=== PATIENT | female | born 1960 | race Caucasian/White ===

== ENCOUNTER 2020-05-15 16:20 | Outpatient (REF) | payer BC, SELFPAY ==
--- NOTE | 2020-05-15 16:25 | XR_ITS ---
EXAMINATION: XR CHEST CLINICAL INFORMATION: R06.2 - Wheezing COMPARISON: Chest radiographs 12/13/2019, 02/19/2019, CT abdomen 08/13/2018 TECHNIQUE: 2 views of the chest were obtained. FINDINGS: There is questionable opacity left base lateral to left cardiac border. There may be contribution from nipple shadow in this area. The lungs otherwise clear. The vascularity is normal. The costophrenic sulci are well-defined. The heart is normal in size. The hilar and mediastinal contours are normal. Bony structures show pectus excavatum and vertebral augmentation lower thoracic spine. There is levocurvature lumbar spine. XR/XR chest 2V IMPRESSION: 1. Questionable opacity left base possibly with contribution from nipple shadow. Suggest follow-up chest in 4 weeks to include nipple markers to confirm clearing. 2. Otherwise, no hyperinflation, lobar or segmental airspace consolidation, or effusion.
== END 2020-05-15 16:21 | disposition home or self-care (01) ==
LOC: HO.HMGCX 16:20
PROVIDERS: PCP Family Medicine; Visit Provider Nurse Practitioner Family
DX: R06.2 Wheezing (principal); Z20.828 Contact with and (suspected) exposure to other viral communicable diseases
CPT/HCPCS: 71046; U0003

== ENCOUNTER 2020-05-31 | Outpatient (REF) | payer BC, SELFPAY | END 2020-05-31 00:01 | disposition home or self-care (01) | LOC: HO.LNP | PROVIDERS: Visit Provider Family Medicine | DX: Z20.822 Contact with and (suspected) exposure to COVID-19 (principal) | CPT/HCPCS: 36415; U0003 ==

== ENCOUNTER 2020-06-08 12:09 | Outpatient (REF) | payer BC, SELFPAY ==
--- NOTE | 2020-06-08 12:44 | XR_ITS ---
EXAMINATION: XR CHEST CLINICAL INFORMATION: Questionable opacity left base, possibly nipple shadow. Follow-up. COMPARISON: Chest radiographs 05/15/2020, 12/13/2019 TECHNIQUE: PA and lateral views of the chest are obtained. Nipple markers are positioned on each side. FINDINGS: The lungs are clear. Opacity left base is no longer demonstrated. The vascularity is normal. The costophrenic sulci are well-defined. The heart is normal in size. The hilar and mediastinal contours and visualized bony structures are stable. XR/XR chest 2V IMPRESSION: Lungs clear. No persistent opacity left base.
== END 2020-06-08 12:10 | disposition home or self-care (01) ==
LOC: HO.HMGCX 12:09
PROVIDERS: PCP Family Medicine; Visit Provider Family Medicine
DX: R93.89 Abnormal findings on diagnostic imaging of other specified body structures (principal)
CPT/HCPCS: 71046

== ENCOUNTER 2020-08-30 14:08 | Outpatient (REF) | payer BC, SELFPAY ==
--- NOTE | ~2020-08-30 | XR_ITS ---
EXAMINATION: XR CHEST CLINICAL INFORMATION: Bronchitis COMPARISON: Chest radiographs 06/08/2020, 05/15/2020 TECHNIQUE: 2 views of the chest were obtained. FINDINGS: Lungs are clear. There is no airspace consolidation, groundglass opacity, or effusion. The heart is normal in size. The hilar and mediastinal contours are normal. The bony structures are stable. Again, there is prior vertebral augmentation lower thoracic spine and mild stable loss of height midthoracic vertebral body. XR/XR chest 2V IMPRESSION: Lungs clear. No acute intrathoracic disease.
== END 2020-08-30 14:09 | disposition home or self-care (01) ==
LOC: HO.HMGCX 14:08
PROVIDERS: Visit Provider Hospitalist
DX: J40 Bronchitis, not specified as acute or chronic (principal)
CPT/HCPCS: 71046

== ENCOUNTER 2020-10-10 13:14 | Outpatient (REF) | payer BC, SELFPAY ==
--- NOTE | ~2020-10-10 | CT_ITS ---
EXAMINATION: CT HEAD WITHOUT CONTRAST CLINICAL INFORMATION: Headache. COMPARISON: CT brain 08/13/2018. TECHNIQUE: Contiguous axial imaging was performed from the skull base to vertex without intravenous administration of contrast. This CT examination was performed using dose optimization techniques as appropriate, variously including the following: *Automated exposure control *Adjustment of mA and/or kV according to patient size (this includes techniques or standardized protocols for targeted exams where dose is matched to indication/reason for exam; i.e. extremities or head) *Use of iterative reconstruction technique DLP: 826 mGy-cm FINDINGS: There is no acute intra-axial, extra-axial bleed, masses or midline shift. There is right frontoparietal temporal lobe encephalomalacia with ex-vacuo dilatation of right lateral ventricle. No recurrent acute infarction is visualized. The right lateral ventricle is enlarged. The left ventricle size is normal. There is no edema. The posterior fossa appears unremarkable. There is no abnormal attenuation within the brain parenchyma. The osseous structures and soft tissues are normal. The mastoid air cells and visualized portions of the paranasal sinuses are well aerated. CT/CT head/brain wo con IMPRESSION: No acute intracranial process seen. Right frontoparietal temporal lobe encephalomalacia with ex-vacuo dilatation of right lateral ventricle. 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
== END 2020-10-10 13:15 | disposition home or self-care (01) ==
LOC: HO.CT 13:14
PROVIDERS: PCP Family Medicine; Visit Provider Family Medicine
DX: S09.90XA Unspecified injury of head, initial encounter (principal); R51.9 Headache, unspecified; R41.82 Altered mental status, unspecified
CPT/HCPCS: 70450

== ENCOUNTER 2020-11-01 18:21 | Emergency (ER) | payer BC, SELFPAY ==
--- NOTE | ~2020-11-01 | XR_ITS ---
EXAMINATION: XR FACIAL BONES CLINICAL INFORMATION: Fall. Left orbital laceration. COMPARISON: Facial bones 06/28/2016 TECHNIQUE: 4 views of the facial bones were obtained. FINDINGS: No acute abnormality. No fracture of the facial bones. Visualized orbits are intact. Normal aeration of paranasal sinuses. Nasal bones and maxillary spines and zygomatic arches are normal. XR/XR facial bones min 3V IMPRESSION: No acute abnormality of the facial bones.
[2020-11-01 18:27] VITALS: BP 152/91; PULSE 73; RESP 18; TEMP 36.6; O2SAT 97; BMI 20.3
--- NOTE | 2020-11-01 20:04 | PC.NURSE ---
pt taken to rad, steri strips 3 steri strips intact, no bleed noted. pt aox3 no distress,
--- NOTE | 2020-11-01 20:34 | ED.WOUNDLAC ---
HPI - Wound/Laceration General Chief Complaint: Wound/Laceration Stated Complaint: LAC (FALL) Source: patient Mode of arrival: wheelchair Limitations: no limitations History of Present Illness HPI narrative: 60-year-old female presents with an accidental injury to the left lateral orbital after slipping out of a chair and hitting her face. She does have a small laceration to the left side of her face, and a black eye. She states that she falls quite a bit, primarily uses a wheelchair for mobility. She does not report any prodromal symptoms, denies chest pain pressure, palpitations, shortness of breath, shortness breath on exertion, abdominal pain, abdominal distention, dysuria, hematuria, fevers, chills, diarrhea, or any other concerning symptoms. Onset (ago): hour(s) (Within the hour of arrival) Location: face Place: home Patient tetanus UTD: Yes Context: accidental Associated symptoms: pain Related Data Home Medications Medication Instructions Recorded Confirmed amlodipine 5 mg tablet 5 mg PO DAILY 05/01/20 08/30/20 atorvastatin 40 mg tablet mg PO 05/01/20 08/30/20 carbamazepine 400 mg 400 mg PO BID 05/01/20 08/30/20 tablet,extended release,12 hr lisinopril 20 mg tablet 20 mg PO DAILY 05/01/20 08/30/20 terazosin 2 mg capsule 2 mg PO BEDTIME 05/01/20 08/30/20 Previous Rx's Medication Instructions Recorded paroxetine HCl 10 mg tablet 10 mg PO DAILY 90 Days #90 tab 04/27/20 albuterol sulfate 90 mcg/actuation 1 inh INHALATION Q6H PRN #1 ea 05/15/20 breath activated powder inhaler,sensor azithromycin 500 mg tablet 500 mg PO DAILY 3 Days #3 tab 05/15/20 azithromycin 250 mg tablet See Rx Instructions PO .COMPLEX #6 05/16/20 tab azithromycin 250 mg tablet See Rx Instructions PO .COMPLEX #6 08/30/20 tab prednisone 20 mg tablet 20 mg PO .COMPLEX #18 tab 08/30/20 ropinirole 2 mg tablet 2 mg PO BEDTIME 90 Days #90 tab 09/07/20 hydromorphone 4 mg tablet 4 mg PO TID PRN 30 Days #90 tab 10/04/20 lorazepam 2 mg tablet 2 mg PO DAILY PRN #30 tab 10/04/20 pregabalin 100 mg capsule 200 mg PO Q12H 30 Days #120 cap 10/04/20 pregabalin 200 mg capsule 100 mg PO Q8H 30 Days #45 cap 10/04/20 fluoxetine 40 mg capsule 40 mg PO QAM #90 cap 10/26/20 Allergies Allergy/AdvReac Type Severity Reaction Status Date / Time clonidine Allergy Unknown Rash Verified 11/01/20 18:32 fentanyl [FENTANYL] Allergy Unknown UNKNOWN Verified 11/01/20 18:32 meperidine [Demerol] Allergy Unknown rash Verified 11/01/20 18:32 morphine [MORPHINE] Allergy Unknown UNKNOWN, Verified 11/01/20 18:32 chest pressure phenytoin [Dilantin] Allergy Unknown rash Verified 11/01/20 18:32 remifentanil Allergy Unknown RAsh Verified 11/01/20 18:32 sevoflurane Allergy Unknown RAsh Verified 11/01/20 18:32 Sulfa (Sulfonamide Allergy Unknown UNKNOWN, Verified 11/01/20 18:32 Antibiotics) rash [SULFA(SULFONAMIDE ANTIBIOTICS)] From DEMEROL Allergy Unknown UNKNOWN Uncoded 08/30/20 14:12 From DILANTIN Allergy Unknown UNKNOWN Uncoded 08/30/20 14:12 Lactated Ringers AdvReac Unknown contraindicated Uncoded 08/30/20 14: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 Review of Systems Review of Systems: Constitutional: No Fever, No Chills ENT/Mouth: No Ear Pain, No Hoarseness, No sore throat Eyes: Left Eye Pain ecchymosis and swelling, No Redness, No Foreign Body Cardiovascular: No Chest Pain, No SOB Respiratory: No Cough, No Dyspnea Gastrointestinal: No Nausea, No Vomiting, No Diarrhea, No abdominal Pain Genitourinary: No Dysuria, No Hematuria Musculoskeletal: positive joint pain, No Myalgias, No Joint Swelling Skin: Positive laceration to left lateral orbital, No rash Neuro: No Weakness, No Numbness, No Paresthesias, No Loss of Consciousness, No Dizziness, No Headache Psych: No Anxiety/Panic, No Depression Heme/Lymph: no easy bruising, no Lymphadenopathy Endocrine: No Polyuria, No Polydipsia Yes all other systems are reviewed and are negative PMFSH Past Medical History Attestation statement: The following information was validated with the patient. Source: old records reviewed Surgical History History of arterial bypass of lower extremity History of brain surgery History of foot surgery Social History Social History Alcohol intake: current Alcohol intake frequency: other Alcohol type: wine Advance Directives: No Advance Directives Information Provided: Yes Physical Exam Vital Signs: Vital Signs: Last Vital Signs Temp 97.8 F 11/01/20 18:27 Pulse 73 11/01/20 18:27 Resp 18 11/01/20 18:27 BP 152/91 H 11/01/20 18:27 Pulse Ox 97 11/01/20 18:27 Body Mass Index 20.3 Appearance: Alert. Oriented X3. No acute distress. Head: Normal external exam. Normocephalic. Atraumatic. No Rudolph signs noted. No raccoon eyes noted Eyes: PERRLA. EOMI. Conjunctiva and sclera normal. Left upper and lower eyelid have ecchymosis with laceration to the lateral aspect of the orbital. ENT: TM's Normal. Pharynx normal. Uvula midline. Moist mucous membranes. No trismus noted. No drooling noted. No muffled voice noted. Neck: Normal inspection. Neck supple. No adenopathy. Thyroid Normal. No meningeal signs. No neck mass noted. CVS: Normal heart rate and rhythm. Heart sound normal. No murmurs noted. Pulses equal to all extremities. Respiratory: No respiratory distress. Painless inspiration. Breath sounds normal. No wheezes/rales/rhonchi noted. Chest nontender. No accessory muscle usage noted or decreased air movement noted. Abdomen: Soft and nontender. Bowel sounds normal in all 4 quadrants. No distention noted. No organomegaly noted. No visible injury noted. Back: No CVA tenderness. Full range of motion noted. Skin: Skin warm and dry. Normal skin color. Normal skin turgor. No rashes/lesions/lacerations noted. Extremities: No lower extremity edema. Extremities exhibit normal range of motion. Extremities nontender. Neuro: cranial nerves 2-12 intact, no focal neural deficits, strength 5/5 to all extremities, No motor deficit. No sensory deficit. Course Course Course Narrative: 6-year-old female with past medical history of CVA, craniotomy, bi femoral bypass, hypertension, hyperlipidemia, mitochondrial disease, primarily mobile with wheelchair presents with fall and left orbital laceration. Patient states that she bumped her head while slipping out of her chair. She has had multiple falls, does not report any prodromal symptoms. Will order facial bones x-ray and Steri-Strips laceration. Tdap was updated last month, patient states that she did fall last month. Do not suspect any foul play or abuse, patient does have a significant history of brain injury, CVA, and craniotomy with mitochondrial disease. Facial bones x-rays negative for acute findings. Wound cleaned and irrigated with copious amounts of saline under sterile procedure. Three Steri-Strips applied with benzoin ointment. Patient does understand discharge instructions, and agrees to plan of care to discharge home. MDM - Wound/Laceration Differential Diagnosis Differential diagnosis: Likely laceration Medical Records Attestation: I reviewed the patient's medical records. Imaging Data Facial bones x-ray: Attestation: I personally reviewed and interpreted this imaging study as follows: Radiologist's impression: EXAMINATION: XR FACIAL BONES CLINICAL INFORMATION: Fall. Left orbital laceration. COMPARISON: Facial bones 06/28/2016 TECHNIQUE: 4 views of the facial bones were obtained. FINDINGS: No acute abnormality. No fracture of the facial bones. Visualized orbits are intact. Normal aeration of paranasal sinuses. Nasal bones and maxillary spines and zygomatic arches are normal. XR/XR facial bones min 3V IMPRESSION: No acute abnormality of the facial bones. Discharge Plan Discharge Clinical Impression: Laceration, Skin wound closed with sterile strip Fall Qualifiers: Encounter type: initial encounter Qualified Code(s): W19.XXXA - Unspecified fall, initial encounter Patient Disposition: Home, Self-Care Instructions: Skin Adhesive Care (ED), Fall Prevention (ED), Facial Laceration (ED) Additional Instructions: You were evaluated for injuries sustained from a fall. We placed 3 Steri-Strips to the laceration above her left eyebrow. Please keep the Steri-Strips in place until they fall off on their own. Your facial bones x-ray is negative for fracture or acute findings. Please follow-up with primary care physician this week. Use Tylenol or Motrin as needed for pain management. Thank you for choosing this emergency department for evaluation. Please follow-up with primary care physician as needed. Return to the emergency department for any new, concerning, or worsening symptoms. Prescriptions: No Action paroxetine HCl [Paxil] 10 mg tablet 10 mg PO DAILY 90 Days Qty: 90 RF: 4 azithromycin 250 mg tablet See Rx Instructions PO .COMPLEX Qty: 6 RF: 0 ropinirole 2 mg tablet 2 mg PO BEDTIME 90 Days Qty: 90 RF: 2 hydromorphone [Dilaudid] 4 mg tablet 4 mg PO TID PRN (Reason: pain) 30 Days Qty: 90 RF: 0 lorazepam 2 mg tablet 2 mg PO DAILY PRN (Reason: anxiety) Qty: 30 RF: 0 pregabalin [Lyrica] 100 mg capsule 200 mg PO Q12H 30 Days Qty: 120 RF: 0 pregabalin [Lyrica] 200 mg capsule 100 mg PO Q8H 30 Days Qty: 45 RF: 1 fluoxetine 40 mg capsule 40 mg PO QAM Qty: 90 RF: 2 lisinopril 20 mg tablet 20 mg PO DAILY RF: 0 atorvastatin 40 mg tablet PO RF: 0 carbamazepine 400 mg tablet extended release 12 hr 400 mg PO BID RF: 0 amlodipine 5 mg tablet 5 mg PO DAILY RF: 0 terazosin 2 mg capsule 2 mg PO BEDTIME RF: 0 azithromycin 500 mg tablet 500 mg PO DAILY 3 Days Qty: 3 RF: 0 Proair Digihaler 90 mcg/actuation aero powdr breath act w/sensor 1 inh inhalation Q6H PRN (Reason: shortness of breath or wheezing) Qty: 1 RF: 0 prednisone 20 mg tablet 20 mg PO .COMPLEX Qty: 18 RF: 0 azithromycin 250 mg tablet See Rx Instructions PO .COMPLEX Qty: 6 RF: 0 Prevnar 13 (PF) 0.5 mL syringe 0.5 ml IM ONCE Qty: 0.5 RF: 0 Interventions: ED Discharge Assessment Last Done: 11/01/20 21:12 Discharge Date/Time: 11/01/20 20:45
== END 2020-11-01 20:45 | disposition home or self-care (01) ==
PROVIDERS: Emergency Provider Emergency Medicine Emergency Medical Services; PCP Family Medicine
DX: S01.112A Laceration without foreign body of left eyelid and periocular area, initial encounter (principal); I10 Essential (primary) hypertension; W05.0XXA Fall from non-moving wheelchair, initial encounter; Y93.9 Activity, unspecified; Y92.9 Unspecified place or not applicable; Y99.9 Unspecified external cause status; Z86.73 Personal history of transient ischemic attack (TIA), and cerebral infarction without residual deficits; Z99.3 Dependence on wheelchair; Z79.899 Other long term (current) drug therapy
CPT/HCPCS: 70150; 99283

== ENCOUNTER 2020-11-19 17:31 | Inpatient (IN) | payer MEDICARE, BC, SELFPAY ==
--- NOTE | ~2020-11-19 | MR_ITS ---
EXAMINATION: MR BRAIN WITHOUT CONTRAST CLINICAL INFORMATION: TIA. COMPARISON: Brain MRI dated 05/01/2016. TECHNIQUE: Multiplanar, multisequence imaging of the brain was performed without contrast. FINDINGS: No diffusion abnormalities are identified to suggest an acute infarct. No hydrocephalus. No mass effect or midline shift is seen. Extensive encephalomalacia in the right cerebral hemisphere again evident with ex vacuo dilatation of the right lateral ventricle. Surrounding gliosis noted. Right-sided craniotomy changes present. No extra-axial fluid collections are seen. Wallerian degeneration affects the right aspect of the brainstem with small vessel ischemic changes in the kylie. The cerebellum is normal. Chronic volume loss in the body of the corpus callosum. Focal encephalomalacia in the right occipital lobe. Chronic hemosiderin staining present in the right basal ganglia and right cerebral hemisphere at sites of encephalomalacia. The craniovertebral junction, marrow signal, and remaining midline structures are normal. The major intracranial flow voids at the level of the [place] are preserved. The dural venous sinus flow voids are maintained. The mastoid air cells and paranasal sinuses are well aerated. MR/MR head/brain wo con IMPRESSION: Extensive chronic encephalomalacia and gliosis in the right cerebral hemisphere with ex vacuo dilatation of the right lateral ventricle and associated hemosiderin staining. No acute intracranial process.
--- NOTE | ~2020-11-19 | CT_ITS ---
EXAMINATION: CT HEAD WITHOUT CONTRAST (STROKE PROTOCOL) CLINICAL INFORMATION: Stroke protocol. COMPARISON: None TECHNIQUE: Contiguous axial imaging was performed from the skull base to vertex without intravenous administration of contrast. This CT examination was performed using dose optimization techniques as appropriate, variously including the following: *Automated exposure control *Adjustment of mA and/or kV according to patient size (this includes techniques or standardized protocols for targeted exams where dose is matched to indication/reason for exam; i.e. extremities or head) *Use of iterative reconstruction technique DLP: 756 mGy-cm FINDINGS: There is prominent right frontoparietal and temporal lobe encephalomalacia with ex vacuo dilatation of the right lateral ventricle, appearing similar to previous. No acute infarction is evident by CT. No hemorrhagic conversion is seen. No acute intracranial hemorrhage is identified. No extra-axial fluid collections are seen. No abnormal mass effect or midline shift is seen. No evidence of acute edematous territorial infarction. No acute calvarial fracture. Mild microangiopathic changes in the deep white matter. The mastoid air cells and visualized portions of the paranasal sinuses are well aerated. CT/CT head for stroke IMPRESSION: No evidence of acute territorial infarction or intracranial hemorrhage. Right frontoparietal and temporal lobe encephalomalacia from old infarction, with ex vacuo dilatation of the right lateral ventricle, similar to previous. This critical result was discussed with BAYRON Lloyd at 6:20 PM on 11/19/2020. It was ascertained that the content and urgency of the report was understood at the time of direct communication.
--- NOTE | ~2020-11-19 | XR_ITS ---
EXAMINATION: XR CHEST CLINICAL INFORMATION: Slurred speech. Left leg weakness. COMPARISON: X-ray 08/30/2020 TECHNIQUE: Frontal view of the chest was obtained. FINDINGS: The cardiomediastinal silhouette is within normal limits. The lungs are well expanded. There is no focal consolidation, edema, or effusion. No pneumothorax. No acute osseous abnormality. XR/XR chest 1V IMPRESSION: No evidence of acute process.
--- NOTE | ~2020-11-19 | CT_ITS ---
EXAMINATION: CTA OF THE HEAD AND NECK CLINICAL INFORMATION: Slurred speech and left leg weakness. COMPARISON: Head CT from 10/10/2020. TECHNIQUE: Test bolus sequences followed by intravenous administration 70 mL of Omnipaque 350. Helical imaging was performed in the axial plane from the mediastinum to the skull vertex. Delayed postcontrast imaging of the head was also performed. The data was processed at the ultrasound technologist sonographer's workstation for generation of MIP sequences. Three-dimensional volume rendered reformatted images were also generated at an offline 3-D workstation. Stenoses are assessed in accordance with NASCET criteria unless otherwise indicated. This CT examination was performed using dose optimization techniques as appropriate, variously including the following: *Automated exposure control *Adjustment of mA and/or kV according to patient size (this includes techniques or standardized protocols for targeted exams where dose is matched to indication/reason for exam; i.e. extremities or head) *Use of iterative reconstruction technique DLP: 756 mGy-cm. FINDINGS: CTA neck: The imaged aortic arch and origins of the great vessels are normal. The common carotid arteries are widely patent. The carotid bifurcations are patent. The cervical internal carotid arteries are normal. The vertebral arteries opacify normally and are of normal caliber. The soft tissues of the neck are unremarkable. Moderate lower cervical spondylosis and reversal of the normal cervical lordosis. Patchy subsegmental atelectatic changes in the lungs with mosaic attenuation. CTA head: The intradural vertebral arteries and basilar artery are normal. The posterior cerebral arteries are widely patent. The internal carotid arteries are of normal caliber. The [place]ST[place] and MCA vascular complexes bilaterally are normal. The venous sinuses opacify normally. CT/CT angio head neck stroke IMPRESSION: No vessel occlusion or significant stenosis in the cervical or intracranial vasculature. Imaging findings reported to BAYRON George at 6:55 PM on 11/19/2020.
[2020-11-19 17:45] VITALS: BP 179/108; BP 183/92; PULSE 66; PULSE 68; RESP 16; TEMP 36.7; O2SAT 96; O2SAT 98; BMI 21.7
--- NOTE | 2020-11-19 17:47 | ECG_ITS ---
Test Reason : WEAKNESS Blood Pressure : / mmHG Vent. Rate : 062 BPM Atrial Rate : 062 BPM P-R Int : 150 ms QRS Dur : 078 ms QT Int : 400 ms P-R-T Axes : 063 019 054 degrees QTc Int : 406 ms Normal sinus rhythm Voltage criteria for left ventricular hypertrophy Junctional ST depression, probably normal Abnormal ECG When compared with ECG of 13-AUG-2018 06:01, No significant change was found Referred By: Jasmyne George Electronically Signed By:BARRIE GRECO MD
[2020-11-19 18:03] LABS: Glucose, Whole Blood 80 mg/dL (60-115)
[2020-11-19 18:05] LABS: Prothrombin Time Whole Bld POC 13.7 sec (11.1-13.5); ~PT, ~INR - Anti Coag Clinic 1.1 (0.9-1.1)
[2020-11-19 18:12] LABS: MANUAL DIFF FLAG NO
[2020-11-19 18:14] LABS: Basophils Percent Auto 0.5 % (0-2); Eosinophils Percent Auto 0.7 % (0-4); Hemoglobin 12.4 g/dl (12.0-16.0); Lymphocytes Absolute Auto 2.5 X10*3/uL (1.2-4.9); Lymphocytes Percent Auto 58.5 % (20-40); Mean Corpuscular HGB Conc 34.4 g/dl (31.0-35.0); Mean Corpuscular Hemoglobin 32.7 pg (27.0-33.0); Mean Platelet Volume 9.6 fL (9.4-12.3); Monocytes Absolute Auto 0.4 X10*3/uL (0.1-1.2); Neutrophils Absolute Auto 1.3 X10*3/uL (2.0-8.3); Neutrophils Percent Auto 30.3 % (45-73); Platelet Count 249 X10*3/uL (160-400); Red Blood Count 3.79 X10*6/uL (4.20-5.50); Red Cell Distribution Width 11.8 % (11.0-16.0); White Blood Count 4.3 X10*3/uL (4.8-10.8)
--- NOTE | 2020-11-19 18:14 | ED_ITS ---
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 Her friend is the one who noticed. Her friend also reports that she sent her a text message which did not make any sense therefore her friend called her and told him that she could be bleeding in her brain and had him call EMS to bring her to the emergency department for further evaluation treatment. Patient reports her symptoms resolved prior to arrival. Onset (ago): hour(s) ( 3 hours prior to arrival) Last Observed Normal: 15:00 Timing confirmed by: spouse and other (friend over the phone ) Location: speech and left leg (worsening weakness) History of same: Yes Severity: mild Quality: other ( improved prior to arrival) Relieving factors: none Exacerbating factors: none Context: sudden onset On Anticoagulants: No Associated symptoms: denies other symptoms Treatments Prior to Arrival: none Related Data Home Medications Medication Instructions Recorded Confirmed lisinopril 20 mg tablet 20 mg PO DAILY 05/01/20 11/19/20 terazosin 2 mg capsule 2 mg PO BEDTIME 05/01/20 11/19/20 amlodipine 1 tab PO DAILY 11/19/20 11/19/20 ammonium lactate 1 appl TOPICAL BID 11/19/20 11/19/20 estradiol [Estring] 1 ea VAGINAL [id number] 11/19/20 11/19/20 Previous Rx's Medication Instructions Recorded paroxetine HCl 10 mg tablet 10 mg PO DAILY 90 Days #90 tab 04/27/20 albuterol sulfate 90 mcg/actuation 1 inh INHALATION Q6H PRN #1 ea 05/15/20 breath activated powder inhaler,sensor ropinirole 2 mg tablet 2 mg PO BEDTIME 90 Days #90 tab 09/07/20 lorazepam 2 mg tablet 2 mg PO DAILY PRN #30 tab 10/04/20 fluoxetine 40 mg capsule 40 mg PO QAM #90 cap 10/26/20 esomeprazole magnesium 40 mg 40 mg PO DAILY 90 Days #90 cap 11/06/20 capsule,delayed release hydromorphone 4 mg tablet 4 mg PO TID PRN 30 Days #90 tab 11/07/20 pregabalin 100 mg capsule 200 mg PO Q12H 30 Days #120 cap 11/07/20 pregabalin 200 mg capsule 100 mg PO Q8H 30 Days #45 cap 11/07/20 atorvastatin 40 mg tablet 40 mg PO DAILY #90 tab 11/16/20 carbamazepine 400 mg 400 mg PO BID 90 Days #180 tab 11/16/20 tablet,extended release,12 hr Allergies Allergy/AdvReac Type Severity Reaction Status Date / Time clonidine Allergy Unknown Rash Verified 11/19/20 17:45 fentanyl [FENTANYL] Allergy Unknown UNKNOWN Verified 11/19/20 17:45 meperidine [Demerol] Allergy Unknown rash Verified 11/19/20 17:45 morphine [MORPHINE] Allergy Unknown UNKNOWN, Verified 11/19/20 17:45 chest pressure phenytoin [Dilantin] Allergy Unknown rash Verified 11/19/20 17:45 remifentanil Allergy Unknown RAsh Verified 11/19/20 17:45 sevoflurane Allergy Unknown RAsh Verified 11/19/20 17:45 Sulfa (Sulfonamide Allergy Unknown UNKNOWN, Verified 11/19/20 17:45 Antibiotics) rash [SULFA(SULFONAMIDE ANTIBIOTICS)] From DEMEROL Allergy Unknown UNKNOWN Uncoded 08/30/20 14:12 From DILANTIN Allergy Unknown UNKNOWN Uncoded 08/30/20 14:12 Lactated Ringers AdvReac Unknown contraindicated Uncoded 08/30/20 14: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 Review of Systems Review of Systems: Constitutional : No Fever, No Chills, No Night Sweats, No Fatigue, No Malaise ENT/Mouth : No Ear Pain, No Nasal Congestion, No Sinus Pain, No sore throat, No Rhinorrhea Eyes: No Eye Pain, No Swelling, No Redness, No Foreign Body, No Discharge, No Vision Changes Cardiovascular : No Chest Pain, No SOB, No Dyspnea on Exertion, No Orthopnea, No Palpitations Respiratory : No Cough, No Sputum, No Wheezing, No Dyspnea Gastrointestinal : No Nausea, No Vomiting, No Diarrhea, No Constipation, No abdominal Pain, No Hematochezia, No Melena Genitourinary : No Dysuria, No Urinary Frequency, No Urinary Incontinence, No Ur gency, No Flank Pain Musculoskeletal : No joint pain, No Myalgias Skin : No lacerations Neuro : Positive resolved slurred speech and left leg weakness, No Numbness, No Paresthesias, No Loss of Consciousness, No Dizziness, No Headache Yes all other systems are reviewed and are negative [facility] Past Medical History Attestation statement: The following information was validated with the patient. Medical History AVM (arteriovenous malformation) brain HTN (hypertension) Mitochondrial complex 1 deficiency Seizures Surgical History History of arterial bypass of lower extremity History of brain surgery History of foot surgery Social History Social History Alcohol intake: never Patient Tobacco Use Status: Never used Tobacco Use of substances other than those prescribed or required for medical reasons: No Advance Directives: No Advance Directives Information Provided: Yes Patient : No Physical Exam Vital Signs: Vital Signs: Last Vital Signs Temp 98.1 F 11/19/20 20:58 Pulse 57 11/19/20 20:58 Resp 18 11/19/20 20:58 BP 159/88 H 11/19/20 20:58 Pulse Ox 96 11/19/20 20:58 Body Mass Index 21.7 Vital signs have been reviewed as normal and appeared to be correct. Blood pressure Hypertensive 183/92. Heart rate normal. Respiration rate normal. Temperature normal. Oxygen saturation normal. Appearance: Alert. Oriented X3. No acute distress. Head: Normal external exam. Normocephalic. Atraumatic. Able to rotate head bilaterally. Eyes: PERRLA. EOMI. No nystagmus noted. Conjunctiva and sclera normal. Eyelids normal. Corneal reflex normal. ENT: EAC normal. TM's Normal. Hearing normal. Pharynx normal. Uvula midline. tongue midline. Moist mucous membranes. No trismus noted. No drooling noted. No muffled voice noted. No nystagmus noted. Neck: Normal inspection. Neck supple. FROM. No adenopathy. Trachea midline. Thyroid Normal. No meningeal signs. No neck mass noted. CVS: Normal heart rate and rhythm. Heart sound normal. No murmurs noted. Pulses normal throughout. Respiratory: No respiratory distress. Painless inspiration. Breath sounds normal. No wheezes/rales/rhonchi noted. Chest nontender. No accessory muscle usage noted or decreased air movement noted. Abdomen: Soft and nontender. Bowel sounds normal in all 4 quadrants. No distention noted. No organomegaly noted. No visible injury noted. Back: Full range of motion noted. Skin: Skin warm and dry. Normal skin color. Normal skin turgor. No rashes/lesions/lacerations noted. Extremities: No lower extremity edema. no calf tenderness noted. Extremities exhibit normal range of motion. Extremities nontender. Able to shrug shoulders bilaterally and keep up against resistance. Neuro: Oriented X 3. Contracted left upper extremity weakness and residual left leg weakness /sensory defect. No motor or sensory weakness on the right side. Reflexes to right side within normal limits. Cranial nerves II-XI intact bilaterally. Facial strength normal. Normal cognition. Speech normal. Strength 5/5 to right upper and lower extremity. No tremor noted. No fasciculations noted. No rigidity noted. Muscle tone normal To right side. No asterixis noted. [id number] test normal. Hand drop from overhead Misses face. NIHSS score 0. 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 Her friend is the one who noticed. Her friend also reports that she sent her a text message which did not make any sense therefore her friend called her and told him that she could be bleeding in her brain and had him call EMS to bring her to the emergency department for further evaluation treatment. Patient reports her symptoms resolved prior to arrival. On exam patient is alert and oriented x3. Not in any acute distress. Normal speech. Normal cognition. Baseline left-sided hemiparesis with sensory defect which patient reports is baseline. 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 Lungs CTA. CVRRR. Plan: stroke protocol Labs, CT scan of brain without contrast, CT angio of head and neck, EKG then re-evaluate. Reevaluation(s) Reevaluation #1: - Labs obtained patient without white blood cell count 4000. Mild anemia. AST 33. Alkaline phosphate 137. Otherwise all other labs within normal limits. UA with +1 blood no evidence of UTI. - CT scan of brain revealed chronic changes no acute processes noted at this time such as infarcts or hemorrhages. - Head and neck CTA negative for any vessel occlusion or significant stenosis in the cervical or intracranial vasculature. - Therefore will admit at this time to for observation possibly MRI tomorrow morning. Patient and at bedside understand agree with this plan. Time: 19:39 [facility] - Neuro Symptoms/Deficit Medical Records Attestation: I reviewed the patient's medical records. Lab Data Attestation: I reviewed the patient's lab results. Result diagrams: 11/19/20 18:05 11/19/20 18:05 Labs: Lab Results 11/19/20 11/19/20 11/19/20 Range/Units 17:58 17:58 18:05 WBC (4.8-10.8) X10*3/uL RBC (4.20-5.50) X10*6/uL Hgb (12.0-16.0) g/dl Hct (37-47) % MCV (80-98) fL MCH (27.0-33.0) pg MCHC (31.0-35.0) g/dl RDW (11.0-16.0) % Plt Count (160-400) X10*3/uL MPV (9.4-12.3) fL Immature Gran % (Auto) (0.0-0.4) % Neut % (Auto) (45-73) % Lymph % (Auto) (20-40) % Garrett % (Auto) (2-11) % Eos % (Auto) (0-4) % Baso % (Auto) (0-2) % Lymph # (Auto) (1.2-4.9) X10*3/uL Garrett # (Auto) (0.1-1.2) X10*3/uL Eos # (Auto) (0.0-0.4) X10*3/uL Baso # (Auto) (0.0-0.2) X10*3/uL Abs Immat Gran (auto) (0.00-0.03) X10*3/uL Absolute Neuts (auto) (2.0-8.3) X10*3/uL Absolute Nucleated RBC (0.0-0.012) X10*3/uL Nucleated RBC % (auto) (0.0-0.2) /100WBC PT (9.9-13.0) SEC Whole Blood PT 13.7 H (11.1-13.5) sec INR (0.9-1.1) Whole Blood INR 1.1 (0.9-1.1) APTT (24.1-38.0) SEC Sodium (135-145) mmol/L Potassium (3.3-5.1) mmol/L Chloride (96-108) mmol/L Carbon Dioxide (22-29) mmol/L Anion Gap (12-20) BUN (9-16) mg/dL Creatinine (0.5-1.4) mg/dL Estim Creat Clear Calc Estimated GFR POC Glucose 80 (60-115) mg/dL Random Glucose (60-115) mg/dL Calcium (8.4-10.2) mg/dL Magnesium 2.0 (1.6-2.6) mg/dL Total Bilirubin (0.0-1.0) mg/dL AST (5-31) U/L ALT (0-31) U/L Alkaline Phosphatase (39-117) U/L Troponin I High Sens (<3.5-17.0) ng/L Total Protein (6.5-8.0) g/dL Albumin (3.5-5.0) g/dL Urine Color Urine Appearance Urine pH (5.0-8.0) Ur Specific [place] (1.005-1.025) Urine Protein (NEG-TRACE) MG/DL Urine Glucose (UA) (NEG) MG/DL Urine Ketones (NEG) MG/DL Urine Blood (NEG) Urine Nitrite (NEG) Ur Leukocyte Esterase (NEG) Urine RBC (0) /HPF Urine WBC (0-4) /HPF Ur Squamous Epith Cells /LPF Urine Bacteria /LPF 11/19/20 11/19/20 11/19/20 Range/Units 18:05 18:05 18:05 WBC 4.3 L (4.8-10.8) X10*3/uL RBC 3.79 L (4.20-5.50) X10*6/uL Hgb 12.4 (12.0-16.0) g/dl Hct 36.0 L (37-47) % MCV 95.0 (80-98) fL MCH 32.7 (27.0-33.0) pg MCHC 34.4 (31.0-35.0) g/dl RDW 11.8 (11.0-16.0) % Plt Count 249 (160-400) X10*3/uL MPV 9.6 (9.4-12.3) fL Immature Gran % (Auto) 0.0 (0.0-0.4) % Neut % (Auto) 30.3 L (45-73) % Lymph % (Auto) 58.5 H (20-40) % Garrett % (Auto) 10.0 (2-11) % Eos % (Auto) 0.7 (0-4) % Baso % (Auto) 0.5 (0-2) % Lymph # (Auto) 2.5 (1.2-4.9) X10*3/uL Garrett # (Auto) 0.4 (0.1-1.2) X10*3/uL Eos # (Auto) 0.0 (0.0-0.4) X10*3/uL Baso # (Auto) 0.0 (0.0-0.2) X10*3/uL Abs Immat Gran (auto) 0.00 (0.00-0.03) X10*3/uL Absolute Neuts (auto) 1.3 L (2.0-8.3) X10*3/uL Absolute Nucleated RBC 0.000 (0.0-0.012) X10*3/uL Nucleated RBC % (auto) 0.0 (0.0-0.2) /100WBC PT 11.9 (9.9-13.0) SEC Whole Blood PT (11.1-13.5) sec INR 1.0 (0.9-1.1) Whole Blood INR (0.9-1.1) APTT 29.5 (24.1-38.0) SEC Sodium 138 (135-145) mmol/L Potassium 4.0 (3.3-5.1) mmol/L Chloride 102 (96-108) mmol/L Carbon Dioxide 25 (22-29) mmol/L Anion Gap 15 (12-20) BUN 13 (9-16) mg/dL Creatinine 0.68 (0.5-1.4) mg/dL Estim Creat Clear Calc 85.5 Estimated GFR > 60 POC Glucose (60-115) mg/dL Random Glucose 85 (60-115) mg/dL Calcium 8.9 (8.4-10.2) mg/dL Magnesium (1.6-2.6) mg/dL Total Bilirubin 0.4 (0.0-1.0) mg/dL AST 33 H (5-31) U/L ALT 29 (0-31) U/L Alkaline Phosphatase 137 H (39-117) U/L Troponin I High Sens (<3.5-17.0) ng/L Total Protein 7.3 (6.5-8.0) g/dL Albumin 4.0 (3.5-5.0) g/dL Urine Color Urine Appearance Urine pH (5.0-8.0) Ur Specific [place] (1.005-1.025) Urine Protein (NEG-TRACE) MG/DL Urine Glucose (UA) (NEG) MG/DL Urine Ketones (NEG) MG/DL Urine Blood (NEG) Urine Nitrite (NEG) Ur Leukocyte Esterase (NEG) Urine RBC (0) /HPF Urine WBC (0-4) /HPF Ur Squamous Epith Cells /LPF Urine Bacteria /LPF 11/19/20 11/19/20 Range/Units 18:05 18:50 WBC (4.8-10.8) X10*3/uL RBC (4.20-5.50) X10*6/uL Hgb (12.0-16.0) g/dl Hct (37-47) % MCV (80-98) fL MCH (27.0-33.0) pg MCHC (31.0-35.0) g/dl RDW (11.0-16.0) % Plt Count (160-400) X10*3/uL MPV (9.4-12.3) fL Immature Gran % (Auto) (0.0-0.4) % Neut % (Auto) (45-73) % Lymph % (Auto) (20-40) % Garrett % (Auto) (2-11) % Eos % (Auto) (0-4) % Baso % (Auto) (0-2) % Lymph # (Auto) (1.2-4.9) X10*3/uL Garrett # (Auto) (0.1-1.2) X10*3/uL Eos # (Auto) (0.0-0.4) X10*3/uL Baso # (Auto) (0.0-0.2) X10*3/uL Abs Immat Gran (auto) (0.00-0.03) X10*3/uL Absolute Neuts (auto) (2.0-8.3) X10*3/uL Absolute Nucleated RBC (0.0-0.012) X10*3/uL Nucleated RBC % (auto) (0.0-0.2) /100WBC PT (9.9-13.0) SEC Whole Blood PT (11.1-13.5) sec INR (0.9-1.1) Whole Blood INR (0.9-1.1) APTT (24.1-38.0) SEC Sodium (135-145) mmol/L Potassium (3.3-5.1) mmol/L Chloride (96-108) mmol/L Carbon Dioxide (22-29) mmol/L Anion Gap (12-20) BUN (9-16) mg/dL Creatinine (0.5-1.4) mg/dL Estim Creat Clear Calc Estimated GFR POC Glucose (60-115) mg/dL Random Glucose (60-115) mg/dL Calcium (8.4-10.2) mg/dL Magnesium (1.6-2.6) mg/dL Total Bilirubin (0.0-1.0) mg/dL AST (5-31) U/L ALT (0-31) U/L Alkaline Phosphatase (39-117) U/L Troponin I High Sens < 3.5 (<3.5-17.0) ng/L Total Protein (6.5-8.0) g/dL Albumin (3.5-5.0) g/dL Urine Color YELLOW Urine Appearance CLEAR Urine pH 6.5 (5.0-8.0) Ur Specific [place] <= 1.005 (1.005-1.025) Urine Protein NEG (NEG-TRACE) MG/DL Urine Glucose (UA) NEG (NEG) MG/DL Urine Ketones NEG (NEG) MG/DL Urine Blood 1+ H (NEG) Urine Nitrite NEG (NEG) Ur Leukocyte Esterase NEG (NEG) Urine RBC 1-4 (0) /HPF Urine WBC 0-2 (0-4) /HPF Ur Squamous Epith Cells 2+ /LPF Urine Bacteria NONE /LPF Imaging Data CT scan - head: Attestation: I personally reviewed and interpreted this imaging study as follows: Radiologist's impression: FINDINGS: There is prominent right frontoparietal and temporal lobe encephalomalacia with ex vacuo dilatation of the right lateral ventricle, appearing similar to previous. No acute infarction is evident by CT. No hemorrhagic conversion is seen. No acute intracranial hemorrhage is identified. No extra-axial fluid collections are seen. No abnormal mass effect or midline shift is seen. No evidence of acute edematous territorial infarction. No acute calvarial fracture. Mild microangiopathic changes in the deep white matter. The mastoid air cells and visualized portions of the paranasal sinuses are well aerated. CT/CT head for stroke IMPRESSION: No evidence of acute territorial infarction or intracranial hemorrhage. Right frontoparietal and temporal lobe encephalomalacia from old infarction, with ex vacuo dilatation of the right lateral ventricle, similar to previous. This critical result was discussed with BAYRON Lloyd at 6:20 PM on 11/19/2020. It was ascertained that the content and urgency of the report was understood at the time of direct communication. CTA of head and neck: Attestation: I personally reviewed and interpreted this imaging study as follows: Radiologist's impression: FINDINGS: CTA neck: The imaged aortic arch and origins of the great vessels are normal. The common carotid arteries are widely patent. The carotid bifurcations are patent. The cervical internal carotid arteries are normal. The vertebral arteries opacify normally and are of normal caliber. The soft tissues of the neck are unremarkable. Moderate lower cervical spondylosis and reversal of the normal cervical lordosis. Patchy subsegmental atelectatic changes in the lungs with mosaic attenuation. CTA head: The intradural vertebral arteries and basilar artery are normal. The posterior cerebral arteries are widely patent. The internal carotid arteries are of normal caliber. The CHRISTIANA and MCA vascular complexes bilaterally are normal. The venous sinuses opacify normally. CT/CT angio head neck stroke IMPRESSION: No vessel occlusion or significant stenosis in the cervical or intracranial vasculature. Imaging findings reported to BAYRON George at 6:55 PM on 11/19/2020. ECG Data Attestation: I personally reviewed and interpreted this ECG as follows: ECG interpretation date: 11/19/20 ECG interpretation time: 17:51 Interpretation: normal sinus rhythm with a ventricular rate of 62 with a normal MD interval nonspecific ST depressions no acute ischemic changes noted today. No prior EKGs in our system to compare to error 130 when I check old system. Critical Care Time Critical Care Time Critical Care Time: Yes Total Critical Care Time: 60 Attestation: I personally attest to this time spent taking care of the patient Discharge Plan Discharge Clinical Impression: Brain TIA Prescriptions: No Action paroxetine HCl [Paxil] 10 mg tablet 10 mg PO DAILY 90 Days Qty: 90 RF: 4 ropinirole 2 mg tablet 2 mg PO BEDTIME 90 Days Qty: 90 RF: 2 lorazepam 2 mg tablet 2 mg PO DAILY PRN (Reason: anxiety) Qty: 30 RF: 0 fluoxetine 40 mg capsule 40 mg PO QAM Qty: 90 RF: 2 esomeprazole magnesium [Nexium] 40 mg capsule,delayed release(DR/EC) 40 mg PO DAILY 90 Days Qty: 90 RF: 1 hydromorphone [Dilaudid] 4 mg tablet 4 mg PO TID PRN (Reason: pain) 30 Days Qty: 90 RF: 0 pregabalin [Lyrica] 100 mg capsule 200 mg PO Q12H 30 Days Qty: 120 RF: 0 pregabalin [Lyrica] 200 mg capsule 100 mg PO Q8H 30 Days Qty: 45 RF: 1 atorvastatin 40 mg tablet 40 mg PO DAILY Qty: 90 RF: 3 carbamazepine 400 mg tablet extended release 12 hr 400 mg PO BID 90 Days Qty: 180 RF: 1 amlodipine 10 mg tablet 1 tab PO DAILY RF: 0 ammonium lactate 12 % cream 1 appl topical BID RF: 0 Estring 2 mg (7.5 mcg /24 hour) ring 1 ea vaginal [id number] RF: 0 lisinopril 20 mg tablet 20 mg PO DAILY RF: 0 terazosin 2 mg capsule 2 mg PO BEDTIME RF: 0 Proair Digihaler 90 mcg/actuation aero powdr breath act w/sensor 1 inh inhalation Q6H PRN (Reason: shortness of breath or wheezing) Qty: 1 RF: 0 Prevnar 13 (PF) 0.5 mL syringe 0.5 ml IM ONCE Qty: 0.5 RF: 0
[2020-11-19 18:19] LABS: Prothrombin Time 11.9 SEC (9.9-13.0)
[2020-11-19] MEDS: iohexoL 350 MG/ML 100 ML INFUS..BTL IV (18:19)
[2020-11-19 18:22] LABS: Partial Thromboplastin Time 29.5 SEC (24.1-38.0)
[2020-11-19 18:40] LABS: Troponin-I High Sensitivity < 3.5 ng/L (<3.5-17.0)
[2020-11-19 18:46] LABS: Alanine Aminotransferase 29 U/L (0-31); Alkaline Phosphatase 137 U/L (39-117); Anion Gap 15 (12-20); Aspartate Amino Transferase 33 U/L (5-31); Bilirubin Total 0.4 mg/dL (0.0-1.0); Blood Urea Nitrogen 13 mg/dL (9-16); Calcium 8.9 mg/dL (8.4-10.2); Carbon Dioxide 25 mmol/L (22-29); Chloride 102 mmol/L (96-108); Creatinine Clr Calc Pharmacy 85.5; Estimated Glomerular Filt Rate > 60; Glucose Random 85 mg/dL (60-115); Sodium 138 mmol/L (135-145); Total Protein 7.3 g/dL (6.5-8.0)
[2020-11-19] MEDS: 0.9 % Sodium Chloride 1,000 ML 999 ML IVCONT (18:49)
[2020-11-19 18:56] LABS: Glucose Urine UA NEG (NEG); Leukocyte Esterase Urine NEG (NEG); Nitrite Urine NEG (NEG); PH 6.5 (5.0-8.0); Specific Gravity - Urine <= 1.005 (1.005-1.025); Urine Blood 1+ (NEG); Urine Ketones NEG (NEG); Urine Protein NEG (NEG-TRACE)
[2020-11-19 18:58] LABS: Appearance Urine CLEAR; Color Urine YELLOW
[2020-11-19 19:05] LABS: Squamous Epithelial Cell Urine 2+ /LPF; WBC Urine 0-2 /HPF (0-4)
[2020-11-19 19:50] VITALS: BP 151/82; PULSE 55; RESP 12; O2SAT 97
[2020-11-19 19:51] LABS: Stroke Lab Use COMPLETE
[2020-11-19 20:58] VITALS: BP 159/88; PULSE 57; RESP 18; TEMP 36.7; O2SAT 96
[2020-11-19 21:04] LABS: MANUAL DIFF FLAG NO
[2020-11-19 21:08] LABS: Basophils Percent Auto 0.4 % (0-2); Eosinophils Percent Auto 0.6 % (0-4); Hematocrit 36.3 % (37-47); Hemoglobin 12.3 g/dl (12.0-16.0); Imm Gran Abs Auto 0.01 X10*3/uL (0.00-0.03); Imm Gran Pct Auto 0.2 % (0.0-0.4); Lymphocytes Absolute Auto 2.7 X10*3/uL (1.2-4.9); Lymphocytes Percent Auto 53.6 % (20-40); Mean Corpuscular HGB Conc 33.9 g/dl (31.0-35.0); Mean Corpuscular Hemoglobin 32.5 pg (27.0-33.0); Mean Corpuscular Volume 95.8 fL (80-98); Mean Platelet Volume 9.4 fL (9.4-12.3); Monocytes Absolute Auto 0.5 X10*3/uL (0.1-1.2); Monocytes Percent Auto 9.6 % (2-11); Neutrophils Absolute Auto 1.8 X10*3/uL (2.0-8.3); Neutrophils Percent Auto 35.6 % (45-73); Platelet Count 242 X10*3/uL (160-400); Red Blood Count 3.79 X10*6/uL (4.20-5.50); Red Cell Distribution Width 11.9 % (11.0-16.0)
[2020-11-19 22:11] VITALS: BP 159/88; PULSE 57; RESP 18; TEMP 36.7; O2SAT 96
[2020-11-19 22:25] LABS: COVID-19 Test Negative (Negative); IDNOW Serial# 9DD0AD1C
[2020-11-19] MEDS: Enoxaparin Sodium 40 MG/0.4 ML SYRINGE SUBCUT (23:12)
[2020-11-19 23:53] VITALS: BMI 20.7
[2020-11-19 23:57] VITALS: BP 126/67; PULSE 54; RESP 18; TEMP 36.3; O2SAT 92
[2020-11-19] MEDS: Acetaminophen 325 MG TABLET 650 MG PO (23:57)
[2020-11-20] VITALS (10 sets, daily range): BP systolic 120–152; BP diastolic 66–87; PULSE 55–70; RESP 18–20; TEMP 36.3–36.9; O2SAT 94–98
[2020-11-20] MEDS: Omeprazole 20 MG CAPSULE.DR PO (05:29)
[2020-11-20 06:33] LABS: MANUAL DIFF FLAG NO
[2020-11-20 06:44] LABS: Basophils Percent Auto 0.5 % (0-2); Eosinophils Percent Auto 0.7 % (0-4); Hematocrit 35.3 % (37-47); Hemoglobin 11.9 g/dl (12.0-16.0); Imm Gran Abs Auto 0.01 X10*3/uL (0.00-0.03); Imm Gran Pct Auto 0.2 % (0.0-0.4); Lymphocytes Absolute Auto 2.4 X10*3/uL (1.2-4.9); Lymphocytes Percent Auto 42.7 % (20-40); Mean Corpuscular HGB Conc 33.7 g/dl (31.0-35.0); Mean Corpuscular Hemoglobin 32.3 pg (27.0-33.0); Mean Corpuscular Volume 95.9 fL (80-98); Mean Platelet Volume 10.2 fL (9.4-12.3); Monocytes Absolute Auto 0.6 X10*3/uL (0.1-1.2); Monocytes Percent Auto 10.3 % (2-11); Neutrophils Absolute Auto 2.5 X10*3/uL (2.0-8.3); Neutrophils Percent Auto 45.6 % (45-73); Platelet Count 232 X10*3/uL (160-400); Red Blood Count 3.68 X10*6/uL (4.20-5.50); Red Cell Distribution Width 11.9 % (11.0-16.0); White Blood Count 5.6 X10*3/uL (4.8-10.8)
--- NOTE | 2020-11-20 06:48 | PM.IMHP ---
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 Patient reports that in the past 3 months he has had multiple episodes similar to this today was worse, she has been having her multiple falls constantly, reports that today she suddenly had difficulty speaking, she could not see, felt weaker on her left lower extremity. And had a fall with no loss of consciousness. Her significant other was present during these episodes and witnessed the slurred speech, lasted about 45 minutes. She also texted her friend during this episode and her friend called her significant other stating that the text message made no sense and if the patient was okay. Patient reports that her symptoms resolved after 45 minutes, at this time denies any palpitations no chest pain, no shortness of breath abdominal pain nausea or vomiting, no diarrhea constipation, no urinary symptoms and no lower extremity edema. Patient reports hemiplegia of her left upper extremity, she also has loss of sensation from knee below on her left lower extremity, she reports that due to her strokes in the past she has issues with her foot that it turns suddenly and today she felt that she had to drag her feet. At baseline she is able to walk. On arrival to the ED hemodynamically stable with no significant abnormal vitals except for blood pressure 183/92. Labs are significant for WBC of 4.3 which is chronically low, labs otherwise unremarkable. CT angiogram of the head and neck showed no vessel occlusion or significant stenosis in the cervical or intracranial vasculature, head CT shows no evidence of acute intracranial hemorrhage or territorial infarct. Right frontal parietal and temporal lobe encephalomalacia from old infarction, no acute changes. Review of Systems Review of Systems: Yes all other systems are reviewed and are negative [facility] Medical History AVM (arteriovenous malformation) brain HTN (hypertension) Mitochondrial complex 1 deficiency Seizures Surgical History History of arterial bypass of lower extremity History of brain surgery History of foot surgery Social History Household Members: Spouse Housing: Condominium Do you presently have visiting nurse or other home services: No Alcohol intake: never Patient Tobacco Use Status: Never used Tobacco Use of substances other than those prescribed or required for medical reasons: No Have you been hit, kicked, punched, or otherwise hurt by someone within the past year? If so, by whom?: No Do you feel safe in your current relationship?: Yes Is there a partner from a previous relationship who is making you feel unsafe now?: No Are you made to feel afraid or neglected: No Advance Directives: No Advance Directives Information Provided: Yes Do you have thoughts of harming others: None Do you have a plan to hurt others: No Plan Recently lost weight without trying: No Nutrition Risks: No Nutritional Risk Patient : No Meds Allergies Allergy/AdvReac Type Severity Reaction Status Date / Time clonidine Allergy Unknown Rash Verified 11/19/20 17:45 fentanyl [FENTANYL] Allergy Unknown UNKNOWN Verified 11/19/20 17:45 meperidine [Demerol] Allergy Unknown rash Verified 11/19/20 17:45 morphine [MORPHINE] Allergy Unknown UNKNOWN, Verified 11/19/20 17:45 chest pressure phenytoin [Dilantin] Allergy Unknown rash Verified 11/19/20 17:45 remifentanil Allergy Unknown RAsh Verified 11/19/20 17:45 sevoflurane Allergy Unknown RAsh Verified 11/19/20 17:45 Sulfa (Sulfonamide Allergy Unknown UNKNOWN, Verified 11/19/20 17:45 Antibiotics) rash [SULFA(SULFONAMIDE ANTIBIOTICS)] From DEMEROL Allergy Unknown Rash Uncoded 11/20/20 00:28 From DILANTIN Allergy Unknown Rash Uncoded 11/20/20 00:27 Lactated Ringers AdvReac Unknown contraindicated Uncoded 08/30/20 14: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 Active Medications: Current Medications Generic Name Dose Route Start Last Admin Trade Name Freq PRN Reason Stop Dose Admin Acetaminophen 650 mg 11/19/20 22:11 11/19/20 23:57 Acetaminophen 325 Mg Tablet PO 650 mg Q6H PRN Administration Pain, Mild (Pain Scale 1-3) Albuterol Sulfate 1 puff 11/19/20 22:11 Albuterol Sulfate 90 Mcg 8 Gm Inhaler INHALE Q6H PRN shortness of breath or wheezing Amlodipine Besylate 10 mg 11/20/20 09:00 Amlodipine Besylate 10 Mg Tablet PO DAILY [facility] Protocol Atorvastatin Calcium 40 mg 11/20/20 09:00 Atorvastatin Calcium 40 Mg Tablet PO DAILY [facility] Carbamazepine 400 mg 11/20/20 09:00 Carbamazepine Er 200 Mg Tab.Er.12h PO BID [facility] Docusate Sodium 100 mg 11/19/20 22:11 Docusate Sodium 100 Mg Capsule PO DAILY PRN Constipation Doxazosin Mesylate 2 mg 11/20/20 21:00 Doxazosin Mesylate 2 Mg Tablet PO BEDTIME [facility] Enoxaparin Sodium 40 mg 11/19/20 23:00 11/19/20 23:12 Enoxaparin Sodium 40 Mg/0.4 Ml Syringe SUBCUT 40 mg Q24H [facility] Administration Fluoxetine HCl 40 mg 11/19/20 22:11 11/19/20 23:12 Fluoxetine Hcl 20 Mg Capsule PO Not Given DAILY [facility] Fluoxetine HCl 10 mg 11/19/20 23:15 11/19/20 23:16 Fluoxetine Hcl 10 Mg Capsule PO Not Given DAILY [facility] Hydromorphone HCl 4 mg 11/19/20 22:11 Hydromorphone Hcl 4 Mg Tablet PO TID PRN Pain, Severe (Pain Scale 7-10) Lactic Acid 1 appl 11/19/20 22:11 11/19/20 23:10 Ammonium Lactate 12 % Cream 140 Gm Tube TOPICAL Not Given BID [facility] Protocol Lisinopril 20 mg 11/20/20 09:00 Lisinopril 20 Mg Tablet PO DAILY [facility] Protocol Lorazepam 2 mg 11/19/20 22:11 Lorazepam 1 Mg Tablet PO DAILY PRN anxiety Omeprazole 20 mg 11/20/20 06:30 11/20/20 05:29 Omeprazole 20 Mg Capsule.Dr PO 20 mg DAILY@0630 [facility] Administration Ondansetron HCl 4 mg 11/19/20 22:11 Ondansetron Hcl 4 Mg/2 Ml Vial IVPUSH Q8H PRN Nausea and Vomiting Pneumococcal 13-Valent Conj Vacc 0.5 ml 11/19/20 22:11 Pneumoc 13-Raven Conj-Dip Crm/Pf 0.5 Ml Syringe IM ONCE [facility] Pregabalin 200 mg 11/19/20 23:00 11/19/20 23:13 Pregabalin 100 Mg Capsule PO Not Given Q12H [facility] Ropinirole HCl 2 mg 11/19/20 22:11 07/04/21 23:12 Ropinirole Hcl 2 Mg Tablet PO Not Given BEDTIME [facility] Home Medications Medication Instructions Recorded Confirmed Last Taken Type lisinopril 20 mg tablet 20 mg PO DAILY 05/01/20 11/19/20 Unknown History terazosin 2 mg capsule 2 mg PO BEDTIME 05/01/20 11/19/20 Unknown History amlodipine 1 tab PO DAILY 11/19/20 11/19/20 Unknown History ammonium lactate 1 appl TOPICAL BID 11/19/20 11/19/20 Unknown History estradiol [Estring] 1 ea VAGINAL [id number] 11/19/20 11/19/20 Unknown History Physical Exam Vital Signs and Narrative: Vital Signs: Last Vital Signs Temp 98.0 F 11/20/20 03:22 Pulse 55 11/20/20 03:22 Resp 18 11/20/20 03:22 BP 120/66 11/20/20 03:22 Pulse Ox 98 11/20/20 03:22 Body Mass Index 20.7 Const: General: cooperative and no acute distress Orientation/consciousness: patient oriented x3 Eyes: General: appearance normal, both eyes and all related structures Pupils: Equal, round and reactive pupils present Resp: Effort & Inspection: normal respiratory effort, able to speak in complete sentences and abnormal respiratory pattern Auscultation: clear to auscultation bilaterally Cardio: Rate: regular rate Rhythm: regular rhythm GI: Palpation (GI): Soft to palpation Auscultation: normal bowel sounds Skin: General skin exam: no rashes or lesions noted Neuro: Other: has slight drooping of left mouth although patient reports that that is chronic, speech is clear and discernible, has strength 5/5 on the right upper and lower extremity, left upper extremity hemiplegic with contractures, left lower extremity strength 4/5 General: patient oriented x3 Cranial nerves: Yes Equal, round and reactive pupils present Cognition (Neuro): normal cognition Extrem: Other: Hemiplegia of left upper extremity General: Yes no pedal edema Results Labs CBC and Chem 7: 11/19/20 20:57 11/19/20 18:05 Labs: Laboratory Results - last 24 hr 11/19/20 11/19/20 11/19/20 17:58 17:58 18:05 MCV MCH MCHC RDW Plt Count MPV Immature Gran % (Auto) Neut % (Auto) Lymph % (Auto) [place] % (Auto) Eos % (Auto) Baso % (Auto) Lymph # (Auto) [place] # (Auto) Eos # (Auto) Baso # (Auto) Abs Immat Gran (auto) Absolute Neuts (auto) Absolute Nucleated RBC Nucleated RBC % (auto) PT Whole Blood PT 13.7 H INR Whole Blood INR 1.1 APTT Anion Gap Estim Creat Clear Calc Estimated GFR POC Glucose 80 Random Glucose Calcium Magnesium 2.0 Total Bilirubin AST ALT Alkaline Phosphatase Troponin I High Sens Total Protein Albumin Urine Color Urine Appearance Urine pH Ur Specific [place] Urine Protein Urine Glucose (UA) Urine Ketones Urine Blood Urine Nitrite Ur Leukocyte Esterase Urine RBC Urine WBC Ur Squamous Epith Cells Urine Bacteria COVID-19 ([facility]) COVID-19 [facility] 11/19/20 11/19/20 11/19/20 18:05 18:05 18:05 MCV 95.0 MCH 32.7 MCHC 34.4 RDW 11.8 Plt Count 249 MPV 9.6 Immature Gran % (Auto) 0.0 Neut % (Auto) 30.3 L Lymph % (Auto) 58.5 H [place] % (Auto) 10.0 Eos % (Auto) 0.7 Baso % (Auto) 0.5 Lymph # (Auto) 2.5 [place] # (Auto) 0.4 Eos # (Auto) 0.0 Baso # (Auto) 0.0 Abs Immat Gran (auto) 0.00 Absolute Neuts (auto) 1.3 L Absolute Nucleated RBC 0.000 Nucleated RBC % (auto) 0.0 PT 11.9 Whole Blood PT INR 1.0 Whole Blood INR APTT 29.5 Anion Gap 15 Estim Creat Clear Calc 85.5 Estimated GFR > 60 POC Glucose Random Glucose 85 Calcium 8.9 Magnesium Total Bilirubin 0.4 AST 33 H ALT 29 Alkaline Phosphatase 137 H Troponin I High Sens Total Protein 7.3 Albumin 4.0 Urine Color Urine Appearance Urine pH Ur Specific [place] Urine Protein Urine Glucose (UA) Urine Ketones Urine Blood Urine Nitrite Ur Leukocyte Esterase Urine RBC Urine WBC Ur Squamous Epith Cells Urine Bacteria COVID-19 ([facility]) COVID-19 [facility] 11/19/20 11/19/20 11/19/20 18:05 18:50 20:57 MCV 95.8 MCH 32.5 MCHC 33.9 RDW 11.9 Plt Count 242 MPV 9.4 Immature Gran % (Auto) 0.2 Neut % (Auto) 35.6 L Lymph % (Auto) 53.6 H [place] % (Auto) 9.6 Eos % (Auto) 0.6 Baso % (Auto) 0.4 Lymph # (Auto) 2.7 [place] # (Auto) 0.5 Eos # (Auto) 0.0 Baso # (Auto) 0.0 Abs Immat Gran (auto) 0.01 Absolute Neuts (auto) 1.8 L Absolute Nucleated RBC 0.000 Nucleated RBC % (auto) 0.0 PT Whole Blood PT INR Whole Blood INR APTT Anion Gap Estim Creat Clear Calc Estimated GFR POC Glucose Random Glucose Calcium Magnesium Total Bilirubin AST ALT Alkaline Phosphatase Troponin I High Sens < 3.5 Total Protein Albumin Urine Color YELLOW Urine Appearance CLEAR Urine pH 6.5 Ur Specific [place] <= 1.005 Urine Protein NEG Urine Glucose (UA) NEG Urine Ketones NEG Urine Blood 1+ H Urine Nitrite NEG Ur Leukocyte Esterase NEG Urine RBC 1-4 Urine WBC 0-2 Ur Squamous Epith Cells 2+ Urine Bacteria NONE COVID-19 ([facility]) COVID-19 Clin Com 11/19/20 20:57 MCV MCH MCHC RDW Plt Count MPV Immature Gran % (Auto) Neut % (Auto) Lymph % (Auto) [place] % (Auto) Eos % (Auto) Baso % (Auto) Lymph # (Auto) [place] # (Auto) Eos # (Auto) Baso # (Auto) Abs Immat Gran (auto) Absolute Neuts (auto) Absolute Nucleated RBC Nucleated RBC % (auto) PT Whole Blood PT INR Whole Blood INR APTT Anion Gap Estim Creat Clear Calc Estimated GFR POC Glucose Random Glucose Calcium Magnesium Total Bilirubin AST ALT Alkaline Phosphatase Troponin I High Sens Total Protein Albumin Urine Color Urine Appearance Urine pH Ur Specific [place] Urine Protein Urine Glucose (UA) Urine Ketones Urine Blood Urine Nitrite Ur Leukocyte Esterase Urine RBC Urine WBC Ur Squamous Epith Cells Urine Bacteria COVID-19 ([facility]) Negative COVID-19 Clin Com See Note Imaging Radiologist's Impressions: Impressions Head/Neck CTA 11/19/20 17:47 IMPRESSION: No vessel occlusion or significant stenosis in the cervical or intracranial vasculature. Imaging findings reported to BAYRON George at 6:55 PM on 11/19/2020. Chest X-Ray 11/19/20 17:48 IMPRESSION: No evidence of acute process. Head CT 11/19/20 17:52 IMPRESSION: No evidence of acute territorial infarction or intracranial hemorrhage. Right frontoparietal and temporal lobe encephalomalacia from old infarction, with ex vacuo dilatation of the right lateral ventricle, similar to previous. This critical result was discussed with BAYRON Lloyd at 6:20 PM on 11/19/2020. It was ascertained that the content and urgency of the report was understood at the time of direct communication. Assessment and Plan (1) Brain TIA: Status: Acute (2) Seizures: Status: Acute (3) Mitochondrial complex 1 deficiency: Status: Acute (4) HTN (hypertension): Status: Acute (5) AVM (arteriovenous malformation) brain: Status: Acute 60-year-old female with history of CVA secondary to AVMs presents to the hospital with complaints of slurred speech, and increased weakness # possible TIA - CT angiogram negative, CT head shows no acute changes - will obtain MRI - consult neurology - continue atorvastatin # history of seizures - continue carbamazepine # hypertension - continue amlodipine and lisinopril tomorrow # mood disorder - continue SSRI, lorazepam, DVT prophylaxis: Lovenox Quality Stroke Does the patient have a stroke diagnosis?: No VTE Prior VTE?: No VTE Risk Level:: Medical - moderate - high VTE Device Contraindication: Treatment Not Indicated VTE Drug Contraindication: N/A - Med Ordered
[2020-11-20 07:10] LABS: Anion Gap 13 (12-20); Blood Urea Nitrogen 11 mg/dL (9-16); Calcium 8.8 mg/dL (8.4-10.2); Carbon Dioxide 28 mmol/L (22-29); Chloride 103 mmol/L (96-108); Creatinine Clr Calc Pharmacy 84.8; Estimated Glomerular Filt Rate > 60; Glucose Random 98 mg/dL (60-115); Potassium 3.8 mmol/L (3.3-5.1); Sodium 140 mmol/L (135-145)
[2020-11-20] MEDS: Atorvastatin Calcium 40 MG TABLET PO (09:08)
[2020-11-20] MEDS: carBAMazepine ER 200 MG TAB.ER.12H 400 MG PO ×2 (09:09→20:08)
[2020-11-20] MEDS: amLODIPine Besylate 10 MG TABLET PO (09:09)
[2020-11-20] MEDS: Ammonium Lactate 12 % Cream 140 GM TUBE 1 APPL TOPICAL ×2 (09:10→20:11)
[2020-11-20] MEDS: FLUoxetine HCl 20 MG CAPSULE 40 MG PO (09:10)
[2020-11-20] MEDS: lisinopriL 20 MG TABLET PO (09:10)
--- NOTE | 2020-11-20 12:05 | PM.IMPN ---
Subjective Subjective Date of Service: 11/20/20 Interval History: Follow up slurred speech and weakness Speech better ambulating with crutch Physical Exam Vital Signs: Vital Signs: Last Vital Signs Temp 97.8 F 11/20/20 11:01 Pulse 59 11/20/20 11:01 Resp 19 11/20/20 11:01 BP 146/82 H 11/20/20 11:01 Pulse Ox 97 11/20/20 11:01 Body Mass Index 20.7 Appearing in no acute distress lung sounds are clear to auscultation heart regular rate rhythm, clear S1, S2 positive bowel sounds, abdomen is soft, nontender neuro patient is alert x3. left arm hemiplegia Objective Data Current Medications Generic Name Dose Route Start Last Admin Trade Name Freq PRN Reason Stop Dose Admin Acetaminophen 650 mg 11/19/20 22:11 11/19/20 23:57 Acetaminophen 325 Mg Tablet PO 650 mg Q6H PRN Administration Pain, Mild (Pain Scale 1-3) Albuterol Sulfate 1 puff 11/19/20 22:11 Albuterol Sulfate 90 Mcg 8 Gm Inhaler INHALE Q6H PRN shortness of breath or wheezing Amlodipine Besylate 10 mg 11/20/20 09:00 11/20/20 09:09 Amlodipine Besylate 10 Mg Tablet PO 10 mg DAILY [facility] Administration Protocol Atorvastatin Calcium 40 mg 11/20/20 09:00 11/20/20 09:08 Atorvastatin Calcium 40 Mg Tablet PO 40 mg DAILY [facility] Administration Carbamazepine 400 mg 11/20/20 09:00 11/20/20 09:09 Carbamazepine Er 200 Mg Tab.Er.12h PO 400 mg BID [facility] Administration Docusate Sodium 100 mg 11/19/20 22:11 Docusate Sodium 100 Mg Capsule PO DAILY PRN Constipation Doxazosin Mesylate 2 mg 11/20/20 21:00 Doxazosin Mesylate 2 Mg Tablet PO BEDTIME [facility] Enoxaparin Sodium 40 mg 11/19/20 23:00 11/19/20 23:12 Enoxaparin Sodium 40 Mg/0.4 Ml Syringe SUBCUT 40 mg Q24H [facility] Administration Fluoxetine HCl 40 mg 11/19/20 22:11 11/20/20 09:10 Fluoxetine Hcl 20 Mg Capsule PO 40 mg DAILY [facility] Administration Hydromorphone HCl 4 mg 11/19/20 22:11 Hydromorphone Hcl 4 Mg Tablet PO TID PRN Pain, Severe (Pain Scale 7-10) Lactic Acid 1 appl 11/19/20 22:11 11/20/20 09:10 Ammonium Lactate 12 % Cream 140 Gm Tube TOPICAL 1 appl BID [facility] Administration Protocol Lisinopril 20 mg 11/20/20 09:00 11/20/20 09:10 Lisinopril 20 Mg Tablet PO 20 mg DAILY [facility] Administration Protocol Lorazepam 2 mg 11/19/20 22:11 Lorazepam 1 Mg Tablet PO DAILY PRN anxiety Omeprazole 20 mg 11/20/20 06:30 11/20/20 05:29 Omeprazole 20 Mg Capsule. PO 20 mg DAILY@0630 [facility] Administration Ondansetron HCl 4 mg 11/19/20 22:11 Ondansetron Hcl 4 Mg/2 Ml Vial IVPUSH Q8H PRN Nausea and Vomiting Pneumococcal 13-Valent Conj Vacc 0.5 ml 11/19/20 22:11 Pneumoc 13-Raven Conj-Dip Crm/Pf 0.5 Ml Syringe IM ONCE [facility] Pregabalin 200 mg 11/19/20 23:00 11/19/20 23:13 Pregabalin 100 Mg Capsule PO Not Given Q12H [facility] Ropinirole HCl 2 mg 11/19/20 22:11 11/19/20 23:12 Ropinirole Hcl 2 Mg Tablet PO Not Given BEDTIME [facility] Labs CBC & Chem 7: 11/20/20 05:25 11/20/20 05:25 Labs: Laboratory Results - last 24 hr 11/19/20 11/19/20 11/19/20 17:58 17:58 18:05 MCV MCH MCHC RDW Plt Count MPV Immature Gran % (Auto) Neut % (Auto) Lymph % (Auto) [place] % (Auto) Eos % (Auto) Baso % (Auto) Lymph # (Auto) [place] # (Auto) Eos # (Auto) Baso # (Auto) Abs Immat Gran (auto) Absolute Neuts (auto) Absolute Nucleated RBC Nucleated RBC % (auto) PT Whole Blood PT 13.7 H INR Whole Blood INR 1.1 APTT Anion Gap Estim Creat Clear Calc Estimated GFR POC Glucose 80 Random Glucose Calcium Magnesium 2.0 Total Bilirubin AST ALT Alkaline Phosphatase Troponin I High Sens Total Protein Albumin Urine Color Urine Appearance Urine pH Ur Specific [place] Urine Protein Urine Glucose (UA) Urine Ketones Urine Blood Urine Nitrite Ur Leukocyte Esterase Urine RBC Urine WBC Ur Squamous Epith Cells Urine Bacteria COVID-19 ([facility]) COVID-19 Clin Com 11/19/20 11/19/20 11/19/20 18:05 18:05 18:05 MCV 95.0 MCH 32.7 MCHC 34.4 RDW 11.8 Plt Count 249 MPV 9.6 Immature Gran % (Auto) 0.0 Neut % (Auto) 30.3 L Lymph % (Auto) 58.5 H [place] % (Auto) 10.0 Eos % (Auto) 0.7 Baso % (Auto) 0.5 Lymph # (Auto) 2.5 [place] # (Auto) 0.4 Eos # (Auto) 0.0 Baso # (Auto) 0.0 Abs Immat Gran (auto) 0.00 Absolute Neuts (auto) 1.3 L Absolute Nucleated RBC 0.000 Nucleated RBC % (auto) 0.0 PT 11.9 Whole Blood PT INR 1.0 Whole Blood INR APTT 29.5 Anion Gap 15 Estim Creat Clear Calc 85.5 Estimated GFR > 60 POC Glucose Random Glucose 85 Calcium 8.9 Magnesium Total Bilirubin 0.4 AST 33 H ALT 29 Alkaline Phosphatase 137 H Troponin I High Sens Total Protein 7.3 Albumin 4.0 Urine Color Urine Appearance Urine pH Ur Specific [place] Urine Protein Urine Glucose (UA) Urine Ketones Urine Blood Urine Nitrite Ur Leukocyte Esterase Urine RBC Urine WBC Ur Squamous Epith Cells Urine Bacteria COVID-19 ([facility]) COVID-19 Clin Com 11/19/20 11/19/20 11/19/20 18:05 18:50 20:57 MCV 95.8 MCH 32.5 MCHC 33.9 RDW 11.9 Plt Count 242 MPV 9.4 Immature Gran % (Auto) 0.2 Neut % (Auto) 35.6 L Lymph % (Auto) 53.6 H [place] % (Auto) 9.6 Eos % (Auto) 0.6 Baso % (Auto) 0.4 Lymph # (Auto) 2.7 [place] # (Auto) 0.5 Eos # (Auto) 0.0 Baso # (Auto) 0.0 Abs Immat Gran (auto) 0.01 Absolute Neuts (auto) 1.8 L Absolute Nucleated RBC 0.000 Nucleated RBC % (auto) 0.0 PT Whole Blood PT INR Whole Blood INR APTT Anion Gap Estim Creat Clear Calc Estimated GFR POC Glucose Random Glucose Calcium Magnesium Total Bilirubin AST ALT Alkaline Phosphatase Troponin I High Sens < 3.5 Total Protein Albumin Urine Color YELLOW Urine Appearance CLEAR Urine pH 6.5 Ur Specific [place] <= 1.005 Urine Protein NEG Urine Glucose (UA) NEG Urine Ketones NEG Urine Blood 1+ H Urine Nitrite NEG Ur Leukocyte Esterase NEG Urine RBC 1-4 Urine WBC 0-2 Ur Squamous Epith Cells 2+ Urine Bacteria NONE COVID-19 ([facility]) COVID-19 Clin Com 11/19/20 11/20/20 11/20/20 20:57 05:25 05:25 MCV 95.9 MCH 32.3 MCHC 33.7 RDW 11.9 Plt Count 232 MPV 10.2 Immature Gran % (Auto) 0.2 Neut % (Auto) 45.6 Lymph % (Auto) 42.7 H [place] % (Auto) 10.3 Eos % (Auto) 0.7 Baso % (Auto) 0.5 Lymph # (Auto) 2.4 [place] # (Auto) 0.6 Eos # (Auto) 0.0 Baso # (Auto) 0.0 Abs Immat Gran (auto) 0.01 Absolute Neuts (auto) 2.5 Absolute Nucleated RBC 0.000 Nucleated RBC % (auto) 0.0 PT Whole Blood PT INR Whole Blood INR APTT Anion Gap 13 Estim Creat Clear Calc 84.8 Estimated GFR > 60 POC Glucose Random Glucose 98 Calcium 8.8 Magnesium Total Bilirubin AST ALT Alkaline Phosphatase Troponin I High Sens Total Protein Albumin Urine Color Urine Appearance Urine pH Ur Specific [place] Urine Protein Urine Glucose (UA) Urine Ketones Urine Blood Urine Nitrite Ur Leukocyte Esterase Urine RBC Urine WBC Ur Squamous Epith Cells Urine Bacteria COVID-19 ([facility]) Negative COVID-19 Clin Com See Note Progress Note: A&P (1) Brain TIA: Status: Acute Assessment and Plan: 60-year-old female with 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 CT showed no acute infarction MRI showed Extensive chronic encephalomalacia and gliosis in the right cerebral hemisphere with ex vacuo dilatation of the right lateral ventricle and associated hemosiderin staining neurology consult pending continue atorvastatin History of seizures continue carbamazepine seizure precautions Hypertension continue amlodipine and lisinopril tomorrow Mood disorder continue SSRI, lorazepam, DVT prophylaxis: Lovenox Attending Dr. Cadena Full code Quality Stroke Does the patient have a stroke diagnosis?: No VTE Prior VTE?: No VTE Risk Level:: Medical - moderate - high VTE Device Contraindication: Treatment Not Indicated VTE Drug Contraindication: N/A - Med Ordered
--- NOTE | 2020-11-20 12:32 | MHC.CM.PN ---
CM MET WITH PT AND HER S/O, CYNTHIA, WHO WAS AT BEDSIDE. PT REPORTS SHE LIVES WITH HER S/O WHO ASSISTS HER WITH CARE PRN. PT REPORTS SHE CAN USUALLY COMPLETE HER ADLS HOWEVER SHE HAS MITOCHONDRIAL DISEASE SO SOMETIMES REQUIRES ASSISTANCE. PT DID NOT HAVE SERVICES APPLICATION DBA. SHE HAS CRUTCHES, A WALKER, A WHEEL CHAIR, AND A SCOOTER AND USES EACH OF THEM DEPENDING ON WHERE SHE IS GOING AND HOW FAR SHE WOULD HAVE TO WALK. PT REPORTS HER PCP IS BROOKE AMARAL. PT REPORTS SHE WAS SEEN BY PT THIS MORNING AND INFORMED THERE IS A CLINIC WITH A [facility] PROGRAM SHE IS HOPEFUL THAT HER PCP WILL ASSIST HER IN CONNECTING WITH THIS SERVICE. PT AND S/O REPORT THEY ARE HOPEFUL THE MRI WILL PROVIDE DIAGNOSTIC INFORMATION THEY FEEL SOMETHING NEW IS HAPPENING. THEY ALSO REPORT A PLAN TO SEE THE TOWEL INSPECTOR AND A NEUROLOGIST PRIOR TO DC. CURRENT DC PLAN IS HOME WITH POSSIBLE OP PT S/O TO TRANSPORT
[2020-11-20] MEDS: Pregabalin 100 MG CAPSULE 200 MG PO ×2 (12:45→22:02)
--- NOTE | 2020-11-20 15:03 | P.CNNE_ITS ---
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 She has had 3 such episodes in the last couple of months and did not see a doctor for it. She is now back to her baseline. She had an MRI of the brain that did not show any acute findings and showed extensive encephalomalacia of the right hemisphere with hemosiderin deposit and previous craniotomy. CTA of the head and neck did not show any visible occlusive disease. Review of Systems Eyes: Eyes: Reports no additional eye complaints ENT: Reports system reviewed and no additional complaints, except as documented and Reports Normal hearing present Cardiovascular: Cardiovascular: Reports no additional cardiovascular complaints Respiratory: Respiratory: Reports no additional respiratory complaints Gastrointestinal: Gastrointestinal: Reports no additional gastrointestinal complaints Musculoskeletal: Musculoskeletal: Reports no additional musculoskeletal complaints Integumentary/Breasts: Skin/Breast: Reports system reviewed and no additional complaints, except as docu Neurologic: Reports as per HPI and Reports Normal hearing present Psychiatric: Psychiatric: Reports as per HPI Endocrine: Endocrine: Reports no additional endocrine complaints Hematologic/Lymphatic: Hematologic/Lymphatic: Reports no additional he matologic/lymphatic complaints Allergic/Immunologic: Allergic/Immunologic: Reports no additional allergic/immunologic complaints [facility] Past Medical History Medical History AVM (arteriovenous malformation) brain HTN (hypertension) Mitochondrial complex 1 deficiency Seizures Surgical History Surgical History History of arterial bypass of lower extremity History of brain surgery History of foot surgery Social History Social History Household Members: Spouse Housing: Condominium Do you presently have visiting nurse or other home services: No Alcohol intake: never Patient Tobacco Use Status: Never used Tobacco Use of substances other than those prescribed or required for medical reasons: No Have you been hit, kicked, punched, or otherwise hurt by someone within the past year? If so, by whom?: No Do you feel safe in your current relationship?: Yes Is there a partner from a previous relationship who is making you feel unsafe now?: No Are you made to feel afraid or neglected: No Advance Directives: No Advance Directives Information Provided: Yes Do you have thoughts of harming others: None Do you have a plan to hurt others: No Plan Recently lost weight without trying: No Nutrition Risks: No Nutritional Risk Patient : No service: No Current occupational status: disabled Meds Allergies Allergy/AdvReac Type Severity Reaction Status Date / Time clonidine Allergy Unknown Rash Verified 11/19/20 17:45 fentanyl [FENTANYL] Allergy Unknown UNKNOWN Verified 11/19/20 17:45 meperidine [Demerol] Allergy Unknown rash Verified 11/19/20 17:45 morphine [MORPHINE] Allergy Unknown UNKNOWN, Verified 11/19/20 17:45 chest pressure phenytoin [Dilantin] Allergy Unknown rash Verified 11/19/20 17:45 remifentanil Allergy Unknown RAsh Verified 11/19/20 17:45 sevoflurane Allergy Unknown RAsh Verified 11/19/20 17:45 Sulfa (Sulfonamide Allergy Unknown UNKNOWN, Verified 11/19/20 17:45 Antibiotics) rash [SULFA(SULFONAMIDE ANTIBIOTICS)] From DEMEROL Allergy Unknown Rash Uncoded 11/20/20 00:28 From DILANTIN Allergy Unknown Rash Uncoded 11/20/20 00:27 Lactated Ringers AdvReac Unknown contraindicated Uncoded 08/30/20 14: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 Active Medications: Current Medications Generic Name Dose Route Start Last Admin Trade Name Freq PRN Reason Stop Dose Admin Acetaminophen 650 mg 11/19/20 22:11 11/19/20 23:57 Acetaminophen 325 Mg Tablet PO 650 mg Q6H PRN Administration Pain, Mild (Pain Scale 1-3) Albuterol Sulfate 1 puff 11/19/20 22:11 Albuterol Sulfate 90 Mcg 8 Gm Inhaler INHALE Q6H PRN shortness of breath or wheezing Amlodipine Besylate 10 mg 11/20/20 09:00 11/20/20 09:09 Amlodipine Besylate 10 Mg Tablet PO 10 mg DAILY AUBREE Administration Protocol Atorvastatin Calcium 40 mg 11/20/20 09:00 07/05/21 09:08 Atorvastatin Calcium 40 Mg Tablet PO 40 mg DAILY AUBREE Administration Carbamazepine 400 mg 11/20/20 09:00 11/20/20 09:09 Carbamazepine Er 200 Mg Tab.Er.12h PO 400 mg BID [facility] Administration Docusate Sodium 100 mg 11/19/20 22:11 Docusate Sodium 100 Mg Capsule PO DAILY PRN Constipation Doxazosin Mesylate 2 mg 11/20/20 21:00 Doxazosin Mesylate 2 Mg Tablet PO BEDTIME AUBREE Enoxaparin Sodium 40 mg 11/19/20 23:00 11/19/20 23:12 Enoxaparin Sodium 40 Mg/0.4 Ml Syringe SUBCUT 40 mg Q24H AUBREE Administration Fluoxetine HCl 40 mg 11/19/20 22:11 11/20/20 09:10 Fluoxetine Hcl 20 Mg Capsule PO 40 mg DAILY [facility] Administration Hydromorphone HCl 4 mg 11/19/20 22:11 Hydromorphone Hcl 4 Mg Tablet PO TID PRN Pain, Severe (Pain Scale 7-10) Lactic Acid 1 appl 11/19/20 22:11 11/20/20 09:10 Ammonium Lactate 12 % Cream 140 Gm Tube TOPICAL 1 appl BID AUBREE Administration Protocol Lisinopril 20 mg 11/20/20 09:00 11/20/20 09:10 Lisinopril 20 Mg Tablet PO 20 mg DAILY [facility] Administration Protocol Lorazepam 2 mg 11/19/20 22:11 Lorazepam 1 Mg Tablet PO DAILY PRN anxiety Omeprazole 20 mg 11/20/20 06:30 11/20/20 05:29 Omeprazole 20 Mg Capsule.Dr PO 20 mg DAILY@0630 [facility] Administration Ondansetron HCl 4 mg 11/19/20 22:11 Ondansetron Hcl 4 Mg/2 Ml Vial IVPUSH Q8H PRN Nausea and Vomiting Pneumococcal 13-Valent Conj Vacc 0.5 ml 11/19/20 22:11 Pneumoc 13-Raven Conj-Dip Crm/Pf 0.5 Ml Syringe IM ONCE AUBREE Pregabalin 200 mg 11/19/20 23:00 11/20/20 12:45 Pregabalin 100 Mg Capsule PO 200 mg Q12H AUBREE Administration Ropinirole HCl 2 mg 11/19/20 22:11 11/19/20 23:12 Ropinirole Hcl 2 Mg Tablet PO Not Given BEDTIME [facility] Home Medications Medication Instructions Recorded Confirmed Last Taken Type lisinopril 20 mg tablet 20 mg PO DAILY 05/01/20 11/19/20 Unknown History terazosin 2 mg capsule 2 mg PO BEDTIME 05/01/20 11/19/20 Unknown History amlodipine 1 tab PO DAILY 11/19/20 11/19/20 Unknown History ammonium lactate 1 appl TOPICAL BID 11/19/20 11/19/20 Unknown History estradiol [Estring] 1 ea VAGINAL [id number] 11/19/20 11/19/20 Unknown History Physical Exam Vital Signs: Vital Signs: Last Vital Signs Temp 97.8 F 11/20/20 11:01 Pulse 59 11/20/20 11:01 Resp 19 11/20/20 11:01 BP 146/82 H 11/20/20 11:01 Pulse Ox 97 11/20/20 11:01 Body Mass Index 20.7 Const: General: cooperative, comfortable, no acute distress, well developed, alert and awake Nutritional Appearance: well nourished Orientation/consciousness: oriented to person, oriented to place and oriented to time Limitations: no limitations HENMT: Head: Yes normal to inspection, Yes normocephalic and Yes atraumatic Ears: hearing grossly normal bilaterally General nose exam: Normal external nose present Face and sinus: Yes normal facial exam Mouth: Normal oral and palatal mucosa present Eyes: General: appearance normal, both eyes and all related structures Visual Cowart: normal visual cowart by confrontation Alignment and Position: alignment normal Periorbital: periorbital findings normal Eyelids: Yes eyelids normal Conjunctivae: conjunctivae normal Sclerae: sclerae normal Corneas: corneas normal Pupils: Equal, round and reactive pupils present and Pupil accommodation reflex normal EOM: EOMs intact bilaterally Direct Ophthalmoscopy: normal light reflex Neck: Neck: Yes normal visual inspection, Yes full ROM and Yes no meningeal signs Thyroid: Thyroid normal Carotids: normal carotid upstroke and bounding pulses Chest: Chest palpation & inspection: normal inspection of the chest Resp: Effort & Inspection: normal respiratory effort Auscultation: clear to auscultation bilaterally Cardio: Rate: regular rate Rhythm: regular rhythm Heart sounds: S1 normal heart sound present and S2 normal heart sound present Peripheral pulses: Peripheral pulses 2+ throughout GI: Inspection: Yes normal to inspection Percussion: Yes normal to percussion Auscultation: normal bowel sounds Rectal Exam - Female: def erred Back/Spine/Pelvis: Cervical Spine: normal cervical lordosis and cervical ROM normal Thoracic/Lumbar Spine: thoracic and lumbar spine normal to inspection Skin: General skin exam: no rashes or lesions noted Neuro: Other: Spastic left hemiplegia with abraham atrophy. Surgical fusion partial of the left ankle. Partial left visual field defect General: oriented to person, oriented to place, oriented to time, gait normal, tone normal, moves all extremities, Normal light touch and pain sensation, no meningeal signs, no focal motor deficits, CN's II-XI intact bilaterally, normal sensation to monofilament and deep tendon reflexes 2+ bilaterally Cranial nerves: Yes CN's II-XII intact bilaterally ( partial left field cut), Yes Equal, round and reactive pupils present, Yes Bilaterally intact EOM present, Yes Nystagmus not present, Yes Normal facial strength present, Yes Midline tongue present, Yes Normal gag reflex present, Yes Symmetric palate elevation present, Yes Normal hearing present and Yes Ability to bilaterally rotate head present Cognition (Neuro): normal cognition Speech: Other speech findings present (Neuro) Motor exam (neuro): no tremor noted, no asterixis, Motor fasciculations not pres ent, Normal motor muscle tone present throughout ( normal on the right and spastic on the left) and Motor abnormalities not present Sensory Exam: Bilaterally intact graphesthesia Deep tendon reflexes (DTR's): Right triceps reflex intensity grade: 1+, Left triceps reflex intensity grade: 2+, Rt Biceps (C5, C6): 1+, Left biceps reflex intensity grade: 2+, Right brachioradialis reflex intensity grade: 1+, Left brachioradialis reflex intensity grade: 2+, Right patellar reflex intensity grade: 1+, Left patellar reflex intensity grade: 3+ and Right ankle reflex intensity grade: 1+ Plantar Reflex Responses: downgoing: right and upgoing (positive Babinski): left Coordination: [id number] test normal and [id number] test normal Pupils: Normal pupillary reactivity/response: bilateral Extrem: General: Yes normal to inspection, Yes normal exam except as noted and Yes no pedal edema Psych: Appearance: grossly normal Mental Status: mental status grossly normal Speech and movement: Normal speech and movement present and Clear speech present Affect: normal affect Attitude: cooperative Thought process: Normal thought process present Results Labs CBC & Chem 7: 11/20/20 05:25 11/20/20 05:25 Labs: Short CBC 11/19/20 11/19/20 11/20/20 Range/Units 18:05 20:57 05:25 WBC 4.3 L 5.0 5.6 (4.8-10.8) X10*3/uL Hgb 12.4 12.3 11.9 L (12.0-16.0) g/dl Hct 36.0 L 36.3 L 35.3 L (37-47) % Plt Count 249 242 232 (160-400) X10*3/uL BMP 11/19/20 11/20/20 18:05 05:25 Sodium 138 140 Potassium 4.0 3.8 Chloride 102 103 Carbon Dioxide 25 28 BUN 13 11 Creatinine 0.68 0.67 Calcium 8.9 8.8 Liver Function 11/19/20 Range/Units 18:05 Total Bilirubin 0.4 (0.0-1.0) mg/dL AST 33 H (5-31) U/L ALT 29 (0-31) U/L Alkaline Phosphatase 137 H (39-117) U/L Albumin 4.0 (3.5-5.0) g/dL Urine 11/19/20 Range/Units 18:50 Urine Color YELLOW Urine Appearance CLEAR Urine pH 6.5 (5.0-8.0) Ur Specific [place] <= 1.005 (1.005-1.025) Urine Protein NEG (NEG-TRACE) MG/DL Urine Glucose (UA) NEG (NEG) MG/DL Assessment and Plan (1) Brain TIA: Status: Acute possible TIA versus partial seizure. No evidence of acute stroke on MRI and no evidence of vascular disease on CT a (2) Seizures: Status: Acute EEG to see if she is having seizures from the right hemisphere. Continue current dose of carbamazepine (3) Mitochondrial complex 1 deficiency: Status: Acute (4) HTN (hypertension): Status: Acute (5) AVM (arteriovenous malformation) brain: Status: Acute status post resection with residual left hemiplegia Procedures Date of Service Date of Service: 11/20/20
[2020-11-20] MEDS: Doxazosin Mesylate 2 MG TABLET PO (20:09)
[2020-11-20] MEDS: LORazepam 1 MG TABLET 2 MG PO (20:09)
[2020-11-20] MEDS: rOPINIRole HCL 2 MG TABLET PO (20:09)
[2020-11-20] MEDS: Enoxaparin Sodium 40 MG/0.4 ML SYRINGE SUBCUT (22:02)
[2020-11-21] VITALS (10 sets, daily range): BP systolic 120–158; BP diastolic 69–82; PULSE 50–64; RESP 15–18; TEMP 36.1–36.8; O2SAT 96–98
--- NOTE | 2020-11-21 | EEG_ITS ---
The waking background activity consists of a diffuse 6 to 7 hertz moderate voltage theta, intermixed with right mid temporal slowing and sharp transients throughout the record. Photic stimulation is without activation. Hyperventilation was omitted. Continuous runs of moderate to high voltage theta are seen over both temporal regions, particularly in the right temporal region with sharp configuration waves in the right mid temporal region. IMPRESSION: This is an abnormal EEG due to a right temporal seizure focus and bilateral temporal slowing, right greater than left. Clinical correlation is suggested. MD HUA Nunez/JACQUELYN / [id number]
[2020-11-21] MEDS: Omeprazole 20 MG CAPSULE.DR PO (06:10)
[2020-11-21] MEDS: Pregabalin 100 MG CAPSULE 200 MG PO ×2 (10:09→22:31)
[2020-11-21] MEDS: carBAMazepine ER 200 MG TAB.ER.12H 400 MG PO ×2 (10:09→20:32)
[2020-11-21] MEDS: Atorvastatin Calcium 40 MG TABLET PO (10:09)
[2020-11-21] MEDS: amLODIPine Besylate 10 MG TABLET PO (10:10)
[2020-11-21] MEDS: FLUoxetine HCl 20 MG CAPSULE 40 MG PO (10:10)
[2020-11-21] MEDS: lisinopriL 20 MG TABLET PO (10:12)
[2020-11-21] MEDS: Ammonium Lactate 12 % Cream 140 GM TUBE 1 APPL TOPICAL ×2 (10:14→20:39)
--- NOTE | 2020-11-21 10:17 | MHC.STROKE ---
I MET THE THE PATIENT AND HER , WE REVIEWED HER MEDICAL/SURGICAL HISTORY. SHE HAS HAD A FEW FALLS RECENTLY STARTING IN SEPTEMBER, ? SEIZURES BUT SHE SAID SHE HAS NEVER HAD A SEIZURE IN THE PAST, EEG ORDERED. STROKE EDUCATION PROVIDED, SHE CANNOT TAKE ASPIRIN DUE TO PMH (CONTRAINDICATED), SHE ALSO IS REFUSING A STATIN, SHE TOOK IT IN THE PAST BUT STOP TAKING IT, LIPID PANEL RECOMMENDED, NOTIFIED MUKUND RHODES MECHANIST. SHE WANTS TO FOLLOW UP WITH DR MACK AN OUTPATIENT. I WILL CONTINUE TO FOLLOW.
--- NOTE | 2020-11-21 11:31 | MHC.CM.PN ---
IMM 11/19/20 FEMALE 60 IS DISCHARGED TODAY TO HOME. SHE WILL FOLLOW UP WITH HER DOCTOR @ DISCHARGE FOR A SCRIPT TO OUT PATIENT REHAB. FAMILY PROVIDING TRANSPORTATION.
--- NOTE | 2020-11-21 14:36 | P.DS_ITS ---
DS: Providers Provider Date of Service: 11/22/20 Date of admission: 11/19/20 21:04 Date of discharge: 11/22/20 Primary care physician: Unknown Physician Admitting clinician: Aspen Humphreys Attending physician on admission: Aspen Humphreys Consults: 11/19/20 22:11 Consult to Neurology Routine Consulting Provider: [facility] Reason for consultation: TIA Has provider been notified: No Attending physician on discharge: Gus Wilkinson Discharging clinician: Tiff Ac DS: Diagnosis Discharge Diagnosis (1) Brain TIA: Status: Acute (2) Seizures: Status: Acute (3) Mitochondrial complex 1 deficiency: Status: Acute (4) HTN (hypertension): Status: Acute (5) AVM (arteriovenous malformation) brain: Status: Acute DS: Medications Discharge Medications Home Medications: Home Medications Medication Instructions Recorded Confirmed lisinopril 20 mg tablet 20 mg PO DAILY 05/01/20 11/19/20 terazosin 2 mg capsule 2 mg PO BEDTIME 05/01/20 11/19/20 amlodipine 1 tab PO DAILY 11/19/20 11/19/20 ammonium lactate 1 appl TOPICAL BID 11/19/20 11/19/20 estradiol [Estring] 1 ea VAGINAL [id number] 11/19/20 11/19/20 Previous Rx's Medication Instructions Recorded albuterol sulfate 90 mcg/actuation 1 inh INHALATION Q6H PRN #1 ea 05/15/20 breath activated powder inhaler,sensor ropinirole 2 mg tablet 2 mg PO BEDTIME 90 Days #90 tab 09/07/20 lorazepam 2 mg tablet 2 mg PO DAILY PRN #30 tab 10/04/20 fluoxetine 40 mg capsule 40 mg PO QAM #90 cap 10/26/20 esomeprazole magnesium 40 mg 40 mg PO DAILY 90 Days #90 cap 11/06/20 capsule,delayed release hydromorphone 4 mg tablet 4 mg PO TID PRN 30 Days #90 tab 11/07/20 pregabalin 100 mg capsule 200 mg PO Q12H 30 Days #120 cap 11/07/20 atorvastatin 40 mg tablet 40 mg PO DAILY #90 tab 11/16/20 carbamazepine 400 mg 400 mg PO BID 90 Days #180 tab 11/16/20 tablet,extended release,12 hr DS: Summary Hospital Course Hospital Course: HP as per admitting provider 60-year-old female with history of AVM HTN, mitochondrial complex 1 deficiency, seizures, 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 Patient reports that in the past 3 months he has had multiple episodes similar to this today was worse, she has been having her multiple falls constantly, reports that today she suddenly had difficulty speaking, she could not see, felt weaker on her left lower extremity. And had a fall with no loss of consciousness. Her significant other was present during these episodes and witnessed the slurred speech, lasted about 45 minutes. She also texted her friend during this episode and her friend called her significant other stating that the text message made no sense and if the patient was okay. Patient reports that her symptoms resolved after 45 minutes, at this time denies any palpitations no chest pain, no shortness of breath abdominal pain nausea or vomiting, no diarrhea constipation, no urinary symptoms and no lower extremity edema. Patient reports hemiplegia of her left upper extremity, she also has loss of sensation from knee below on her left lower extremity, she reports that due to her strokes in the past she has issues with her foot that it turns suddenly and today she felt that she had to drag her feet. At baseline she is able to walk. On arrival to the ED hemodynamically stable with no significant abnormal vitals except for blood pressure 183/92. Labs are significant for WBC of 4.3 which is chronically low, labs otherwise unremarkable. CT angiogram of the head and neck showed no vessel occlusion or significant stenosis in the cervical or intracranial vasculature, head CT shows no evidence of acute intracranial hemorrhage or territorial infarct. Right frontal parietal and temporal lobe encephalomalacia from old infarction, no acute changes . 60-year-old female with history of CVA secondary to AVMs presents to the hospital with complaints of slurred speech, and increased weakness. Possible TIA vs seizure . CT showed no acute infarction. MRI showed Extensive chronic encephalomalacia with no acute infarction. Seen and evaluated by Neurology. Follow-up with neurology regarding starting on aspirin in light of history of hemorrhagic strokes. Also follow-up regarding EEG results. Continue statin. No further symptoms noted. Patient is out of bed ambulating. Safe to discharge home. Time Spent with Patient Time attestation: Total time spent providing and/or coordinating discharge services: Discharge coordination time: Greater than 30 minutes Quality: Stroke Does the patient have a stroke diagnosis?: No Physical Exam Vital Signs: Vital Signs: Last Vital Signs Temp 97.3 F 11/21/20 12:00 Pulse 62 11/21/20 12:00 Resp 17 11/21/20 12:00 BP 132/75 11/21/20 12:00 Pulse Ox 97 11/21/20 12:00 Body Mass Index 20.7 Appearing in no acute distress head is normocephalic atraumatic eyes pupils are PERRLA sclera is anicteric mouth throat mucous membranes are intact and moist neck is supple no lymphadenopathy, no JVD noted lung sounds are clear to auscultation heart regular rate rhythm, clear S1, S2 positive bowel sounds, abdomen is soft, nontender neuro patient is alert, left sided hemiparesis Discharge Plan Discharge Anticipated Discharge Date/Time: 11/22/20 09:27 Patient Disposition: Home, Self-Care Discharge Diagnosis: Tia vs seizure Referrals: Physician,Unknown [Primary Care Provider] - 1 Week Discharge Medications: Continued ropinirole 2 mg tablet 2 mg PO BEDTIME 90 Days Qty: 90 RF: 2 lorazepam 2 mg tablet 2 mg PO DAILY PRN (Reason: anxiety) Qty: 30 RF: 0 fluoxetine 40 mg capsule 40 mg PO QAM Qty: 90 RF: 2 esomeprazole magnesium [Nexium] 40 mg capsule,delayed release(DR/EC) 40 mg PO DAILY 90 Days Qty: 90 RF: 1 hydromorphone [Dilaudid] 4 mg tablet 4 mg PO TID PRN (Reason: pain) 30 Days Qty: 90 RF: 0 pregabalin [Lyrica] 100 mg capsule 200 mg PO Q12H 30 Days Qty: 120 RF: 0 atorvastatin 40 mg tablet 40 mg PO DAILY Qty: 90 RF: 3 carbamazepine 400 mg tablet extended release 12 hr 400 mg PO BID 90 Days Qty: 180 RF: 1 amlodipine 10 mg tablet 1 tab PO DAILY RF: 0 ammonium lactate 12 % cream 1 appl topical BID RF: 0 Estring 2 mg (7.5 mcg /24 hour) ring 1 ea vaginal [id number] RF: 0 lisinopril 20 mg tablet 20 mg PO DAILY RF: 0 terazosin 2 mg capsule 2 mg PO BEDTIME RF: 0 Proair Digihaler 90 mcg/actuation aero powdr breath act w/sensor 1 inh inhalation Q6H PRN (Reason: shortness of breath or wheezing) Qty: 1 RF: 0 Prevnar 13 (PF) 0.5 mL syringe 0.5 ml IM ONCE Qty: 0.5 RF: 0 Discharge Orders: Discharge Order (Routine); Ordered 11/22/20 Ordered By: Tiff Ac Diet: advance to usual diet Activity on Discharge: As tolerated Stand Alone Forms: Patient Portal Discharge page Care Plan Goals: Return to the emergency department for returning symptoms Health Concerns: TIA vs Seizure Plan of Treatment: Follow up with your neurologist to discuss results of EEG. Follow up with your primary care provider as needed Assessment: See discharge summary
--- NOTE | 2020-11-21 16:59 | PM.IMPN ---
Subjective Subjective Date of Service: 11/21/20 Interval History: Follow-up slurred speech better today ambulating in room Physical Exam Vital Signs: Vital Signs: Last Vital Signs Temp 97.5 F 11/21/20 15:16 Pulse 61 11/21/20 15:16 Resp 18 11/21/20 15:16 BP 158/76 H 11/21/20 15:16 Pulse Ox 96 11/21/20 15:16 Body Mass Index 20.7 Appearing in no acute distress lung sounds are clear to auscultation heart regular rate rhythm, clear S1, S2 positive bowel sounds, abdomen is soft, nontender neuro patient is alert x3, left-sided hemiparesis Objective Data Current Medications Generic Name Dose Route Start Last Admin Trade Name Freq PRN Reason Stop Dose Admin Acetaminophen 650 mg 11/19/20 22:11 11/19/20 23:57 Acetaminophen 325 Mg Tablet PO 650 mg Q6H PRN Administration Pain, Mild (Pain Scale 1-3) Albuterol Sulfate 1 puff 11/19/20 22:11 Albuterol Sulfate 90 Mcg 8 Gm Inhaler INHALE Q6H PRN shortness of breath or wheezing Amlodipine Besylate 10 mg 11/20/20 09:00 11/21/20 10:10 Amlodipine Besylate 10 Mg Tablet PO 10 mg DAILY AUBREE Administration Protocol Atorvastatin Calcium 40 mg 11/20/20 09:00 11/21/20 10:09 Atorvastatin Calcium 40 Mg Tablet PO 40 mg DAILY AUBREE Administration Carbamazepine 400 mg 11/20/20 09:00 11/21/20 10:09 Carbamazepine Er 200 Mg Tab.Er.12h PO 400 mg BID AUBREE Administration Docusate Sodium 100 mg 11/19/20 22:11 Docusate Sodium 100 Mg Capsule PO DAILY PRN Constipation Doxazosin Mesylate 2 mg 11/20/20 21:00 11/20/20 20:09 Doxazosin Mesylate 2 Mg Tablet PO 2 mg BEDTIME AUBREE Administration Enoxaparin Sodium 40 mg 11/19/20 23:00 11/20/20 22:02 Enoxaparin Sodium 40 Mg/0.4 Ml Syringe SUBCUT 40 mg Q24H AUBREE Administration Fluoxetine HCl 40 mg 11/19/20 22:11 11/21/20 10:10 Fluoxetine Hcl 20 Mg Capsule PO 40 mg DAILY AUBREE Administration Hydromorphone HCl 4 mg 11/19/20 22:11 11/20/20 20:09 Hydromorphone Hcl 4 Mg Tablet PO 4 mg TID PRN Administration Pain, Severe (Pain Scale 7-10) Lactic Acid 1 appl 11/19/20 22:11 11/21/20 10:14 Ammonium Lactate 12 % Cream 140 Gm Tube TOPICAL 1 appl BID AUBREE Administration Protocol Lisinopril 20 mg 11/20/20 09:00 11/21/20 10:12 Lisinopril 20 Mg Tablet PO 20 mg DAILY AUBREE Administration Protocol Lorazepam 2 mg 11/19/20 22:11 11/20/20 20:09 Lorazepam 1 Mg Tablet PO 2 mg DAILY PRN Administration anxiety Omeprazole 20 mg 11/20/20 06:30 11/21/20 06:10 Omeprazole 20 Mg Capsule. PO 20 mg DAILY@0630 AUBREE Administration Ondansetron HCl 4 mg 11/19/20 22:11 Ondansetron Hcl 4 Mg/2 Ml Vial IVPUSH Q8H PRN Nausea and Vomiting Pneumococcal 13-Valent Conj Vacc 0.5 ml 11/19/20 22:11 Pneumoc 13-Raven Conj-Dip Crm/Pf 0.5 Ml Syringe IM ONCE AUBREE Pregabalin 200 mg 11/19/20 23:00 11/21/20 10:09 Pregabalin 100 Mg Capsule PO 200 mg Q12H AUBREE Administration Ropinirole HCl 2 mg 11/19/20 22:11 11/20/20 20:09 Ropinirole Hcl 2 Mg Tablet PO 2 mg BEDTIME AUBREE Administration Labs CBC & Chem 7: 11/20/20 05:25 11/20/20 05:25 Progress Note: A&P (1) Brain TIA: Status: Acute Assessment and Plan: 60-year-old female with 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 CT showed no acute infarction MRI showed Extensive chronic encephalomalacia with no acute infarction neurology consult with rec for EEG continue atorvastatin check lipids asa contraindicated d/t hx of hemorrhagic stroke History of seizures continue carbamazepine seizure precautions EEG pending Hypertension continue amlodipine and lisinopril Mood disorder continue SSRI, lorazepam, DISPO likely home tomorrow after eeg results DVT prophylaxis: [place] Attending Dr. Wilkinson Full code Quality Stroke Does the patient have a stroke diagnosis?: No VTE Prior VTE?: No VTE Risk Level:: Medical - moderate - high VTE Device Contraindication: Treatment Not Indicated VTE Drug Contraindication: N/A - Med Ordered
[2020-11-21] MEDS: LORazepam 1 MG TABLET 2 MG PO (20:31)
[2020-11-21] MEDS: rOPINIRole HCL 2 MG TABLET PO (20:31)
[2020-11-21] MEDS: Doxazosin Mesylate 2 MG TABLET PO (20:32)
[2020-11-21] MEDS: Docusate Sodium 100 MG CAPSULE PO (20:32)
[2020-11-21] MEDS: Enoxaparin Sodium 40 MG/0.4 ML SYRINGE SUBCUT (22:30)
[2020-11-22 03:54] VITALS: BP 113/60; PULSE 51; RESP 18; TEMP 36.3; O2SAT 96
[2020-11-22] MEDS: Omeprazole 20 MG CAPSULE.DR PO (05:32)
[2020-11-22 06:56] VITALS: BP 111/57; PULSE 54; RESP 18; TEMP 36.1; O2SAT 97
[2020-11-22] MEDS: Atorvastatin Calcium 40 MG TABLET PO (08:49)
[2020-11-22] MEDS: carBAMazepine ER 200 MG TAB.ER.12H 400 MG PO (08:49)
[2020-11-22] MEDS: lisinopriL 20 MG TABLET PO (08:49)
[2020-11-22] MEDS: amLODIPine Besylate 10 MG TABLET PO (08:49)
[2020-11-22] MEDS: FLUoxetine HCl 20 MG CAPSULE 40 MG PO (08:49)
[2020-11-22] MEDS: Ammonium Lactate 12 % Cream 140 GM TUBE 1 APPL TOPICAL (08:50)
== END 2020-11-22 10:45 | disposition home or self-care (01) | DRG 101 ==
LOC: HO.ED 18:22 → HO.EDOVER 22:56 → HO.IMC 23:16
PROVIDERS: Physician Assistant Medical; Admitting Provider Internal Medicine; Emergency Provider Internal Medicine; PCP Family Medicine; Visit Provider Family Medicine
DX: R56.9 Unspecified convulsions (principal); G45.9 Transient cerebral ischemic attack, unspecified; E88.40 Mitochondrial metabolism disorder, unspecified; I10 Essential (primary) hypertension; F39 Unspecified mood [affective] disorder; G93.89 Other specified disorders of brain; Z87.74 Personal history of (corrected) congenital malformations of heart and circulatory system; Z20.822 Contact with and (suspected) exposure to COVID-19; Z86.73 Personal history of transient ischemic attack (TIA), and cerebral infarction without residual deficits; Z88.2 Allergy status to sulfonamides; Z88.5 Allergy status to narcotic agent; Z79.899 Other long term (current) drug therapy
CPT/HCPCS: 36415; 70450; 70496; 70498; 70551; 71045; 80048; 80053; 81001; 82947; 83735; 84484; 85025; 85610; 85730; 87635; 93005; 95816; 97110; 97116; 97162; 99285; J1650; Q9967

== ENCOUNTER 2021-01-01 13:13 | Outpatient (REF) | payer BC, SELFPAY ==
--- NOTE | ~2021-01-01 | XR_ITS ---
EXAMINATION: XR CHEST CLINICAL INFORMATION: Cough. COMPARISON: Most recent chest radiographs dated 11/19/2020 TECHNIQUE: 2 views of the chest were obtained. FINDINGS: No focal airspace consolidation. No pleural effusion or pneumothorax. Stable cardiomediastinal silhouette. No acute osseous abnormality. Redemonstration of a lower thoracic spine vertebroplasty. XR/XR chest 2V IMPRESSION: No acute cardiopulmonary findings.
== END 2021-01-01 13:14 | disposition home or self-care (01) ==
LOC: HO.HMGCLDS 13:13
PROVIDERS: PCP Family Medicine; Visit Provider Family Medicine
DX: R05 Cough (principal)
CPT/HCPCS: 71046

== ENCOUNTER 2021-01-03 12:25 | Outpatient (REF) | payer BC, SELFPAY ==
[2021-01-03 13:54] LABS: MANUAL DIFF FLAG NO
[2021-01-03 14:01] LABS: Basophils Percent Auto 0.4 % (0-2); Eosinophils Percent Auto 0.8 % (0-4); Hematocrit 37.4 % (37-47); Hemoglobin 12.8 g/dl (12.0-16.0); Imm Gran Abs Auto 0.01 X10*3/uL (0.00-0.03); Imm Gran Pct Auto 0.4 % (0.0-0.4); Lymphocytes Absolute Auto 1.2 X10*3/uL (1.2-4.9); Lymphocytes Percent Auto 47.7 % (20-40); Mean Corpuscular HGB Conc 34.2 g/dl (31.0-35.0); Mean Corpuscular Hemoglobin 32.2 pg (27.0-33.0); Mean Corpuscular Volume 94.2 fL (80-98); Monocytes Absolute Auto 0.3 X10*3/uL (0.1-1.2); Monocytes Percent Auto 10.8 % (2-11); Neutrophils Percent Auto 39.9 % (45-73); Platelet Count 239 X10*3/uL (160-400); Red Blood Count 3.97 X10*6/uL (4.20-5.50); Red Cell Distribution Width 11.8 % (11.0-16.0); White Blood Count 2.6 X10*3/uL (4.8-10.8)
[2021-01-03 14:42] LABS: Alanine Aminotransferase 23 U/L (0-31); Albumin Level 4.1 g/dL (3.5-5.0); Alkaline Phosphatase 112 U/L (39-117); Anion Gap 15 (12-20); Aspartate Amino Transferase 22 U/L (5-31); Bilirubin Total 0.4 mg/dL (0.0-1.0); Blood Urea Nitrogen 10 mg/dL (9-16); Calcium 9.3 mg/dL (8.4-10.2); Carbon Dioxide 27 mmol/L (22-29); Chloride 97 mmol/L (96-108); Cholesterol 216 mg/dL; Estimated Glomerular Filt Rate > 60; Glucose Fasting 91 mg/dL (60-99); HDL Cholesterol 58 mg/dL; LDL Cholesterol Calculated 126 mg/dl; Potassium 4.8 mmol/L (3.3-5.1); Sodium 134 mmol/L (135-145); Total Protein 7.2 g/dL (6.5-8.0); Triglycerides 162 mg/dL
[2021-01-03 15:03] LABS: Vitamin D 25-OH Total 29.7 ng/mL (>30)
[2021-01-03 15:17] LABS: Folate 12.3 ng/mL (> or = 4.0); Vitamin B12 506 pg/mL (200-900)
== END 2021-01-03 12:26 | disposition home or self-care (01) ==
LOC: HO.HMGCLDS 12:25
PROVIDERS: PCP Family Medicine; Visit Provider Family Medicine
DX: Z00.00 Encounter for general adult medical examination without abnormal findings (principal); E53.8 Deficiency of other specified B group vitamins; E55.9 Vitamin D deficiency, unspecified
CPT/HCPCS: 36415; 80053; 80061; 82306; 82607; 82746; 85025

== ENCOUNTER → 2021-01-17 10:23 | Outpatient (BNVA) | payer BC, SELFPAY | PROVIDERS: PCP Family Medicine; Referring Provider Family Medicine; Visit Provider Physician Assistant ==

== ENCOUNTER 2021-01-19 10:24 | Outpatient (REF) | payer BC, SELFPAY ==
--- NOTE | ~2021-01-19 | US_ITS ---
EXAMINATION: US ABDOMEN COMPLETE CLINICAL INFORMATION: Abdominal pain. COMPARISON: Renal ultrasound November [address] of the abdomen and pelvis July 2018 TECHNIQUE: Real-time imaging of the abdominal viscera. FINDINGS: PANCREAS: Normal. ABDOMINAL AORTA: The proximal, mid, and distal segments are normal in caliber. INFERIOR VENA CAVA: Visualized portions are normal. LIVER: Normal. The liver is normal in size. The liver contour is normal. Parenchymal echogenicity is normal. No focal hepatic lesion. There is no intrahepatic biliary duct dilatation seen. GALLBLADDER: The gallbladder is normal in size. There is a 1.3 x 1.1 x 1.4 cm gallstone. The gallbladder wall is normal. COMMON BILE DUCT: Normal in caliber measuring 0.6 cm in diameter. RIGHT KIDNEY: Normal. No hydronephrosis. No renal calculi or focal parenchymal lesions. The kidney measures 11 cm in maximum dimension. LEFT KIDNEY: Normal. No hydronephrosis. No renal calculi or focal parenchymal lesions. The kidney measures 11.7 cm in maximum dimension. SPLEEN: Normal. The spleen measures 9 cm in maximum dimension. FREE FLUID: None. US/US abdomen complete IMPRESSION: Gallstone. Otherwise unremarkable exam.
== END 2021-01-19 10:25 | disposition home or self-care (01) ==
LOC: HO.HMGCX 10:24
PROVIDERS: PCP Family Medicine; Visit Provider Family Medicine
DX: R10.9 Unspecified abdominal pain (principal)
CPT/HCPCS: 76700

== ENCOUNTER 2021-01-29 14:07 | Outpatient (REF) | payer BC, SELFPAY ==
--- NOTE | ~2021-01-29 | XR_ITS ---
EXAMINATION: XR WRIST, LEFT CLINICAL INFORMATION: Pain left wrist. COMPARISON: None TECHNIQUE: PA, lateral, and oblique views of the left wrist. FINDINGS: There is a nondisplaced fracture distal radius with buckled cortex along the radial aspect of the radius. There is diffuse osteopenia. No additional fracture seen. The carpal bones are intact. The soft tissues are prominent. XR/XR wrist LT min 3V IMPRESSION: Distal radial nondisplaced fracture. Diffuse osteopenia.
== END 2021-01-29 14:08 | disposition home or self-care (01) ==
LOC: HO.HMGCX 14:07
PROVIDERS: PCP Family Medicine; Visit Provider Hospitalist
DX: Z13.89 Encounter for screening for other disorder (principal)
CPT/HCPCS: 73110

== ENCOUNTER 2021-02-01 14:02 | Outpatient (REF) | payer BC, SELFPAY | END 2021-02-01 14:03 | disposition home or self-care (01) | LOC: HO.LNP 14:02 | PROVIDERS: Visit Provider Family Medicine | DX: Z20.822 Contact with and (suspected) exposure to COVID-19 (principal) | CPT/HCPCS: U0003; U0005 ==

== ENCOUNTER 2021-02-06 09:39 | Outpatient (REF) | payer BC, SELFPAY ==
--- NOTE | ~2021-02-06 | XR_ITS ---
EXAMINATION: XR CHEST CLINICAL INFORMATION: Pleurodynia COMPARISON: Previous chest x-ray December 2020 TECHNIQUE: 2 views of the chest were obtained. FINDINGS: The cardiac and mediastinal contours are stable. The lungs are well inflated. The lungs are clear. There is no pleural effusion or pneumothorax. There is an old lower thoracic vertebral body compression fracture and vertebroplasty change, probably the T11 vertebral body. There is new or increasing loss of height of the inferior endplate of the T9 vertebral body and increased sclerosis suggestive of acute compression fracture. XR/XR chest 2V IMPRESSION: Well-inflated lungs. New T9 vertebral body compression fracture.
== END 2021-02-06 09:40 | disposition home or self-care (01) ==
LOC: HO.HMGCX 09:39
PROVIDERS: PCP Family Medicine; Visit Provider Family Medicine
DX: Z13.89 Encounter for screening for other disorder (principal)
CPT/HCPCS: 71046

== ENCOUNTER 2021-02-19 13:50 | Outpatient (REF) | payer BC, SELFPAY ==
--- NOTE | ~2021-02-19 | MM_ITS ---
EXAMINATION: MM SCREENING DIGITAL BREAST TOMOSYNTHESIS, BILATERAL CLINICAL INFORMATION: Screening. Asymptomatic. The lifetime risk of breast cancer based on the Tyrer-Cuzick Model is 9%. COMPARISON: Mammography: 11/23/2018, 10/08/2017, 09/10/2016 TECHNIQUE: Digital breast tomosynthesis is performed in both the craniocaudal and mediolateral oblique views along with computer-aided detection (CAD). Synthesized 2D images are generated from the tomosynthesis. Additional left MLO view is provided. FINDINGS: The breasts are heterogeneously dense, which may obscure small masses (ACR BI-RADS breast composition Category c). There are no significant masses, abnormal calcifications, or other abnormalities. Parenchymal pattern is similar to prior exams. No developing density or architectural changes. There are scattered benign round and rim and vascular calcifications. No significant changes. MM/MM tomosynthesis screening BI IMPRESSION: No mammographic evidence of malignancy. ASSESSMENT: BI-RADS 1: Negative RECOMMENDATION: Routine annual mammography screening. This patient's information was entered into a reminder system with a target due date for their next mammogram.
== END 2021-02-19 13:51 | disposition home or self-care (01) ==
LOC: HO.MAMMO 13:50
PROVIDERS: Absent Provider Obstetrics & Gynecology; PCP Family Medicine; Visit Provider Family Medicine
DX: Z12.31 Encounter for screening mammogram for malignant neoplasm of breast (principal)
CPT/HCPCS: 77063; 77067

== ENCOUNTER → 2021-02-27 13:28 | Outpatient (BNVA) | payer BC, SELFPAY | PROVIDERS: PCP Family Medicine; Referring Provider Family Medicine; Visit Provider Physician Assistant ==

== ENCOUNTER 2021-04-03 13:25 | Outpatient (REF) | payer BC, SELFPAY ==
--- NOTE | ~2021-04-03 | XR_ITS ---
EXAMINATION: XR HIP, RIGHT CLINICAL INFORMATION: Right hip pain COMPARISON: None TECHNIQUE: Two views of the right hip and one view of the pelvis. FINDINGS: Bone alignment is normal. No fracture or dislocation is seen. There is mild right hip arthritis with joint space narrowing and osteophyte formation. There is soft tissue arterial calcification. There is arthritis at the left hip joint. There are degenerative changes of the lower lumbar spine. XR/XR hip RT w PEL1V IMPRESSION: No fracture or dislocation. Mild right hip arthritis.
== END 2021-04-03 13:26 | disposition home or self-care (01) ==
LOC: HO.HMGCX 13:25
PROVIDERS: PCP Family Medicine; Visit Provider Physician Assistant Medical
DX: M25.551 Pain in right hip (principal)
CPT/HCPCS: 73502

== ENCOUNTER 2021-06-06 18:17 | Outpatient (REF) | payer BC, SELFPAY ==
[2021-06-06 19:06] LABS: Influenza A PCR NEGATIVE (Negative); Influenza B PCR NEGATIVE (Negative); Resp Syncy Virus RNA Qual PCR NEGATIVE (Negative); SARS COV2 PCR INHOUSE NEGATIVE (Negative)
== END 2021-06-06 18:18 | disposition home or self-care (01) ==
LOC: HO.LNP 18:17
PROVIDERS: Visit Provider Family Medicine
DX: Z20.822 Contact with and (suspected) exposure to COVID-19 (principal); B34.9 Viral infection, unspecified
CPT/HCPCS: 0241U

== ENCOUNTER 2021-07-17 12:06 | Outpatient (REF) | payer BC, SELFPAY ==
--- NOTE | ~2021-07-17 | XR_ITS ---
EXAMINATION: XR CHEST CLINICAL INFORMATION: Chest pain COMPARISON: Chest x-ray 02/06/2021 TECHNIQUE: 2 views of the chest were obtained. FINDINGS: The lungs are well-expanded and clear of acute pneumonic process. The heart size and pulmonary vascularity is normal. There is mild dextroscoliosis of dorsal lumbar spine. There is evidence of previous T11 kyphoplasty. No lytic process. XR/XR chest 2V IMPRESSION: Unremarkable chest exam. No change from 02/06/2021.
== END 2021-07-17 12:07 | disposition home or self-care (01) ==
LOC: HO.HMGCX 12:06
PROVIDERS: Visit Provider Family Medicine
DX: R09.89 Other specified symptoms and signs involving the circulatory and respiratory systems (principal)
CPT/HCPCS: 71046

== ENCOUNTER 2021-07-18 11:11 | Outpatient (REF) | payer BC, SELFPAY ==
[2021-07-18 11:32] LABS: MANUAL DIFF FLAG NO
[2021-07-18 12:08] LABS: Basophils Percent Auto 0.3 % (0-2); Eosinophils Percent Auto 1.1 % (0-4); Hemoglobin 11.7 g/dl (12.0-16.0); Imm Gran Abs Auto 0.01 X10*3/uL (0.00-0.03); Imm Gran Pct Auto 0.3 % (0.0-0.4); Lymphocytes Absolute Auto 1.6 X10*3/uL (1.2-4.9); Lymphocytes Percent Auto 44.3 % (20-40); Mean Corpuscular HGB Conc 33.4 g/dl (31.0-35.0); Mean Corpuscular Hemoglobin 32.4 pg (27.0-33.0); Mean Platelet Volume 9.3 fL (9.4-12.3); Monocytes Absolute Auto 0.4 X10*3/uL (0.1-1.2); Monocytes Percent Auto 9.9 % (2-11); Neutrophils Absolute Auto 1.6 x10*3/uL (2.0-8.3); Neutrophils Percent Auto 44.1 % (45-73); Platelet Count 214 X10*3/uL (160-400); Red Blood Count 3.61 X10*6/uL (4.20-5.50); Red Cell Distribution Width 12.1 % (11.0-16.0); White Blood Count 3.5 X10*3/uL (4.8-10.8)
[2021-07-18 12:36] LABS: Alanine Aminotransferase 23 U/L (0-31); Albumin Level 3.9 g/dL (3.5-5.0); Alkaline Phosphatase 87 U/L (39-117); Anion Gap 12 (12-20); Aspartate Amino Transferase 28 U/L (5-31); Bilirubin Total 0.4 mg/dL (0.0-1.0); Blood Urea Nitrogen 8 mg/dL (9-16); Calcium 9.1 mg/dL (8.4-10.2); Carbon Dioxide 29 mmol/L (22-29); Chloride 98 mmol/L (96-108); Cholesterol 205 mg/dL; Estimated Glomerular Filt Rate > 60; Glucose Random 86 mg/dL (60-115); HDL Cholesterol 66 mg/dL; LDL Cholesterol Calculated 120 mg/dl; Potassium 4.7 mmol/L (3.3-5.1); Sodium 134 mmol/L (135-145); Total Protein 6.9 g/dL (6.5-8.0); Triglycerides 95 mg/dL
[2021-07-18 12:56] LABS: Erythrocyte Sedimentation Rate 18 MM/HR (0-20)
== END 2021-07-18 11:12 | disposition home or self-care (01) ==
LOC: HO.LAB 11:11
PROVIDERS: PCP Family Medicine; Visit Provider Family Medicine
DX: Z00.00 Encounter for general adult medical examination without abnormal findings (principal); R51.9 Headache, unspecified; E88.49 Other mitochondrial metabolism disorders; R06.02 Shortness of breath
CPT/HCPCS: 36415; 80053; 80061; 83605; 85025; 85652

== ENCOUNTER 2021-07-19 14:19 | Outpatient (REF) | payer BC, SELFPAY ==
[2021-07-19 14:31] LABS: Appearance Urine CLEAR; Color Urine STRAW; Glucose Urine UA NEG (NEG); Leukocyte Esterase Urine NEG (NEG); Nitrite Urine NEG (NEG); Specific Gravity - Urine <= 1.005 (1.005-1.025); Urine Blood NEG (NEG); Urine Ketones NEG (NEG); Urine Protein NEG (NEG-TRACE)
== END 2021-07-19 14:20 | disposition home or self-care (01) ==
LOC: HO.LNP 14:19
PROVIDERS: Visit Provider Family Medicine
DX: Z00.00 Encounter for general adult medical examination without abnormal findings (principal)
CPT/HCPCS: 81003

== ENCOUNTER 2021-07-24 19:05 | Outpatient (REF) | payer BC, SELFPAY ==
--- NOTE | ~2021-07-24 | MR_ITS ---
EXAMINATION: MR BRAIN WITHOUT CONTRAST CLINICAL INFORMATION: Altered mental status. COMPARISON: Brain MRI dated 11/20/2020. TECHNIQUE: Multiplanar, multisequence imaging of the brain was performed without contrast. FINDINGS: Right-sided postcraniotomy changes again noted with cystic encephalomalacia and gliosis in the right cerebral hemisphere. There is stable ex vacuo dilatation of the right lateral ventricle as on prior imaging. Right-sided Wallerian degeneration again evident in the brainstem. Mild chronic white matter microangiopathy again noted. No diffusion abnormalities are identified to suggest an acute or subacute infarct. No evidence of hydrocephalus. No mass effect or midline shift is seen. Significant volume loss evident in the body of the corpus callosum. No brain parenchymal signal abnormality is noted. No extra-axial fluid collections are seen. Mild small vessel ischemic changes in the brainstem are stable. The cerebellum is normal. Chronic hemosiderin staining again visible in the right cerebral hemisphere along the pacheco of the operative bed and in the adjacent surrounding brain parenchyma. The craniovertebral junction, marrow signal, and midline structures are normal. The major intracranial flow voids at the level of the torres [place] of [place] are preserved. The dural venous sinus flow voids are maintained. The mastoid air cells and paranasal sinuses are well aerated. MR/MR head/brain wo con IMPRESSION: Stable examination with chronic encephalomalacia and gliosis underlying a right-sided craniotomy flap. Secondary ex vacuo dilatation of the right lateral ventricle due to volume loss. Right-sided Wallerian degeneration in the brainstem.
== END 2021-07-24 19:06 | disposition home or self-care (01) ==
LOC: HO.MRI 19:05
PROVIDERS: Visit Provider Family Medicine
DX: R41.82 Altered mental status, unspecified (principal)
CPT/HCPCS: 70551

== ENCOUNTER 2021-08-15 14:00 | Outpatient (REF) | payer BC, SELFPAY ==
--- NOTE | ~2021-08-15 | XR_ITS ---
EXAMINATION: CR X-RAY CLAVICLE AND SHOULDER LEFT CLINICAL INFORMATION: Left shoulder pain status post injury. COMPARISON: Chest radiographs dated 07/17/2021. TECHNIQUE: 4 views of the left shoulder and 2 views of the left clavicle were obtained. FINDINGS: There is generalized osteopenia. Deformity seen in the distal one third of the left clavicle, proximal to the left acromioclavicular joint. There is mild malalignment of the left acromioclavicular joint without significant widening. The left glenohumeral joint is intact. The visualized left ribs appear intact. XR/XR clavicle LT IMPRESSION: Acute, mildly displaced comminuted fracture of the distal left clavicle. Mild malalignment of the left acromioclavicular joint without significant widening could be projectional. Injury to the joint cannot be excluded.
--- NOTE | ~2021-08-15 | XR_ITS ---
EXAMINATION: CR X-RAY CLAVICLE AND SHOULDER LEFT CLINICAL INFORMATION: Left shoulder pain status post injury. COMPARISON: Chest radiographs dated 07/17/2021. TECHNIQUE: 4 views of the left shoulder and 2 views of the left clavicle were obtained. FINDINGS: There is generalized osteopenia. Deformity seen in the distal one third of the left clavicle, proximal to the left acromioclavicular joint. There is mild malalignment of the left acromioclavicular joint without significant widening. The left glenohumeral joint is intact. The visualized left ribs appear intact. XR/XR shoulder LT min 2V IMPRESSION: Acute, mildly displaced comminuted fracture of the distal left clavicle. Mild malalignment of the left acromioclavicular joint without significant widening could be projectional. Injury to the joint cannot be excluded.
== END 2021-08-15 14:01 | disposition home or self-care (01) ==
LOC: HO.HMGCX 14:00
PROVIDERS: Visit Provider Physician Assistant
DX: S49.92XA Unspecified injury of left shoulder and upper arm, initial encounter (principal)
CPT/HCPCS: 73000; 73030

== ENCOUNTER 2021-09-24 14:15 | Outpatient (REF) | payer BC, SELFPAY ==
--- NOTE | ~2021-09-24 | US_ITS ---
EXAMINATION: US EXTRACRANIAL CAROTID DUPLEX, BILATERAL CLINICAL INFORMATION: Dizziness. COMPARISON: None TECHNIQUE: Real-time ultrasound and Doppler techniques (integrating B-mode 2-D vascular images, Doppler spectral analysis and color-flow Doppler imaging) were utilized to interrogate the extracranial carotid arteries, the vertebral arteries and proximal subclavian arteries bilaterally. The degree of stenosis is determined by criteria similar to NASCET. FINDINGS: Right Side: 1. There is minimal atherosclerotic plaque seen in the bifurcation/proximal ICA region. 2. The common carotid artery PSV proximally is 100 cm/s and distally 90 cm/s. 3. The proximal internal carotid artery velocities are 105 cm/s systolic and 17 cm/s diastolic. 4. The proximal external carotid artery PSV is 117 cm/s. 5. The vertebral artery shows antegrade flow. 6. The subclavian artery waveforms are normal. Left Side: 1. There is minimal atherosclerotic plaque seen in the bifurcation/proximal ICA region. 2. The common carotid artery PSV proximally is 105 cm/s and distally 100 cm/s. 3. The proximal internal carotid artery velocities are 89 cm/s systolic and 20 cm/s diastolic. 4. The proximal external carotid artery PSV is 130 cm/s. 5. The vertebral artery shows antegrade flow. 6. The subclavian artery waveforms are normal. US/US carotid duplex BI IMPRESSION: 1. RIGHT: Minimal, non-hemodynamically significant stenosis of the proximal right internal carotid artery corresponding to a 0-49% stenosis by velocity criteria. 2. LEFT: Minimal, non-hemodynamically significant stenosis of the proximal left internal carotid artery corresponding to a 0-49% stenosis by velocity criteria.
== END 2021-09-24 14:16 | disposition home or self-care (01) ==
LOC: HO.HMGCX 14:15
PROVIDERS: Visit Provider Family Medicine
DX: R41.82 Altered mental status, unspecified (principal); R42 Dizziness and giddiness
CPT/HCPCS: 93880

== ENCOUNTER 2021-12-13 09:35 | Outpatient (REF) | payer BC, SELFPAY ==
[2021-12-13 11:04] LABS: MANUAL DIFF FLAG NO
[2021-12-13 11:12] LABS: Basophils Percent Auto 0.8 % (0-2); Eosinophils Absolute Auto 0.1 X10*3/uL (0.0-0.4); Eosinophils Percent Auto 1.4 % (0-4); Hematocrit 35.6 % (37.0-47.0); Hemoglobin 12.1 g/dl (12.0-16.0); Imm Gran Abs Auto 0.01 X10*3/uL (0.00-0.03); Imm Gran Pct Auto 0.3 % (0.0-0.4); Lymphocytes Absolute Auto 2.2 X10*3/uL (1.2-4.9); Lymphocytes Percent Auto 59.3 % (20-40); Mean Corpuscular Hemoglobin 31.9 pg (27.0-33.0); Mean Corpuscular Volume 93.9 fL (80.0-98.0); Mean Platelet Volume 9.5 fL (9.4-12.3); Monocytes Absolute Auto 0.4 X10*3/uL (0.1-1.2); Monocytes Percent Auto 9.8 % (2-11); Neutrophils Absolute Auto 1.1 x10*3/uL (2.0-8.3); Neutrophils Percent Auto 28.4 % (45-73); Platelet Count 237 X10*3/uL (160-400); Red Blood Count 3.79 X10*6/uL (4.20-5.50); Red Cell Distribution Width 12.4 % (11.0-16.0); White Blood Count 3.7 X10*3/uL (4.8-10.8)
[2021-12-13 14:33] LABS: Appearance Urine CLEAR; Color Urine YELLOW; Glucose Urine UA NEG (NEG); Leukocyte Esterase Urine NEG (NEG); Nitrite Urine NEG (NEG); PH 7.5 (5.0-8.0); Specific Gravity - Urine 1.015 (1.005-1.025); Urine Blood NEG (NEG); Urine Ketones NEG (NEG); Urine Protein NEG (NEG-TRACE)
== END 2021-12-13 09:36 | disposition home or self-care (01) ==
LOC: HO.HMGCLDS 09:35
PROVIDERS: PCP Family Medicine; Visit Provider Family Medicine
DX: Z00.00 Encounter for general adult medical examination without abnormal findings (principal); D64.9 Anemia, unspecified; E88.49 Other mitochondrial metabolism disorders
CPT/HCPCS: 36415; 81003; 82550; 85025

== ENCOUNTER 2022-03-26 12:21 | Outpatient (REF) | payer BC, SELFPAY ==
--- NOTE | ~2022-03-26 | XR_ITS ---
EXAMINATION: XR CHEST CLINICAL INFORMATION: Pleurodynia COMPARISON: 07/17/2021 TECHNIQUE: 2 views of the chest were obtained. FINDINGS: Lungs are well expanded and clear. A left nipple shadow is duct on the frontal view. No pulmonary consolidation, pneumothorax or pleural effusion. Cardiac silhouette is normal in size. The hilar contours are normal. Pulmonary vascular pattern is normal. Prior cement augmentation of the compressed T11 vertebral body. Old mild compression fractures of T8 and T9 vertebral bodies. No acute skeletal abnormality. XR/XR chest 2V IMPRESSION: No acute pulmonary disease compared to 07/17/2021.
[2022-03-26 14:28] LABS: MANUAL DIFF FLAG NO
[2022-03-26 14:39] LABS: Basophils Percent Auto 0.7 % (0-2); Eosinophils Percent Auto 0.5 % (0-4); Hematocrit 37.6 % (37.0-47.0); Hemoglobin 12.7 g/dl (12.0-16.0); Imm Gran Abs Auto 0.01 X10*3/uL (0.00-0.03); Imm Gran Pct Auto 0.2 % (0.0-0.4); Lymphocytes Absolute Auto 1.8 X10*3/uL (1.2-4.9); Lymphocytes Percent Auto 41.7 % (20-40); Mean Corpuscular HGB Conc 33.8 g/dl (31.0-35.0); Mean Corpuscular Hemoglobin 32.2 pg (27.0-33.0); Mean Corpuscular Volume 95.2 fL (80.0-98.0); Mean Platelet Volume 9.7 fL (9.4-12.3); Monocytes Absolute Auto 0.5 X10*3/uL (0.1-1.2); Monocytes Percent Auto 11.1 % (2-11); Neutrophils Absolute Auto 1.9 x10*3/uL (2.0-8.3); Neutrophils Percent Auto 45.8 % (45-73); Platelet Count 301 X10*3/uL (160-400); Red Blood Count 3.95 X10*6/uL (4.20-5.50); Red Cell Distribution Width 12.2 % (11.0-16.0); White Blood Count 4.2 X10*3/uL (4.8-10.8)
== END 2022-03-26 12:22 | disposition home or self-care (01) ==
LOC: HO.HMGCX 12:21
PROVIDERS: PCP Family Medicine; Visit Provider Nurse Practitioner Family
DX: Z00.00 Encounter for general adult medical examination without abnormal findings (principal); D64.9 Anemia, unspecified; R07.81 Pleurodynia
CPT/HCPCS: 36415; 71046; 85025

== ENCOUNTER 2022-04-08 12:11 | Outpatient (REF) | payer BC, SELFPAY ==
--- NOTE | ~2022-04-08 | US_ITS ---
EXAMINATION: US RETROPERITONEAL LIMITED (AORTA) CLINICAL INFORMATION: Abdominal aortic aneurysm evaluation. COMPARISON: None TECHNIQUE: Lucas-scale, color Doppler and spectral Doppler evaluation of the abdominal aorta. FINDINGS: There is atherosclerotic disease. The measurements of the aorta in maximum AP and transverse dimensions respectively are as follows: Proximal: 2.1 cm. Mid: 1.7 cm. Distal: 1.6 cm. PSV: 112 cm/s. The measurements of the common iliac arteries in maximum AP and TRV dimensions are as follows: Right Common Iliac Artery: 1.0 cm. Left Common Iliac Artery: 1.1 cm. Extremely limited evaluation of the right external iliac artery stent and a femoral-femoral graft. US/US abdominal aortic aneurysm IMPRESSION: No abdominal aortic or iliac artery aneurysm. Extremely limited evaluation of the right external iliac artery stent and a femoral-femoral graft.
--- NOTE | ~2022-04-08 | US_ITS ---
EXAMINATION: NONINVASIVE ASSESSMENT OF THE ARTERIES OF BOTH LOWER EXTREMITIES WITH PVR EXAM AND BILATERAL LOWER EXTREMITY DUPLEX Rina Clemente MD CLINICAL INFORMATION: Bilateral carotid artery disease, history of stent TECHNIQUE: Ankle pulse volume recordings, ankle pressure measurements and ankle brachial indices were obtained of the lower extremity arterial system bilaterally in addition to duplex Doppler techniques with wave form analysis and measurement of velocities in the common femoral, profunda femoral, superficial femoral, popliteal and tibial arteries. The study was performed only at rest. COMPARISON: None FINDINGS: a) AT REST: RIGHT LE. The right ankle-brachial index is: 0.85 * >0.97-1.25 = normal - no significant arterial disease * 0.75-0.96 = mild peripheral arterial disease * 0.5-0.74 = moderate peripheral arterial disease * <0.50 = severe peripheral arterial disease 2. Right ankle pressure: normal. 3. Right ankle PVR waveform: Abnormal 4. Right direct duplex Doppler findings: Common femoral artery: 251 cm/s, Multiphasic Profunda femoris artery: 39 cm/s, monophasic Superficial femoral artery (proximal): 87 cm/s, Multiphasic Superficial femoral artery (mid): 114 cm/s, Multiphasic Superficial femoral artery (distal): 84 cm/s, Multiphasic Proximal Popliteal artery: 39 cm/s, Multiphasic Mid posterior tibial artery: 50 cm/s, Multiphasic LEFT LE. The left ankle-brachial index is: 1.05 * >0.97-1.25 = normal - no significant arterial disease * 0.75-0.96 = mild peripheral arterial disease * 0.5-0.74 = moderate peripheral arterial disease * <0.50 = severe peripheral arterial disease 2. Left ankle pressure: normal. 3. Left ankle PVR waveform: Abnormal 4. Left direct duplex Doppler findings: Common femoral artery: 234 cm/s, Multiphasic Profunda femoris artery: 133 cm/s, Multiphasic Superficial femoral artery (proximal): 144 cm/s, Multiphasic Superficial femoral artery (mid): 156 cm/s, Multiphasic Superficial femoral artery (distal): 81 cm/s, Multiphasic Proximal Popliteal artery: 65 cm/s, Multiphasic Mid posterior tibial artery: 68 cm/s, Multiphasic US/US LEONEL complete IMPRESSION: RIGHT LEG: Mild peripheral arterial disease by LEONEL and PVR. LEFT LEG: No evidence of hemodynamically significant lower extremity arterial disease. Abnormal ankle PVR. Consider CTA runoff for further evaluation.
--- NOTE | ~2022-04-08 | US_ITS ---
EXAMINATION: NONINVASIVE ASSESSMENT OF THE ARTERIES OF BOTH LOWER EXTREMITIES WITH PVR EXAM AND BILATERAL LOWER EXTREMITY DUPLEX Rina Clemente MD CLINICAL INFORMATION: Bilateral carotid artery disease, history of stent TECHNIQUE: Ankle pulse volume recordings, ankle pressure measurements and ankle brachial indices were obtained of the lower extremity arterial system bilaterally in addition to duplex Doppler techniques with wave form analysis and measurement of velocities in the common femoral, profunda femoral, superficial femoral, popliteal and tibial arteries. The study was performed only at rest. COMPARISON: None FINDINGS: a) AT REST: RIGHT LE. The right ankle-brachial index is: 0.85 * >0.97-1.25 = normal - no significant arterial disease * 0.75-0.96 = mild peripheral arterial disease * 0.5-0.74 = moderate peripheral arterial disease * <0.50 = severe peripheral arterial disease 2. Right ankle pressure: normal. 3. Right ankle PVR waveform: Abnormal 4. Right direct duplex Doppler findings: Common femoral artery: 251 cm/s, Multiphasic Profunda femoris artery: 39 cm/s, monophasic Superficial femoral artery (proximal): 87 cm/s, Multiphasic Superficial femoral artery (mid): 114 cm/s, Multiphasic Superficial femoral artery (distal): 84 cm/s, Multiphasic Proximal Popliteal artery: 39 cm/s, Multiphasic Mid posterior tibial artery: 50 cm/s, Multiphasic LEFT LE. The left ankle-brachial index is: 1.05 * >0.97-1.25 = normal - no significant arterial disease * 0.75-0.96 = mild peripheral arterial disease * 0.5-0.74 = moderate peripheral arterial disease * <0.50 = severe peripheral arterial disease 2. Left ankle pressure: normal. 3. Left ankle PVR waveform: Abnormal 4. Left direct duplex Doppler findings: Common femoral artery: 234 cm/s, Multiphasic Profunda femoris artery: 133 cm/s, Multiphasic Superficial femoral artery (proximal): 144 cm/s, Multiphasic Superficial femoral artery (mid): 156 cm/s, Multiphasic Superficial femoral artery (distal): 81 cm/s, Multiphasic Proximal Popliteal artery: 65 cm/s, Multiphasic Mid posterior tibial artery: 68 cm/s, Multiphasic US/US arterial duplex LE BI IMPRESSION: RIGHT LEG: Mild peripheral arterial disease by LEONEL and PVR. LEFT LEG: No evidence of hemodynamically significant lower extremity arterial disease. Abnormal ankle PVR. Consider CTA runoff for further evaluation.
== END 2022-04-08 12:12 | disposition home or self-care (01) ==
LOC: HO.US 12:11
PROVIDERS: Visit Provider Surgery Vascular Surgery
DX: I71.40 Abdominal aortic aneurysm, without rupture, unspecified (principal); I73.9 Peripheral vascular disease, unspecified
CPT/HCPCS: 76706; 93923; 93925

== ENCOUNTER → 2022-06-13 14:10 | Outpatient (BNVA) | payer BC, SELFPAY | PROVIDERS: PCP Family Medicine; Visit Provider Surgery Vascular Surgery | DX: Z13.89 Encounter for screening for other disorder (principal) ==

== ENCOUNTER 2022-07-05 12:49 | Outpatient (REF) | payer BC, SELFPAY ==
[2022-07-05 13:42] LABS: MANUAL DIFF FLAG NO
[2022-07-05 13:54] LABS: Basophils Percent Auto 0.3 % (0-2); Eosinophils Percent Auto 0.5 % (0-4); Hematocrit 36.9 % (37.0-47.0); Hemoglobin 12.7 g/dl (12.0-16.0); Imm Gran Abs Auto 0.02 X10*3/uL (0.00-0.03); Imm Gran Pct Auto 0.5 % (0.0-0.4); Lymphocytes Absolute Auto 1.5 X10*3/uL (1.2-4.9); Lymphocytes Percent Auto 39.7 % (20-40); Mean Corpuscular HGB Conc 34.4 g/dl (31.0-35.0); Mean Corpuscular Hemoglobin 32.4 pg (27.0-33.0); Mean Corpuscular Volume 94.1 fL (80.0-98.0); Mean Platelet Volume 9.4 fL (9.4-12.3); Monocytes Absolute Auto 0.5 X10*3/uL (0.1-1.2); Neutrophils Absolute Auto 1.6 x10*3/uL (2.0-8.3); Platelet Count 256 X10*3/uL (160-400); Red Blood Count 3.92 X10*6/uL (4.20-5.50); White Blood Count 3.7 X10*3/uL (4.8-10.8)
[2022-07-05 14:24] LABS: Troponin-I High Sensitivity < 3.5 ng/L (<3.5-17.0)
[2022-07-05 14:25] LABS: Alanine Aminotransferase 25 U/L (0-31); Albumin Level 4.1 g/dL (3.5-5.0); Alkaline Phosphatase 106 U/L (39-117); Anion Gap 11 (12-20); Aspartate Amino Transferase 27 U/L (5-31); Bilirubin Total 0.5 mg/dL (0.0-1.0); Blood Urea Nitrogen 7 mg/dL (9-16); Calcium 9.2 mg/dL (8.4-10.2); Carbon Dioxide 28 mmol/L (22-29); Chloride 100 mmol/L (96-108); Estimated Glomerular Filt Rate > 60; Glucose Random 86 mg/dL (60-115); Potassium 4.4 mmol/L (3.3-5.1); Sodium 135 mmol/L (135-145)
[2022-07-05 18:23] LABS: Influenza A PCR NEGATIVE (Negative); Influenza B PCR NEGATIVE (Negative); Resp Syncy Virus RNA Qual PCR NEGATIVE (Negative); SARS COV2 PCR INHOUSE NEGATIVE (Negative)
== END 2022-07-05 12:50 | disposition home or self-care (01) ==
LOC: HO.WFDLDS 12:49
PROVIDERS: Visit Provider Family Medicine
DX: Z00.00 Encounter for general adult medical examination without abnormal findings (principal); R06.02 Shortness of breath
CPT/HCPCS: 0241U; 36415; 80053; 84484; 85025

== ENCOUNTER 2022-07-05 16:33 | Outpatient (REF) | payer BC, SELFPAY | END 2022-07-05 16:34 | disposition home or self-care (01) | LOC: HO.LAB 16:33 | PROVIDERS: Visit Provider Family Medicine | DX: Z13.89 Encounter for screening for other disorder (principal) ==

== ENCOUNTER 2022-08-05 12:32 | Outpatient (REF) | payer BC, MEDICAID, SELFPAY ==
--- NOTE | ~2022-08-05 | XR_ITS ---
EXAMINATION: XR CHEST CLINICAL INFORMATION: Shortness of breath. COMPARISON: 03/26/2022 chest radiographs. TECHNIQUE: 2 views of the chest were obtained. FINDINGS: No significant abnormality is noted involving the heart, lungs, mediastinum, bony thorax or soft tissues. Status post vertebroplasty at T12 without abnormality. XR/XR chest 2V IMPRESSION: No acute cardiopulmonary process.
== END 2022-08-05 12:33 | disposition home or self-care (01) ==
LOC: HO.HMGCX 12:32
PROVIDERS: PCP Family Medicine; Visit Provider Family Medicine
DX: R06.02 Shortness of breath (principal)
CPT/HCPCS: 71046

== ENCOUNTER → 2022-09-03 13:58 | Outpatient (BNVA) | payer BC, MEDICAID, SELFPAY | PROVIDERS: PCP Family Medicine; Referring Provider Family Medicine; Visit Provider Internal Medicine Cardiovascular Disease | DX: Z13.89 Encounter for screening for other disorder (principal) ==

== ENCOUNTER → 2022-09-19 12:46 | Outpatient (REF) | payer BC, MEDICAID, SELFPAY ==
--- NOTE | 2022-09-19 12:49 | CA_ITS ---
Transthoracic Echocardiogram Patient (Last, First, Middle): Aleida Lopez A Gender: Female Date of : 1960 Age: 61 Procedure Date: 09/19/2022 Procedure Type: Transthoracic Echocardiogram Location: OP Height: 170.18 cm Weight: 63.05 kg BSA: 1.73 m2 Heart Rate: bpm BP: 130 / 60 mmHg Cable Layer: TO Referring MD: Oh Carson MD Winery Worker: Oh Carson MD Symptoms: R06.02 - Shortness of breath Study Quality: Fair ECG Rhythm: Sinus Conclusions: - 1. Normal LV systolic function with LVEF of 60 65% with normal filling pattern 2. Mild mitral regurgitation 3. Mildly dilated left atrium 4. Normal RV systolic pressure 5. No pericardial effusion Findings Left Ventricle Normal left ventricular size, thickness, and systolic function. The visually estimated ejection fraction is between 60-65%. Spectral Doppler is indicative of a normal filling pattern. Peak GLS is -24.3%, within normal limits. Atria The left atrium is mildly dilated. There is no evidence of interatrial shunt. The right atrium is normal in size. Aortic Valve Normal aortic valve structure and function. There is no aortic valve stenosis. There is no aortic valve regurgitation. Mitral Valve Normal mitral valve structure and function. There is mild mitral valve regurgitation. There is no mitral valve stenosis. Pulmonic Valve The pulmonic valve is likely normal. Tricuspid Valve Normal tricuspid valve structure. There is mild tricuspid valve regurgitation. The right ventricular systolic pressure is normal. The right ventricular systolic pressure is 28 mmHg. Normal right atrial pressure. There is no evidence of pulmonary hypertension. Great Vessels All visible segments of the aorta are normal in size. The pulmonary artery was not well visualized. Venous The inferior vena cava is normal in size and collapses greater than 50% with inspiration. Pericardium/Pleural There is no evidence of pericardial effusion. Measurements 2D Linear Measurements IVSd: 0.98 0.6-0.9/0.6-1.0 cm LVIDd: 4.15 3.9-5.3/4.2-5.9 cm LVIDd Index: 2.40 2.4-3.2/2.2-3.1 cm/m2 LVIDs: 3.03 2.0-3.6 cm LVPWd: 0.86 0.7-1.1 cm LA Diam: 3.20 2.7-3.8/3.0-4.0 cm LAIDs Index: 1.85 1.5-2.3 cm/m2 LV Mass: 148.52 67-162/88-224 g LV Mass Index: 85.85 43-95/49-115 g/m2 LVOT Diam: 2.10 3.0+(-)1.3 cm 2D Systolic Function EF 4C: 64.20 >55% EF 2C: 61.50 >55% EF BiP: 62.70 >55% Mitral Valve MV Pk E: 0.84 MV PK A: 0.66 MV Decel Time: 218.00 E/A: 1.30 E'Lateral: 8.49 E'Medial: 8.27 E/E' Med: 10.20 E/E' Lat: 9.90 PHT: 64.00 MVA PHT: 3.44 Decel [place]: 3.87 Aortic Valve AoV Pk Dejuan: 1.42 AoV Mn Dejuan: 0.90 AoV VTI: 0.34 AoV Pk Grad: 8.00 Aov Mn Grad: 4.00 MARLENE Cont.VTI: 2.39 LVOT LVOT Pk Dejuan: 1.10 LVOT Mn Dejuan: 0.64 LVOT VTI: 0.24 LVOT Pk Grad: 5.00 LVOT Mn Grad: 2.00 LVOT Diam: 2.10 LVOT Area: 3.46 Diastolic Function MV Pk E: 0.84 MV Pk A: 0.66 E/A: 1.30 E'Medial: 8.27 E/E' Med: 10.20 E' Laterial: 8.49 E/E' Lat: 9.90 Right Ventricle TAPSE (mm): 27.60 TVS' Dejuan: 11.10 Tricuspid Valve TR Pk Dejuan: 2.52 TR Pk Grad: 25.00 RA Press: 3.00 RVSP: 28.00 Great Vessels Aorta Sinus of Valsalva: 2.97 2.0-3.[address] [place]: 2.32 1.7-3.4 cm Ao Asc: 2.60 2.1-3.4 cm Updated in Other Vendor System with Status of Final Oh Carson MD electronically signed on 09/20/2022 3:02:54 PM with status of Final
== END ==
LOC: HO.CARD 12:46
PROVIDERS: PCP Family Medicine; Visit Provider Internal Medicine Cardiovascular Disease
DX: R06.02 Shortness of breath (principal)
CPT/HCPCS: 93306; 93356

== ENCOUNTER → 2022-09-24 09:42 | Outpatient (REF) | payer BC, MEDICAID, SELFPAY ==
--- NOTE | ~2022-09-24 | NM_ITS ---
Myocardial perfusion study Indication: Shortness of breath evaluate for myocardial ischemia Technique: The patient was brought in for a Lexiscan perfusion study on 09/24/2022. Patient performed low-level exercise and was injected 0.4 mg of Lexiscan intravenously. Within a minute of injection, 25 mCi of sestamibi was given intravenously. Images were obtained using the SPECT gamma camera interlaced with the gating device. Images were obtained in supine position. Resting perfusion study was performed on 09/25/2022. Patient was administered 25 mCi of sestamibi intravenously at rest. Images were then obtained in supine position. Images obtained with and without CT attenuation. Total DLP 79 mGy-cm. Images were processed with the software and compared side to side in short axis, horizontal long axis and vertical long axis views. Findings: The stress perfusion study showed non attenuated images show normal uptake of radiotracer in all segments of LV myocardium. Attenuation corrected images show mildly reduced uptake in the distal septum and apex of the myocardium.. The gated study shows normal LV systolic function with calculated LVEF of 74%. LV cavity is normal in size. The gated study shows normal systolic wall thickening and contraction of segments. Resting study shows no change in perfusion pattern compared to stress perfusion study. Gating at rest reveals normal systolic wall motion with ejection fraction at 71%. The findings are consistent with normal myocardial perfusion. NM/NM erni perf SPECT rest & str Impression: 1. Myocardial perfusion imaging study shows normal myocardial perfusion 2. Gated LVEF is 74% 3. Transient ischemic dilatation not present EKG is nondiagnostic for ischemia
--- NOTE | 2022-09-24 09:45 | CA_ITS ---
Acquisition Time: 2022-09-24 09:52:43 Total Exercise Time: 00:02:00 Test Indications: SOB Medications: SEE H Protocol: LEXISCAN Max HR: 086 BPM 54% of Pred: 159 BPM Max BP: 124/066 mmHG Max Work Load: 1.0 METS Pharmacological stress test with Lexiscan injection while sitting and kicking her leg. without anginal symptoms, without arrhythmias, with normotensive response to injection, without EKG changes. Aminophylline 75mg IVP given to reverse :Lexiscan injection. Nuclear images pending. Tesy reviewed with Dr. Shen. Referred By: Oh Carson Overread By: TONO HAYNES
== END ==
LOC: HO.CARD 09:42
PROVIDERS: PCP Family Medicine; Visit Provider Internal Medicine Cardiovascular Disease
DX: R06.02 Shortness of breath (principal)
CPT/HCPCS: 78452; 93017; A9500; J0280; J2785

== ENCOUNTER 2022-10-01 12:28 | Outpatient (REF) | payer BC, MEDICAID, SELFPAY ==
[2022-10-01 14:11] LABS: MANUAL DIFF FLAG NO
[2022-10-01 14:23] LABS: Appearance Urine Clear; Color Urine Yellow; Glucose Urine UA Negative (Negative); Leukocyte Esterase Urine Negative (Negative); Nitrite Urine Negative (Negative); PH 7.5 (5.0-9.0); Specific Gravity - Urine <= 1.005 (1.005-1.025); UMIC TRIGGER UA YES; Urine Blood Trace (Negative); Urine Ketones Negative (Negative); Urine Protein Negative (Neg-Trace)
[2022-10-01 14:26] LABS: Bacteria Urine None Seen (None Seen); Hyaline Casts Urine 0-2 /LPF (0-2); RBC Urine 0-2 /HPF (0-2); Squamous Epithelial Cell Urine 0-2 /HPF (0-2); WBC Urine 0-5 /HPF (0-5)
[2022-10-01 14:27] LABS: Basophils Percent Auto 0.5 % (0-2); Eosinophils Percent Auto 0.9 % (0-4); Hematocrit 37.3 % (37.0-47.0); Hemoglobin 12.9 g/dl (12.0-16.0); Imm Gran Abs Auto 0.01 X10*3/uL (0.00-0.03); Imm Gran Pct Auto 0.2 % (0.0-0.4); Lymphocytes Absolute Auto 1.4 X10*3/uL (1.2-4.9); Lymphocytes Percent Auto 31.1 % (20-40); Mean Corpuscular HGB Conc 34.6 g/dl (31.0-35.0); Mean Corpuscular Hemoglobin 32.3 pg (27.0-33.0); Mean Corpuscular Volume 93.5 fL (80.0-98.0); Mean Platelet Volume 9.4 fL (9.4-12.3); Monocytes Absolute Auto 0.5 X10*3/uL (0.1-1.2); Monocytes Percent Auto 10.4 % (2-11); Neutrophils Absolute Auto 2.5 x10*3/uL (2.0-8.3); Neutrophils Percent Auto 56.9 % (45-73); Platelet Count 268 X10*3/uL (160-400); Red Blood Count 3.99 X10*6/uL (4.20-5.50); White Blood Count 4.4 X10*3/uL (4.8-10.8)
[2022-10-01 17:19] LABS: Creatinine Urine 18.07 mg/dL; Microalbumin Urine < 5.0 mg/L
== END 2022-10-01 12:29 | disposition home or self-care (01) ==
LOC: HO.HMGCLDS 12:28
PROVIDERS: PCP Family Medicine; Visit Provider Family Medicine
DX: Z00.00 Encounter for general adult medical examination without abnormal findings (principal); I10 Essential (primary) hypertension
CPT/HCPCS: 36415; 81001; 82043; 84443; 85025

== ENCOUNTER 2022-10-17 09:17 | Outpatient (REF) | payer BC, MEDICAID, SELFPAY ==
[2022-10-17 11:00] LABS: MANUAL DIFF FLAG NO
[2022-10-17 11:30] LABS: Basophils Percent Auto 0.5 % (0-2); Eosinophils Percent Auto 0.5 % (0-4); Hematocrit 37.4 % (37.0-47.0); Hemoglobin 12.5 g/dl (12.0-16.0); Imm Gran Abs Auto 0.01 X10*3/uL (0.00-0.03); Imm Gran Pct Auto 0.2 % (0.0-0.4); Lymphocytes Percent Auto 45.9 % (20-40); Mean Corpuscular HGB Conc 33.4 g/dl (31.0-35.0); Mean Corpuscular Hemoglobin 32.2 pg (27.0-33.0); Mean Corpuscular Volume 96.4 fL (80.0-98.0); Mean Platelet Volume 9.5 fL (9.4-12.3); Monocytes Absolute Auto 0.4 X10*3/uL (0.1-1.2); Monocytes Percent Auto 8.5 % (2-11); Neutrophils Absolute Auto 1.9 x10*3/uL (2.0-8.3); Neutrophils Percent Auto 44.4 % (45-73); Platelet Count 297 X10*3/uL (160-400); Red Blood Count 3.88 X10*6/uL (4.20-5.50); Red Cell Distribution Width 12.2 % (11.0-16.0); White Blood Count 4.3 X10*3/uL (4.8-10.8)
[2022-10-17 11:35] LABS: Alanine Aminotransferase 17 U/L (0-31); Alkaline Phosphatase 102 U/L (39-117); Anion Gap 14 (12-20); Aspartate Amino Transferase 20 U/L (5-31); Bilirubin Total 0.5 mg/dL (0.0-1.0); Blood Urea Nitrogen 6 mg/dL (9-16); Calcium 9.4 mg/dL (8.4-10.2); Carbon Dioxide 26 mmol/L (22-29); Chloride 100 mmol/L (96-108); Cholesterol 243 mg/dL; Estimated Glomerular Filt Rate > 60; Glucose Fasting 80 mg/dL (60-99); HDL Cholesterol 62 mg/dL; LDL Cholesterol Calculated 151 mg/dl; Sodium 136 mmol/L (135-145); Triglycerides 153 mg/dL
[2022-10-17 11:57] LABS: TSH reflex Free T4 0.89 uIU/mL (0.32-4.0)
== END 2022-10-17 09:18 | disposition home or self-care (01) ==
LOC: HO.HMGCLDS 09:17
PROVIDERS: PCP Family Medicine; Visit Provider Family Medicine
DX: Z00.00 Encounter for general adult medical examination without abnormal findings (principal)
CPT/HCPCS: 36415; 80053; 80061; 84443; 85025

== ENCOUNTER 2022-11-04 14:02 | Outpatient (REF) | payer BC, MEDICAID, SELFPAY ==
--- NOTE | ~2022-11-04 | MM_ITS ---
EXAMINATION: MM SCREENING DIGITAL BREAST TOMOSYNTHESIS, BILATERAL CLINICAL INFORMATION: Screening. Asymptomatic. The lifetime risk of breast cancer based on the Tyrer-Cuzick Model is 7%. COMPARISON: Mammography: 02/19/2021, 11/23/2018, 10/08/2017 TECHNIQUE: Digital breast tomosynthesis is performed in both the craniocaudal and mediolateral oblique views along with computer-aided detection (CAD). Synthesized 2D images are generated from the tomosynthesis. FINDINGS: The breasts are heterogeneously dense, which may obscure small masses (ACR BI-RADS breast composition Category c). Presentation composition borders on average fibroglandular. No developing density or architectural abnormality. There are no significant masses, abnormal calcifications, or other abnormalities. The axilla and skin contours are unremarkable. MM/MM tomosynthesis screening BI IMPRESSION: No mammographic evidence of malignancy. ASSESSMENT: BI-RADS 1: Negative RECOMMENDATION: Routine annual mammography screening. This patient's information was entered into a reminder system with a target due date for their next mammogram.
== END 2022-11-04 14:03 | disposition home or self-care (01) ==
LOC: HO.MAMMO 14:02
PROVIDERS: PCP Family Medicine; Visit Provider Family Medicine
DX: Z12.31 Encounter for screening mammogram for malignant neoplasm of breast (principal)
CPT/HCPCS: 77063; 77067

== ENCOUNTER 2022-11-20 13:19 | Outpatient (REF) | payer BC, MEDICAID, SELFPAY | END 2022-11-20 13:20 | disposition home or self-care (01) | LOC: HO.HMGCX 13:19 | PROVIDERS: PCP Family Medicine; Visit Provider Nurse Practitioner Family | DX: M54.50 Low back pain, unspecified (principal); Z91.81 History of falling | CPT/HCPCS: 72100 ==

== ENCOUNTER 2022-11-26 14:48 | Outpatient (AMB) | payer BC, MEDICAID, SELFPAY ==
[2022-11-26 14:52] VITALS: BP 108/68; PULSE 61; O2SAT 98
--- NOTE | 2022-11-26 14:52 | MHC.PC.OV ---
Vital Signs 11/26/22 14:52 Height 5 ft 7 in BP 108/68 Blood Pressure Location Lt brachial Position Sitting Pulse 61 Pulse Source Pulse Oximeter Pulse Oximetry (%) 98 Oxygen Delivery Method Room Air Intake Visit Reasons: 6 week f/u Intake Note: Patient is here for 6 week follow up on her health conditions. Allergies fentanyl [FENTANYL] Allergy (Unknown, Verified 11/26/22 15:03) Unknown meperidine [Demerol] Allergy (Unknown, Verified 11/26/22 15:03) rash morphine [MORPHINE] Allergy (Unknown, Verified 11/26/22 15:03) chest pressure phenytoin [Dilantin] Allergy (Unknown, Verified 11/26/22 15:03) rash remifentanil Allergy (Unknown, Verified 11/26/22 15:03) Rash sevoflurane Allergy (Unknown, Verified 11/26/22 15:03) Rash Sulfa (Sulfonamide Antibiotics) [SULFA(SULFONAMIDE ANTIBIOTICS)] Allergy (Unknown, Verified 11/26/22 15:03) Rash Ringer's solution,lactated Adverse Reaction (Verified 11/26/22 15:03) contraindicated d/t mitochondrial dz Tobacco use date assessed: 11/26/22 Dental Screening Dental Screen Date: 11/26/22 Did you have a dental visit in the last 12 months?: Yes Did you have a dental problem in the last 6 months where you did not have access to dental care?: No Was dental information given to patient?: No HPI 6 week f/u HPI Details 62 y/o female presents to f/u CPE labs and PFTs. Labs were drawn 10/17/22. Reviewed labs with pt. Ongoing anemia. Triglycerides 153. TC 243. LDL 151. HDL 62. Pt states she would rather hold off on her PFTs for her shortness of breath. Pt reports acute on chronic back pain. HPI Comments History of Present Illness Details Documentation assistance for Leonidas Calero MD, was provided by William Gutierrez,? Technology Auditor on 11/26/2022 3:38 PM EST. I, Dr. Calero, have read, observed, and verified documentation.? [facility] Medical History AVM (arteriovenous malformation) brain Back pain HTN (hypertension) Mitochondrial complex 1 deficiency Seizures Surgical History History of arterial bypass of lower extremity History of brain surgery History of esophagogastroduodenoscopy (EGD) History of foot surgery Hx of colonoscopy Family History Mother No problems noted. Father No problems noted. Social History [facility]hold Members: [facility] Do you presently have visiting nurse or other home services: No Alcohol intake: never Patient Tobacco Use Status: Never used Tobacco e-Cigarette/Vaping Use: Never Used Second Hand Smoke Exposure: No service: No Current occupational status: disabled Current occupational exposures/hazards: No Cognitive needs: Yes (wheelchair/cane) Hearing needs: No Vision needs: Yes (glasses) Questionnaire Thrive Questionnaire Date Thrive assessed: 04/26/22 SANTY-7 AMB Questionnaire SANTY-7 Date SANTY - 7 assessed: 12/29/20 Source: Developed by Drs. Saeid Reynaga, Ava Sorenson, Abraham Foster and colleagues, with an educational christina from [employer]. Physical exam (Primary Care) Vital Signs: Last Vital Signs Pulse 61 11/26/22 14:52 BP 108/68 11/26/22 14:52 Pulse Ox 98 11/26/22 14:52 Oxygen Delivery Method Room Air 11/26/22 14:52 Tobacco/Smoking Status: Tobacco use Status Tobacco use date assessed 11/26/22 11/26/22 15:12 Patient Tobacco Use Status Never used Tobacco 11/26/22 14:58 e-Cigarette/Vaping Use Never Used 11/26/22 14:58 Thrive Assessment: Date of Thrive Assessment Date Thrive assessed 04/26/22 11/26/22 14:58 Assessment and Plan Assessment & Plan (1) Back pain: Code(s): M54.9 - Dorsalgia, unspecified Plan: Acute on chronic back pain as patient has scoliosis and history T12 vertebroplasty. Now with recent fall and apparent new small compression fracture. Referred her to Ortho Continue hydromorphone for chronic pain and she can use some naproxen for additional pain control. (2) Borderline anemia: Code(s): D64.9 - Anemia, unspecified Plan: Will follow (3) Hypercholesterolemia: Code(s): E78.00 - Pure hypercholesterolemia, unspecified Plan: LDL cholesterol has increased. She has had a history of femoral bypass and LDL goal is less than 100. Switching her from atorvastatin to Zetia has caused her LDL to increased from 120-151 but she no longer has any muscle pain in her thighs that she attributed to atorvastatin. She will continue Zetia. Will try a lower dose of atorvastatin Follow-up in a month to see how she is tolerating this. (4) Shortness of breath: Code(s): R06.02 - Shortness of breath Plan: Likely restrictive and secondary to scoliosis and vertebral compression fractures She notes that it has not been so bad and she would like to hold off on pulmonary function testing. She can let me know if worsens Medications: New atorvastatin 20 mg PO BEDTIME 90 days 90 tabs 2RF Refilled hydromorphone (Dilaudid) MassPat verified. Partial refill upon request. 4 mg PO TID 30 days PRN 90 tabs 0RF pain Coding Level of Care Code Est Pt Level 4 (29696) Diagnoses Back pain M54.9 Borderline anemia D64.9 Hypercholesterolemia E78.00 Shortness of breath R06.02
== END 2022-11-26 15:55 | disposition home or self-care (01) ==
PROVIDERS: Visit Provider Family Medicine
DX: M54.9 Dorsalgia, unspecified (principal); D64.9 Anemia, unspecified; E78.00 Pure hypercholesterolemia, unspecified; R06.02 Shortness of breath
CPT/HCPCS: 99214

== ENCOUNTER 2022-12-27 14:29 | Outpatient (AMB) | payer BC, MEDICAID, SELFPAY ==
[2022-12-27 14:32] VITALS: BP 112/68; PULSE 65; O2SAT 98; BMI 21.8
--- NOTE | 2022-12-27 14:32 | A.OFFPC_ITS ---
Vital Signs 12/27/22 14:32 Height 5 ft 7 in Weight 139 lb BMI 21.8 BP 112/68 Blood Pressure Location Lt brachial Position Sitting Pulse 65 Pulse Source Pulse Oximeter Pulse Oximetry (%) 98 Oxygen Delivery Method Room Air Intake Visit Reasons: f/u hypercholesterolemia Intake Note: Patient is here to follow up on her cholesterol. Allergies fentanyl [FENTANYL] Allergy (Unknown, Verified 12/27/22 14:37) Unknown meperidine [Demerol] Allergy (Unknown, Verified 12/27/22 14:37) rash morphine [MORPHINE] Allergy (Unknown, Verified 12/27/22 14:37) chest pressure phenytoin [Dilantin] Allergy (Unknown, Verified 12/27/22 14:37) rash remifentanil Allergy (Unknown, Verified 12/27/22 14:37) Rash sevoflurane Allergy (Unknown, Verified 12/27/22 14:37) Rash Sulfa (Sulfonamide Antibiotics) [SULFA(SULFONAMIDE ANTIBIOTICS)] Allergy (Unknown, Verified 12/27/22 14:37) Rash Ringer's solution,lactated Adverse Reaction (Verified 12/27/22 14:37) contraindicated d/t mitochondrial dz Tobacco use date assessed: 11/26/22 Dental Screening Dental Screen Date: 12/27/22 Did you have a dental visit in the last 12 months?: Yes Did you have a dental problem in the last 6 months where you did not have access to dental care?: No Was dental information given to patient?: No HPI f/u hypercholesterolemia HPI Details 62 y/o female presents to f/u hyperlipidemia and acute on chronic back pain. Had a recent fall with apparent new compression fracture at T12. Had referred her to ortho. Had added back a lower dose of artovastatin to her Zetia as her LDL increased. She reports she is doing okay on her artovastatin. No recent lipid panel to review. She had seen [facility] 12/06/22. They had recommended an MRI for planning of kyphoplasty. HPI Comments History of Present Illness Details Documentation assistance for Leonidas Calero MD, was provided by William Gutierrez, Supervisor [employer] on 12/27/2022 3:13 PM EST. I, Dr. Calero, have read, observed, and verified documentation. [facility] Medical History AVM (arteriovenous malformation) brain Back pain HTN (hypertension) Mitochondrial complex 1 deficiency Seizures Surgical History History of arterial bypass of lower extremity History of brain surgery History of esophagogastroduodenoscopy (EGD) History of foot surgery Hx of colonoscopy Family History Mother No problems noted. Father No problems noted. Social History [facility]hold Members: [facility] Do you presently have visiting nurse or other home services: No Alcohol intake: never Patient Tobacco Use Status: Never used Tobacco e-Cigarette/Vaping Use: Never Used Second Hand Smoke Exposure: No service: No Current occupational status: disabled Current occupational exposures/hazards: No Cognitive needs: Yes (wheelchair/cane) Hearing needs: No Vision needs: Yes (glasses) Questionnaire Thrive Questionnaire Date Thrive assessed: 04/26/22 SANTY-7 AMB Questionnaire SANTY-7 Date SANTY - 7 assessed: 12/29/20 Source: Developed by Drs. Saeid Reynaga, Ava Sorenson, Abraham Foster and colleagues, with an educational christina from [employer]. Physical exam (Primary Care) Vital Signs: Last Vital Signs Pulse 65 12/27/22 14:32 BP 112/68 12/27/22 14:32 Pulse Ox 98 12/27/22 14:32 Oxygen Delivery Method Room Air 12/27/22 14:32 BMI result Body Mass Index 21.8 Tobacco/Smoking Status: Tobacco use Status Tobacco use date assessed 11/26/22 12/27/22 14:44 Patient Tobacco Use Status Never used Tobacco 12/27/22 14:44 e-Cigarette/Vaping Use Never Used 12/27/22 14:44 Thrive Assessment: Date of Thrive Assessment Date Thrive assessed 04/26/22 12/27/22 14:44 Assessment and Plan Assessment & Plan (1) Hypercholesterolemia: Code(s): E78.00 - Pure hypercholesterolemia, unspecified Plan: Patient has a history of femoral bypass graft and elevated cholesterol levels. Was tolerating Zetia but added atorvastatin for better control. She has a history of chronic pain so using atorvastatin conservatively. She is tolerating 20 mg daily She will get her labs drawn this week coming week and we can follow-up in a few weeks (2) Back pain: Code(s): M54.9 - Dorsalgia, unspecified Plan: History of fall and compression fracture lumbar spine MRI shows compound fracture and new [facility] recommended kyphoplasty. Patient requests Dr. Glover for surgery. Referred (3) Compression fracture of lumbar vertebra: Code(s): S32.000A - Wedge compression fracture of unspecified lumbar vertebra, initial e ncounter for closed fracture Plan: As above Orders: Orders Comprehensive [place]. Panel Fast Today E78.00 - Pure hypercholesterolemia, unspecified, Z00.00 - Encounter for general adult medical examination without abnormal findings Lipid Panel Today E78.00 - Pure hypercholesterolemia, unspecified, Z00.00 - Encounter for general adult medical examination without abnormal findings Referrals Orthopedics Referral S32.000A - Wedge compression fracture of unspecified lumbar vertebra, initial encounter for closed fracture Neurosurgery Referral M54.9 - Dorsalgia, unspecified Medications: Refilled hydromorphone (Dilaudid) MassPat verified. Partial refill upon request. 4 mg PO TID PRN 90 tabs 0RF pain 30 days lorazepam MassPat verified. Partial refill upon request. 2 mg PO DAILY PRN 31 tabs 0RF anxiety Coding Level of Care Code Est Pt Level 3 (82238) Diagnoses Hypercholesterolemia E78.00 Back pain M54.9 Compression fracture of lumbar vertebra S32.000A
== END 2022-12-27 16:21 | disposition home or self-care (01) ==
PROVIDERS: PCP Family Medicine; Visit Provider Family Medicine
DX: E78.00 Pure hypercholesterolemia, unspecified (principal); M54.9 Dorsalgia, unspecified; S32.000A Wedge compression fracture of unspecified lumbar vertebra, initial encounter for closed fracture
CPT/HCPCS: 99213

== ENCOUNTER 2022-12-31 11:20 | Outpatient (REF) | payer BC, MEDICAID, SELFPAY ==
[2022-12-31 14:11] LABS: Alanine Aminotransferase 20 U/L (0-31); Alkaline Phosphatase 108 U/L (39-117); Anion Gap 12 (12-20); Aspartate Amino Transferase 24 U/L (5-31); Bilirubin Total 0.4 mg/dL (0.0-1.0); Blood Urea Nitrogen 8 mg/dL (9-16); Calcium 9.3 mg/dL (8.4-10.2); Carbon Dioxide 27 mmol/L (22-29); Chloride 101 mmol/L (96-108); Cholesterol 198 mg/dL; Estimated Glomerular Filt Rate > 60; Glucose Fasting 87 mg/dL (60-99); HDL Cholesterol 63 mg/dL; LDL Cholesterol Calculated 115 mg/dl; Potassium 4.1 mmol/L (3.3-5.1); Sodium 136 mmol/L (135-145); Total Protein 7.4 g/dL (6.5-8.0); Triglycerides 102 mg/dL
== END 2022-12-31 11:21 | disposition home or self-care (01) ==
LOC: HO.HMGCLDS 11:20
PROVIDERS: PCP Family Medicine; Visit Provider Family Medicine
DX: Z00.00 Encounter for general adult medical examination without abnormal findings (principal); E78.00 Pure hypercholesterolemia, unspecified
CPT/HCPCS: 36415; 80053; 80061

== ENCOUNTER 2023-01-16 10:53 | Outpatient (AMB) | payer BC, MEDICAID, SELFPAY ==
--- NOTE | 2023-01-16 11:12 | HO.SPINEOV ---
Intake Intake Visit Reasons: fracture T12 Intake Note: Ms. Mas is here today c/o mid-back pain. MRI done @ [facility]/brought disc. 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 Refiner Operator Required: No Allergies fentanyl [FENTANYL] Allergy (Unknown, Verified 12/27/22 14:37) Unknown meperidine [Demerol] Allergy (Unknown, Verified 12/27/22 14:37) rash morphine [MORPHINE] Allergy (Unknown, Verified 12/27/22 14:37) chest pressure phenytoin [Dilantin] Allergy (Unknown, Verified 12/27/22 14:37) rash remifentanil Allergy (Unknown, Verified 12/27/22 14:37) Rash sevoflurane Allergy (Unknown, Verified 12/27/22 14:37) Rash Sulfa (Sulfonamide Antibiotics) [SULFA(SULFONAMIDE ANTIBIOTICS)] Allergy (Unknown, Verified 12/27/22 14:37) Rash Ringer's solution,lactated Adverse Reaction (Verified 12/27/22 14:37) contraindicated d/t mitochondrial dz Assessment & Plan Assessment & Plan (1) Back pain: Code(s): M54.9 - Dorsalgia, unspecified Plan Dear colleague, Thank you for referring Aleida to our office today. She is a pleasant 62-year-old female who comes in with a chief complaint of mid & low back pain that has been persistent since around October of this year. She reports that she fell in her home and landed on her buttocks, causing a vertebral fracture at the level of T12 which was confirmed by x-ray imaging. She also endorses some radiation of pain down her right leg through her thigh to her tibialis. She is unable to pinpoint laterality of her pain radiation, as the symptoms are not persistent and wax / wane. She has tried several czen-nny-cfusoum remedies to alleviate her pain, has tried ice/heat, ljfj-pua-hkkasko pain patches, and is currently on both Dilaudid and Lyrica. She reports that both laying down and walking for extended periods of time make her midback pain worse, and that sitting/resting tends to alleviate her pain. Of note she also does have a history of a T11 compression fracture that needed to be repaired with kyphoplasty. PMH: AVM (arteriovenous malformation) brain, Back pain, HTN (hypertension), Mitochondrial complex 1 deficiency, unspecified seizures, History of arterial bypass of lower extremity, History of brain surgery, History of esophagogastroduodenoscopy (EGD), History of foot surgery, Hx of colonoscopy. Social hx: The patient does not smoke, reports no substance use. Medications: Carbamazepine, fluoxetine, amlodipine, lisinopril, Lyrica, ropinirole, terazosin, hydromorpone, lorazepam, Zetia, atorvastatin. Allergies: Fentanyl, Demerol, morphine, if any tone, remifentanyl, sevoflurane, sulfa, lactated ringers. Physical exam: Sensation: Patient has little to no sensation on her left upper and lower extremities due to previous stroke and spastic hemiparesis on the left side. Sensation on the right remains intact. CN: II-XII grossly intact, with some left-sided facial movements restricted. Strength Testing Upper Extremities: - Deltoid 5/5 right 0/5 left - Biceps 5/5 right 0/5 left - Triceps 5/5 right 0/5 left - Wrist Ext 5/5 right 0/5 left - Wrist Flex 5/5 right 0/5 left - Hand package dyeing machine operator 5/5 right 0/5 left - Interossei 5/5 right 0/5 left Strength Testing Lower Extremities: - Hip flexion 5/5 right 1/5 left - Knee extension 5/5 right 1/5 left - Dorsiflexion 5/5 right 0/5 left - Plantar flex 5/5 right 0/5 left - EHL 5/5 right 0/5 left Strength limited due to L sided parasis. Reflexes: - Biceps Right - 2+ Left - 0+ - Triceps Right - 2+ Left - 0+ - Patellar Right - 2+ Left - 0+ - Achilles Right - 2+ Left - 0+ - Plantar Right - 2+ Left - 0+ (-) Sharp?s sign (-) Clonus (-) Straight leg raise Imaging review: MRI of lumbar spine from 11/20/2022 shows inflamed T12 on stir segment, some posterior disc protrusion at L4-5, with [id number] left-sided L4 nerve root compression. There is also noted facet arthropathy at this level on the left side. Impression: The patient is a 62-year-old female who comes in with a chief complaint of mid to low back pain with some radiation of symptoms down her right side in a nonspecific manner. The patient states that her primary concern at this time is her mid to low back pain. She has had compression fracture in the past, and states that this pain is very similar. Her imaging does show some posterior disc protrusion at L4-5 which could be indicative of radicular symptoms, but we are unable to locate any impingement that could be causing right-sided symptoms. Because her concerns are predominantly in the mid to low back it is recommended that she have a kyphoplasty completed at the level of T12. We discussed her options for having that done, and stated that she does not feel comfortable having it done at [facility] again. She reports that she had her previous surgery done there and referred to have it completed at [facility] if possible. We informed her that we do not do kyphoplasties in this office, but are willing to refer upstairs to our pain management center and have Dr. Diaz complete her kyphoplasty. Lastly we also ordered flexion-extension x-rays of her lumbar spine, and ordered thoracic spine x-rays to better look at the fracture at T12. Thank you for allowing us to care for your patient. The total time spent with this visit with this patient was 60 minutes reviewing history, physical exam, MRI imaging review, and implementation of treatment plan or further diagnostic testing Dave Glover MD,PhD [facility] Orders: Orders XR lumbar spine 4V min Today M54.9 - Dorsalgia, unspecified XR thoracic spine 2V Today S22.080A - Wedge compression fracture of T11-T12 vertebra, initial encounter for closed fracture Coding Level of Care Code New Pt Level 5 (76082) Diagnoses Back pain M54.9
== END 2023-01-16 14:26 | disposition home or self-care (01) ==
PROVIDERS: PCP Family Medicine; Referring Provider Family Medicine; Visit Provider Physician Assistant
DX: M54.9 Dorsalgia, unspecified (principal)
CPT/HCPCS: 99205

== ENCOUNTER 2023-01-16 10:53 | Outpatient (REF) | payer BC, MEDICAID, SELFPAY ==
--- NOTE | ~2023-01-16 | XR_ITS ---
EXAMINATION: XR THORACOLUMBAR SPINE CLINICAL INFORMATION: Dorsalgia, wedge compression fracture T11-T12 vertebra COMPARISON: Lateral view from chest x-ray July 2022. Lateral view from lumbar spine series 11/20/2022. TECHNIQUE: 2 views of thoracic spine performed. FINDINGS: Post vertebroplasty change at T11. Wedge compression deformity at T12 observed via combined AP and lateral views does not appear to be significantly changed. No paravertebral abnormality. There is bony demineralization. Mild to moderate compression deformity at T9 observed, not appearing significantly changed since previous evaluation. There is a slight inferior endplate wedge deformity at T6, not significantly changed. XR/XR thoracic spine 2V IMPRESSION: 1. Mild to moderate compression deformity at T9, not appearing significantly changed. Slight compression at T6, appearing stable. 2. Post vertebroplasty change at T11. T12 wedge compression deformity not appreciably changed.
--- NOTE | ~2023-01-16 | XR_ITS ---
EXAMINATION: XR LUMBOSACRAL SPINE WITH OBLIQUES CLINICAL INFORMATION: Dorsalgia, unspecified COMPARISON: November 2022. TECHNIQUE: AP, both oblique, and lateral views of the lumbar spine. Lateral view of the lumbosacral junction. FINDINGS: Thoracolumbar levoscoliosis again noted. Post vertebroplasty ages at T11. Mild wedge compression deformity at T12 is not significantly changed. No acute lumbar compression fractures seen. Slight anterolisthesis L4-L5. Spondylitic change at multiple levels. There is posterior facet arthrosis. Degenerative disc space narrowing is seen eccentrically at L5-S1. Limited flexion and extension views performed. There is no appreciable abnormal mobility identified. Incidental note of mild to moderate compression deformity at T9. XR/XR lumbar spine 4V min IMPRESSION: No acute lumbar compression fractures. Slight anterolisthesis L4-L5. Multilevel degenerative changes. Limited flexion and extension views demonstrate no appreciable abnormal mobility. Other incidental findings as noted above.
== END 2023-01-16 10:54 | disposition home or self-care (01) ==
LOC: HO.HOSX 10:53
PROVIDERS: PCP Family Medicine; Visit Provider Physician Assistant
DX: S22.080A Wedge compression fracture of T11-T12 vertebra, initial encounter for closed fracture (principal); M54.9 Dorsalgia, unspecified
CPT/HCPCS: 72070; 72110

== ENCOUNTER 2023-01-17 13:46 | Outpatient (AMB) | payer BC, MEDICAID, SELFPAY ==
--- NOTE | 2023-01-17 13:37 | MHC.PC.OV ---
Intake Visit Reasons: f/u hyperlipidemia Intake Note: Patient is following up on cholesterol today. Allergies fentanyl [FENTANYL] Allergy (Unknown, Verified 01/17/23 13:39) Unknown meperidine [Demerol] Allergy (Unknown, Verified 01/17/23 13:39) rash morphine [MORPHINE] Allergy (Unknown, Verified 01/17/23 13:39) chest pressure phenytoin [Dilantin] Allergy (Unknown, Verified 01/17/23 13:39) rash remifentanil Allergy (Unknown, Verified 01/17/23 13:39) Rash sevoflurane Allergy (Unknown, Verified 01/17/23 13:39) Rash Sulfa (Sulfonamide Antibiotics) [SULFA(SULFONAMIDE ANTIBIOTICS)] Allergy (Unknown, Verified 01/17/23 13:39) Rash Ringer's solution,lactated Adverse Reaction (Verified 01/17/23 13:39) contraindicated d/t mitochondrial dz Tobacco use date assessed: 01/17/23 HPI f/u hyperlipidemia HPI Details 62 y/o female presents to f/u HLD via telemedicine. Labs were drawn 12/31/22. Reviewed labs with pt. Triglycerides 102. TC improved to 198. LDL improved from 151 to 115. HDL 63. Pt is trialing artovastatin - she reports she had been feeling achy but she is unsure if this is from the medications or from her chronic conditions. 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 Father No problems noted. Social History Household Members: Spouse Housing: Condominium Do you presently have visiting nurse or other home services: No Alcohol intake: never Patient Tobacco Use Status: Never used Tobacco e-Cigarette/Vaping Use: Never Used Second Hand Smoke Exposure: No service: No Current occupational status: disabled Current occupational exposures/hazards: No Cognitive needs: Yes (wheelchair/cane) Hearing needs: No Vision needs: Yes (glasses) Questionnaire Thrive Questionnaire Date Thrive assessed: 04/26/22 SANTY-7 AMB Questionnaire SANTY-7 Date SANTY - 7 assessed: 12/29/20 Source: Developed by Drs. Saeid Reynaga, Ava Sorenson, Abraham Foster and colleagues, with an educational christina from [employer]. Review of Systems Const Denies chills, Denies fatigue, Denies fever(s), Denies headache(s) and Denies weakness ENT Denies dizziness and Denies headache(s) Card Denies dyspnea Resp Denies cough, Denies dyspnea, Denies wheezing and Denies other (shortness of breath) Musc Denies numbness and Denies tingling Neuro Denies dizziness, Denies headache(s), Denies numbness, Denies tingling and Denies weakness Psych Denies anxiety and Denies depression Endo Denies fatigue Aller/Immun Denies wheezing Physical exam (Primary Care) Tobacco/Smoking Status: Tobacco use Status Tobacco use date assessed 01/17/23 01/17/23 13:40 Patient Tobacco Use Status Never used Tobacco 01/17/23 13:40 e-Cigarette/Vaping Use Never Used 01/17/23 13:40 Thrive Assessment: Date of Thrive Assessment Date Thrive assessed 04/26/22 01/17/23 13:40 Telehealth Telehealth Location of provider rendering services: practice address Location of patient: address on file Patient Identification confirmed using: Name, : Yes Telehealth method: voice only Patient verbally consented to treatment: Yes Patient verbally consented to billing insurance company: Yes Patient informed of any privacy concerns related to visit: Yes Minutes spent on Phone/Video with Pt.: 7 Assessment and Plan Assessment & Plan (1) Hypercholesterolemia: Code(s): E78.00 - Pure hypercholesterolemia, unspecified Plan: Lipids much improved on Zetia and addition of atorvastatin 20 mg daily. LDL still well above goal for patient with a history of CVA and femoral bypass graft She does note some achiness so we will continue medications as prescribed for now and recheck in a few months. Orders: Orders Lipid Panel Today Z00.00 - Encounter for general adult medical examination without abnormal findings, Z86.73 - Personal history of transient ischemic attack (TIA), and cerebral infarction without residual deficits Comprehensive Stone. Panel Fast Today Z00.00 - Encounter for general adult medical examination without abnormal findings, Z86.73 - Personal history of transient ischemic attack (TIA), and cerebral infarction without residual deficits Coding Level of Care Code Tele Est Pt Level 2 (91014) Diagnoses Hypercholesterolemia E78.00
== END 2023-01-17 14:00 ==
LOC: HO.HMGFM 13:46
PROVIDERS: PCP Family Medicine; Visit Provider Family Medicine
DX: E78.00 Pure hypercholesterolemia, unspecified (principal)
CPT/HCPCS: 99441

== ENCOUNTER 2023-01-19 20:54 | Emergency (ER) | payer BC, MEDICAID, SELFPAY ==
--- NOTE | ~2023-01-19 | CT_ITS ---
EXAMINATION: CT HEAD WITHOUT CONTRAST CLINICAL INFORMATION: Pain. Fall. Head injury. COMPARISON: CT head October 10, 2020 TECHNIQUE: Contiguous axial imaging was performed from the skull base to vertex without intravenous administration of contrast. Coronal and sagittal reformatted images are performed at the CT scanner. [This CT examination was performed using dose optimization techniques as appropriate, variously including the following: *Automated exposure control *Adjustment of mA and/or kV according to patient size (this includes techniques or standardized protocols for targeted exams where dose is matched to indication/reason for exam; i.e. extremities or head) *Use of iterative reconstruction technique] DLP: 997 mGy-cm. FINDINGS: Status post right sided craniotomy. Stable encephalomalacia in the right frontal parietal and temporal lobes with ex vacuo dilatation of the right lateral ventricle unchanged since prior CAT scan. No acute intracranial abnormality. No hemorrhage. No mass effect. No extra-axial fluid collections are identified. There is no osseous abnormality. The mastoid air cells and visualized portions of the paranasal sinuses are well-aerated. CT/CT head/brain wo IV con IMPRESSION: No acute intracranial pathology.
--- NOTE | ~2023-01-19 | CT_ITS ---
EXAMINATION: CT HEAD WITHOUT CONTRAST CLINICAL INFORMATION: Pain. Fall. Head injury. COMPARISON: CT head October 10, 2020 TECHNIQUE: Contiguous axial imaging was performed from the skull base to vertex without intravenous administration of contrast. Coronal and sagittal reformatted images are performed at the CT scanner. [This CT examination was performed using dose optimization techniques as appropriate, variously including the following: *Automated exposure control *Adjustment of mA and/or kV according to patient size (this includes techniques or standardized protocols for targeted exams where dose is matched to indication/reason for exam; i.e. extremities or head) *Use of iterative reconstruction technique] DLP: 997 mGy-cm. FINDINGS: Status post right sided craniotomy. Stable encephalomalacia in the right frontal parietal and temporal lobes with ex vacuo dilatation of the right lateral ventricle unchanged since prior CAT scan. No acute intracranial abnormality. No hemorrhage. No mass effect. No extra-axial fluid collections are identified. There is no osseous abnormality. The mastoid air cells and visualized portions of the paranasal sinuses are well-aerated. CT/CT cervical spine wo IV con IMPRESSION: No acute intracranial pathology.
[2023-01-19 21:02] VITALS: BP 154/85; PULSE 61; RESP 16; TEMP 36.7; O2SAT 98; BMI 21.8
[2023-01-19 22:04] LABS: MANUAL DIFF FLAG NO
[2023-01-19 22:06] LABS: Appearance Urine Clear; Basophils Percent Auto 0.6 % (0-2); Color Urine Yellow; Eosinophils Percent Auto 0.8 % (0-4); Glucose Urine UA Negative (Negative); Hematocrit 35.6 % (37.0-47.0); Hemoglobin 12.3 g/dl (12.0-16.0); Imm Gran Abs Auto 0.01 X10*3/uL (0.00-0.03); Imm Gran Pct Auto 0.2 % (0.0-0.4); Leukocyte Esterase Urine Negative (Negative); Lymphocytes Absolute Auto 2.3 X10*3/uL (1.2-4.9); Lymphocytes Percent Auto 44.5 % (20-40); Mean Corpuscular HGB Conc 34.6 g/dl (31.0-35.0); Mean Corpuscular Hemoglobin 32.4 pg (27.0-33.0); Mean Corpuscular Volume 93.7 fL (80.0-98.0); Mean Platelet Volume 9.3 fL (9.4-12.3); Monocytes Absolute Auto 0.7 X10*3/uL (0.1-1.2); Monocytes Percent Auto 12.9 % (2-11); Neutrophils Absolute Auto 2.1 x10*3/uL (2.0-8.3); Nitrite Urine Negative (Negative); PH 6.5 (5.0-9.0); Platelet Count 253 X10*3/uL (160-400); Red Cell Distribution Width 12.1 % (11.0-16.0); UMIC TRIGGER UACC YES; Urine Blood Moderate (2+) (Negative); Urine Ketones Negative (Negative); Urine Protein Negative (Neg-Trace); White Blood Count 5.2 X10*3/uL (4.8-10.8)
--- NOTE | 2023-01-19 22:08 | ECG_ITS ---
Test Reason : htn Blood Pressure : / mmHG Vent. Rate : 054 BPM Atrial Rate : 054 BPM P-R Int : 172 ms QRS Dur : 080 ms QT Int : 428 ms P-R-T Axes : 071 015 040 degrees QTc Int : 405 ms Sinus bradycardia Otherwise normal ECG When compared with ECG of 19-NOV-2020 17:51, No significant change was found Referred By: Gertrude Aviles Electronically Signed By:SONIA MORENO
[2023-01-19 22:19] LABS: Alanine Aminotransferase 24 U/L (0-31); Albumin Level 4.1 g/dL (3.5-5.0); Alkaline Phosphatase 110 U/L (39-117); Anion Gap 12 (12-20); Aspartate Amino Transferase 28 U/L (5-31); Bilirubin Total 0.2 mg/dL (0.0-1.0); Blood Urea Nitrogen 9 mg/dL (9-16); Calcium 9.2 mg/dL (8.4-10.2); Carbon Dioxide 27 mmol/L (22-29); Chloride 99 mmol/L (96-108); Creatinine Clr Calc Pharmacy 83.4; Estimated Glomerular Filt Rate > 60; Glucose Random 87 mg/dL (60-115); Sodium 134 mmol/L (135-145); Total Protein 7.2 g/dL (6.5-8.0)
[2023-01-19 22:26] LABS: Bacteria Urine None Seen (None Seen); Hyaline Casts Urine 0-2 /LPF (0-2); Squamous Epithelial Cell Urine 0-2 /HPF (0-2); WBC Urine 0-5 /HPF (0-5)
--- NOTE | 2023-01-19 23:03 | ED_ITS ---
HPI - Wound/Laceration General Chief Complaint: Wound/Laceration Stated Complaint: fell, hit head, still bleeding Time Seen by Provider: 01/19/23 22:05 Source: patient and other Mode of arrival: EMS History of Present Illness HPI narrative: 62-year-old female is brought in by EMS after she sustained a mechanical fall when she got up to use the bathroom, became unsteady and fell onto her right side striking her head on the metal frame of the bed and denies any loss of consciousness and is not on blood thinners. 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 Related Data Home Medications Medication Instructions Recorded Confirmed terazosin 2 mg capsule 2 mg PO BEDTIME 05/01/20 09/03/22 estradiol 2 mg (7.5 mcg/24 hour) 1 ea vaginal [id number] 11/19/20 09/03/22 vaginal ring (Estring) trospium 60 mg capsule,extended 60 mg PO DAILY 07/26/21 09/03/22 release 24 hr ciclopirox 0.77 % topical gel topical BID 11/26/21 09/03/22 amoxicillin 500 mg tablet 500 mg PO BID 11/26/22 Previous Rx's Medication Instructions Recorded ropinirole 2 mg tablet 2 mg PO BEDTIME 90 days #90 tabs 09/13/21 naloxone 4 mg/actuation nasal 4 mg intranasal Q2M PRN opioid 10/16/21 spray (Narcan) overdose #2 ea carbamazepine 400 mg 400 mg PO BID 90 days #180 tabs 09/03/22 tablet,extended release,12 hr ezetimibe 10 mg tablet (Zetia) 10 mg PO DAILY 90 days #90 tabs 10/08/22 omeprazole 20 mg capsule,delayed 20 mg PO DAILY 90 days #90 caps 10/08/22 release amlodipine 10 mg tablet 10 mg PO DAILY #90 tabs 11/07/22 atorvastatin 20 mg tablet 20 mg PO BEDTIME 90 days #90 tabs 11/26/22 lidocaine 5 % topical patch 1 patch topical DAILY 30 days #30 12/23/22 (Lidoderm) ea hydromorphone 4 mg tablet 4 mg PO TID PRN pain 30 days #90 12/27/22 (Dilaudid) tabs lorazepam 2 mg tablet 2 mg PO DAILY PRN anxiety #31 tabs 12/27/22 fluoxetine 40 mg capsule 40 mg PO QAM #90 caps 12/29/22 lisinopril 20 mg tablet 30 mg PO DAILY 90 days #135 tabs 01/03/23 pregabalin 100 mg capsule (Lyrica) 200 mg PO Q12H 1 month #120 caps 01/03/23 Allergies Allergy/AdvReac Type Severity Reaction Status Date / Time fentanyl [FENTANYL] Allergy Unknown Unknown Verified 01/17/23 13:39 meperidine [Demerol] Allergy Unknown rash Verified 01/17/23 13:39 morphine [MORPHINE] Allergy Unknown chest Verified 01/17/23 13:39 pressure phenytoin [Dilantin] Allergy Unknown rash Verified 01/17/23 13:39 remifentanil Allergy Unknown Rash Verified 01/17/23 13:39 sevoflurane Allergy Unknown Rash Verified 01/17/23 13:39 Sulfa (Sulfonamide Allergy Unknown Rash Verified 01/17/23 13:39 Antibiotics) [SULFA(SULFONAMIDE ANTIBIOTICS)] Ringer's solution,lactated AdvReac contraindicated Verified 01/17/23 13:39 d/t mitochondrial dz Review of Systems Review of Systems: Pertinent positives and negatives as stated in HPI [facility] Past Medical History Source: nursing notes reviewed Medical History AVM (arteriovenous malformation) brain Back pain HTN (hypertension) Lumbar herniated disc Mitochondrial complex 1 deficiency Seizures Surgical History History of arterial bypass of lower extremity History of brain surgery History of esophagogastroduodenoscopy (EGD) History of foot surgery Hx of colonoscopy Family History Family History Mother No problems noted. Father No problems noted. Social History Social History Household Members: Spouse Housing: Condominium Do you presently have visiting nurse or other home services: No Alcohol intake: never Patient Tobacco Use Status: Never used Tobacco Smoked in Last 30 Days: No e-Cigarette/Vaping Use: Never Used Second Hand Smoke Exposure: No Use of substances other than those prescribed or required for medical reasons: No Advance Directives: No Advance Directives Information Provided: No Patient : No service: No Current occupational status: disabled Current occupational exposures/hazards: No Cognitive needs: Yes (wheelchair/cane) Hearing needs: No Vision needs: Yes (glasses) Physical Exam Vital Signs: Vital Signs: Last Vital Signs Temp 98.9 F 01/19/23 23:32 Pulse 58 01/19/23 23:32 Resp 18 01/19/23 23:32 BP 151/81 H 01/19/23 23:32 Pulse Ox 97 01/19/23 23:32 O2 Del Method Room Air 01/19/23 23:32 BMI result Body Mass Index 21.8 VITAL SIGNS: Reviewed. GENERAL: Well developed, well nourished, in no acute distress. HEAD: Normocephalic/atraumatic EYES: PERRLA, EOMI intact without pain EARS: Ext canals without abnormality NOSE: Nares patent bilateral OROPHARYNX: no oral lesions noted, posterior pharynx clear NECK: Supple, no adenopathy, in no midline cervical spine tenderness to palpation or step-offs. LUNGS: Normal breath sounds. No adventitious sounds or accessory muscle use. SpO2<98>; CHEST WALL: No chest wall tenderness to palpation or deformities or crepitus noted CARDIOVASCULAR: Regular rate and rhythm without noted murmurs ABDOMEN: Soft, non-tender, non-distended with bowel sounds. PELVIS: Stable, nontender MUSCULOSKELETAL: No tenderness, deformities, or effusions noted on gross inspection. EXTREMITIES: No cyanosis, clubbing or edema. SKIN: Inspection of the skin reveals no rashes NEUROLOGIC: Alert and oriented x 4. Strength and sensation to light touch were grossly intact x 2, left-sided weakness consistent with baseline deficits from prior CVAs.. Medications Administered Discontinued Medications Generic Name Dose Route Start Last Admin Trade Name Freq PRN Reason Stop Dose Admin Al Hydroxide/Mg Hydroxide 30 ml 01/19/23 23:08 01/19/23 23:40 Magnesium Hydrox/Alum Hydrox 30 Ml Oral.Susp PO 01/19/23 23:09 30 ml ONCE ONE Administration Medical Decision Making Medical Decision Making MDM Narrative: 62-year-old female with history and clinical presentation consistent with mechanical fall, but will evaluate for evidence infection, anemia, electrolyte abnormalities, arrhythmia. In addition, will obtain CT of the head as well as cervical spine. 2350: Patient eloped. I reviewed all investigations and hematologic indices appear to be chronically stable without leukocytosis or left shift, no anemia or thrombocytopenia. Qi jose indices show a trace hyponatremia-134, otherwise, electrolyte and liver enzyme are without abnormalities and there is no ERON. Urinalysis is negative for UTI but there is trace blood and no history back/flank pain. CT of the head does not demonstrate intracranial hemorrhage and otherwise my interpretation is in agreement with radiology's impression, CT scan of the cervical spine does not demonstrate any fracture or subluxation and otherwise my interpretation is in agreement with radiology's impression. Differential Diagnosis Differential Diagnoses: The differential diagnosis associated with the presentation includes Please see the discussion above Admission/Observation Consideration of admission/observation: Escalation of care including admission/o bservation considered Please see the discussion above Lab Data MDM Lab Attestation statement: I reviewed the patient's lab results. Please see the discussion above 01/19/23 21:48 01/19/23 21:48 Labs: Lab Results 01/19/23 01/19/23 01/19/23 Range/Units 21:48 21:48 21:48 WBC 5.2 (4.8-10.8) X10*3/uL RBC 3.80 L (4.20-5.50) X10*6/uL Hgb 12.3 (12.0-16.0) g/dl Hct 35.6 L (37.0-47.0) % MCV 93.7 (80.0-98.0) fL MCH 32.4 (27.0-33.0) pg MCHC 34.6 (31.0-35.0) g/dl RDW 12.1 (11.0-16.0) % Plt Count 253 (160-400) X10*3/uL MPV 9.3 L (9.4-12.3) fL Immature Gran % (Auto) 0.2 (0.0-0.4) % Neut % (Auto) 41.0 L (45-73) % Lymph % (Auto) 44.5 H (20-40) % [place] % (Auto) 12.9 H (2-11) % Eos % (Auto) 0.8 (0-4) % Baso % (Auto) 0.6 (0-2) % Lymph # (Auto) 2.3 (1.2-4.9) X10*3/uL [place] # (Auto) 0.7 (0.1-1.2) X10*3/uL Eos # (Auto) 0.0 (0.0-0.4) X10*3/uL Baso # (Auto) 0.0 (0.0-0.2) X10*3/uL Abs Immat Gran (auto) 0.01 (0.00-0.03) X10*3/uL Absolute Neuts (auto) 2.1 (2.0-8.3) x10*3/uL Absolute Nucleated RBC 0.000 (0.0-0.012) X10*3/uL Nucleated RBC % (auto) 0.0 (0.0-0.2) /100WBC Sodium 134 L (135-145) mmol/L Potassium 4.0 (3.3-5.1) mmol/L Chloride 99 (96-108) mmol/L Carbon Dioxide 27 (22-29) mmol/L Anion Gap 12 (12-20) BUN 9 (9-16) mg/dL Creatinine 0.68 (0.5-1.4) mg/dL Estim Creat Clear Calc 83.4 Estimated GFR > 60 Random Glucose 87 (60-115) mg/dL Calcium 9.2 (8.4-10.2) mg/dL Total Bilirubin 0.2 (0.0-1.0) mg/dL AST 28 (5-31) U/L ALT 24 (0-31) U/L Alkaline Phosphatase 110 (39-117) U/L Total Protein 7.2 (6.5-8.0) g/dL Albumin 4.1 (3.5-5.0) g/dL Urine Color Yellow Urine Appearance Clear Urine pH 6.5 (5.0-9.0) Ur Specific [place] 1.010 (1.005-1.025) Urine Protein Negative (Neg-Trace) mg/dL Urine Glucose (UA) Negative (Negative) mg/dL Urine Ketones Negative (Negative) mg/dL Urine Blood Moderate (2+) H (Negative) Urine Nitrite Negative (Negative) Ur Leukocyte Esterase Negative (Negative) Urine RBC 3-5 H (0-2) /HPF Urine WBC 0-5 (0-5) /HPF Ur Squamous Epith Cells 0-2 (0-2) /HPF Urine Bacteria None Seen (None Seen) Hyaline Casts 0-2 (0-2) /LPF Independent Interpretation I performed an independent interpretation of an: EKG Interpretation: Sinus bradycardia, HR -54, no STEMI, [place]/QRS/QTC is within normal limits. Radiology Impression Discussion of test interpretation with radiology: I have reviewed the radiologist's reading. Radiologist Impression: Please see the discussion above External Record Review External record reviewed: Outpatient record, Prior outpatient labs and Prior outpatient radiology Chronic Conditions Patient?s care impacted by: Hypertension Procedures Laceration Laceration 1: Site: scalp Side (If applicable): left Size (cm): 2 Description: linear Depth: simple, single layer Pre-repair: wound explored, irrigated extensively and deep structures intact Skin layer closed with: other (Five jeannette) Discharge Plan Discharge Clinical Impression: Fall, Laceration of scalp Patient Disposition: Left Against Medical Advice Instructions: Laceration (ED), Fall Prevention for Older Adults (ED), Staple Care (ED) Additional Instructions: 1. Resume all home medications as prescribed. 2. Recommend [id number] Tylenol/ibuprofen as needed for pain control. 3. Recommend follow-up with primary care provider or here to this emergency room for removal of 5 jeannette in 7 days. Return to the ER for any worsening symptoms. Prescriptions: No Action ropinirole 2 mg tablet 2 mg PO BEDTIME 90 Days Qty: 90 2RF naloxone [Narcan] 4 mg/actuation spray,non-aerosol 4 mg intranasal Q2M PRN (Reason: opioid overdose) Qty: 2 2RF Rx Instructions: spray 1 dose into ONE nostril; alternate nostrils w each dose until help arrives carbamazepine 400 mg tablet extended release 12 hr 400 mg PO BID 90 Days Qty: 180 1RF amlodipine 10 mg tablet 10 mg PO DAILY Qty: 90 2RF lidocaine [Lidoderm] 5 % adhesive patch,medicated 1 patch topical DAILY 30 Days Qty: 30 2RF Rx Instructions: leave on most painful area for up to 12 hrs fluoxetine 40 mg capsule 40 mg PO QAM Qty: 90 2RF pregabalin [Lyrica] 100 mg capsule 200 mg PO Q12H 30 Days Qty: 120 1RF lisinopril 20 mg tablet 30 mg PO DAILY 90 Days Qty: 135 2RF Estring 2 mg (7.5 mcg /24 hour) ring 1 ea vaginal [id number] terazosin 2 mg capsule 2 mg PO BEDTIME Prevnar 13 (PF) 0.5 mL syringe 0.5 ml IM ONCE Qty: 0.5 0RF trospium 60 mg capsule,extended release 24hr 60 mg PO DAILY ciclopirox 0.77 % gel topical BID amoxicillin 500 mg tablet 500 mg PO BID atorvastatin 20 mg tablet 20 mg PO BEDTIME 90 Days Qty: 90 2RF omeprazole 20 mg capsule,delayed release(DR/EC) 20 mg PO DAILY 90 Days Qty: 90 6RF ezetimibe [Zetia] 10 mg tablet 10 mg PO DAILY 90 Days Qty: 90 3RF hydromorphone [Dilaudid] 4 mg tablet 4 mg PO TID PRN (Reason: pain) 30 Days Qty: 90 0RF Rx Instructions: [facility] verified. Partial refill upon request. lorazepam 2 mg tablet 2 mg PO DAILY PRN (Reason: anxiety) Qty: 31 0RF Rx Instructions: [employer] verified. Partial refill upon request. Stand Alone Forms: Against Medical Advice Interventions: ED Discharge Assessment Last Done: 01/19/23 23:44 Discharge Date/Time: 01/19/23 23:45
[2023-01-19 23:32] VITALS: BP 151/81; PULSE 58; RESP 18; TEMP 37.2; O2SAT 97
[2023-01-19] MEDS: Magnesium Hydrox/Alum Hydrox 30 ML ORAL.SUSP PO (23:40)
--- NOTE | 2023-01-19 23:43 | MHC.EDTECH ---
This tech assumed care of patient at 2300, hourly rounds and vitals completed, patient is awaiting to be discharged at this time and call barrera within reach.
--- NOTE | 2023-01-19 23:45 | PC.NURSE ---
Immediately following medication, pt and friend present stated they were leaving. Pt stated I have a cat at home i want to go see . friend assisted pt to wheelchair without complicatoins.
== END 2023-01-19 23:45 | disposition left against medical advice (07) ==
PROVIDERS: Emergency Provider Student in an Organized Health Care Education/Training Program; PCP Family Medicine
DX: S01.01XA Laceration without foreign body of scalp, initial encounter (principal); R51.9 Headache, unspecified; M54.2 Cervicalgia; R00.1 Bradycardia, unspecified; I10 Essential (primary) hypertension; W01.10XA Fall on same level from slipping, tripping and stumbling with subsequent striking against unspecified object, initial encounter; Y93.9 Activity, unspecified; Y92.9 Unspecified place or not applicable; Y99.9 Unspecified external cause status; Z79.899 Other long term (current) drug therapy
CPT/HCPCS: 12001; 36415; 70450; 72125; 80053; 81001; 85025; 93005; 99285

== ENCOUNTER 2023-01-29 12:06 | Outpatient (AMB) | payer BC, MEDICAID, SELFPAY ==
[2023-01-29 12:26] VITALS: BP 112/70; PULSE 66; TEMP 36.5; O2SAT 99; BMI 21.8
--- NOTE | 2023-01-29 12:26 | MHC.OFFWIV ---
Intake Vital Signs 01/29/23 12:26 Height 5 ft 7 in Weight 139 lb BMI 21.8 BP 112/70 Blood Pressure Location Rt brachial Position Sitting Pulse 66 Pulse Source Pulse Oximeter Temp 97.7 F Temp Source Temporal Artery Scan Pulse Oximetry (%) 99 Oxygen Delivery Method Room Air Intake Visit Reasons: EP, Head staple remov Intake Note: Pt is here requesting jeannette on her head be removed. Pt states they were placed 01/19/23. Patient Tobacco Use Status: Never used Tobacco Allergies fentanyl [FENTANYL] Allergy (Unknown, Verified 01/29/23 12:29) Unknown meperidine [Demerol] Allergy (Unknown, Verified 01/29/23 12:29) rash morphine [MORPHINE] Allergy (Unknown, Verified 01/29/23 12:29) chest pressure phenytoin [Dilantin] Allergy (Unknown, Verified 01/29/23 12:29) rash remifentanil Allergy (Unknown, Verified 01/29/23 12:29) Rash sevoflurane Allergy (Unknown, Verified 01/29/23 12:29) Rash Sulfa (Sulfonamide Antibiotics) [SULFA(SULFONAMIDE ANTIBIOTICS)] Allergy (Unknown, Verified 01/29/23 12:29) Rash Ringer's solution,lactated Adverse Reaction (Verified 01/29/23 12:29) contraindicated d/t mitochondrial dz Do you need a note to return to daycare/school/sports/work: No HPI EP, Head staple remov HPI Details 62-year-old female patient presents today for staple removal. Five jeannette were placed in the [facility] emergency department on 01/19, following a mechanical fall at home that day. Imaging was normal and she was advised to f/u for staple removal in 5-7 days. She denies pain or drainage from area. 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 Father No problems noted. Social History Household Members: Spouse Housing: Condominium Do you presently have visiting nurse or other home services: No Alcohol intake: never Patient Tobacco Use Status: Never used Tobacco e-Cigarette/Vaping Use: Never Used Second Hand Smoke Exposure: No service: No Current occupational status: disabled Current occupational exposures/hazards: No Cognitive needs: Yes (wheelchair/cane) Hearing needs: No Vision needs: Yes (glasses) Review of Systems Const All systems reviewed & are unremarkable except as noted in HPI and below Physical Exam Vital Signs: Last Vital Signs Temp 97.7 F 01/29/23 12:26 Pulse 66 01/29/23 12:26 BP 112/70 01/29/23 12:26 Pulse Ox 99 01/29/23 12:26 Oxygen Delivery Method Room Air 01/29/23 12:26 BMI result Body Mass Index 21.8 Const General: cooperative, healthy appearing, comfortable and no acute distress Resp Effort & Inspection: normal respiratory effort and able to speak in complete sentences Skin Other: 5 jeannette intact to posterior scalp. Site clean, dry, well-approximated, no drainage. Small amount of scabbing. Extrem General: Yes capillary refill normal and Yes no clubbing, cyanosis or edema Psych Appearance: grossly normal Mental Status: mental status grossly normal Speech and movement: Normal speech and movement present Assessment & Plan Assessment & Plan (1) Scalp laceration: Code(s): S01.01XA - Laceration without foreign body of scalp, initial encounter Qualifiers: Encounter type: subsequent encounter Qualified Code(s): S01.01XD - Laceration without foreign body of scalp, subsequent encounter (2) Encounter for staple removal: Code(s): Z48.02 - Encounter for removal of sutures Plan: 5 jeannette removed from posterior scalp. Patient tolerated well. Site clean, dry, well-approximated, no drainage. Advised patient to keep area clean, and monitor for any recurrence of drainage or pain. If this occurs she should return to clinic or ED. she verbalizes understanding and agrees to plan. Coding Level of Care Code Est Pt Level 3 (13174) Diagnoses Laceration of scalp, subsequent encounter S01.01XD Encounter type: subsequent encounter Encounter for staple removal Z48.02
== END 2023-01-29 12:51 | disposition home or self-care (01) ==
PROVIDERS: PCP Family Medicine; Visit Provider Nurse Practitioner Family
DX: S01.01XD Laceration without foreign body of scalp, subsequent encounter (principal); Z48.02 Encounter for removal of sutures
CPT/HCPCS: 99213

== ENCOUNTER 2023-02-17 13:47 | Outpatient (AMB) | payer BC, MEDICAID, SELFPAY ==
--- NOTE | 2023-02-17 13:47 | A.OFFVIS_ITS ---
Intake Intake Visit Reasons: eval for possible kyphoplasty t12 per Dr. Glover Allergies fentanyl [FENTANYL] Allergy (Unknown, Verified 01/29/23 12:29) Unknown meperidine [Demerol] Allergy (Unknown, Verified 01/29/23 12:29) rash morphine [MORPHINE] Allergy (Unknown, Verified 01/29/23 12:29) chest pressure phenytoin [Dilantin] Allergy (Unknown, Verified 01/29/23 12:29) rash remifentanil Allergy (Unknown, Verified 01/29/23 12:29) Rash sevoflurane Allergy (Unknown, Verified 01/29/23 12:29) Rash Sulfa (Sulfonamide Antibiotics) [SULFA(SULFONAMIDE ANTIBIOTICS)] Allergy (Unknown, Verified 01/29/23 12:29) Rash Ringer's solution,lactated Adverse Reaction (Verified 01/29/23 12:29) contraindicated d/t mitochondrial dz HPI eval for possible kyphoplasty t12 per Dr[address] Glover HPI Details 62-year-old female who presents today vi a tele-health visit for an evaluation of possible kyphoplasty T12. The patient reports mid and low-back pain that has been persistent since around October of this year. She states that she fell in her home and landed on her buttocks, causing a vertebral fracture at the level of T12, which was confirmed by x-ray imaging. She also endorses some radiation of pain down her right leg through her thigh to her tibia. She reports that both laying down and walking for extended periods of time make her midback pain worse, and that sitting or resting tends to alleviate her pain. She states that her pain waxes and wanes. She has tried several dfab-fpl-wlnlwyo remedies to alleviate her pain, has tried ice/heat and jehr-nfm-yacxyrn pain patches, and is currently on both Dilaudid and Lyrica. She has a history of a T11 compression fracture that was treated with kyphoplasty. 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 Father No problems noted. Social History Household Members: [facility] Do you presently have visiting nurse or other home services: No Alcohol intake: never Patient Tobacco Use Status: Never used Tobacco e-Cigarette/Vaping Use: Never Used Second Hand Smoke Exposure: No service: No Current occupational status: disabled Current occupational exposures/hazards: No Cognitive needs: Yes (wheelchair/cane) Hearing needs: No Vision needs: Yes (glasses) Review of Systems Const All systems reviewed & are unremarkable except as noted in HPI and below Physical Exam Results Reviewed Results Reviewed: 01/16/23: XR LUMBOSACRAL SPINE WITH OBLIQUES FINDINGS: Thoracolumbar levoscoliosis again noted. Post vertebroplasty ages at T11. Mild wedge compression deformity at T12 is not significantly changed. No acute lumbar compression fractures seen. Slight anterolisthesis L4-L5. Spondylitic change at multiple levels. There is posterior facet arthrosis. Degenerative disc space narrowing is seen eccentrically at L5-S1. Limited flexion and extension views performed. There is no appreciable abnormal mobility identified. Incidental note of mild to moderate compression deformity at T9. IMPRESSION: No acute lumbar compression fractures. Slight anterolisthesis L4-L5. Multilevel degenerative changes. Limited flexion and extension views demonstrate no appreciable abnormal mobility. 01/16/23: XR THORACOLUMBAR SPINE FINDINGS: Post vertebroplasty change at T11. Wedge compression deformity at T12 observed via combined AP and lateral views does not appear to be significantly changed. No paravertebral abnormality. There is bony demineralization. Mild to moderate compression deformity at T9 observed, not appearing significantly changed since previous evaluation. There is a slight inferior endplate wedge deformity at T6, not significantly changed. IMPRESSION: 1. Mild to moderate compression deformity at T9, not appearing significantly changed. Slight compression at T6, appearing stable. 2. Post vertebroplasty change at T11. T12 wedge compression deformity not appreciably changed. Assessment & Plan Assessment & Plan (1) T12 compression fracture: Code(s): S22.080A - Wedge compression fracture of T11-T12 vertebra, initial encounter for closed fracture Plan 62-year-old female with a subacute compression fracture at T12. Will plan for T12 kyphoplasty for osteoporotic VCF, tentatively scheduled for 02/28/2023. The patient previously had a diagnosis of osteoporosis via DEXA scan. Unfortunately, the DEXA scan results are not available for review today. We will obtain that from [facility]. In the meantime, I encouraged the patient to contact her primary care provider to discuss treatment for her osteoporosis to prevent further VCFs in the future. Scribed for Dr. Diaz by Koby Martin director of medical services, on 02/17/2023. I, Dr. Diaz, have personally reviewed and agree with the information entered by the id [email or web address]. Telehealth Telehealth Location of provider rendering services: practice address Location of patient: address on file Patient Identification confirmed using: Name, : Yes Telehealth method: video Patient verbally consented to treatment: Yes Patient verbally consented to billing insurance company: Yes Patient informed of any privacy concerns related to visit: Yes Minutes spent on Phone/Video with Pt.: 10 Coding Level of Care Code Tele New Pt Level 3 (06172) Diagnoses T12 compression fracture S22.080A
== END 2023-02-17 13:48 | disposition home or self-care (01) ==
LOC: HO.PMC 13:47
PROVIDERS: PCP Family Medicine; Visit Provider Internal Medicine
DX: S22.080A Wedge compression fracture of T11-T12 vertebra, initial encounter for closed fracture (principal)
CPT/HCPCS: 99203

== ENCOUNTER → 2023-02-17 13:47 | Outpatient (BNVA) | payer BC, MEDICAID, SELFPAY | PROVIDERS: PCP Family Medicine; Visit Provider Internal Medicine ==

== ENCOUNTER 2023-02-28 05:56 | Day surgery (SDC) | payer BC, MEDICAID, SELFPAY ==
[2023-02-26 07:12] VITALS: BMI 21.5
--- NOTE | 2023-02-27 09:25 | HO.ANESPROP2 ---
HPI - Anesthesia Eval Consult details Narrative: 62yo F for Kyphoplasty Cardiac w/u 08/2022 for SOB with nml ECHO and stress. Chronic opiods *Multiple med allergies including LR, fentanyl, morphine, sevoflurane* PMFSH Active Problems Active Problems: All Active Problems (Updated 01/20/23 @ 00:02 by Cecile Pate) T12 compression fracture (Acute) Back pain (Acute) Hypercholesterolemia (Acute) Borderline anemia (Acute) Shortness of breath (Acute) Constipation (Acute) Rib pain on left side (Acute) PAD (peripheral artery disease) (Acute) AAA (abdominal aortic aneurysm) without rupture (Acute) Swelling of left knee joint (Acute) Decreased sensation of foot (Acute) Left spastic hemiparesis (Acute) Traumatic injury of shoulder (Acute) Left ankle pain (Acute) Hyponatremia (Acute) Mild anemia (Acute) GERD (gastroesophageal reflux disease) (Acute) Chest discomfort (Acute) Abnormal lung sounds (Acute) Wheezing (Acute) TIA (transient ischemic attack) (Acute) Cervicalgia (Acute) Viral illness (Acute) Hip pain, right (Acute) Left ear pain (Acute) Compression fracture of T9 vertebra (Acute) Encounter for screening for COVID-19 (Acute) Rib pain (Acute) Left wrist fracture (Acute) Left wrist pain (Acute) Abdominal pain (Acute) Concentration deficit (Acute) Abdominal pain (Acute) Cough (Acute) Screening for cervical cancer (Acute) Breast cancer screening by mammogram (Acute) Screening for colon cancer (Acute) Annual physical exam (Acute) Nausea (Acute) Weight loss (Acute) Seizures (Acute) Mitochondrial complex 1 deficiency (Acute) HTN (hypertension) (Acute) Wheezing on auscultation (Acute) Abnormal chest x-ray (Acute) Contact with or exposure to other viral diseases (Acute) Mitochondrial disease (Acute) Tracheobronchitis (Acute) Essential hypertension (Acute) Headache (Acute) Head injury (Acute) Change in mental state (Acute) Laboratory examination ordered as part of a routine general medical examination (Acute) History of CVA (cerebrovascular accident) (Acute) History of craniotomy (Acute) Medication care plan discussed with patient (Acute) Past Medical History Medical History Lumbar herniated disc Back pain HTN (hypertension) Seizures 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 Father No problems noted. Surgical History Surgical History History of esophagogastroduodenoscopy (EGD) Hx of colonoscopy History of arterial bypass of lower extremity History of foot surgery History of brain surgery Social History Social History Household Members: Spouse Housing: Condominium Do you presently have visiting nurse or other home services: No Alcohol intake: never Patient Tobacco Use Status: Never used Tobacco e-Cigarette/Vaping Use: Never Used Second Hand Smoke Exposure: No service: No Current occupational status: disabled Current occupational exposures/hazards: No Cognitive needs: Yes (wheelchair/cane) Hearing needs: No Vision needs: Yes (glasses) Meds Allergies Allergy/AdvReac Type Severity Reaction Status Date / Time fentanyl [FENTANYL] Allergy Unknown Unknown Verified 01/29/23 12:29 meperidine [Demerol] Allergy Unknown rash Verified 01/29/23 12:29 morphine [MORPHINE] Allergy Unknown chest Verified 01/29/23 12:29 pressure phenytoin [Dilantin] Allergy Unknown rash Verified 01/29/23 12:29 remifentanil Allergy Unknown Rash Verified 01/29/23 12:29 sevoflurane Allergy Unknown Rash Verified 01/29/23 12:29 Sulfa (Sulfonamide Allergy Unknown Rash Verified 01/29/23 12:29 Antibiotics) [SULFA(SULFONAMIDE ANTIBIOTICS)] Ringer's solution,lactated AdvReac contraindicated Verified 01/29/23 12:29 d/t mitochondrial dz Home Medications Medication Instructions Recorded Confirmed Last Taken Type terazosin 2 mg capsule 2 mg PO BEDTIME 05/01/20 02/28/23 Unknown History estradiol 2 mg (7.5 mcg/24 hour) 1 ea vaginal [id number] 11/19/20 02/28/23 Unknown History vaginal ring (Estring) amoxicillin 500 mg tablet 500 mg PO BID PRN dental 11/26/22 02/28/23 Unknown History solifenacin 10 mg tablet 10 mg PO DAILY 02/28/23 02/28/23 Unknown History Exam Exam Date and Time: February 27, 2023 0925 Height,Weight and Vital Signs: Height 5 ft 7 in Weight 62.142 kg Pertinent Lab Results Pertinent Lab Results: Laboratory Tests 01/19/23 21:48 WBC 5.2 Hgb 12.3 Hct 35.6 L Plt Count 253 Sodium 134 L Potassium 4.0 Chloride 99 Carbon Dioxide 27 BUN 9 Creatinine 0.68 Narrative Narrative: EKG 01/2023 Vent. Rate : 054 BPM Atrial Rate : 054 BPM P-R Int : 172 ms QRS Dur : 080 ms QT Int : 428 ms P-R-T Axes : 071 015 040 degrees QTc Int : 405 ms Sinus bradycardia Otherwise normal ECG When compared with ECG of 19-NOV-2020 17:51, No significant change was found ECHO 09/2022 Conclusions: - 1. Normal LV systolic function with LVEF of 60 65% with normal filling pattern 2. Mild mitral regurgitation 3. Mildly dilated left atrium 4. Normal RV systolic pressure 5. No pericardial effusion NM erin perf SPECT rest & str 09/2022 Impression: 1. Myocardial perfusion imaging study shows normal myocardial perfusion 2. Gated LVEF is 74% 3. Transient ischemic dilatation not present EKG is nondiagnostic for ischemia Assessment and Plan Assessment Anesthesia Assessment: Chart Reviewed
[2023-02-28] VITALS (9 sets, daily range): BP systolic 118–146; BP diastolic 67–98; PULSE 54–68; RESP 16–20; TEMP 36.6–37.1; O2SAT 94–98; BMI 21.5
--- NOTE | ~2023-02-28 | FL_ITS ---
EXAMINATION: XR FLUOROSCOPY WITH IMAGES CLINICAL INFORMATION: Kyphoplasty. COMPARISON: Thoracic spine x-ray December 2022 TECHNIQUE: Fluoroscopy Supervised By: Dr. Carlton Diaz. Fluoroscopy Time: 2.9 minutes. Cumulative Dose: 81.7 mGy. DAP: 7.91838 Gycm2. Images: 4. FINDINGS: Frontal and lateral views demonstrate bilateral transpedicular trochars and cement augmentation/kyphoplasty of T12 vertebral body. Previous kyphoplasty/cement augmentation of the T11 11 vertebral body unchanged from December 2022 x-ray FL/FL guidance in OR IMPRESSION: Fluoroscopy guidance for kyphoplasty
[2023-02-28] MEDS: 0.9 % Sodium Chloride 1,000 ML 100 ML IVCONT (06:39)
--- NOTE | 2023-02-28 07:33 | P.CONAN_ITS ---
[facility] Active Problems Active Problems: All Active Problems (Updated 01/20/23 @ 00:02 by Cecile Pate) T12 compression fracture (Acute) Back pain (Acute) Hypercholesterolemia (Acute) Borderline anemia (Acute) Shortness of breath (Acute) Constipation (Acute) Rib pain on left side (Acute) PAD (peripheral artery disease) (Acute) AAA (abdominal aortic aneurysm) without rupture (Acute) Swelling of left knee joint (Acute) Decreased sensation of foot (Acute) Left spastic hemiparesis (Acute) Traumatic injury of shoulder (Acute) Left ankle pain (Acute) Hyponatremia (Acute) Mild anemia (Acute) GERD (gastroesophageal reflux disease) (Acute) Chest discomfort (Acute) Abnormal lung sounds (Acute) Wheezing (Acute) TIA (transient ischemic attack) (Acute) Cervicalgia (Acute) Viral illness (Acute) Hip pain, right (Acute) Left ear pain (Acute) Compression fracture of T9 vertebra (Acute) Encounter for screening for COVID-19 (Acute) Rib pain (Acute) Left wrist fracture (Acute) Left wrist pain (Acute) Abdominal pain (Acute) Concentration deficit (Acute) Abdominal pain (Acute) Cough (Acute) Screening for cervical cancer (Acute) Breast cancer screening by mammogram (Acute) Screening for colon cancer (Acute) Annual physical exam (Acute) Nausea (Acute) Weight loss (Acute) Seizures (Acute) Mitochondrial complex 1 deficiency (Acute) HTN (hypertension) (Acute) Wheezing on auscultation (Acute) Abnormal chest x-ray (Acute) Contact with or exposure to other viral diseases (Acute) Mitochondrial disease (Acute) Tracheobronchitis (Acute) Essential hypertension (Acute) Headache (Acute) Head injury (Acute) Change in mental state (Acute) Laboratory examination ordered as part of a routine general medical examination (Acute) History of CVA (cerebrovascular accident) (Acute) History of craniotomy (Acute) Medication care plan discussed with patient (Acute) Past Medical History Medical History Lumbar herniated disc Back pain HTN (hypertension) Seizures 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 Father No problems noted. Surgical History Surgical History History of esophagogastroduodenoscopy (EGD) Hx of colonoscopy History of arterial bypass of lower extremity History of foot surgery History of brain surgery Social History Social History Household Members: Spouse Housing: Condominium Do you presently have visiting nurse or other home services: No Alcohol intake: never Patient Tobacco Use Status: Never used Tobacco e-Cigarette/Vaping Use: Never Used Second Hand Smoke Exposure: No Use of substances other than those prescribed or required for medical reasons: No Are you DNR?: Yes Advance Directives: No Advance Directives Information Provided: Yes service: No Current occupational status: disabled Current occupational exposures/hazards: No Cognitive needs: Yes (wheelchair/cane) Hearing needs: No Vision needs: Yes (glasses) Meds Allergies Allergy/AdvReac Type Severity Reaction Status Date / Time fentanyl [FENTANYL] Allergy Unknown Unknown Verified 01/29/23 12:29 meperidine [Demerol] Allergy Unknown rash Verified 01/29/23 12:29 morphine [MORPHINE] Allergy Unknown chest Verified 01/29/23 12:29 pressure phenytoin [Dilantin] Allergy Unknown rash Verified 01/29/23 12:29 remifentanil Allergy Unknown Rash Verified 01/29/23 12:29 sevoflurane Allergy Unknown Rash Verified 01/29/23 12:29 Sulfa (Sulfonamide Allergy Unknown Rash Verified 01/29/23 12:29 Antibiotics) [SULFA(SULFONAMIDE ANTIBIOTICS)] Ringer's solution,lactated AdvReac contraindicated Verified 01/29/23 12:29 d/t mitochondrial dz Active Medications: Current Medications Sodium Chloride (Ns) 1,000 mls @ 100 mls/hr IVCONT .Q10H AUBREE Last Admin: 02/28/23 06:39 Dose: 100 mls/hr Home Medications Medication Instructions Recorded Confirmed Last Taken Type terazosin 2 mg capsule 2 mg PO BEDTIME 05/01/20 02/28/23 Unknown History estradiol 2 mg (7.5 mcg/24 hour) 1 ea vaginal [id number] 11/19/20 02/28/23 Unknown History vaginal ring (Estring) amoxicillin 500 mg tablet 500 mg PO BID PRN dental 11/26/22 02/28/23 Unknown History solifenacin 10 mg tablet 10 mg PO DAILY 02/28/23 02/28/23 Unknown History Exam Exam Date and Time: February 28, 2023 0733 Height,Weight and Vital Signs: Height 5 ft 7 in Weight 62.142 kg Last Vital Signs Temp 98.7 F 02/28/23 06:32 Pulse 68 02/28/23 06:32 Resp 18 02/28/23 06:32 BP 144/90 H 02/28/23 06:32 Pulse Ox 98 02/28/23 06:32 O2 Del Method Room Air 02/28/23 06:32 Airway Mallampati Class: II TM Dist: >3cm Neck ROM: Full Heart: RRR Lungs: CTA Assessment and Plan Assessment Anesthesia Assessment: Anesthesia Plan Discussed Final Anesthetic Review ASA Class: III Final Preanesthetic Review: Meds/Allgs Chart Reviewed, Consent Obtained/Reviewed and Anes Risks/Benef Reviewed Patient Risk: Low Procedure Risk: Low Anesthetic Plan Anesthetic Plan: MAC: Disposition: Standard PACU
--- NOTE | 2023-02-28 07:58 | MHC.SHP ---
Pre-Procedural Eval Section A Date of Service: 02/28/23 The patient is an INPATIENT: No Changes since office visit: Yes Patient answered all questions The History & Physical has been completed within 30 days and I have reviewed it.: Yes Section B Chief Complaint: Wedge compression fracture of T12 vertebra, Relevant Family History (Specify if Yes): No Relevant Social History: None Present Medications: see Short Stay Collaborative assessment Medical History: Significant History (osteoporosis) History of Previous Operations: No relevant previous surgery Allergies: Allergies Allergy/AdvReac Type Severity Reaction Status Date / Time fentanyl [FENTANYL] Allergy Unknown Unknown Verified 01/29/23 12:29 meperidine [Demerol] Allergy Unknown rash Verified 01/29/23 12:29 morphine [MORPHINE] Allergy Unknown chest Verified 01/29/23 12:29 pressure phenytoin [Dilantin] Allergy Unknown rash Verified 01/29/23 12:29 remifentanil Allergy Unknown Rash Verified 01/29/23 12:29 sevoflurane Allergy Unknown Rash Verified 01/29/23 12:29 Sulfa (Sulfonamide Allergy Unknown Rash Verified 01/29/23 12:29 Antibiotics) [SULFA(SULFONAMIDE ANTIBIOTICS)] Ringer's solution,lactated AdvReac contraindicated Verified 01/29/23 12:29 d/t mitochondrial dz Review of Systems Sugical H&P ROS: Negative: Constitution, Cardiovascular and Respiratory Exam Surgical H&P Exam: Normal: HEENT, Normal: Heart and Normal: Lungs Plan Diagnosis/Plan: Unchanged I have reviewed the history and physical and performed a pertinent physical examination on my patient. No changes have occurred unless specified. Time Spent With Patient Time: Total time managing care of this patient today ____ minutes.
--- NOTE | 2023-02-28 09:31 | PM.OP ---
Brief Operative Note Date of Service: 02/28/23 Pre-op diagnosis: Osteoporotic vertebral compression fracture T12 Procedure: Kyphon Balloon Kyphoplasty with Insertion of HV-R Bone Cement, T12 Vertebral Body Surgeon: Carlton Diaz MD Anesthesia: MAC Was an Felt Tipping Machine Tender used for this Procedure?: No Estimated blood loss (mL): 10 Pathology: none sent Condition: stable Disposition: PACU
--- NOTE | 2023-02-28 09:33 | W.PM.OPN ---
Operative Note Operative Note Date of Service: 02/28/23 Narrative: Kyphon Balloon Kyphoplasty with Insertion of HV-R Bone Cement, T12 Vertebral Body The patient was brought to the operating room and sedated under anesthesia. The patient was positioned prone on the table. The back was prepped and draped. Two image intensifiers (C-arms) were brought into the AP and lateral positions and the T12 pedicles were identified and marked with a skin marker. A transpedicular approach to the vertebral body was deemed appropriate. A hypodermic needle was advanced along the expected course of the introducer up to the pedicle and the tract was anesthetized with 0.25% bupivacaine with epinephrine. A stab incision was made 3 cm lateral to the pedicle with a 15 blade. A 10-gauge bevel introducer was advanced through the T12 pedicle to the junction of the pedicle and vertebral body on the right side first. Positioning was confirmed on the AP and lateral plane at regular intervals to ensure bevel position within the cortical boundaries of the pedicle until the body of the vertebra was accessed. Following satisfactory placement of the osteointroducer, the bevel tip was removed, leaving the cannula in place, positioned approximately 1 cm past the posterior vertebral body wall. Through the cannula, a drill was advanced into the vertebral body under fluoroscopic guidance toward the anterior cortex to create a channel, stopping approximately 3-5 mm posterior to the anterior cortical wall in the lateral view and approaching the ipsilateral edge of the spinous process in the AP view. After completing the entry into the vertebral body, a 15 mm inflatable bone tamp was inserted through the cannula and advanced under fluoroscopic guidance into the vertebral body near the anterior cortex. The radiopaque marker bands on the bone tamp were identified using AP and lateral images and confirmed to be within the anterior 2/3rd of the body. . The above sequence of instrument placement was then repeated on the left side. Once both bone tamps were in position, they were inflated sequentially in increments of 0.25 to 0.5 cc of contrast, with careful attention being paid to the inflation pressures and balloon position. The inflation was monitored with AP and lateral imaging. The final balloon volume was 1.5 cc on the left and 2 cc on the right side. Maximum pressure applied on either side was approximately 400 psi. There was no breach of the lateral wall or anterior cortex of the vertebral body. Direct reduction of the fracture was achieved and end plate movement was noted. Under fluoroscopic imaging, and the use of the bone void fillers, internal fixation was achieved through a low-pressure injection of appropriately cured KYPHON HV-R methylmethacrylate bone cement. The cavity was filled with a total volume of 2.2 cc on the left side and 2 cc on the right side. No vascular, disc or spinal extravasation of the cement was noted. Once the bone cement had hardened, the bevel tip was reinserted into each of the cannulas to clear it and they were were then removed. Post-procedure, the incisions were closed with 2-0 silk sutures. The patient was kept in the prone position for approximately 10 minutes post cement injection. She was then turned supine, woken up and brought to the PACU where she reported minimal back pain. She was able to move both her lower extremities at this time. She was subsequently discharged with postprocedure and follow-up instructions. Estimated blood loss was rougly 10 mL.
--- NOTE | 2023-02-28 09:45 | HO.POSTANES ---
Post Anesthesia Evaluation Post Anesthesia Evaluation Date of Service: 02/28/23 Vital Signs: Vital Signs Temp Pulse Resp BP Pulse Ox O2 Del Method 02/28/23 06:32 98.7 F 68 18 144/90 H 98 Room Air Anesthesia: Monitored Mental Status: Awake Pain Control: Satisfactory Nausea/Vomiting: None Hydration: Adequate Anesthesia-Related Issues: No Anes. Related Issues
[2023-02-28 10:57] LABS: MRSA Nasal PCR NEGATIVE (Negative); SA Nasal PCR NEGATIVE (Negative)
== END 2023-02-28 11:36 | disposition home or self-care (01) ==
PROVIDERS: Registered Nurse Emergency; PCP Family Medicine; Visit Provider Internal Medicine
PROC: (CPT 22513; principal; 2023-02-28 07:30)
DX: S22.080A Wedge compression fracture of T11-T12 vertebra, initial encounter for closed fracture (principal); M51.26 Other intervertebral disc displacement, lumbar region; M81.0 Age-related osteoporosis without current pathological fracture; I10 Essential (primary) hypertension; R56.9 Unspecified convulsions; Q28.2 Arteriovenous malformation of cerebral vessels; E88.40 Mitochondrial metabolism disorder, unspecified; Z79.899 Other long term (current) drug therapy; Z88.2 Allergy status to sulfonamides; Z88.8 Allergy status to other drugs, medicaments and biological substances; Z66 Do not resuscitate; W18.30XA Fall on same level, unspecified, initial encounter; Y93.9 Activity, unspecified; Y92.009 Unspecified place in unspecified non-institutional (private) residence as the place of occurrence of the external cause; Y99.9 Unspecified external cause status
CPT/HCPCS: 22513; 87640; 87641; C1713; J0690; J1100; J2250; J2795; Q9967

== ENCOUNTER → 2023-02-28 05:56 | Outpatient (BNV) | payer BC, MEDICAID, SELFPAY | PROVIDERS: PCP Family Medicine; Visit Provider Internal Medicine | DX: S22.080A Wedge compression fracture of T11-T12 vertebra, initial encounter for closed fracture (principal) | CPT/HCPCS: 22513 ==

== ENCOUNTER 2023-03-07 10:54 | Outpatient (AMB) | payer BC, MEDICAID, SELFPAY ==
--- NOTE | 2023-03-07 11:03 | A.OFFVIS_ITS ---
Intake Vital Signs 03/07/23 11:05 Height 5 ft 7 in Weight 137 lb BMI 21.5 BP 114/70 Blood Pressure Location Rt brachial Position Sitting Respiration 14 Pulse 70 Pulse Source Pulse Oximeter Pulse Oximetry (%) 96 Oxygen Delivery Method Room Air Intake Visit Reasons: s/p T12 Kyphoplasty 02/28/23/lvm Allergies fentanyl [FENTANYL] Allergy (Unknown, Verified 03/07/23 11:08) Unknown meperidine [Demerol] Allergy (Unknown, Verified 03/07/23 11:08) rash morphine [MORPHINE] Allergy (Unknown, Verified 03/07/23 11:08) chest pressure phenytoin [Dilantin] Allergy (Unknown, Verified 03/07/23 11:08) rash remifentanil Allergy (Unknown, Verified 03/07/23 11:08) Rash sevoflurane Allergy (Unknown, Verified 03/07/23 11:08) Rash Sulfa (Sulfonamide Antibiotics) [SULFA(SULFONAMIDE ANTIBIOTICS)] Allergy (Unknown, Verified 03/07/23 11:08) Rash Ringer's solution,lactated Adverse Reaction (Verified 03/07/23 11:08) contraindicated d/t mitochondrial dz Medication List - Last Reconciled 03/07/23 by India Conley LPN amlodipine 10 mg PO DAILY amoxicillin 500 mg PO BID PRN atorvastatin 20 mg PO BEDTIME 90 days carbamazepine ER 400 mg PO BID 90 days estradiol (Estring) 1 ea vaginal [id number] ezetimibe (Zetia) 10 mg PO DAILY 90 days fluoxetine 40 mg PO QAM hydromorphone (Dilaudid) 4 mg PO TID PRN 30 days lidocaine 5% (Lidoderm) 1 patch topical DAILY 30 days lisinopril 30 mg (1.5 x 20 mg) PO DAILY 90 days lorazepam 2 mg PO DAILY PRN naloxone 4 mg/actuation (Narcan) 4 mg intranasal Q2M PRN omeprazole 20 mg PO DAILY 90 days pregabalin (Lyrica) 200 mg (2 x 100 mg) PO Q12H 1 month ropinirole 2 mg PO BEDTIME 90 days solifenacin 10 mg PO DAILY terazosin 2 mg PO BEDTIME HPI s/p T12 Kyphoplasty 02/28/23/lvm HPI Details 62-year-old female who presents today to the office for a status post T12 kyphoplasty. The patient reports 80% back pain relief following the procedure. She reports pain in her left side at the level of ribs that started 2-3 days after the procedure, raising concern of potential rib fracture in setting of severe untreated osteoporosis and procedural positioning. She has not discussed treatment of osteoporosis with her primary care physician. She has also not visited traffic engineer for the treatment of osteoporosis. She is amenable to receive a intercostal nerve block today in the office. Her back pain is stable. She is currently not using back brace. Past procedure: 02/28/23: Kyphon Balloon Kyphoplasty wit h Insertion of HV-R Bone Cement, T12 Vertebral Body: 80% back pain relief. 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 Father No problems noted. Social History Household Members: Spouse Housing: Condominium Do you presently have visiting nurse or other home services: No Alcohol intake: never Patient Tobacco Use Status: Never used Tobacco e-Cigarette/Vaping Use: Never Used Second Hand Smoke Exposure: No service: No Current occupational status: disabled Current occupational exposures/hazards: No Cognitive needs: Yes (wheelchair/cane) Hearing needs: No Vision needs: Yes (glasses) Review of Systems Const All systems reviewed & are unremarkable except as noted in HPI and below Physical Exam Vital Signs: Last Vital Signs Pulse 70 03/07/23 11:05 Resp 14 03/07/23 11:05 BP 114/70 03/07/23 11:05 Pulse Ox 96 03/07/23 11:05 Oxygen Delivery Method Room Air 03/07/23 11:05 BMI result Body Mass Index 21.5 General: Appears afebrile. Alert and oriented. Mood and affect appropriate. Follows and participates in conversation appropriately. Respiratory effort is unlabored. Able to transition from sit to stand unassisted. Ambulates with bilaterally normal heel strike and toe off. Tenderness to palpation overlying anterior right T9-10 11 ribs. Office Procedures Nerve Block Details: Right T9-10-11 intercostal nerve block, US guided. After obtaining written consent, pre-procedure time-out was completed. The patient was placed in a left lateral position. The relevant levels of the intercostal nerves were physically palpated corresponding to the patient's pain and marked. Using ultrasound, the appropriate landmarks including the rib, intercostal muscles and pleura were identified. The skin was anesthetized with 1% lidocaine. A 21-gauge 80 mm echostim needle was advanced under sonographic guidance in proximity to each of the intercostal nerves. Aspiration was negative for heme and air. 3 cc of ropivacaine 0.5% was injected around each of the targeted nerves. The needle was removed, skin cleansed and a sterile bandage was applied. The patient tolerated the procedure well and no complications were encountered. Following the procedure, the patient's vital signs and respiration were stable and she reported a resolution of her pain. The patient was discharged home in good condition with post-procedural instructions. Time Out: Immediately prior to the procedure, the following was verbally confirmed that there is a signed consent form and that the correct patient, planned procedure, site and side are consistent with documentation and that necessary equipment and/or blood products are available prior to the start of the case. Complications: none EBL: <1 cc An ultrasound image of the injection was taken and stored in the permanent record. Procedure code (CPT) selection complete Results Reviewed Results Reviewed: No imaging is available for review. Assessment & Plan Assessment & Plan (1) Osteoporosis: Code(s): M81.0 - Age-related osteoporosis without current pathological fracture (2) T12 compression fracture: Code(s): S22.080A - Wedge compression fracture of T11-T12 vertebra, initial encounter for closed fracture (3) Rib pain on right side: Code(s): R07.81 - Pleurodynia Plan Patient is status post Right T9-10-11 intercostal nerve block, US guided. Patient tolerated procedure well and was discharged home in stable condition with discharge instructions. All questions were answered. Continue to follow up with her primary care physician. A referral was provided to an traffic engineer for the treatment of osteoporosis. We will follow-up in two weeks via telephone or in clinic to assess response to therapy. A follow-up appointment was made during today's visit. Scribed for Dr. Diaz by Koby Mratin, electromedical equipment technician, on 03/07/2023. I, Dr. Diaz, have personally reviewed and agree with the information entered by the scribe. Orders: Referrals Endocrinology Referral M81.0 - Age-related osteoporosis without current pathological fracture Coding Level of Care Code Est Pt Level 3 (28311) Diagnoses Osteoporosis M81.0 T12 compression fracture S22.080A Rib pain on right side R07.81
[2023-03-07 11:05] VITALS: BP 114/70; PULSE 70; RESP 14; O2SAT 96; BMI 21.5
== END 2023-03-07 11:57 | disposition home or self-care (01) ==
PROVIDERS: PCP Family Medicine; Visit Provider Internal Medicine
DX: M81.0 Age-related osteoporosis without current pathological fracture (principal); S22.080A Wedge compression fracture of T11-T12 vertebra, initial encounter for closed fracture; R07.81 Pleurodynia
CPT/HCPCS: 99024

== ENCOUNTER → 2023-03-07 10:54 | Outpatient (BNVA) | payer BC, MEDICAID, SELFPAY | PROVIDERS: PCP Family Medicine; Visit Provider Internal Medicine | DX: S22.080D Wedge compression fracture of T11-T12 vertebra, subsequent encounter for fracture with routine healing (principal); M81.0 Age-related osteoporosis without current pathological fracture; R07.81 Pleurodynia | CPT/HCPCS: 64420; 64421 ==

== ENCOUNTER 2023-04-18 13:39 | Outpatient (AMB) | payer BC, MEDICAID, SELFPAY ==
[2023-04-18 13:43] VITALS: BP 120/62; PULSE 72; O2SAT 98; BMI 21.5
--- NOTE | 2023-04-18 13:43 | A.OFFPC_ITS ---
Vital Signs 04/18/23 13:43 Height 5 ft 7 in Weight 137 lb BMI 21.5 BP 120/62 Blood Pressure Location Lt brachial Position Sitting Pulse 72 Pulse Source Pulse Oximeter Pulse Oximetry (%) 98 Oxygen Delivery Method Room Air Intake Visit Reasons: 3M Follow up hypercholesterolemia Intake Note: Patient is here for follow up on hypercholesterolemia. Patient is c/o left swollen foot for a few days, she states pain has been for a couple of weeks. Allergies fentanyl [FENTANYL] Allergy (Unknown, Verified 04/18/23 13:48) Unknown meperidine [Demerol] Allergy (Unknown, Verified 04/18/23 13:48) rash morphine [MORPHINE] Allergy (Unknown, Verified 04/18/23 13:48) chest pressure phenytoin [Dilantin] Allergy (Unknown, Verified 04/18/23 13:48) rash remifentanil Allergy (Unknown, Verified 04/18/23 13:48) Rash sevoflurane Allergy (Unknown, Verified 04/18/23 13:48) Rash Sulfa (Sulfonamide Antibiotics) [SULFA(SULFONAMIDE ANTIBIOTICS)] Allergy (Unknown, Verified 04/18/23 13:48) Rash Ringer's solution,lactated Adverse Reaction (Verified 04/18/23 13:48) contraindicated d/t mitochondrial dz Tobacco use date assessed: 01/17/23 HPI 3M Follow up hypercholesterolemia HPI Details 62 y/o female presents to f/u hyperlipid [facility]. No recent lipid panel to review. She is on artovastatin 20mg and Zetia 10mg daily. Pt reports L foot pain x2 weeks along with swelling for a few days. 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 Father No problems noted. Social History Household Members: Spouse Housing: Condominium Do you presently have visiting nurse or other home services: No Alcohol intake: never Patient Tobacco Use Status: Never used Tobacco e-Cigarette/Vaping Use: Never Used Second Hand Smoke Exposure: No service: No Current occupational status: disabled Current occupational exposures/hazards: No Cognitive needs: Yes (wheelchair/cane) Hearing needs: No Vision needs: Yes (glasses) Questionnaire Thrive Questionnaire Date Thrive assessed: 04/26/22 SANTY-7 AMB Questionnaire SANTY-7 Date SANTY - 7 assessed: 12/29/20 Source: Developed by Drs. Saeid Reynaga, Ava Sorenson, Abraham Foster and colleagues, with an educational christina from [employer]. Review of Systems Const Denies chills, Denies fatigue, Denies fever(s), Denies headache(s) and Denies weakness ENT Denies dizziness and Denies headache(s) Card Denies dyspnea Resp Denies cough, Denies dyspnea, Denies wheezing and Denies other (shortness of breath) Musc Details: L foot pain Denies numbness and Denies tingling Neuro Denies dizziness, Denies headache(s), Denies numbness, Denies tingling and Denies weakness Psych Denies anxiety and Denies depression Endo Denies fatigue Aller/Immun Denies wheezing Physical exam (Primary Care) Vital Signs: Last Vital Signs Pulse 72 04/18/23 13:43 BP 120/62 04/18/23 13:43 Pulse Ox 98 04/18/23 13:43 Oxygen Delivery Method Room Air 04/18/23 13:43 BMI result Body Mass Index 21.5 Tobacco/Smoking Status: Tobacco use Status Tobacco use date assessed 01/17/23 04/18/23 13:53 Patient Tobacco Use Status Never used Tobacco 04/18/23 13:53 e-Cigarette/Vaping Use Never Used 04/18/23 13:53 Thrive Assessment: Date of Thrive Assessment Date Thrive assessed 04/26/22 04/18/23 13:53 Const General: well developed; No acute distress Nutritional Appearance: well nourished Orientation/consciousness: patient oriented x3 HENMT Head: Yes normocephalic and Yes atraumatic Eyes General: appearance normal, both eyes and all related structures Pupils: Equal, round and reactive pupils present EOM: EOMs intact bilaterally Resp Effort & Inspection: normal respiratory effort Neuro General: patient oriented x3 and gait normal Cranial nerves: Yes Equal, round and reactive pupils present Psych Affect: normal affect Assessment and Plan Assessment & Plan (1) Left foot pain: Code(s): M79.672 - Pain in left foot Plan: Pain?and?swelling?at?left?foot?after?bending/hyper?dorsiflexion. Patient?has?positive?pulses?and?capillary?refill. Unable?to?bend?foot?or?toes?but?this?is?her?baseline. Also?has?pain?and?swelling?of?ankle?and?distal?posterior?calf Likely?muscle/tendon?strain. Will?check?x-ray Can?not?rule?out?DVT/thrombosis. Checking?venous?Doppler Patient?will?elevate?leg?and?use?ice/heat Will?call?patient?if?imaging?indicates?intervention?is?needed. (2) Pain and swelling of lower extremity: Code(s): M79.606 - Pain in leg, unspecified; M79.89 - Other specified soft tissue disorders (3) Osteoporosis: Code(s): M81.0 - Age-related osteoporosis without current pathological fracture Plan: Patient?was?referred?by?pain?management?to?endocrine?regarding?osteoporosis?and? consideration?of?Prolia?shots. Had?discussed?medication?w ith?patient?in?the?past.??She?now?wants?to?pursue?this. (4) Hypercholesterolemia: Code(s): E78.00 - Pure hypercholesterolemia, unspecified Plan: Patient?tolerating?atorvastatin?and?Zetia. Due?to?recheck?her?lipids.??LDL?goal?is?less?than?70?for?patient?with?CVA Continue?current?medication ?regimen?and?she?will?get?her?lipids?checked?this?coming?week. Orders: Orders XR foot LT min 3V Today M79.606 - Pain in leg, unspecified, M79.672 - Pain in left foot, M79.89 - Other specified soft tissue disorders XR ankle LT 2V Today M79.606 - Pain in leg, unspecified, M79.672 - Pain in left foot, M79.89 - Other specified soft tissue disorders venous duplex LE LT Today M79.606 - Pain in leg, unspecified, M79.672 - Pain in left foot, M79.89 - Other specified soft tissue disorders Coding Level of Care Code Est Pt Level 4 (76858) Diagnoses Left foot pain M79.672 Pain and swelling of lower extremity M79.606; M79.89 Osteoporosis M81.0 Hypercholesterolemia E78.00
== END 2023-04-18 14:47 | disposition home or self-care (01) ==
PROVIDERS: PCP Family Medicine; Visit Provider Family Medicine
DX: M79.672 Pain in left foot (principal); M79.606 Pain in leg, unspecified; M79.89 Other specified soft tissue disorders; M81.0 Age-related osteoporosis without current pathological fracture; E78.00 Pure hypercholesterolemia, unspecified
CPT/HCPCS: 99214

== ENCOUNTER 2023-04-18 15:29 | Outpatient (REF) | payer BC, MEDICAID, SELFPAY ==
--- NOTE | ~2023-04-18 | XR_ITS ---
Examination: Left foot and ankle COMPARISON: 11/30/2019 left foot INDICATIONS: Pain TECHNIQUE: AP lateral and oblique views of left foot and left ankle FINDINGS: 3 views of left ankle reveal status post placement of intramedullary rods in left tibia and the position of hardware is stable. Ankle mortise is maintained. 3 views of left fourth revealed status post placement of hardware in the first phalanges for fusion of interphalangeal joint, in the first tarsometatarsal joint and through the calcaneus. There is diffuse osteopenia no evidence of fractures. Soft tissues unremarkable. XR/XR ankle LT 2V IMPRESSION: Diffuse osteopenia. Postsurgical changes in the left foot and left ankle. No acute abnormalities seen.
--- NOTE | ~2023-04-18 | XR_ITS ---
Examination: Left foot and ankle COMPARISON: 11/30/2019 left foot INDICATIONS: Pain TECHNIQUE: AP lateral and oblique views of left foot and left ankle FINDINGS: 3 views of left ankle reveal status post placement of intramedullary rods in left tibia and the position of hardware is stable. Ankle mortise is maintained. 3 views of left fourth revealed status post placement of hardware in the first phalanges for fusion of interphalangeal joint, in the first tarsometatarsal joint and through the calcaneus. There is diffuse osteopenia no evidence of fractures. Soft tissues unremarkable. XR/XR foot LT min 3V IMPRESSION: Diffuse osteopenia. Postsurgical changes in the left foot and left ankle. No acute abnormalities seen.
== END 2023-04-18 15:30 | disposition home or self-care (01) ==
LOC: HO.HMGCX 15:29
PROVIDERS: PCP Family Medicine; Visit Provider Family Medicine
DX: M79.89 Other specified soft tissue disorders (principal); M79.672 Pain in left foot; M79.605 Pain in left leg
CPT/HCPCS: 73600; 73630

== ENCOUNTER 2023-04-22 08:08 | Observation (INO) | payer BC, MEDICAID, SELFPAY ==
--- NOTE | ~2023-04-22 | CT_ITS ---
EXAMINATION: CT HEAD WITHOUT CONTRAST CLINICAL INFORMATION: Fall COMPARISON: CT head from 01/19/2023 TECHNIQUE: Contiguous axial imaging was performed from the skull base to vertex without intravenous administration of contrast. This CT examination was performed using dose optimization techniques as appropriate, variously including the following: *Automated exposure control *Adjustment of mA and/or kV according to patient size (this includes techniques or standardized protocols for targeted exams where dose is matched to indication/reason for exam; i.e. extremities or head) *Use of iterative reconstruction technique DLP: 999 mGy-cm FINDINGS: There is no evidence of acute intracranial hemorrhage or territorial infarction. Stable postsurgical changes status post right-sided craniotomy. Stable encephalomalacia of the right frontal, parietal, and temporal lobes with ex vacuo dilatation of the right lateral and posterior ventricular horn. No abnormal mass effect or midline shift is seen. Lucas to white matter differentiation is well preserved. No extra-axial fluid collections are identified. The ventricles are normal in size. There is no abnormal attenuation within the brain parenchyma. The osseous structures and soft tissues are normal. The mastoid air cells and visualized portions of the paranasal sinuses are well aerated. CT/CT cervical spine wo IV con IMPRESSION: 1. No acute intracranial pathology. 2. Stable postsurgical changes status post right-sided craniotomy. 3. Stable encephalomalacia of the right frontal, parietal, and temporal lobes with ex vacuo dilatation of the right lateral and posterior ventricular horn. EXAMINATION: Noncontrast CT scan of the cervical spine. INDICATION: Fall COMPARISON: CT cervical spine from 01/19/2023 TECHNIQUE: Helical, multidetector axial images were obtained from the occiput to the upper thorax. Coronal and sagittal reformats of the cervical spine were provided for interpretation. DLP: 999 mGy-cm FINDINGS: No acute fractures or dislocations of the cervical spine are seen. Straightening of normal cervical curvature. Multilevel degenerative changes. Anatomic alignment and positioning of the vertebral bodies and posterior elements is noted. The atlantoaxial joint and craniovertebral articulations are normal without evidence of subluxation. There is no prevertebral soft tissue swelling. The thyroid gland and visualized portions of the lung apices and mediastinum are unremarkable. IMPRESSION: 1. No acute visible fracture or dislocation. 2. Straightening of normal cervical curvature. 3. Multilevel degenerative changes.
--- NOTE | ~2023-04-22 | XR_ITS ---
EXAMINATION: XR CHEST 2 VIEW CLINICAL INFORMATION: Fever COMPARISON: 08/05/2022 TECHNIQUE: PA and lateral views of the chest obtained. FINDINGS: The lungs are clear. There are no pleural effusions. The cardiomediastinal silhouette is normal. Vertebroplasty changes are noted in the spine. XR/XR chest 2V IMPRESSION: No acute cardiopulmonary disease.
--- NOTE | ~2023-04-22 | US_ITS ---
EXAMINATION: US ABDOMEN LIMITED CLINICAL INFORMATION: Elevated LFTs. COMPARISON: Abdominal ultrasound 01/19/2021. TECHNIQUE: Real-time imaging targeted to the liver and gallbladder. FINDINGS: The liver is normal in size, shape and echogenicity without discrete focal lesion. The gallbladder is filled with hyperechoic bile/sludge without significant wall thickening nor pericholecystic free fluid. Technologist reported a negative Boo's sign at the moment of the examination. The common bile duct measures 0.5 cm in diameter, stable compared to 01/19/2021. No intrahepatic biliary ductal dilatation. No free fluid. US/US abdomen limited IMPRESSION: 1. The gallbladder is filled with hyperechoic bile/sludge without significant wall thickening or pericholecystic free fluid. 2. Normal sonographic appearance of the liver.
[2023-04-22 08:12] VITALS: BP 108/57; BP 108/60; PULSE 80; PULSE 84; RESP 16; TEMP 37.6; O2SAT 94; O2SAT 95; BMI 21.5
--- NOTE | 2023-04-22 10:28 | ECG_ITS ---
Test Reason : FALL Blood Pressure : / mmHG Vent. Rate : 065 BPM Atrial Rate : 065 BPM P-R Int : 154 ms QRS Dur : 078 ms QT Int : 402 ms P-R-T Axes : 070 010 048 degrees QTc Int : 418 ms Normal sinus rhythm Normal ECG When compared with ECG of 19-JAN-2023 23:10, No significant change was found Referred By: Johanne Kenny Electronically Signed By:DANIELA MCKEON
--- NOTE | 2023-04-22 10:32 | ED_ITS ---
HPI - Fall General Chief Complaint: Fall Stated Complaint: FREQ URINE,INCONT,UNWIT FALL PER EMS Time Seen by Provider: 04/22/23 09:04 Source: patient and RN notes reviewed Mode of arrival: ambulatory Limitations: no limitations History of Present Illness HPI Narrative: This is a 62-year-old female, with a history of CVA with left-sided deficits, mitochondrial complex 1 deficiency, hypertension, seizures, AVM, GERD, presenting to the emergency department for evaluation of fevers, increased weakness, and fall. Significant other reports that patient has had a steady decline in weakness over the last several months however reports that since yesterday she has been more weak than usual. He states that he noticed that she was urinating frequently yesterday and wet the bed. He states that yesterday she had gotten up to go to the restroom and heard a being. She fell, unsure of loss of consciousness or head trauma. She is not on blood thinners. He states that he took her temperature and it was 103. He states that he medicated her with Tylenol early this morning. Also states that the urine has a foul odor. Significant other also reports that patient has had congestion, headaches and a cough. Patient is alert and oriented x3. complaint: fall Onset (ago): day(s) Fall from: standing Fall witnessed: no Place fall occurred: home Loss of consciousness: unsure Prolonged down time: minute(s) Related Data Home Medications Medication Instructions Recorded Confirmed terazosin 2 mg capsule 2 mg PO BEDTIME 05/01/20 04/22/23 estradiol 2 mg (7.5 mcg/24 hour) 1 ea vaginal [id number] 11/19/20 04/22/23 vaginal ring (Estring) solifenacin 10 mg tablet 10 mg PO DAILY 02/28/23 04/22/23 hydromorphone 4 mg tablet 4 mg PO TID@1000,1600,2100 pain 04/22/23 04/22/23 (Dilaudid) lorazepam 1 mg tablet 2 mg PO BEDTIME anxiety 04/22/23 04/22/23 Previous Rx's Medication Instructions Recorded ezetimibe 10 mg tablet (Zetia) 10 mg PO DAILY 90 days #90 tabs 10/08/22 omeprazole 20 mg capsule,delayed 20 mg PO DAILY 90 days #90 caps 05/23/23 release amlodipine 10 mg tablet 10 mg PO DAILY #90 tabs 11/07/22 atorvastatin 20 mg tablet 20 mg PO BEDTIME 90 days #90 tabs 11/26/22 lidocaine 5 % topical patch 1 patch topical DAILY 30 days #30 12/23/22 (Lidoderm) ea fluoxetine 40 mg capsule 40 mg PO QAM #90 caps 12/29/22 lisinopril 20 mg tablet 30 mg (1.5 x 20 mg) PO DAILY 90 01/03/23 days #135 tabs carbamazepine 400 mg 400 mg PO BID 90 days #180 tabs 02/11/23 tablet,extended release,12 hr ropinirole 2 mg tablet 2 mg PO BEDTIME 90 days #90 tabs 03/20/23 pregabalin 100 mg capsule (Lyrica) 200 mg (2 x 100 mg) PO Q12H 1 04/09/23 month #120 caps Allergies Allergy/AdvReac Type Severity Reaction Status Date / Time fentanyl [FENTANYL] Allergy Unknown Unknown Verified 04/18/23 13:48 meperidine [Demerol] Allergy Unknown rash Verified 04/18/23 13:48 morphine [MORPHINE] Allergy Unknown chest Verified 04/18/23 13:48 pressure phenytoin [Dilantin] Allergy Unknown rash Verified 04/18/23 13:48 remifentanil Allergy Unknown Rash Verified 04/18/23 13:48 sevoflurane Allergy Unknown Rash Verified 04/18/23 13:48 Sulfa (Sulfonamide Allergy Unknown Rash Verified 04/18/23 13:48 Antibiotics) [SULFA(SULFONAMIDE ANTIBIOTICS)] lactose Allergy Abdominal Verified 04/23/23 07:54 Pain Ringer's solution,lactated AdvReac contraindicated Verified 04/18/23 13:48 d/t mitochondrial dz Review of Systems 2 Review of Systems: Yes all other systems are reviewed and are negative Constitutional: Constitutional: Reports as per [facility] Past Medical History Attestation statement: The following information was validated with the patient. 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 Father No problems noted. Social History Social History Household Members: [facility] Do you presently have visiting nurse or other home services: No Alcohol intake: never Patient Tobacco Use Status: Never used Tobacco e-Cigarette/Vaping Use: Never Used Second Hand Smoke Exposure: No service: No Current occupational status: disabled Current occupational exposures/hazards: No Cognitive needs: Yes (wheelchair/cane) Hearing needs: No Vision needs: Yes (glasses) Physical Exam 2 Vital Signs: Vital Signs: Last Vital Signs Temp 98.4 F 04/23/23 11:12 Pulse 63 04/23/23 11:12 Resp 18 04/23/23 11:12 BP 133/79 04/23/23 11:12 Pulse Ox 98 04/23/23 11:12 O2 Del Method Room Air 04/23/23 11:12 BMI result Body Mass Index 21.5 Const: General: cooperative, comfortable and no acute distress O rientation/consciousness: patient oriented x3 Limitations: no limitations HEENT: Head: Yes normal to inspection, Yes normocephalic and Yes atraumatic Ears: hearing grossly normal bilaterally General nose exam: Normal external nose present Face and sinus: Yes normal facial exam Mouth: Normal oral and palatal mucosa present, oropharynx normal and moist mucous membranes Throat: Yes posterior oropharynx normal Eyes: General: appearance normal, both eyes and all related structures E yelids: Yes eyelids normal Conjunctivae: conjunctivae normal Sclerae: s clerae normal Pupils: Equal, round and reactive pupils present EOM: EOMs intact bilaterally Neck: Neck: Yes normal visual inspection, Yes full ROM and Yes no lymphadenopathy Lymphatic: no lymphadenopathy noted Chest: Chest palpation & inspection: normal inspection of the chest Resp: Other: Diminished lung sounds and faint crackles heard at the bilateral lung bases. Effort & Inspection: normal respiratory effort and able to speak in complete sentences Cardio: Rate: regular rate Rhythm: regular rhythm Heart sounds: S1 normal heart sound present and S2 normal heart sound present GI: Inspection: Yes normal to inspection Skin: General skin exam: no rashes or lesions noted Trauma: no lacerations or abrasions Wounds: no wounds Neuro: General: patient oriented x3 and moves all extremities Cranial nerves: Yes Equal, round and reactive pupils present Extrem: General: Yes normal to inspection Right upper extremity: normal to inspection Left upper extremity: normal to inspection Right lower extremity: normal to inspection Left lower extremity: normal to inspection Course Reevaluation(s) Reevaluation #1: Patient tested positive for COVID, chest x-ray without any evidence of pneumonia. Head CT and cervical spine CT do not show any acute abnormalities. EKG normal sinus rhythm. Patient tested positive for COVID. Urine does not appear to be infected. Troponin 3.1 Time: 13:36 Reevaluation #2: Ultrasound returns, report reading gallbladder is filled with hypoechoic bile/sludge without significant wall thickening or pericholecystic free fluid. Normal ultrasound of the liver. Common bile duct measuring 0.5 cm. Transaminitis noted on labs > ?viral in etiology with +COVID testing. Will attempt to admit for hospitalization for further management and treatment of her care given increased weakness. Discussed case with hospitalist, Tiff Ac NP. Time: 16:29 Reevaluation #3: Patient was accepted,transfer of care initiated. Time: 17:41 Medications Administered Discontinued Medications Generic Name Dose Route Start Last Admin Trade Name Freq PRN Reason Stop Dose Admin Acetaminophen 650 mg 04/22/23 17:23 04/23/23 01:19 Acetaminophen 325 Mg Tablet PO 650 mg Q6H PRN Administration Pain, Mild (Pain Scale 1-3) Amlodipine Besylate 10 mg 04/23/23 09:30 04/23/23 11:54 Amlodipine Besylate 10 Mg Tablet PO 10 mg DAILY AUBREE Administration Protocol Ezetimibe 10 mg 04/23/23 09:30 04/23/23 10:14 Ezetimibe 10 Mg Tablet PO 10 mg DAILY AUBREE Administration Fluoxetine HCl 40 mg 04/23/23 09:30 04/23/23 10:13 Fluoxetine Hcl 20 Mg Capsule PO 40 mg DAILY AUBREE Administration Heparin Sodium (Porcine) 5,000 unit 04/22/23 18:00 04/23/23 06:05 Heparin Sodium,Porcine 5,000 Unit/Ml Vial SUBCUT 5,000 unit Q12H AUBREE Administration Hydromorphone HCl 4 mg 04/23/23 10:00 04/23/23 11:02 Hydromorphone Hcl 4 Mg Tablet PO 4 mg TID@1000,1600,2100 AUBREE Administration Sodium Chloride 1,000 mls @ 999 mls/hr 04/22/23 17:24 04/23/23 07:47 Ns IV 04/22/23 18:24 Infused .Q1H1M ONE Infusion Lisinopril 30 mg 04/23/23 10:00 04/23/23 11:54 Lisinopril 10 Mg Tablet PO 30 mg DAILY AUBREE Administration Protocol Omeprazole 20 mg 04/23/23 09:30 04/23/23 10:14 Omeprazole 20 Mg Capsule.Dr PO 20 mg DAILY@0630 AUBREE Administration Potassium Chloride 40 meq 04/23/23 07:25 04/23/23 07:46 Potassium Chloride Er 20 Meq Tab.Er.Prt PO 04/23/23 07:26 40 meq ONCE ONE Administration Pregabalin 200 mg 04/23/23 09:30 04/23/23 10:14 Pregabalin 200 Mg Capsule PO 200 mg Q12H AUBREE Administration Sodium Chloride 3 ml 04/23/23 00:00 04/23/23 07:47 0.9 % Sodium Chloride Flush 3 Ml Syringe IVFLUSH 3 ml QSHIFT AUBREE Administration Medical Decision Making Medical Decision Making [facility] Narrative: This is a 62-year-old female presenting to the emergency department for evaluation of increased weakness, fevers, urinary frequency, foul-smelling urine, and cough and fall last night. Patient was seen and evaluated by me at 10:30 a.m. blood pressure 108/57, afebrile at 99.7, oxygen saturation 94% on room air. Patient is resting comfortably and easily arousable. She has left- sided weakness consistent with baseline deficits from prior CVAs. She has faint crackles in her lungs, abdomen is soft nontender. Plan: Labs, EKG, chest x-ray, CT head and neck, UA Differential Diagnosis Differential Diagnoses: The differential diagnosis associated with the presentation includes Urinary tract infection, pneumonia, COVID, flu Admission/Observation Consideration of admission/observation: Escalation of care including admission/observation considered Lab Data [facility] Lab Attestation statement: I reviewed the patient's lab results. 04/23/23 05:42 04/23/23 05:42 Labs: Lab Results 12/05/23 12/05/23 12/05/23 Range/Units 11:13 11:14 11:51 WBC 3.7 L (4.8-10.8) X10*3/uL RBC 3.51 L (4.20-5.50) X10*6/uL Hgb 11.2 L (12.0-16.0) g/dl Hct 33.7 L (37.0-47.0) % MCV 96.0 (80.0-98.0) fL MCH 31.9 (27.0-33.0) pg MCHC 33.2 (31.0-35.0) g/dl RDW 12.8 (11.0-16.0) % Plt Count 259 (160-400) X10*3/uL MPV 9.3 L (9.4-12.3) fL Immature Gran % (Auto) 0.3 (0.0-0.4) % Neut % (Auto) 63.3 (45-73) % Lymph % (Auto) 20.6 (20-40) % [place] % (Auto) 15.5 H (2-11) % Eos % (Auto) 0.0 (0-4) % Baso % (Auto) 0.3 (0-2) % Lymph # (Auto) 0.8 L (1.2-4.9) X10*3/uL [place] # (Auto) 0.6 (0.1-1.2) X10*3/uL Eos # (Auto) 0.0 (0.0-0.4) X10*3/uL Baso # (Auto) 0.0 (0.0-0.2) X10*3/uL Abs Immat Gran (auto) 0.01 (0.00-0.03) X10*3/uL Absolute Neuts (auto) 2.4 (2.0-8.3) x10*3/uL Absolute Nucleated RBC 0.000 (0.0-0.012) X10*3/uL Nucleated RBC % (auto) 0.0 (0.0-0.2) /100WBC Hold Blue Top SEE NOTE Sodium 136 (135-145) mmol/L Potassium 3.4 (3.3-5.1) mmol/L Chloride 102 (96-108) mmol/L Carbon Dioxide 26 (22-29) mmol/L Anion Gap 11 L (12-20) BUN 7 L (9-16) mg/dL Creatinine 0.63 (0.5-1.4) mg/dL Estim Creat Clear Calc 90.0 Estimated GFR > 60 Random Glucose 92 (60-115) mg/dL Lactic Acid 0.8 (0.5-2.0) mmol/L Calcium 8.7 (8.4-10.2) mg/dL Total Bilirubin 0.3 (0.0-1.0) mg/dL Direct Bilirubin 0.1 (0.0-0.5) mg/dL AST 210 H (5-31) U/L ALT 138 H (0-31) U/L Alkaline Phosphatase 131 H (39-117) U/L Troponin I High Sens 3.1 (<3.5-17.0) ng/L Total Protein 7.0 (6.5-8.0) g/dL Albumin 3.8 (3.5-5.0) g/dL Lipase 8 (8-78) U/L Urine Color Yellow Urine Appearance Clear Urine pH 7.0 (5.0-9.0) Ur Specific [place] <= 1.005 (1.005-1.025) Urine Protein Negative (Neg-Trace) mg/dL Urine Glucose (UA) Negative (Negative) mg/dL Urine Ketones Negative (Negative) mg/dL Urine Blood Trace (Negative) Urine Nitrite Negative (Negative) Ur Leukocyte Esterase Negative (Negative) Urine RBC 11-20 H (0-2) /HPF Urine WBC 0-5 (0-5) /HPF Ur Squamous Epith Cells 0-2 (0-2) /HPF Urine Bacteria None Seen (None Seen) Hyaline Casts 0-2 (0-2) /LPF Ethyl Alcohol < 10 mg/dL Influenza Type A (PCR) NEGATIVE (Negative) Influenza Type B (PCR) NEGATIVE (Negative) RSV RNA Qual (PCR) NEGATIVE (Negative) SARS-CoV-2 RNA (RT-PCR) POSITIVE A (Negative) Radiology Impression Discussion of test interpretation with radiology: I have reviewed the radiologist's reading. External Record Review External record reviewed: Inpatient record, Office record, Outpatient record, Prior outpatient labs, Prior outpatient radiology, Primary care record and Outside ED record Critical Care Time Critical Care Time Critical Care Time: Yes Total Critical Care Time: 60 Attestation: I have personally provided critical care time exclusive of time spent on separately billable procedures. Time includes review of lab data, radiology results, discussion with consultants, and monitoring for potential decompensation. Intervention performed as documented. Discharge Plan Discharge Clinical Impression: COVID-19, Weakness Patient Disposition: Admitted As Inpatient Interventions: ED Discharge Assessment Last Done: 04/23/23 16:09 Discharge Date/Time: 04/23/23 16:09
[2023-04-22 10:51] VITALS: BP 106/66; PULSE 66; RESP 18; TEMP 36.4; O2SAT 94
[2023-04-22 11:20] LABS: MANUAL DIFF FLAG NO
[2023-04-22 11:23] LABS: Basophils Percent Auto 0.3 % (0-2); Hematocrit 33.7 % (37.0-47.0); Hemoglobin 11.2 g/dl (12.0-16.0); Imm Gran Abs Auto 0.01 X10*3/uL (0.00-0.03); Imm Gran Pct Auto 0.3 % (0.0-0.4); Lymphocytes Absolute Auto 0.8 X10*3/uL (1.2-4.9); Lymphocytes Percent Auto 20.6 % (20-40); Mean Corpuscular HGB Conc 33.2 g/dl (31.0-35.0); Mean Corpuscular Hemoglobin 31.9 pg (27.0-33.0); Mean Platelet Volume 9.3 fL (9.4-12.3); Monocytes Absolute Auto 0.6 X10*3/uL (0.1-1.2); Monocytes Percent Auto 15.5 % (2-11); Neutrophils Absolute Auto 2.4 x10*3/uL (2.0-8.3); Neutrophils Percent Auto 63.3 % (45-73); Platelet Count 259 X10*3/uL (160-400); Red Blood Count 3.51 X10*6/uL (4.20-5.50); Red Cell Distribution Width 12.8 % (11.0-16.0); White Blood Count 3.7 X10*3/uL (4.8-10.8)
[2023-04-22 11:34] LABS: Lactic Acid 0.8 mmol/L (0.5-2.0)
[2023-04-22 11:43] LABS: Troponin-I High Sensitivity 3.1 ng/L (<3.5-17.0)
[2023-04-22 12:00] LABS: Influenza A PCR NEGATIVE (Negative); Influenza B PCR NEGATIVE (Negative); Resp Syncy Virus RNA Qual PCR NEGATIVE (Negative); SARS COV2 PCR INHOUSE POSITIVE (Negative)
[2023-04-22 12:01] LABS: Appearance Urine Clear; Color Urine Yellow; Glucose Urine UA Negative (Negative); Leukocyte Esterase Urine Negative (Negative); Nitrite Urine Negative (Negative); Specific Gravity - Urine <= 1.005 (1.005-1.025); UMIC TRIGGER UACC YES; Urine Blood Trace (Negative); Urine Ketones Negative (Negative); Urine Protein Negative (Neg-Trace)
[2023-04-22 12:06] LABS: Bacteria Urine None Seen (None Seen); Hyaline Casts Urine 0-2 /LPF (0-2); Squamous Epithelial Cell Urine 0-2 /HPF (0-2); WBC Urine 0-5 /HPF (0-5)
[2023-04-22 12:06] LABS: Alanine Aminotransferase 138 U/L (0-31); Albumin Level 3.8 g/dL (3.5-5.0); Alkaline Phosphatase 131 U/L (39-117); Anion Gap 11 (12-20); Aspartate Amino Transferase 210 U/L (5-31); Bilirubin Direct 0.1 mg/dL (0.0-0.5); Bilirubin Total 0.3 mg/dL (0.0-1.0); Blood Urea Nitrogen 7 mg/dL (9-16); Calcium 8.7 mg/dL (8.4-10.2); Carbon Dioxide 26 mmol/L (22-29); Chloride 102 mmol/L (96-108); Estimated Glomerular Filt Rate > 60; Ethanol < 10 mg/dL; Glucose Random 92 mg/dL (60-115); Lipase 8 U/L (8-78); Potassium 3.4 mmol/L (3.3-5.1); Sodium 136 mmol/L (135-145)
--- NOTE | 2023-04-22 17:00 | P.HPHOSP_ITS ---
<Statement entered by Gene Alvares MD - 05/03/23 18:04> The patient was seen and evaluated with Tiff Ac NP. I agree with her note, assessment and plan with the following. In summary, a 62 years old lady with PMH of Osteoporosis, HLD, PAD, AAA, CVA w lt Hemiparesis among others who presents with weakness, fall and tested positive for Covid. Fall 2/2 Weakness associated with Covid19 infection No hypoxia, supportive therapy Follo LFT for transaminitis PT eval Rest of evaluations by [employer]EL[employer] note. History of Present Illness Date of Service: 04/22/23 Chief Complaint: Fall, fever 62-year-old woman with history of CVA, mitochondrial disease, hypertension, seizures, TBI presenting with weakness, fall, fever. Patient reports a decline in overall health over the last several months but over the last 24 hours she has had significant increase in weakness more than usual. She has had more frequent urinations and had an episode of incontinence in her bed. She had a fall at home and is unsure if she lost consciousness but head CT and cervical spine CT both negative for any acute abnormalities or bleed. Apparently she had a fever of 103, took some Tylenol. She reported some congestion headache and cough. Denied chest pain, shortness breath, nausea, vomiting, diarrhea. She was noted to have a positive COVID-19 test in the ED and transaminitis which could be viral related. , negative UA, chest x-ray negative for consolidation or effusion, stable blood pressure, no fever. she CV dose of Tylenol and Zofran in the ER. She will be placed on observation for further management and treatment of COVID-19, weakness fall and transaminitis. Review of Systems 2 Review of Systems: Denies any recent fever chills or decrease in appetite respiratory Denied shortness of breath cardiovascular denied chest pain gastrointestinal denies any dysphagia abdominal pain nausea vomiting or diarrhea genitourinary denies any dysuria frequency or hematuria musculoskeletal denies any joint pain or swelling neuropsych denies any weakness or seizures all other systems reviewed are negative [facility] Medical History Lumbar herniated disc Back pain HTN (hypertension) Seizures AVM (arteriovenous malformation) brain Mitochondrial complex 1 deficiency Family History Mother No problems noted. Father No problems noted. Surgical History History of esophagogastroduodenoscopy (EGD) Hx of colonoscopy History of arterial bypass of lower extremity History of foot surgery History of brain surgery Social History Household Members: Spouse Housing: Condominium Do you presently have visiting nurse or other home services: No Alcohol intake: never Patient Tobacco Use Status: Never used Tobacco Smoked in Last 30 Days: No e-Cigarette/Vaping Use: Never Used Second Hand Smoke Exposure: No Use of substances other than those prescribed or required for medical reasons: No Advance Directives: No Advance Directives Information Provided: Yes Nutrition Risks: No Nutritional Risk service: No Current occupational status: disabled Current occupational exposures/hazards: No Cognitive needs: Yes (wheelchair/cane) Hearing needs: No Vision needs: Yes (glasses) Meds Allergies Allergy/AdvReac Type Severity Reaction Status Date / Time fentanyl [FENTANYL] Allergy Unknown Unknown Verified 04/18/23 13:48 meperidine [Demerol] Allergy Unknown rash Verified 04/18/23 13:48 morphine [MORPHINE] Allergy Unknown chest Verified 04/18/23 13:48 pressure phenytoin [Dilantin] Allergy Unknown rash Verified 04/18/23 13:48 remifentanil Allergy Unknown Rash Verified 04/18/23 13:48 sevoflurane Allergy Unknown Rash Verified 04/18/23 13:48 Sulfa (Sulfonamide Allergy Unknown Rash Verified 04/18/23 13:48 Antibiotics) [SULFA(SULFONAMIDE ANTIBIOTICS)] lactose Allergy Abdominal Verified 04/23/23 07:54 Pain Ringer's solution,lactated AdvReac contraindicated Verified 04/18/23 13:48 d/t mitochondrial dz Home Medications Medication Instructions Recorded Confirmed Last Taken Type terazosin 2 mg capsule 2 mg PO BEDTIME 05/01/20 04/22/23 04/21/23 History estradiol 2 mg (7.5 mcg/24 hour) 1 ea vaginal [id number] 11/19/20 04/22/23 Unknown History vaginal ring (Estring) solifenacin 10 mg tablet 10 mg PO DAILY 02/28/23 04/22/23 04/22/23 History hydromorphone 4 mg tablet 4 mg PO TID@1000,1600,2100 pain 04/22/23 04/22/23 04/22/23 History (Dilaudid) lorazepam 1 mg tablet 2 mg PO BEDTIME anxiety 04/22/23 04/22/23 04/21/23 History Physical Exam 2 Vital Signs and Narrative: Vital Signs: Last Vital Signs Temp 97.6 F 04/22/23 10:51 Pulse 66 04/22/23 10:51 Resp 18 04/22/23 10:51 BP 106/66 04/22/23 10:51 Pulse Ox 94 04/22/23 10:51 O2 Del Method Room Air 04/22/23 10:51 BMI result Body Mass Index 21.5 Appearing in no acute distress head is normocephalic atraumatic eyes pupils are PERRLA sclera is anicteric mouth throat mucous membranes are intact and moist neck is supple no lymphadenopathy, no JVD noted lung sounds are clear to auscultation heart regular rate rhythm, clear S1, S2 positive bowel sounds, abdomen is soft, nontender neuro patient is alert x3, no focal deficits Results Labs 04/23/23 05:42 04/23/23 05:42 Labs: Laboratory Results - last 24 hr 04/22/23 04/22/23 04/22/23 11:13 11:14 11:51 MCV 96.0 MCH 31.9 MCHC 33.2 RDW 12.8 Plt Count 259 MPV 9.3 L Immature Gran % (Auto) 0.3 Neut % (Auto) 63.3 Lymph % (Auto) 20.6 [place] % (Auto) 15.5 H Eos % (Auto) 0.0 Baso % (Auto) 0.3 Lymph # (Auto) 0.8 L [place] # (Auto) 0.6 Eos # (Auto) 0.0 Baso # (Auto) 0.0 Abs Immat Gran (auto) 0.01 Absolute Neuts (auto) 2.4 Absolute Nucleated RBC 0.000 Nucleated RBC % (auto) 0.0 Hold Blue Top SEE NOTE Anion Gap 11 L Estim Creat Clear Calc 90.0 Estimated GFR > 60 Random Glucose 92 Lactic Acid 0.8 Calcium 8.7 Total Bilirubin 0.3 Direct Bilirubin 0.1 AST 210 H ALT 138 H Alkaline Phosphatase 131 H Total Protein 7.0 Albumin 3.8 Lipase 8 Urine Color Yellow Urine Appearance Clear Urine pH 7.0 Ur Specific [place] <= 1.005 Urine Protein Negative Urine Glucose (UA) Negative Urine Ketones Negative Urine Blood Trace Urine Nitrite Negative Ur Leukocyte Esterase Negative Urine RBC 11-20 H Urine WBC 0-5 Ur Squamous Epith Cells 0-2 Urine Bacteria None Seen Hyaline Casts 0-2 Ethyl Alcohol < 10 Influenza Type A (PCR) NEGATIVE Influenza Type B (PCR) NEGATIVE RSV RNA Qual (PCR) NEGATIVE SARS-CoV-2 RNA (RT-PCR) POSITIVE A Imaging Radiologist's Impressions: Impressions Chest X-Ray 04/22/23 10:46 IMPRESSION: No acute cardiopulmonary disease. Cervical Spine CT 04/22/23 11:43 IMPRESSION: 1. No acute intracranial pathology. 2. Stable postsurgical changes status post right-sided craniotomy. 3. Stable encephalomalacia of the right frontal, parietal, and temporal lobes with ex vacuo dilatation of the right lateral and posterior ventricular horn. EXAMINATION: Noncontrast CT scan of the cervical spine. INDICATION: Fall COMPARISON: CT cervical spine from 01/19/2023 TECHNIQUE: Helical, multidetector axial images were obtained from the occiput to the upper thorax. Coronal and sagittal reformats of the cervical spine were provided for interpretation. DLP: 999 mGy-cm FINDINGS: No acute fractures or dislocations of the cervical spine are seen. Straightening of normal cervical curvature. Multilevel degenerative changes. Anatomic alignment and positioning of the vertebral bodies and posterior elements is noted. The atlantoaxial joint and craniovertebral articulations are normal without evidence of subluxation. There is no prevertebral soft tissue swelling. The thyroid gland and visualized portions of the lung apices and mediastinum are unremarkable. IMPRESSION: 1. No acute visible fracture or dislocation. 2. Straightening of normal cervical curvature. 3. Multilevel degenerative changes. Head CT 04/22/23 11:43 IMPRESSION: 1. No acute intracranial pathology. 2. Stable postsurgical changes status post right-sided craniotomy. 3. Stable encephalomalacia of the right frontal, parietal, and temporal lobes with ex vacuo dilatation of the right lateral and posterior ventricular horn. EXAMINATION: Noncontrast CT scan of the cervical spine. INDICATION: Fall COMPARISON: CT cervical spine from 01/19/2023 TECHNIQUE: Helical, multidetector axial images were obtained from the occiput to the upper thorax. Coronal and sagittal reformats of the cervical spine were provided for interpretation. DLP: 999 mGy-cm FINDINGS: No acute fractures or dislocations of the cervical spine are seen. Straightening of normal cervical curvature. Multilevel degenerative changes. Anatomic alignment and positioning of the vertebral bodies and posterior elements is noted. The atlantoaxial joint and craniovertebral articulations are normal without evidence of subluxation. There is no prevertebral soft tissue swelling. The thyroid gland and visualized portions of the lung apices and mediastinum are unremarkable. IMPRESSION: 1. No acute visible fracture or dislocation. 2. Straightening of normal cervical curvature. 3. Multilevel degenerative changes. Abdomen Ultrasound 04/22/23 14:17 IMPRESSION: 1. The gallbladder is filled with hyperechoic bile/sludge without significant wall thickening or pericholecystic free fluid. 2. Normal sonographic appearance of the liver. Assessment and Plan (1) Weakness: Status: Acute (2) COVID-19: Status: Acute Plan 62 year old women admitted with covid 19, weakness and transaminitis Covid 19 no hypoxia no need for steroids or antibiotics supportive care Transaminitis possibly from viral covid follow LFTs check hp panel Fall secondary to weakness chronic weakness but worse recently possibly related to viral covid PT consult oob with assist supportive care HTN stable BP but on the lower side hold antihypertensive medications for now Mental health continue home medications GERD PPI hx of Mitochondrial disease DVT prophylaxis with heparin Full code Quality Stroke Does the patient have a stroke diagnosis?: No VTE Prior VTE?: No VTE Risk Level:: Medical - moderate - high VTE Device Contraindication: Treatment Not Indicated VTE Drug Contraindication: N/A - Med Ordered
--- NOTE | 2023-04-22 17:48 | PHA.MEDREC ---
Pharmacy Consult ? Medication Reconciliation Pharmacy has completed the medication reconciliation. Patient confirmed medications based on medical record. Raffy WilliamD
[2023-04-22] MEDS: 0.9 % Sodium Chloride 1,000 ML 999 ML IV (17:54)
[2023-04-22] MEDS: Heparin Sodium,Porcine 5,000 UNIT/ML VIAL 5000 UNIT SUBCUT (18:22)
[2023-04-22 23:46] VITALS: BP 139/79; PULSE 66; RESP 20; TEMP 37.1; O2SAT 95
[2023-04-23] MEDS: 0.9 % Sodium Chloride Flush 3 ML SYRINGE IVFLUSH ×2 (00:42→07:47)
--- NOTE | 2023-04-23 01:15 | PC.NURSE ---
Patient requesting to use the commod, patient stand and pivot assist to commod. No s/s of distress noted, patient transferred without issue
[2023-04-23] MEDS: Acetaminophen 325 MG TABLET 650 MG PO (01:19)
[2023-04-23 05:51] LABS: Hematocrit 30.5 % (37.0-47.0); Hemoglobin 10.3 g/dl (12.0-16.0); Mean Corpuscular HGB Conc 33.8 g/dl (31.0-35.0); Mean Corpuscular Hemoglobin 31.9 pg (27.0-33.0); Mean Corpuscular Volume 94.4 fL (80.0-98.0); Mean Platelet Volume 9.3 fL (9.4-12.3); Platelet Count 211 X10*3/uL (160-400); Red Blood Count 3.23 X10*6/uL (4.20-5.50); Red Cell Distribution Width 12.6 % (11.0-16.0); White Blood Count 3.4 X10*3/uL (4.8-10.8)
[2023-04-23 06:04] LABS: Anion Gap 9 (12-20); Blood Urea Nitrogen 4 mg/dL (9-16); Calcium 8.2 mg/dL (8.4-10.2); Carbon Dioxide 26 mmol/L (22-29); Chloride 106 mmol/L (96-108); Creatinine Clr Calc Pharmacy 99.5; Estimated Glomerular Filt Rate > 60; Glucose Random 114 mg/dL (60-115); Potassium 3.2 mmol/L (3.3-5.1); Sodium 138 mmol/L (135-145)
[2023-04-23 06:05] LABS: Magnesium 2.1 mg/dL (1.6-2.6)
[2023-04-23] MEDS: Heparin Sodium,Porcine 5,000 UNIT/ML VIAL 5000 UNIT SUBCUT (06:05)
[2023-04-23 06:53] VITALS: BP 110/53; PULSE 64; RESP 15; TEMP 36.7; O2SAT 98
[2023-04-23 07:45] VITALS: BP 121/60; PULSE 62; RESP 18; O2SAT 92
[2023-04-23] MEDS: Potassium Chloride ER 20 MEQ TAB.ER.PRT 40 MEQ PO (07:46)
--- NOTE | 2023-04-23 07:50 | PC.NURSE ---
pt is quite sleepy, but did finally awake to voice command, pt is slightly clammy but also was laying with her fleece jacket under her, respirations even and unlabored, ls clear, pt denies pain but did state feeling generally weak, pt left does have hx of stroke and left arm weakness is her baseline, pt set up with her breakfast henrique.
[2023-04-23] MEDS: FLUoxetine HCl 20 MG CAPSULE 40 MG PO (10:13)
[2023-04-23] MEDS: Ezetimibe 10 MG TABLET PO (10:14)
[2023-04-23] MEDS: Pregabalin 200 MG CAPSULE PO (10:14)
[2023-04-23] MEDS: Omeprazole 20 MG CAPSULE.DR PO (10:14)
--- NOTE | 2023-04-23 10:28 | MHC.CM.PN ---
PT ADMITTED OBSERVATION, CURRENTLY COVID + CM ATTEMPTED TO REACH PT VIA T/C [phone] AND ATTEMPTED TO REACH HER PRIMARY CONTACT/SON, ALON [phone] NEITHER CALL WAS ANSWERED, VM LEFT ON PTS NUMBER CM WILL ATTEMPT TO REACH AT A LATER TIME
--- NOTE | 2023-04-23 10:45 | PC.NURSE ---
Tiff Ac messaged via [employer] regarding bp meds - per note they are to be on hold. awaiting response.
[2023-04-23 10:57] VITALS: BP 121/60; PULSE 62; O2SAT 92
[2023-04-23 11:12] VITALS: BP 133/79; PULSE 63; RESP 18; TEMP 36.9; O2SAT 98
--- NOTE | 2023-04-23 11:46 | PM.DS ---
DS: Providers Provider Date of Service: 04/23/23 Date of admission: 04/22/23 17:23 Primary care physician: Leonidas Calero MD DS: Summary Hospital Course Hospital Course: 62-year-old woman with history of CVA, mitochondrial disease, hypertension, seizures, TBI presenting with weakness, fall, fever. Patient reports a decline in overall health over the last several months but over the last 24 hours she has had significant increase in weakness more than usual. She has had more frequent urinations and had an episode of incontinence in her bed. She had a fall at home and is unsure if she lost consciousness but head CT and cervical spine CT both negative for any acute abnormalities or bleed. Apparently she had a fever of 103, took some Tylenol. She reported some congestion headache and cough. Denied chest pain, shortness breath, nausea, vomiting, diarrhea. She was noted to have a positive COVID-19 test in the ED and transaminitis which could be viral related. , negative UA, chest x-ray negative for consolidation or effusion, stable blood pressure, no fever. she CV dose of Tylenol and Zofran in the ER. She will be placed on observation for further management and treatment of COVID-19, weakness fall and transaminitis. 62-year-old woman treated for weakness, COVID-19. She did not recall for any oxygen and had no episodes of hypoxia secondary to COVID-19, no steroids or antibiotics necessary. She did have transaminitis likely secondary to viral COVID. No nausea, vomiting or diarrhea noted. She was seen evaluated by Physical therapy who recommended home physical therapy as patient does have history of a TBI and Midochondrial disease and some chronic weakness and difficulty with ambulation. Hypertension. Continue home medications Mental health. Continue home medications GERD. Continue PPI Time Attestation Discharge coordination time: Greater than 30 minutes Quality: Safe Use of Opioids Does Pt have an Active Cancer Diagnosis on the Problem List?: No Quality: Stroke Does the patient have a stroke diagnosis?: No Physical Exam Vital Signs: Vital Signs: Last Vital Signs Temp 98.4 F 04/23/23 11:12 Pulse 63 04/23/23 11:12 Resp 18 04/23/23 11:12 BP 133/79 04/23/23 11:12 Pulse Ox 98 04/23/23 11:12 O2 Del Method Room Air 12/06/23 11:12 BMI result Body Mass Index 21.5 Appearing in no acute distress head is normocephalic atraumatic eyes pupils are PERRLA sclera is anicteric mouth throat mucous membranes are intact and moist neck is supple no lymphadenopathy, no JVD noted lung sounds are clear to auscultation heart regular rate rhythm, clear S1, S2 positive bowel sounds, abdomen is soft, nontender neuro patient is alert x3, no focal deficits DS: Data Data Completed and Pending Labs on day of discharge: Laboratory Results - last 24 hr 04/22/23 04/22/23 04/23/23 11:14 11:51 05:42 WBC 3.4 L RBC 3.23 L Hgb 10.3 L Hct 30.5 L MCV 94.4 MCH 31.9 MCHC 33.8 RDW 12.6 Plt Count 211 MPV 9.3 L Absolute Nucleated RBC 0.000 Nucleated RBC % (auto) 0.0 Sodium 136 138 Potassium 3.4 3.2 L Chloride 102 106 Carbon Dioxide 26 26 Anion Gap 11 L 9 L BUN 7 L 4 L Creatinine 0.63 0.57 Estim Creat Clear Calc 90.0 99.5 Estimated GFR > 60 > 60 Random Glucose 92 114 Calcium 8.7 8.2 L Magnesium 2.1 Total Bilirubin 0.3 Direct Bilirubin 0.1 AST 210 H ALT 138 H Alkaline Phosphatase 131 H Total Protein 7.0 Albumin 3.8 Lipase 8 Urine Color Yellow Urine Appearance Clear Urine pH 7.0 Ur Specific [place] <= 1.005 Urine Protein Negative Urine Glucose (UA) Negative Urine Ketones Negative Urine Blood Trace Urine Nitrite Negative Ur Leukocyte Esterase Negative Urine RBC 11-20 H Urine WBC 0-5 Ur Squamous Epith Cells 0-2 Urine Bacteria None Seen Hyaline Casts 0-2 Ethyl Alcohol < 10 Influenza Type A (PCR) NEGATIVE Influenza Type B (PCR) NEGATIVE RSV RNA Qual (PCR) NEGATIVE SARS-CoV-2 RNA (RT-PCR) POSITIVE A Discharge Plan Discharge Anticipated Discharge Date/Time: 04/23/23 11:44 Patient Disposition: Home Health Service Discharge Diagnosis: Weakness fall Covid 19 Referrals: Leonidas Calero MD [Primary Care Provider] - 1 Week Discharge Medications: Continued amlodipine 10 mg tablet 10 mg PO DAILY Qty: 90 2RF lidocaine [Lidoderm] 5 % adhesive patch,medicated 1 patch topical DAILY 30 Days Qty: 30 2RF Rx Instructions: leave on most painful area for up to 12 hrs fluoxetine 40 mg capsule 40 mg PO QAM Qty: 90 2RF lisinopril 20 mg tablet 30 mg PO DAILY 90 Days Qty: 135 2RF carbamazepine 400 mg tablet extended release 12 hr 400 mg PO BID 90 Days Qty: 180 1RF ropinirole 2 mg tablet 2 mg PO BEDTIME 90 Days Qty: 90 2RF pregabalin [Lyrica] 100 mg capsule 200 mg PO Q12H 30 Days Qty: 120 1RF Estring 2 mg (7.5 mcg /24 hour) ring 1 ea vaginal [id number] solifenacin 10 mg Tablet 10 mg PO DAILY lorazepam 1 mg tablet 2 mg PO BEDTIME hydromorphone [Dilaudid] 4 mg tablet 4 mg PO TID@1000,1600,2100 Rx Instructions: [facility] verified. Partial refill upon request. terazosin 2 mg capsule 2 mg PO BEDTIME atorvastatin 20 mg tablet 20 mg PO BEDTIME 90 Days Qty: 90 2RF omeprazole 20 mg capsule,delayed release(DR/EC) 20 mg PO DAILY 90 Days Qty: 90 6RF ezetimibe [Zetia] 10 mg tablet 10 mg PO DAILY 90 Days Qty: 90 3RF Discharge Orders: Discharge Order (Routine); Ordered 04/23/23 Ordered By: Tiff Ac Diet: Advance to usual diet Activity on Discharge: As tolerated Stand Alone Forms: Patient Portal Discharge page Care Plan Goals: Home physical therapy Health Concerns: Weakness fall Covid 19 Plan of Treatment: Follow-up with primary care provider as needed Take all medications as prescribed Assessment: see discharge summary
[2023-04-23] MEDS: amLODIPine Besylate 10 MG TABLET PO (11:54)
[2023-04-23] MEDS: lisinopriL 10 MG TABLET 30 MG PO (11:54)
--- NOTE | 2023-04-23 12:24 | MHC.CM.PN ---
Patient is covid (+)and neither she nor any of her contacts at any of the numbers listed are available (messages left for S.O. & Son). PT is recommending home with services and a [facility] CM has initiated and will follow for dc planning. PCP is Dr. Leonidas Calero.
--- NOTE | 2023-04-23 13:16 | MHC.CM.PN ---
Patient has been medically cleared for dc to home today with services. A referral has been made to [facility], who has been made aware of today's dc.
--- NOTE | 2023-04-23 14:34 | W.MHC.F2F ---
Service Date Service Date: 04/23/23 Encounter Date of encounter: 04/23/23 Reasons for Services Signs and symptoms assessed: weakness covid 19 Reason for care home: CV/CP assess and/or care Reason for physical therapy: home safety and mobility and therapeutic exercises Homebound: Leaving the home is medically contraindicated at this time without the asist of a device and/or another person due th the listed conditions above and below. Reason homebound: unsteady gait / fall risk Certification: Based on the above findings, I certify that this patient is confined to the home and needs intermittent care home care, physical therapy and/or speech therapy, or continues to need occupational therapy. The patient is under my care, and I have initiated the establishment of the plan of care. The patient will be followed by a physician who will periodically review the plan of care. Time Spent With Patient Time: Total time managing care of this patient today ____ minutes.
== END 2023-04-23 15:01 | disposition home health service (06) ==
LOC: HO.ED 09:05 → HO.EDOVER 17:29
PROVIDERS: Physician Assistant Medical; Admitting Provider Nurse Practitioner Acute Care; Emergency Provider Emergency Medicine Emergency Medical Services; PCP Family Medicine; Visit Provider Nurse Practitioner Acute Care
DX: U07.1 COVID-19 (principal); R74.01 Elevation of levels of liver transaminase levels; R53.1 Weakness; I10 Essential (primary) hypertension; R50.9 Fever, unspecified; R56.9 Unspecified convulsions; R35.0 Frequency of micturition; R05.9 Cough, unspecified; E88.40 Mitochondrial metabolism disorder, unspecified; Q28.2 Arteriovenous malformation of cerebral vessels; Z87.820 Personal history of traumatic brain injury; Z91.81 History of falling; M50.30 Other cervical disc degeneration, unspecified cervical region
CPT/HCPCS: 0241U; 36415; 70450; 71046; 72125; 76705; 80048; 80076; 80307; 81001; 81003; 83605; 83690; 83735; 84484; 85025; 85027; 87040; 93005; 96360; 96361; 96372; 97162; 99222; 99285; J1644

== ENCOUNTER → 2023-04-22 10:28 | Outpatient (BNV) | payer BC, MEDICAID, SELFPAY | PROVIDERS: Emergency Provider Emergency Medicine Emergency Medical Services; PCP Family Medicine; Visit Provider Internal Medicine | DX: R55 Syncope and collapse (principal) | CPT/HCPCS: 93010 ==

== ENCOUNTER → 2023-04-22 17:23 | Outpatient (BNV) | payer BC, MEDICAID, SELFPAY | PROVIDERS: Admitting Provider Nurse Practitioner Acute Care; Emergency Provider Emergency Medicine Emergency Medical Services; PCP Family Medicine; Visit Provider Nurse Practitioner Acute Care | DX: R53.1 Weakness (principal); U07.1 COVID-19 | CPT/HCPCS: 99222; 99239; G0180 ==

== ENCOUNTER 2023-05-09 12:49 | Outpatient (REF) | payer BC, MEDICAID, SELFPAY ==
--- NOTE | ~2023-05-09 | US_ITS ---
EXAMINATION: US VENOUS ULTRASOUND WITH DOPPLER LOWER EXTREMITY, LEFT CLINICAL INFORMATION: Pain in leg COMPARISON: None available. TECHNIQUE: Ultrasound of the deep veins is performed from the hip to the calf with compression sonography and color and pulse Doppler assessment. Spectral analysis with color-flow imaging is performed. FINDINGS: There is normal venous compression and respiratory variation and augmented flow. The visualized common femoral vein, superficial femoral vein, profunda femoral vein, popliteal vein, and the trifurcation region shows no evidence of deep venous thrombosis. There is no significant popliteal fossa cyst. If the patient's symptoms persist, followup ultrasound in 5 days 7 days might be of value to exclude proximal propagation from a non-visualized calf vein. US/US venous duplex LE LT IMPRESSION: No DVT demonstrated in the left lower extremity.
== END 2023-05-09 12:50 | disposition home or self-care (01) ==
LOC: HO.US 12:49
PROVIDERS: PCP Family Medicine; Visit Provider Family Medicine
DX: M79.605 Pain in left leg (principal); R60.0 Localized edema; M79.672 Pain in left foot
CPT/HCPCS: 93971

== ENCOUNTER 2023-05-22 09:32 | Outpatient (REF) | payer BC, MEDICAID, SELFPAY | END 2023-05-22 09:33 | disposition home or self-care (01) | LOC: HO.HMGCLDS 09:32 | PROVIDERS: PCP Family Medicine; Visit Provider Family Medicine | DX: Z00.00 Encounter for general adult medical examination without abnormal findings (principal); Z86.73 Personal history of transient ischemic attack (TIA), and cerebral infarction without residual deficits | CPT/HCPCS: 36415; 80053; 80061 ==

== ENCOUNTER 2023-05-27 15:06 | Outpatient (AMB) | payer BC, MEDICAID, SELFPAY ==
--- NOTE | 2023-05-27 14:58 | MHC.PC.OV ---
Intake Visit Reasons: f/u labs Intake Note: Patient needs refill on Carbamazepine, and Fluoxetine. Patient would also like a bone density test ordered if possible. 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 Required: No Allergies fentanyl [FENTANYL] Allergy (Unknown, Verified 05/27/23 15:01) Unknown meperidine [Demerol] Allergy (Unknown, Verified 05/27/23 15:01) rash morphine [MORPHINE] Allergy (Unknown, Verified 05/27/23 15:01) chest pressure phenytoin [Dilantin] Allergy (Unknown, Verified 05/27/23 15:01) rash remifentanil Allergy (Unknown, Verified 05/27/23 15:01) Rash sevoflurane Allergy (Unknown, Verified 05/27/23 15:01) Rash Sulfa (Sulfonamide Antibiotics) [SULFA(SULFONAMIDE ANTIBIOTICS)] Allergy (Unknown, Verified 05/27/23 15:01) Rash lactose Allergy (Verified 05/27/23 15:01) Abdominal Pain Ringer's solution,lactated Adverse Reaction (Verified 05/27/23 15:01) contraindicated d/t mitochondrial dz Tobacco use date assessed: 01/17/23 HPI f/u labs HPI Details 62 y/o female presents to f/u labs via telemedicine. Labs were drawn 05/22/23. Reviewed labs with pt. Triglycerides 124. TC 201. LDL 119. HDL 58. She is tolerating artovastatin 20mg well. Ongoing mild anemia Pt requests bone density testing. Had been to the emergency department in April for covid 19 and weakness. She reports ongoing weakness. Pt reports ongoing issues with her R knee pain. She f/u with an air intelligence specialist for this. 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 Father No problems noted. Social History Household Members: Spouse Housing: Condominium Do you presently have visiting nurse or other home services: No Alcohol intake: never Patient Tobacco Use Status: Never used Tobacco e-Cigarette/Vaping Use: Never Used Second Hand Smoke Exposure: No service: No Current occupational status: disabled Current occupational exposures/hazards: No Cognitive needs: Yes (wheelchair/cane) Hearing needs: No Vision needs: Yes (glasses) Questionnaire Thrive Questionnaire Date Thrive assessed: 04/23/23 SANTY-7 AMB Questionnaire SANTY-7 Date SANTY - 7 assessed: 12/29/20 Source: Developed by Drs. Saeid Reynaga, Ava Sorenson, Abraham Foster and colleagues, with an educational christina from [employer] [facility]. Review of Systems Const Denies chills, Denies fatigue, Denies fever(s), Denies headache(s) and Denies weakness ENT Denies dizziness and Denies headache(s) Card Denies dyspnea Resp Denies cough, Denies dyspnea, Denies wheezing and Denies other (shortness of breath) Musc Denies numbness and Denies tingling Neuro Denies dizziness, Denies headache(s), Denies numbness, Denies tingling and Denies weakness Psych Denies anxiety and Denies depression Endo Denies fatigue Aller/Immun Denies wheezing Physical exam (Primary Care) Tobacco/Smoking Status: Tobacco use Status Tobacco use date assessed 01/17/23 05/27/23 14:59 Patient Tobacco Use Status Never used Tobacco 05/27/23 14:59 e-Cigarette/Vaping Use Never Used 05/27/23 14:59 Thrive Assessment: Date of Thrive Assessment Date Thrive assessed 04/23/23 05/27/23 14:59 Telehealth Telehealth Location of provider rendering services: practice address Location of patient: address on file Patient Identification confirmed using: Name, : Yes Telehealth method: voice only Patient verbally consented to treatment: Yes Patient verbally consented to billing insurance company: Yes Patient informed of any privacy concerns related to visit: Yes Minutes spent on Phone/Video with Pt.: 7 Assessment and Plan Assessment & Plan (1) Hypercholesterolemia: Code(s): E78.00 - Pure hypercholesterolemia, unspecified Plan: LDL?cholesterol?improved?from?151?to?119 History?of?TIA; would?prefer?goal?of?less?than?70?but?patient?has?numerous?muscle?pains?and?weakness. 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 She?already?has?an?appointment?with?ortho?to?consult?in?late?May?and?we?can?follow-up?after?that. Orders: Orders PT Evaluation and Treatment Today M25.561 - Pain in right knee, R53.1 - Weakness, R53.81 - Other malaise XR DEXA axial skeleton Today M81.0 - Age-related osteoporosis without current pathological fracture Medications: Refilled carbamazepine ER 400 mg PO BID 90 days 180 tabs 1RF fluoxetine 40 mg PO QAM 90 caps 2RF Coding Level of Care Code Tele Est Pt Level 2 (25612) Diagnoses Hypercholesterolemia E78.00 Physical deconditioning R53.81 Weakness R53.1 Right knee pain M25.561
== END 2023-05-27 16:29 | disposition home or self-care (01) ==
LOC: HO.HMGFM 15:06
PROVIDERS: PCP Family Medicine; Visit Provider Family Medicine
DX: E78.00 Pure hypercholesterolemia, unspecified (principal); R53.81 Other malaise; R53.1 Weakness; M25.561 Pain in right knee
CPT/HCPCS: 99441

== ENCOUNTER 2023-06-19 14:22 | Outpatient (REF) | payer BC, MEDICAID, SELFPAY ==
--- NOTE | ~2023-06-19 | MM_ITS ---
EXAMINATION: BONE DENSITOMETRY CLINICAL INDICATION: Age-related osteoporosis without current pathological fracture. COMPARISON: Previous BD dated 09/10/2016 and baseline BD dated 06/30/2008. TECHNIQUE: Using a [employer] DXA System (software version: 13.1) manufactured by [employer], dual-energy x-ray absorptiometry was performed of the lumbar spine and left hip. The images are of good technical quality. Summary results are attached. FINDINGS: LEFT FEMUR, NECK: Current: BMD 0.683 g/cm2, Z-score -1.1, T-score -2.6, osteoporosis. Prior: BMD 0.663 g/cm2. Baseline: BMD 0.851 g/cm2. LEFT FEMUR, TOTAL: Current: BMD 0.585 g/cm2, Z-score -2.2, T-score -3.4, osteoporosis, 8.7% decrease from previous, 31.8% decrease from baseline (<5% change is not significant). Prior: BMD 0.641 g/cm2. Baseline: BMD 0.858 g/cm2. AP SPINE L1-L4: Current: BMD 0.896 g/cm2, Z-score -0.9, T-score -2.4, osteopenia, 15.6% decrease from previous, 27.3% decrease from baseline (<5% change is not significant). Prior: BMD 1.061 g/cm2. Baseline: BMD 1.233 g/cm2. IDENTIFIED RISK FACTORS: Anticonvulsant, height loss, history of fracture (adult), menopause. HISTORY OF FRACTURE: Spine, other. MEDICATIONS: Calcium, vitamin D. MM/XR DEXA axial skeleton IMPRESSION: 1. DIAGNOSIS: Severe osteoporosis based on the lowest T-score value of -3.4 in the total femur, and the history of a spine fracture, applying World Health Organization criteria. 2. 10-YEAR FRACTURE RISK PREDICTION, FRAX: According to the guidelines, FRAX calculation should only be performed on patients in the osteopenia bone density category. Therefore, FRAX was not performed on this patient. 3. Treatment Recommendations: NOF guidelines recommend consideration for treatment in postmenopausal women and men age 50 and older presenting with the following: -A hip or vertebral (clinical or morphometric) fracture. -T-score less than or equal to -2.5 at the femoral neck or spine after appropriate evaluation to exclude secondary causes. -Low bone mass at the hip or spine and a 10-year fracture probability by FRAX of greater than or equal to 3% for hip fracture or greater than or equal to 20% for major osteoporotic fracture based on the [place] adapted WHO algorithm. 4. Other Recommendations: All treatment decisions require clinical judgment and consideration of individual patient factors, including patient preferences, comorbidities, previous drug use, risk factors not captured in the FRAX model (e.g. frailty, falls, vitamin D deficiency, increased bone turnover, interval significant decline in bone density) and possible under or overestimation of fracture risk by FRAX. Additional medical evaluation for secondary cause of low bone mineral density may be appropriate. FUTURE SCAN RECOMMENDATION: People with diagnosed cases of osteoporosis or at high risk for fracture should have regular bone mineral density tests. For patients eligible for Medicare, routine testing is allowed once every 2 years. The testing frequency can be increased to one year for patients who have rapidly progressing disease, those who are receiving or discontinuing medical therapy to restore bone mass, or have additional risk factors.
== END 2023-06-19 14:23 | disposition home or self-care (01) ==
LOC: HO.MAMMO 14:22
PROVIDERS: Visit Provider Family Medicine
DX: Z13.820 Encounter for screening for osteoporosis (principal); M81.0 Age-related osteoporosis without current pathological fracture; Z78.0 Asymptomatic menopausal state
CPT/HCPCS: 77080

== ENCOUNTER 2023-07-11 13:53 | Outpatient (AMB) | payer BC, MEDICAID, SELFPAY ==
[2023-07-11 14:00] VITALS: BP 130/70; PULSE 61; O2SAT 97; BMI 21.5
--- NOTE | 2023-07-11 14:00 | MHC.PC.OV ---
Vital Signs 07/11/23 14:00 Height 5 ft 7 in Weight 137 lb BMI 21.5 BP 130/70 Blood Pressure Location Lt brachial Position Sitting Pulse 61 Pulse Source Pulse Oximeter Pulse Oximetry (%) 97 Oxygen Delivery Method Room Air Intake Visit Reasons: f/u chronic conditions Intake Note: Patient is here for follow up on chronic conditions, would like to talk about her anle, got her RSV shot, requesting bone density test, she was sick last weekend with loose bowel and fever. Allergies fentanyl [FENTANYL] Allergy (Unknown, Verified 07/11/23 14:03) Unknown meperidine [Demerol] Allergy (Unknown, Verified 07/11/23 14:03) rash morphine [MORPHINE] Allergy (Unknown, Verified 07/11/23 14:03) chest pressure phenytoin [Dilantin] Allergy (Unknown, Verified 07/11/23 14:03) rash remifentanil Allergy (Unknown, Verified 07/11/23 14:03) Rash sevoflurane Allergy (Unknown, Verified 07/11/23 14:03) Rash Sulfa (Sulfonamide Antibiotics) [SULFA(SULFONAMIDE ANTIBIOTICS)] Allergy (Unknown, Verified 07/11/23 14:03) Rash lactose Allergy (Verified 07/11/23 14:03) Abdominal Pain Ringer's solution,lactated Adverse Reaction (Verified 07/11/23 14:03) contraindicated d/t mitochondrial dz Tobacco use date assessed: 07/11/23 HPI f/u chronic conditions HPI Details 62 y/p female presents to f/u chronic conditions. Recent bone density test shows severe osteoporosis. F/u R knee pain. Pt reports she has started physical therapy which has been helping. She does have a brace for her knees. Hx of low vitamin D and hypercholesterolemia. 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 Father No problems noted. Social History Household Members: Spouse Housing: Condominium Do you presently have visiting nurse or other home services: No Alcohol intake: never Patient Tobacco Use Status: Never used Tobacco e-Cigarette/Vaping Use: Never Used Second Hand Smoke Exposure: No service: No Current occupational status: disabled Current occupational exposures/hazards: No Cognitive needs: Yes (wheelchair/cane) Hearing needs: No Vision needs: Yes (glasses) Questionnaire PHQ-9 Over the last 2 weeks, how often have you been bothered by any of the following problems? 1. Little interest or pleasure in doing things: not at all 2. Feeling down, depressed, or hopeless: not at all 3. Trouble falling or staying asleep, or sleeping too much: not at all 4. Feeling tired or having little energy: not at all 5. Poor appetite or overeating: not at all 6. Feeling bad about yourself - or that you are a failure or have let yourself or your family down: not at all 7. Trouble concentrating on things, such as reading the newspaper or watching television: not at all 8. Moving or speaking so slowly that other people could have noticed. Or the opposite - being so fidgety or restless that you have been moving around a lot more than usual: not at all 9. Thoughts that you would be better off or of hurting yourself in some way: not at all Total score: 0 Depression Screening Interpretation: Negative Depression Screening Done: Yes 98744 - PHQ-9 Billing: Yes Source: Developed by Drs. Saeid Reynaga, Ava Sorenson, Abraham Foster and colleagues, with an educational christina from [employer]. Thrive Questionnaire Date Thrive assessed: 07/11/23 I am a: Patient What is your living situation today?: I have a steady place to live Within the past 12 months, did the food you bought not last and you didn't have the money to get more?: Never true Within the past 12 months, did you worry whether your food would run out before you got money to buy more?: Never true Do you have trouble paying for medicines?: No Do you have trouble getting transportation to medical appointments?: No Do you have trouble paying your heating and electricity bill?: No Do you have trouble taking care of your child, family member or friend?: No Do you have trouble with day-to-day activities such as bathing, preparing meals, shopping, managing finances, etc.?: No Are you currently unemployed and looking for a job?: No Are you interested in more education?: No THRIVE Score: 0 AUDIT C Alcohol Use Questionnaire (AUDIT-C) 1. How often do you have a drink containing alcohol?: Monthly or less 2. How many drinks containing alcohol do you have on a typical day when you are drinking?: 1 or 2 3. How often do you have six or more drinks on one occasion?: Never Total Score: 1 SANTY-7 AMB Questionnaire SANTY-7 Date SANTY - 7 assessed: 07/11/23 Feeling nervous, anxious, or on edge: 0 = Not at all Not being able to stop or control worryin = Not at all Worrying too much about different things: 0 = Not at all Trouble relaxin = Not at all Being so restless that it is hard to sit still: 0 = Not at all Becoming easily annoyed or irritable: 0 = Not at all Feeling afraid as if something awful might happen: 0 = Not at all Total SANTY-7 score (0-4 normal; 5-9 mild; 10-14 moderate; 15-21 severe): 0 Source: Developed by Drs. Saeid Reynaga, Ava Sorenson, Abraham Foster and colleagues, with an educational christina from [employer]. SANTY-7 Assessment Billing SANTY-7 Assessment Tool: SANTY-7 Assessment 96502 Review of Systems Const Denies chills, Denies fatigue, Denies fever(s), Denies headache(s) and Denies weakness ENT Denies dizziness and Denies headache(s) Card Denies dyspnea Resp Denies cough, Denies dyspnea, Denies wheezing and Denies other (shortness of breath) Musc Denies numbness and Denies tingling Neuro Denies dizziness, Denies headache(s), Denies numbness, Denies tingling and Denies weakness Psych Denies anxiety and Denies depression Endo Denies fatigue Aller/Immun Denies wheezing Physical exam (Primary Care) Vital Signs: Last Vital Signs Pulse 61 07/11/23 14:00 BP 130/70 07/11/23 14:00 Pulse Ox 97 07/11/23 14:00 Oxygen Delivery Method Room Air 07/11/23 14:00 BMI result Body Mass Index 21.5 Tobacco/Smoking Status: Tobacco use Status Tobacco use date assessed 07/11/23 07/11/23 14:05 Patient Tobacco Use Status Never used Tobacco 07/11/23 14:05 e-Cigarette/Vaping Use Never Used 07/11/23 14:05 PHQ-9: PHQ-9 Score PHQ-9: Total score 0 07/11/23 14:12 Depression Screening Interpretation: Negative Thrive Assessment: Date of Thrive Assessment Date Thrive assessed 07/11/23 07/11/23 14:12 Const General: well developed; No acute distress Nutritional Appearance: well nourished Orientation/consciousness: patient oriented x3 HENMT Head: Yes normocephalic and Yes atraumatic Eyes General: appearance normal, both eyes and all related structures Pupils: Equal, round and reactive pupils present EOM: EOMs intact bilaterally Resp Effort & Inspection: normal respiratory effort Auscultation: clear to auscultation bilaterally Cardio Rate: regular rate Rhythm: regular rhythm Heart sounds: S1 normal heart sound present, S2 normal heart sound present, no gallops, no murmurs and no rubs Neuro General: patient oriented x3 and gait normal Cranial nerves: Yes Equal, round and reactive pupils present Psych Affect: normal affect Assessment and Plan Assessment & Plan (1) Right knee pain: Code(s): M25.561 - Pain in right knee Plan: Ongoing?right?knee?pain?and?left?ankle?pain. X-ray?of?left?ankle?does?not?show?any?acute?abnormalities?though?shows?postoperative?changes?and?also?showed?osteopenia. No?recent?x-ray?of?her?right?knee?is?available?to?me. Will?get?x-ray?of?right?knee?and?refer?her?to?[facility]?ortho?at?her?request. (2) Weakness: Code(s): R53.1 - Weakness Plan: Improving?with?physical?therapy Continue?physical?therapy?and?exercise (3) Osteoporosis: Code(s): M81.0 - Age-related osteoporosis without current pathological fracture Plan: Start?alendronate Risks/benefits?discussed (4) Ankle pain: Code(s): M25.579 - Pain in unspecified ankle and joints of unspecified foot Plan: Left?ankle?pain Referred?to?Ortho?as?above (5) Hypercholesterolemia: Code(s): E78.00 - Pure hypercholesterolemia, unspecified Plan: LDL?cholesterol?is?greater?than?70.??She?has?difficulty?tolerating?statins. She?will?try?to?bring?this?up?towards?40?mg?daily.??Currently?taking?30?mg?daily Watch?saturated?fats?and?cholesterol?in?diet Will?recheck?prior?to?her?next?visit?and?review (6) Low vitamin D level: Code(s): R79.89 - Other specified abnormal findings of blood chemistry Plan: Check?vitamin-D?level.??May?need?a?supplement. Patient?has?osteoporosis Vitamin-D?level?ordered?and?we?will?review?at?next?visit Orders: Orders XR knee RT 3V Today M17.9 - Osteoarthritis of knee, unspecified, M25.561 - Pain in right knee Vitamin D 25-OH Total Today E55.9 - Vitamin D deficiency, unspecified, R79.89 - Other specified abnormal findings of blood chemistry Comprehensive [place]. Panel Fast Today Z00.00 - Encounter for general adult medical examination without abnormal findings, Z86.73 - Personal history of transient ischemic attack (TIA), and cerebral infarction without residual deficits Referrals Orthopedics Referral M17.9 - Osteoarthritis of knee, unspecified, M25.561 - Pain in right knee, M25.579 - Pain in unspecified ankle and joints of unspecified foot Medications: New alendronate 70 mg PO QWEEK 4 tabs 3RF 28 days M81.0 - Age-related osteoporosis without current pathological fracture Changed From atorvastatin 20 mg PO BEDTIME 90 days 90 tabs 2RF To atorvastatin 40 mg (2 x 20 mg) PO BEDTIME 90 days 180 tabs 2RF Coding Level of Care Code Est Pt Level 4 (85507) Diagnoses Right knee pain M25.561 Weakness R53.1 Osteoporosis M81.0 Ankle pain M25.579 Hypercholesterolemia E78.00 Low vitamin D level R79.89 Additional Codes SANTY-7 Assessment Billing - SANTY-7 Assessment Tool: SANTY-7 Assessment 20253 ([id number])
== END 2023-07-11 14:45 | disposition home or self-care (01) ==
PROVIDERS: PCP Family Medicine; Visit Provider Family Medicine
DX: M25.561 Pain in right knee (principal); R53.1 Weakness; M81.0 Age-related osteoporosis without current pathological fracture; M25.579 Pain in unspecified ankle and joints of unspecified foot; E78.00 Pure hypercholesterolemia, unspecified; R79.89 Other specified abnormal findings of blood chemistry
CPT/HCPCS: 99214

== ENCOUNTER 2023-08-29 14:00 | Outpatient (RCR) | payer BC, MEDICAID, SELFPAY ==
--- NOTE | 2023-06-16 15:05 | MHC.PT.EP ---
[facility] [place] Office [place] Office [address] Radha Espinosa [address] [phone] F: [phone] F: [phone] F: [phone] F: [phone] Physical Therapy Plan of Care Date of Evaluation: 06/16/23 Date of Surgery: Diagnosis: weakness other malaise pain in R knee physical deconditioning Assessment: 62 y/o female referred to PT with R knee pain. S/s consistent with knee OA and patella tendinopathy resulting in pain and difficulty with walking and prolonged standing. 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 Examination shows decreased R knee A/PROM, decreased R HS/ gastroc length, decreased strength, impaired balance and impaired gait pattern. Recommend PT 1x/week for 4 weeks to address impairments, implement HEP and optimize functional mobility. Frequency and Duration: The patient will be seen 1x/week for 4 weeks Short Term Goals: 2 weeks Compliant wtih HEP Shelter Goals: 4 weeks I with HEP and self management of sx Improve R knee ROM to 0-5-125 Pt will be able to perform 8 sit to stands in 30 seconds with unilateral UE support Treatment Plan: Modalities to reduce pain, spasms and effusion. Manual therapy to restore motion and function. Therapeutic exercise to improve strength and flexibility. Neuromuscular re-education for posture and balance. Therapeutic activities to return to functional activities of daily living. Electronically signed by: Petrona Lopes PT Please sign and return to therapist. Thank you for your referral.
--- NOTE | 2023-09-23 13:31 | MHC.PT.DC ---
[facility] [place] [facility] [place] [facility] [place] [facility] [address] Radha Espinosa [address] [phone] F: [phone] F: [phone] F: [phone] F: [phone] Physical Therapy Discharge Report Diagnosis: weakness other malaise pain in R knee physical deconditioning Date of Surgery: Date of Evaluation: 06/16/23 Date of Discharge: 09/23/23 Treatments to Date: 8 Cancellations to Date: 0 No Shows to Date: 0 Discharge Status: Independent with HEP Discharge Summary: Pt with minimal change in knee ROM and gait pattern, this is most likely d/t previous medical hx/ hemiparesis. WIth gait, she will intermittently have decreased L foot clearance and drag foot while other steps she will increase hip flexion to clear - this has been gait pattern throughout PT. Reviewed exercises and no further questions at this time. D/c at this time. Electronically signed by: Petrona Lopes PT Please sign and return to therapist. Thank you for your referral.
== END 2023-09-23 13:31 | disposition home or self-care (01) ==
LOC: HO.PTCHIC 14:00
PROVIDERS: PCP Family Medicine; Visit Provider Family Medicine
DX: R53.1 Weakness (principal); R53.81 Other malaise; M25.561 Pain in right knee
CPT/HCPCS: 97110; 97140; 97162

== ENCOUNTER 2023-09-19 11:33 | Outpatient (AMB) | payer BC, MEDICAID, SELFPAY ==
[2023-09-19 11:34] VITALS: BP 126/70; PULSE 79; TEMP 36.6; O2SAT 97; BMI 21.9
--- NOTE | 2023-09-19 11:34 | AM.OFFWIN_ITS ---
Intake Vital Signs 09/19/23 11:34 Height 5 ft 7 in Weight 140 lb BMI 21.9 BP 126/70 Blood Pressure Location Lt brachial Position Sitting Pulse 79 Pulse Source Pulse Oximeter Temp 97.8 F Temp Source Temporal Artery Scan Pulse Oximetry (%) 97 Oxygen Delivery Method Room Air Intake Visit Reasons: EP Diff breathing, Slight fever, wheezing Intake Note: pt is here today for Diff breathing, wheezing started 2 weeks ago Patient Tobacco Use Status: Never used Tobacco Allergies fentanyl [FENTANYL] Allergy (Unknown, Verified 09/19/23 11:41) Unknown meperidine [Demerol] Allergy (Unknown, Verified 09/19/23 11:41) rash morphine [MORPHINE] Allergy (Unknown, Verified 09/19/23 11:41) chest pressure phenytoin [Dilantin] Allergy (Unknown, Verified 09/19/23 11:41) rash remifentanil Allergy (Unknown, Verified 09/19/23 11:41) Rash sevoflurane Allergy (Unknown, Verified 09/19/23 11:41) Rash Sulfa (Sulfonamide Antibiotics) [SULFA(SULFONAMIDE ANTIBIOTICS)] Allergy (Unknown, Verified 09/19/23 11:41) Rash lactose Allergy (Verified 09/19/23 11:41) Abdominal Pain Ringer's solution,lactated Adverse Reaction (Verified 09/19/23 11:41) contraindicated d/t mitochondrial dz Do you need a note to return to daycare/school/sports/work: No HPI EP Diff breathing, Slight fever, wheezing HPI Details 62 year old female patient presents to [facility] clinic today with report of intermittent wheezing and shortness of breath over the last 2 weeks. Has had a mildly productive cough. States she has seasonal allergies and they have been increasing lately. She denies any fever, chills, fatigue, or other sick symptoms. She has been taking Claritin with some mild relief. She would like CXR as she is fearful of developing pneumonia. 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 Father No problems noted. Social History Household Members: Sp[facility] Do you presently have visiting nurse or other home services: No Alcohol intake: never Patient Tobacco Use Status: Never used Tobacco e-Cigarette/Vaping Use: Never Used Second Hand Smoke Exposure: No service: No Current occupational status: disabled Current occupational exposures/hazards: No Cognitive needs: Yes (wheelchair/cane) Hearing needs: No Vision needs: Yes (glasses) Review of Systems Const All systems reviewed & are unremarkable except as noted in HPI and below Physical Exam Vital Signs: Last Vital Signs Temp 97.8 F 09/19/23 11:34 Pulse 79 09/19/23 11:34 BP 126/70 09/19/23 11:34 Pulse Ox 97 09/19/23 11:34 Oxygen Delivery Method Room Air 09/19/23 11:34 BMI result Body Mass Index 21.9 Const General: cooperative, healthy appearing and no acute distress Limitations: physical limitations (left sided hemiparesis baseline) HEENT Head: Yes normal to inspection Ears: hearing grossly normal bilaterally General nose exam: Normal external nose present and Normal nasal mucous membranes and turbinates present Throat: Yes posterior oropharynx normal Neck Neck: Yes no lymphadenopathy Resp Effort & Inspection: normal respiratory effort Auscultation: clear to auscultation bilaterally Cardio Rate: regular rate Rhythm: regular rhythm Skin General skin exam: no rashes or lesions noted Extrem General: Yes capillary refill normal and Yes no clubbing, cyanosis or edema Assessment & Plan Assessment & Plan (1) Upper respiratory infection: Code(s): J06.9 - Acute upper respiratory infection, unspecified Plan: Patient with URI vs. seasonal allergies. CXR in the office was unremarkable. We discussed conservative measures for this. She can continue to take Claritin otc, and she can also try a decongestant to see if this is helpful. She reports intermittent wheezing however at this time her LS are clear and she is breathing comfortably. I am going to send her an Albuterol inhaler for prn use. Patient also requests spacer. We reviewed indications, use, and possible s/e. If she develops worsening symptoms or does not improve with conservative measures, she can return to the clinic for further evaluation. She agrees to plan. Orders: Orders XR chest 2V Today R06.2 - Wheezing Medications: New inhalational spacing device ([employer]oni Aerosol Hitchcock Enhancer spacer) As directed 1 ea 0RF J06.9 - Acute upper respiratory infection, unspecified albuterol sulfate 90 mcg/actuation 1 inh inhalation QID PRN 6.7 grams 0RF shortness of breath or wheezing J06.9 - Acute upper respiratory infection, unspecified Coding Level of Care Code Est Pt Level 4 (12505) Diagnoses Upper respiratory infection J06.9
== END 2023-09-19 12:49 | disposition home or self-care (01) ==
PROVIDERS: PCP Family Medicine; Visit Provider Nurse Practitioner Family
DX: J06.9 Acute upper respiratory infection, unspecified (principal)
CPT/HCPCS: 99214

== ENCOUNTER 2023-09-19 12:15 | Outpatient (REF) | payer BC, MEDICAID, SELFPAY ==
--- NOTE | ~2023-09-19 | XR_ITS ---
EXAMINATION: XR CHEST CLINICAL INFORMATION: Wheezing COMPARISON: Previous chest x-ray most recent April 2023 TECHNIQUE: 2 views of the chest were obtained. FINDINGS: The cardiac and mediastinal contours are stable. The lungs are clear. No pleural effusion or pneumothorax. Augmentation changes of the T11 and T12 vertebral bodies. XR/XR chest 2V IMPRESSION: No evidence for acute disease in the chest.
== END 2023-09-19 12:16 | disposition home or self-care (01) ==
LOC: HO.HMGCX 12:15
PROVIDERS: PCP Family Medicine; Visit Provider Nurse Practitioner Family
DX: R06.2 Wheezing (principal)
CPT/HCPCS: 71046

== ENCOUNTER 2023-10-10 14:31 | Outpatient (AMB) | payer BC, MEDICAID, SELFPAY ==
--- NOTE | 2023-10-10 14:44 | A.OFFPC_ITS ---
Vital Signs 10/10/23 14:48 Height 5 ft 7 in Weight 138 lb BMI 21.6 BP 120/66 Blood Pressure Location Lt brachial Position Sitting Pulse 62 Pulse Source Pulse Oximeter Pulse Oximetry (%) 97 Oxygen Delivery Method Room Air Intake Visit Reasons: f/u hypercholesterolemia Intake Note: Patient is following up on lorazepam, hydromorphone, and would like to discuss trouble breathing, and possible rescue inhaler. Allergies fentanyl [FENTANYL] Allergy (Unknown, Verified 10/10/23 14:46) Unknown meperidine [Demerol] Allergy (Unknown, Verified 10/10/23 14:46) rash morphine [MORPHINE] Allergy (Unknown, Verified 10/10/23 14:46) chest pressure phenytoin [Dilantin] Allergy (Unknown, Verified 10/10/23 14:46) rash remifentanil Allergy (Unknown, Verified 10/10/23 14:46) Rash sevoflurane Allergy (Unknown, Verified 10/10/23 14:46) Rash Sulfa (Sulfonamide Antibiotics) [SULFA(SULFONAMIDE ANTIBIOTICS)] Allergy (Unknown, Verified 10/10/23 14:46) Rash lactose Allergy (Verified 10/10/23 14:46) Abdominal Pain Ringer's solution,lactated Adverse Reaction (Verified 10/10/23 14:46) contraindicated d/t mitochondrial dz Medication List - Last Reconciled 10/10/23 by Leonidas Calero MD albuterol sulfate 90 mcg/actuation 1 inh inhalation QID PRN alendronate 70 mg PO QWEEK 28 days amlodipine 10 mg PO DAILY atorvastatin 40 mg (2 x 20 mg) PO BEDTIME 90 days carbamazepine ER 400 mg PO BID 90 days estradiol (Estring) 1 ea vaginal [id number] ezetimibe (Zetia) 10 mg PO DAILY 90 days fluoxetine 40 mg PO QAM hydromorphone (Dilaudid) 4 mg PO TID@1000,1600,2100 30 days inhalational spacing device (Yoni Aerosol [place] Enhancer spacer) As directed lidocaine 5% (Lidoderm) 1 patch topical DAILY 30 days lisinopril 30 mg (1.5 x 20 mg) PO DAILY 90 days lorazepam 2 mg (2 x 1 mg) PO BEDTIME 30 days omeprazole 20 mg PO DAILY 90 days pregabalin (Lyrica) 200 mg (2 x 100 mg) PO Q12H 1 month ropinirole 2 mg PO BEDTIME 90 days solifenacin 10 mg PO DAILY terazosin 2 mg PO BEDTIME Tobacco use date assessed: 10/10/23 Dental Screening Dental Screen Date: 10/10/23 Did you have a dental visit in the last 12 months?: Yes Did you have a dental problem in the last 6 months where you did not have access to dental care?: No Was dental information given to patient?: Patient has dentist HPI f/u hypercholesterolemia HPI Details 62 y/o female presents to f/u hyperchole sterolemia and chronic co nditions. No recent labs to review. Had recently went to a walk in clinic for intermittent wheezing and shortness of breath over last 2 weeks. Pt would like to discuss her shortness of breath. Lungs sound clear today. Hx of CVA and has unsteady gait. 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 Father No problems noted. Social History Household Members: [facility] Do you presently have visiting nurse or other home services: No Alcohol intake: never Patient Tobacco Use Status: Never used Tobacco e-Cigarette/Vaping Use: Never Used Second Hand Smoke Exposure: No service: No Current occupational status: disabled Current occupational exposures/hazards: No Cognitive needs: Yes (wheelchair/cane) Hearing needs: No Vision needs: Yes (glasses) Questionnaire Thrive Questionnaire Date Thrive assessed: 07/11/23 SANTY-7 AMB Questionnaire SANTY-7 Date SANTY - 7 assessed: 07/11/23 Source: Developed by Drs. Saeid Reynaga, Ava Sorenson, Abraham Foster and colleagues, with an educational christina from [employer]. Review of Systems Const Denies chills, Denies fatigue, Denies fever(s), Denies headache(s) and Denies weakness ENT Denies dizziness and Denies headache(s) Card Denies chest pain, Denies lightheadedness, Denies dyspnea and Denies other (Palpitations) Resp Denies cough, Denies dyspnea, Denies wheezing and Denies other ( shortness of breath) Musc Denies numbness and Denies tingling Neuro Denies dizziness, Denies headache(s), Denies numbness, Denies tingling, Denies paresthesias and Denies weakness Psych Denies anxiety and Denies depression Endo Denies fatigue Aller/Immun Denies wheezing Physical exam (Primary Care) Vital Signs: Last Vital Signs Pulse 62 10/10/23 14:48 BP 120/66 10/10/23 14:48 Pulse Ox 97 10/10/23 14:48 Oxygen Delivery Method Room Air 10/10/23 14:48 BMI result Body Mass Index 21.6 Tobacco/Smoking Status: Tobacco use Status Tobacco use date assessed 10/10/23 10/10/23 14:52 Patient Tobacco Use Status Never used Tobacco 10/10/23 14:52 e-Cigarette/Vaping Use Never Used 10/10/23 14:52 Thrive Assessment: Date of Thrive Assessment Date Thrive assessed 07/11/23 10/10/23 14:52 Const General: no acute distress and well developed Nutritional Appearance: well nourished Orientation/consciousness: patient oriented x3 [facility] Head: Yes normocephalic and Yes atraumatic Eyes General: appearance normal, both eyes and all related structures Pupils: Equal, round and reactive pupils present EOM: EOMs intact bilaterally Resp Effort & Inspection: normal respiratory effort Auscultation: clear to auscultation bilaterally Cardio Rate: regular rate Rhythm: regular rhythm Heart sounds: S1 normal heart sound present, S2 normal heart sound present, no gallops, no murmurs and no rubs Neuro General: patient oriented x3 and No gait normal Cranial nerves: Yes Equal, round and reactive pupils present Psych Affect: normal affect Assessment and Plan Assessment & Plan (1) Shortness of breath: Code(s): R06.02 - Shortness of breath Plan: Patient?was?given?Ventolin?recently?at?urgent?care?and?this?was?helpful Possible?bronchitis?and?this?is?resolving.??Lungs?are?clear?today. She?also?notes?some?tightness?or?symptoms?with?allergies. Continue?Claritin Will?give?her?a?script?for?Ventolin?which?she?can?use?for?reactive?airway?proble ms?associated?with?Allergy. (2) Screening for colon cancer: Code(s): Z12.11 - Encounter for screening for malignant neoplasm of colon Plan: Patient?says?she?turned?in?Cologuard?test?in?[place]?but?I?do?not?have?the?results Will?ask?office?to?check?on?status?and?results (3) Unsteady gait: Code(s): R26.81 - Unsteadiness on feet Plan: History?of?CVA?and?spastic?hemiparesis?with?unsteady?gait Referred?for?physical?therapy (4) Left spastic hemiparesis: Code(s): G81.14 - Spastic hemiplegia affecting left nondominant side Plan: As?above (5) Hyperlipidemia: Code(s): E78.5 - Hyperlipidemia, unspecified Plan: Due?to?recheck?lipids?at?next?visit. Lipids?ordered Orders: Orders Lipid Panel Today E78.00 - Pure hypercholesterolemia, unspecified, Z00.00 - Encounter for general adult medical examination without abnormal findings Comprehensive [place]. Panel Fast Today E78.00 - Pure hypercholesterolemia, unspecified, Z00.00 - Encounter for general adult medical examination without abnormal findings PT Evaluation and Treatment Today G81.14 - Spastic hemiplegia affecting left nondominant side, R26.81 - Unsteadiness on feet, R53.1 - Weakness, Z86.73 - Personal history of transient ischemic attack (TIA), and cerebral infarction without residual deficits Medications: New lorazepam MassPat Verified 2 mg (2 x 1 mg) PO BEDTIME 30 days PRN 60 tabs 0RF anxiety albuterol sulfate 90 mcg/actuation (Ventolin HFA) 2 puffs inhalation Q4-6H 30 days PRN 8.5 grams 4RF shortness of breath or wheezing Refilled hydromorphone (Dilaudid) MassPat verified. Partial refill upon request. 4 mg PO TID@1000,1600,2100 30 days 90 tabs 0RF pain Discontinued lorazepam Discontinued Reason: Doctor's Order 2 mg (2 x 1 mg) PO BEDTIME 30 days 60 tabs 0RF anxiety Coding Level of Care Code Est Pt Level 4 (67530) Diagnoses Shortness of breath R06.02 Screening for colon cancer Z12.11 Unsteady gait R26.81 Left spastic hemiparesis G81.14 Hyperlipidemia E78.5
[2023-10-10 14:48] VITALS: BP 120/66; PULSE 62; O2SAT 97; BMI 21.6
== END 2023-10-10 15:45 | disposition home or self-care (01) ==
PROVIDERS: Visit Provider Family Medicine
DX: R06.02 Shortness of breath (principal); Z12.11 Encounter for screening for malignant neoplasm of colon; R26.81 Unsteadiness on feet; G81.14 Spastic hemiplegia affecting left nondominant side; E78.5 Hyperlipidemia, unspecified
CPT/HCPCS: 99214

== ENCOUNTER 2023-11-17 13:47 | Outpatient (REF) | payer BC, MEDICAID, SELFPAY | END 2023-11-17 13:48 | disposition home or self-care (01) | LOC: HO.MAMMO 13:47 | PROVIDERS: Absent Provider Obstetrics & Gynecology; PCP Family Medicine; Visit Provider Family Medicine | DX: Z12.31 Encounter for screening mammogram for malignant neoplasm of breast (principal) | CPT/HCPCS: 77063; 77067 ==

== ENCOUNTER → 2023-11-17 14:00 | Outpatient (BNV) | payer BC, MEDICAID, SELFPAY | PROVIDERS: Absent Provider Obstetrics & Gynecology; PCP Family Medicine; Visit Provider Radiology Diagnostic Radiology | DX: Z12.31 Encounter for screening mammogram for malignant neoplasm of breast (principal) | CPT/HCPCS: 77063; 77067 ==

== ENCOUNTER 2023-12-15 14:22 | Outpatient (AMB) | payer BC, MEDICAID, SELFPAY ==
[2023-12-15 14:24] VITALS: BP 112/66; PULSE 65; O2SAT 97; BMI 21.5
--- NOTE | 2023-12-15 14:24 | MHC.PC.OV ---
Vital Signs 12/15/23 14:24 Height 5 ft 7 in Weight 137 lb BMI 21.5 BP 112/66 Blood Pressure Location Rt brachial Position Sitting Pulse 65 Pulse Source Pulse Oximeter Pulse Oximetry (%) 97 Oxygen Delivery Method Room Air Intake Visit Reasons: f/u hypercholesterolemia Intake Note: Aleida is a 63 year old female who presents to the office today for a follow up hypercholesterolemia. Pt states she has been having issues with her bowels. She states she was having issues with constipation and took docusate sodium but now she states she has been having diarrhea 4x a day since Friday. Allergies fentanyl [FENTANYL] Allergy (Unknown, Verified 12/15/23 14:27) Unknown meperidine [Demerol] Allergy (Unknown, Verified 12/15/23 14:27) rash morphine [MORPHINE] Allergy (Unknown, Verified 12/15/23 14:27) chest pressure phenytoin [Dilantin] Allergy (Unknown, Verified 12/15/23 14:27) rash remifentanil Allergy (Unknown, Verified 12/15/23 14:27) Rash sevoflurane Allergy (Unknown, Verified 12/15/23 14:27) Rash Sulfa (Sulfonamide Antibiotics) [SULFA(SULFONAMIDE ANTIBIOTICS)] Allergy (Unknown, Verified 12/15/23 14:27) Rash lactose Allergy (Verified 12/15/23 14:27) Abdominal Pain Ringer's solution,lactated Adverse Reaction (Verified 12/15/23 14:27) contraindicated d/t mitochondrial dz Medication List - Last Reconciled 12/15/23 by Leonidas Calero MD albuterol sulfate 90 mcg/actuation 1 inh inhalation QID PRN albuterol sulfate 90 mcg/actuation (Ventolin HFA) 2 puffs inhalation Q4-6H PRN 30 days alendronate 70 mg PO QWEEK 28 days amlodipine 10 mg PO DAILY atorvastatin 40 mg (2 x 20 mg) PO BEDTIME 90 days carbamazepine ER 400 mg PO BID 90 days estradiol (Estring) 1 ea vaginal [id number] ezetimibe (Zetia) 10 mg PO DAILY 90 days fluoxetine 40 mg PO QAM hydromorphone (Dilaudid) 4 mg PO TID@1000,1600,2100 30 days inhalational spacing device (Yoni Aerosol [place] Enhancer spacer) As directed lidocaine 5% (Lidoderm) 1 patch topical DAILY 30 days lisinopril 30 mg (1.5 x 20 mg) PO DAILY 90 days lorazepam 2 mg (2 x 1 mg) PO BEDTIME PRN 30 days omeprazole 20 mg PO DAILY 90 days pregabalin (Lyrica) 200 mg (2 x 100 mg) PO Q12H 1 month ropinirole 2 mg PO BEDTIME 90 days solifenacin 10 mg PO DAILY terazosin 2 mg PO BEDTIME Tobacco use date assessed: 10/10/23 Dental Screening Dental Screen Date: 10/10/23 Did you have a dental visit in the last 12 months?: Yes Did you have a dental problem in the last 6 months where you did not have access to dental care?: No Was dental information given to patient?: Patient has dentist HPI f/u hypercholesterolemia HPI Details 63 y/o female presents to f/u hyperlipidemia and also f/u cologuard test. No recent labs to review. She reports diarrhea x4 days. 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 Father No problems noted. Social History Household Members: Spouse Housing: Condominium Do you presently have visiting nurse or other home services: No Alcohol intake: never Patient Tobacco Use Status: Never used Tobacco e-Cigarette/Vaping Use: Never Used Second Hand Smoke Exposure: No service: No Current occupational status: disabled Current occupational exposures/hazards: No Cognitive needs: Yes (wheelchair/cane) Hearing needs: No Vision needs: Yes (glasses) Questionnaire PHQ-9 Over the last 2 weeks, how often have you been bothered by any of the following problems? 1. Little interest or pleasure in doing things: not at all 2. Feeling down, depressed, or hopeless: not at all 3. Trouble falling or staying asleep, or sleeping too much: not at all 4. Feeling tired or having little energy: not at all 5. Poor appetite or overeating: not at all 6. Feeling bad about yourself - or that you are a failure or have let yourself or your family down: not at all 7. Trouble concentrating on things, such as reading the newspaper or watching television: not at all 8. Moving or speaking so slowly that other people could have noticed. Or the opposite - being so fidgety or restless that you have been moving around a lot more than usual: not at all 9. Thoughts that you would be better off or of hurting yourself in some way: not at all Total score: 0 Depression Screening Interpretation: Negative Depression Screening Done: Yes 90269 - PHQ-9 Billing: Yes Source: Developed by Drs. Saeid Reynaga, Ava Sorenson, Abraham Foster and colleagues, with an educational christina from [employer]. Thrive Questionnaire Date Thrive assessed: 07/11/23 I am a: Patient What is your living situation today?: I have a steady place to live Within the past 12 months, did the food you bought not last and you didn't have the money to get more?: Never true Within the past 12 months, did you worry whether your food would run out before you got money to buy more?: Never true Do you have trouble paying for medicines?: No Do you have trouble getting transportation to medical appointments?: No Do you have trouble paying your heating and electricity bill?: No Do you have trouble taking care of your child, family member or friend?: No Do you have trouble with day-to-day activities such as bathing, preparing meals, shopping, managing finances, etc.?: No Are you currently unemployed and looking for a job?: No Are you interested in more education?: No THRIVE Score: 0 AUDIT C Alcohol Use Questionnaire (AUDIT-C) 1. How often do you have a drink containing alcohol?: Never 3. How often do you have six or more drinks on one occasion?: Never Total Score: 0 SANTY-7 AMB Questionnaire SANTY-7 Date SANTY - 7 assessed: 07/11/23 Feeling nervous, anxious, or on edge: 0 = Not at all Not being able to stop or control worryin = Not at all Worrying too much about different things: 0 = Not at all Trouble relaxin = Not at all Being so restless that it is hard to sit still: 0 = Not at all Becoming easily annoyed or irritable: 0 = Not at all Feeling afraid as if something awful might happen: 0 = Not at all Total SANTY-7 score (0-4 normal; 5-9 mild; 10-14 moderate; 15-21 severe): 0 Source: Developed by Drs. Saeid Reynaga, Ava Sorenson, Abraham Foster and colleagues, with an educational christina from [employer]. SANTY-7 Assessment Billing SANTY-7 Assessment Tool: SANTY-7 Assessment 67908 Review of Systems Const Denies chills, Denies fatigue, Denies fever(s), Denies headache(s) and Denies weakness ENT Denies dizziness and Denies headache(s) Card Denies dyspnea Resp Denies cough, Denies dyspnea, Denies wheezing and Denies other (shortness of breath) GI Reports diarrhea Musc Denies numbness and Denies tingling Neuro Denies dizziness, Denies headache(s), Denies numbness, Denies tingling and Denies weakness Psych Denies anxiety and Denies depression Endo Denies fatigue Aller/Immun Denies wheezing Physical exam (Primary Care) Vital Signs: Last Vital Signs Pulse 65 12/15/23 14:24 BP 112/66 12/15/23 14:24 Pulse Ox 97 12/15/23 14:24 Oxygen Delivery Method Room Air 12/15/23 14:24 BMI result Body Mass Index 21.5 Tobacco/Smoking Status: Tobacco use Status Tobacco use date assessed 10/10/23 12/15/23 14:35 Patient Tobacco Use Status Never used Tobacco 12/15/23 14:35 e-Cigarette/Vaping Use Never Used 12/15/23 14:35 PHQ-9: PHQ-9 Score PHQ-9: Total score 0 12/15/23 14:42 Depression Screening Interpretation: Negative Thrive Assessment: Date of Thrive Assessment Date Thrive assessed 07/11/23 12/15/23 14:35 Const General: well developed; No acute distress Nutritional Appearance: well nourished Orientation/consciousness: patient oriented x3 HENMT Head: Yes normocephalic and Yes atraumatic Eyes General: appearance normal, both eyes and all related structures Pupils: Equal, round and reactive pupils present EOM: EOMs intact bilaterally Resp Effort & Inspection: normal respiratory effort Neuro General: patient oriented x3 and gait normal Cranial nerves: Yes Equal, round and reactive pupils present Psych Affect: normal affect Assessment and Plan Assessment & Plan (1) Diarrhea: Code(s): R19.7 - Diarrhea, unspecified Plan: Patient?has?issues?where?she?goes?back?and?forth?between?constipation?and?diarrhea. She?is?on?medications?such?as?Dilaudid?which?can?worsen?constipation.??She?has?taken?Dulcolax?which?then?pushed?her?over?in?to?diarrhea. Advised?her?to?hydrate?well Will?give?her?a?script?for?a?soluble?fiber?such?as?fenofibrate If?she?is?not?improving?in?a?couple?of?days?or?if?she?is?worsening?she?will?let?me?know?and?I?will?refer?her?to?Gastroenterology.??Will?also?order?a?GI?panel?which?he?can?provide?a?sample?for?if?not?improving. If?she?has?any?severe?worsening?such?as?abdominal?pain?fevers?or?blood?in?her?stools,?she?will?go?to?the?ED (2) Hyperlipidemia: Code(s): E78.5 - Hyperlipidemia, unspecified Plan: Patient?has?not?had?her?lipids?drawn?yet.??She?is?on?Zetia She?will?get?this?done?sometime?this?week We?can?follow-up?at?next?visit (3) Screening for colon cancer: Code(s): Z12.11 - Encounter for screening for malignant neoplasm of colon Plan: Patient?says?she?had?a?Cologuard?test?in?August. I?do?not?have?the?results?and?I?requested?them?in?May?and?again?today. Can?follow-up?at?next?visit?when?I?have?the?results. Coding Level of Care Code Est Pt Level 3 (64006) Diagnoses Diarrhea R19.7 Hyperlipidemia E78.5 Screening for colon cancer Z12.11 Additional Codes SANTY-7 Assessment Billing - SANTY-7 Assessment Tool: SANTY-7 Assessment [id number] ([id number])
== END 2023-12-15 15:05 | disposition home or self-care (01) ==
PROVIDERS: PCP Family Medicine; Visit Provider Family Medicine
DX: R19.7 Diarrhea, unspecified (principal); E78.5 Hyperlipidemia, unspecified; Z12.11 Encounter for screening for malignant neoplasm of colon
CPT/HCPCS: 99213

== ENCOUNTER 2023-12-18 12:40 | Outpatient (REF) | payer BC, MEDICAID, SELFPAY ==
[2023-12-18 16:24] LABS: Alanine Aminotransferase 21 U/L (0-31); Albumin Level 4.1 g/dL (3.5-5.0); Alkaline Phosphatase 93 U/L (39-117); Anion Gap 11 (12-20); Aspartate Amino Transferase 26 U/L (5-31); Bilirubin Total 0.4 mg/dL (0.0-1.0); Blood Urea Nitrogen 6 mg/dL (9-16); Calcium 9.2 mg/dL (8.4-10.2); Carbon Dioxide 30 mmol/L (22-29); Chloride 101 mmol/L (96-108); Cholesterol 182 mg/dL (<200); Estimated Glomerular Filt Rate > 60; Glucose Fasting 90 mg/dL (60-99); HDL Cholesterol 65 mg/dL (>40); LDL Cholesterol Calculated 104 mg/dL (<100); Potassium 4.2 mmol/L (3.3-5.1); Sodium 138 mmol/L (135-145); Total Protein 7.2 g/dL (6.5-8.0); Triglycerides 67 mg/dL (<150)
[2023-12-18 16:42] LABS: Vitamin D 25-OH Total 41.4 ng/mL (>30)
== END 2023-12-18 12:41 | disposition home or self-care (01) ==
LOC: HO.HMGCLDS 12:40
PROVIDERS: PCP Family Medicine; Visit Provider Family Medicine
DX: Z00.00 Encounter for general adult medical examination without abnormal findings (principal); E78.00 Pure hypercholesterolemia, unspecified; E55.9 Vitamin D deficiency, unspecified; R79.89 Other specified abnormal findings of blood chemistry
CPT/HCPCS: 36415; 80053; 80061; 82306

== ENCOUNTER 2023-12-30 12:40 | Outpatient (REF) | payer BC, MEDICAID, SELFPAY ==
[2023-12-30 14:39] LABS: Adenovirus F 40/41 Not Detected (Not Detect.); Astrovirus Not Detected (Not Detect.); Campylobacter Not Detected (Not Detect.); Cryptosporidium Not Detected (Not Detect.); Cyclospora cayetanensis Not Detected (Not Detect.); E. coli EAEC Not Detected (Not Detect.); E. coli EPEC Not Detected (Not Detect.); E. coli ETEC Not Detected (Not Detect.); E. coli STEC Not Detected (Not Detect.); Entamoeba histolytica Not Detected (Not Detect.); Giardia lamblia Not Detected (Not Detect.); Norovirus GI/GII Not Detected (Not Detect.); Plesiomonas shigelloides Not Detected (Not Detect.); Rotavirus A Not Detected (Not Detect.); Salmonella Not Detected (Not Detect.); Sapovirus Not Detected (Not Detect.); Shigella sp./EIEC Not Detected (Not Detect.); Vibrio Not Detected (Not Detect.); Vibrio Cholerae Not Detected (Not Detect.); Yersinia enterocolitica Not Detected (Not Detect.)
== END 2023-12-30 12:41 | disposition home or self-care (01) ==
LOC: HO.LNP 12:40
PROVIDERS: Visit Provider Family Medicine
DX: R19.7 Diarrhea, unspecified (principal)
CPT/HCPCS: 87507

== ENCOUNTER 2023-12-31 14:00 | Outpatient (RCR) | payer BC, MEDICAID, SELFPAY ==
--- NOTE | 2023-12-03 15:09 | MHC.PT.EP ---
[facility] [place] Office [place] Office [place] Office [address] Radha Espinosa [address] [phone] F: [phone] F: [phone] F: [phone] F: [phone] Physical Therapy Plan of Care Date of Evaluation: 12/03/23 Date of Surgery: n/a Diagnosis: unsteady gait Assessment: Patient is a 63 year old female presenting to PT with unsteadiness on feet. Pt reports onset of pain began years ago with possible worsening 5 months ago due to multiple CVAs. She presents today with impairments in balance, LE strength, gait mechanics. Pt's current occupation is does not work, with baseline physical activities including ambulating, ADLs. 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 Clinical presentation today is most consistent with signs and sx associated with unsteadiness on feet and pt will benefit from skilled PT 1 week x 5 weeks to address the following problems and impairments noted upon evaluation: balance, LE strength, gait mechanics. These problems limit the patient with the following functional activities: ambulating, ADLs. The prescribed treatment plan of care is medically necessary. Co-morbidities of seizures, AVM (arteriovenous malformation) brain, hx CVA and spastic hemiparesis L were identified and taken into considerations of plan of care. Pt was educated on HEP, role of PT, prognosis, POC. Frequency and Duration: The patient will be seen 1 x week x 5 weeks Short Term Goals: Pt will demonstrate awareness with turning and turning towards her strong side in 3 weeks for improved safety. Pt will demonstrate ability to perform NBOS balance x 30 sec with min sway in 3 weeks. Longterm Goals: Pt will demonstrate improved LEFI score by 9 points in 5 weeks for improved functional mobility. Pt will demonstrate improved 30 second chair stand test to 6 STS in 5 weeks for decreased risk of falls. Pt will demonstrate improved TUG score by 3 seconds in 5 weeks for reduced risk of falls. Treatment Plan: Modalities to reduce pain, spasms and effusion. Manual therapy to restore motion and function. Therapeutic exercise to improve strength and flexibility. Neuromuscular re-education for posture and balance. Therapeutic activities to return to functional activities of daily living. Electronically signed by: Shreya Acosta, PT, DPT, ATC Please sign and return to therapist. Thank you for your referral.
--- NOTE | 2024-02-09 11:36 | MHC.PT.DC ---
[facility] Office [place] Office [place] Office [address] Radha Espinosa [address] [phone] F: [phone] F: [phone] F: [phone] F: [phone] Physical Therapy Discharge Report Diagnosis: unsteady gait Date of Surgery: n/a Date of Evaluation: 12/03/23 Date of Discharge: 02/09/24 Treatments to Date: 4 Cancellations to Date: 1 No Shows to Date: 0 Discharge Status: Discharge Summary: Pt cancelled her last scheduled appointment and did not call to be rescheduled in >30 days so therefore to be d/c per policy. Electronically signed by: Shreya Acosta, PT, DPT, ATC Please sign and return to therapist. Thank you for your referral.
== END 2024-02-09 11:36 | disposition home or self-care (01) ==
LOC: HO.PTCHIC 14:00
PROVIDERS: PCP Family Medicine; Visit Provider Family Medicine
DX: R53.1 Weakness (principal); G81.14 Spastic hemiplegia affecting left nondominant side; Z86.73 Personal history of transient ischemic attack (TIA), and cerebral infarction without residual deficits
CPT/HCPCS: 97110; 97112; 97162

== ENCOUNTER 2024-01-16 14:39 | Outpatient (AMB) | payer BC, MEDICAID, SELFPAY ==
--- NOTE | 2024-01-16 14:55 | A.OFFPC_ITS ---
Vital Signs 01/16/24 14:59 Height 5 ft 7 in Weight 136 lb BMI 21.3 BP 128/69 Blood Pressure Location Rt brachial Position Sitting Respiration 12 Pulse 57 Pulse Source Pulse Oximeter Temp 97.9 F Temp Source Temporal Artery Scan Pulse Oximetry (%) 97 Oxygen Delivery Method Room Air Intake Visit Reasons: f/u hypercholesterolemia, chronic conditions Intake Note: follow hypercholesterolemia, chronic conditions Allergies fentanyl [FENTANYL] Allergy (Unknown, Verified 01/16/24 14:59) Unknown meperidine [Demerol] Allergy (Unknown, Verified 01/16/24 14:59) rash morphine [MORPHINE] Allergy (Unknown, Verified 01/16/24 14:59) chest pressure phenytoin [Dilantin] Allergy (Unknown, Verified 01/16/24 14:59) rash remifentanil Allergy (Unknown, Verified 01/16/24 14:59) Rash sevoflurane Allergy (Unknown, Verified 01/16/24 14:59) Rash Sulfa (Sulfonamide Antibiotics) [SULFA(SULFONAMIDE ANTIBIOTICS)] Allergy (Unknown, Verified 01/16/24 14:59) Rash lactose Allergy (Verified 01/16/24 14:59) Abdominal Pain Ringer's solution,lactated Adverse Reaction (Verified 01/16/24 14:59) contraindicated d/t mitochondrial dz Tobacco use date assessed: 10/10/23 Dental Screening Dental Screen Date: 10/10/23 HPI f/u hypercholesterolemia, chronic conditions HPI Details 63 y/o female presents to f/u hyperchole sterolemia, chronic conditions. Labs drawn 12/18/23. Reviewed labs with pt. Triglycerides 67. TC 182. LDL 104. HDL 65. She is on artovastatin 40mg. She reports mild achiness. Blood pressure today 128/69. She is on lisinopril 30mg daily. HPI Comments History of Present Illness Details Documentation assistance for Leonidas Calero MD, was provided by William Gutierrez, Guide Tour on 01/16/2024 at 3:08 PM EST. I, Dr. Calero, have read, observed, and verified documentation. 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 Father No problems noted. Social History Household Members: Spouse Housing: Condominium Do you presently have visiting nurse or other home services: No Alcohol intake: never Patient Tobacco Use Status: Never used Tobacco e-Cigarette/Vaping Use: Never Used Second Hand Smoke Exposure: No service: No Current occupational status: disabled Current occupational exposures/hazards: No Cognitive needs: Yes (wheelchair/cane) Hearing needs: No Vision needs: Yes (glasses) Questionnaire Thrive Questionnaire Date Thrive assessed: 07/11/23 SANTY-7 AMB Questionnaire SANTY-7 Date SANTY - 7 assessed: 07/11/23 Source: Developed by Drs. Saeid Reynaga, Ava Sorenson, Abraham Foster and colleagues, with an educational christina from [employer]. Review of Systems Const Denies chills, Denies fatigue, Denies fever(s), Denies headache(s) and Denies weakness ENT Denies dizziness and Denies headache(s) Card Denies chest pain, Denies lightheadedness, Denies dyspnea and Denies other (Palpitations) Resp Denies cough, Denies dyspnea, Denies wheezing and Denies other ( shortness of breath) Musc Denies numbness and Denies tingling Neuro Denies dizziness, Denies headache(s), Denies numbness, Denies tingling, Denies paresthesias and Denies weakness Psych Denies anxiety and Denies depression Endo Denies fatigue Aller/Immun Denies wheezing Physical exam (Primary Care) Vital Signs: Last Vital Signs Temp 97.9 F 01/16/24 14:59 Pulse 57 01/16/24 14:59 Resp 12 01/16/24 14:59 BP 128/69 01/16/24 14:59 Pulse Ox 97 01/16/24 14:59 Oxygen Delivery Method Room Air 01/16/24 14:59 BMI result Body Mass Index 21.3 Tobacco/Smoking Status: Tobacco use Status Tobacco use date assessed 10/10/23 01/16/24 15:03 Patient Tobacco Use Status Never used Tobacco 01/16/24 15:03 e-Cigarette/Vaping Use Never Used 01/16/24 15:03 Thrive Assessment: Date of Thrive Assessment Date Thrive assessed 07/11/23 01/16/24 15:03 Const General: no acute distress and well developed Nutritional Appearance: well nourished Orientation/consciousness: patient oriented x3 HENMT Head: Yes normocephalic and Yes atraumatic Eyes General: appearance normal, both eyes and all related structures Pupils: Equal, round and reactive pupils present EOM: EOMs intact bilaterally Resp Effort & Inspection: normal respiratory effort Auscultation: clear to auscultation bilaterally Cardio Rate: regular rate Rhythm: regular rhythm Heart sounds: S1 normal heart sound present, S2 normal heart sound present, no gallops, no murmurs and no rubs Neuro General: patient oriented x3 and gait normal Cranial nerves: Yes Equal, round and reactive pupils present Psych Affect: normal affect Assessment and Plan Assessment & Plan (1) Hyperlipidemia: Code(s): E78.5 - Hyperlipidemia, unspecified Plan: Patient?is?tolerating?atorvastatin?40?mg?daily LDL?cholesterol?is?104?but?her?HDL?is?65. Excellent?HDL?ratios No?further?change?made?to?her?atorvastatin?and?I?encouraged?her?to?work?on?a? t?low?in?saturated?fats?and?cholesterol She?has?mild?achiness?and?she?can?try?some?Co?Q10?which?I?have?sent?today (2) HTN (hypertension): Code(s): I10 - Essential (primary) hypertension Plan: Blood?pressure?is?controlled.??Goal?is?less?than?140/90 Continue?current?medications (3) Screening for colon cancer: Code(s): Z12.11 - Encounter for screening for malignant neoplasm of colon Plan: Phone?call?to?exact?sciences?confirms?Cologuard?test?is?negative They?will?send?us?the?hard?copy?report Medications: New coenzyme Q10 30 mg PO DAILY 90 days 90 caps 2RF Refilled hydromorphone (Dilaudid) [facility] verified. Partial refill upon request. 4 mg PO TID@1000,1600,2100 30 days 90 tabs 0RF pain hydromorphone (Dilaudid) [facility] verified. Partial refill upon request. 4 mg PO TID@1000,1600,2100 30 days 90 tabs 0RF pain Coding Level of Care Code Est Pt Level 3 (09065) Diagnoses Hyperlipidemia E78.5 HTN (hypertension) I10 Screening for colon cancer Z12.11
[2024-01-16 14:59] VITALS: BP 128/69; PULSE 57; RESP 12; TEMP 36.6; O2SAT 97; BMI 21.3
== END 2024-01-16 15:23 | disposition home or self-care (01) ==
PROVIDERS: PCP Family Medicine; Visit Provider Family Medicine
DX: E78.5 Hyperlipidemia, unspecified (principal); I10 Essential (primary) hypertension; Z12.11 Encounter for screening for malignant neoplasm of colon
CPT/HCPCS: 99213

== ENCOUNTER 2024-04-08 14:44 | Outpatient (AMB) | payer BC, MEDICAID, SELFPAY ==
--- NOTE | 2024-04-08 15:28 | MHC.PC.OV ---
Vital Signs 04/08/24 15:34 Height 5 ft 7 in Weight 137 lb BMI 21.5 BP 130/70 Blood Pressure Location Rt brachial Position Sitting Respiration 14 Pulse 67 Pulse Source Pulse Oximeter Pulse Oximetry (%) 96 Oxygen Delivery Method Room Air Intake Visit Reasons: f/u chronic conditions Intake Note: f/u chronic conditions Allergies fentanyl [FENTANYL] Allergy (Unknown, Verified 04/08/24 15:29) Unknown meperidine [Demerol] Allergy (Unknown, Verified 04/08/24 15:29) rash morphine [MORPHINE] Allergy (Unknown, Verified 04/08/24 15:29) chest pressure remifentanil Allergy (Unknown, Verified 04/08/24 15:29) Rash sevoflurane Allergy (Unknown, Verified 04/08/24 15:29) Rash Sulfa (Sulfonamide Antibiotics) [SULFA(SULFONAMIDE ANTIBIOTICS)] Allergy (Unknown, Verified 04/08/24 15:29) Rash lactose Allergy (Verified 04/08/24 15:29) Abdominal Pain Ringer's solution,lactated Adverse Reaction (Verified 04/08/24 15:29) contraindicated d/t mitochondrial dz Tobacco use date assessed: 10/10/23 Dental Screening Dental Screen Date: 10/10/23 HPI f/u chronic conditions HPI Details 63 y/o female presents to f/u hypertension, chronic conditions. Blood pressure today 130/70, 67p. She is on lisinopril 30mg, amlodipine 10mg daily. Notes recent tooth abscess. Follows up with dentist. 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 Father No problems noted. Social History Household Members: Spouse Housing: Condominium Do you presently have visiting nurse or other home services: No Alcohol intake: never Patient Tobacco Use Status: Never used Tobacco e-Cigarette/Vaping Use: Never Used Second Hand Smoke Exposure: No service: No Current occupational status: disabled Current occupational exposures/hazards: No Cognitive needs: Yes (wheelchair/cane) Hearing needs: No Vision needs: Yes (glasses) Questionnaire Thrive Questionnaire Date Thrive assessed: 04/08/24 I am a: Patient What is your living situation today?: I have a steady place to live Within the past 12 months, did the food you bought not last and you didn't have the money to get more?: Often true Within the past 12 months, did you worry whether your food would run out before you got money to buy more?: Sometimes True Do you have trouble paying for medicines?: No Do you have trouble getting transportation to medical appointments?: No Do you have trouble paying your heating and electricity bill?: No Do you have trouble taking care of your child, family member or friend?: No Do you have trouble with day-to-day activities such as bathing, preparing meals, shopping, managing finances, etc.?: No Are you currently unemployed and looking for a job?: No Are you interested in more education?: No Please select the resources that you would like help with: None Currently or been in a relationship where the following occur: I choose not to answer THRIVE Score: 2 AUDIT C Alcohol Use Questionnaire (AUDIT-C) 1. How often do you have a drink containing alcohol?: Never Total Score: 0 SANTY-7 AMB Questionnaire SANTY-7 Date SANTY - 7 assessed: 07/11/23 Feeling nervous, anxious, or on edge: 0 = Not at all Not being able to stop or control worryin = Not at all Source: Developed by Drs. Saeid Reynaga, Ava Sorenson, Abraham Foster and colleagues, with an educational christina from [employer]. Review of Systems Const Denies chills, Denies fatigue, Denies fever(s), Denies headache(s) and Denies weakness ENT Denies dizziness and Denies headache(s) Card Denies chest pain, Denies lightheadedness, Denies dyspnea and Denies other (Palpitations) Resp Denies cough, Denies dyspnea, Denies wheezing and Denies other ( shortness of breath) Musc Denies numbness and Denies tingling Neuro Denies dizziness, Denies headache(s), Denies numbness, Denies tingling, Denies paresthesias and Denies weakness Psych Denies anxiety and Denies depression Endo Denies fatigue Aller/Immun Denies wheezing Physical exam (Primary Care) Vital Signs: Last Vital Signs Pulse 67 04/08/24 15:34 Resp 14 04/08/24 15:34 BP 130/70 04/08/24 15:34 Pulse Ox 96 04/08/24 15:34 Oxygen Delivery Method Room Air 04/08/24 15:34 BMI result Body Mass Index 21.5 Tobacco/Smoking Status: Tobacco use Status Tobacco use date assessed 10/10/23 04/08/24 15:37 Patient Tobacco Use Status Never used Tobacco 04/08/24 15:37 e-Cigarette/Vaping Use Never Used 04/08/24 15:37 Thrive Assessment: Date of Thrive Assessment Date Thrive assessed 04/08/24 04/08/24 15:37 Currently or been in a relationship where the following occur: I choose not to answer Const General: no acute distress and well developed Nutritional Appearance: well nourished Orientation/consciousness: patient oriented [facility]3 [facility]: Yes normocephalic and Yes atraumatic Eyes General: appearance normal, both eyes and all related structures Pupils: Equal, round and reactive pupils present EOM: EOMs intact bilaterally Resp Effort & Inspection: normal respiratory effort Auscultation: clear to auscultation bilaterally Cardio Rate: regular rate Rhythm: regular rhythm Heart sounds: S1 normal heart sound present, S2 normal heart sound present, no gallops, no murmurs and no rubs Neuro General: patient oriented x3 and gait normal Cranial nerves: Yes Equal, round and reactive pupils present Psych Affect: normal affect Coding Level of Care Code Est Pt Level 3 (24115) Diagnoses Essential hypertension I10 Tooth infection K04.7 Assessment & Plan Assessment & Plan (1) Essential hypertension: Code(s): I10 - Essential (primary) hypertension Category: Medical Plan: Blood?pressure?is?controlled.??Goal?is?less?than?140/90 Continue?current?medication (2) Tooth infection: Code(s): K04.7 - Periapical abscess without sinus Category: Medical Plan: Recent?tooth?abscess Follow-up?with?dentist Needs?prophylactic?antibiotics?which?are?prescribed?today Medications: New amoxicillin 2,000 mg (4 x 500 mg) PO ONCE 4 tabs 3RF 1 day Refilled pregabalin 200 mg (2 x 100 mg) PO Q12H 120 caps 0RF 30 days
[2024-04-08 15:34] VITALS: BP 130/70; PULSE 67; RESP 14; O2SAT 96; BMI 21.5
== END 2024-04-08 16:03 | disposition home or self-care (01) ==
PROVIDERS: PCP Family Medicine; Visit Provider Family Medicine
DX: I10 Essential (primary) hypertension (principal); K04.7 Periapical abscess without sinus

== ENCOUNTER → 2024-04-08 14:44 | Outpatient (BNVA) | payer BC, MEDICAID, SELFPAY | PROVIDERS: PCP Family Medicine; Visit Provider Family Medicine ==

== ENCOUNTER 2024-07-13 11:15 | Outpatient (REF) | payer BC, MEDICAID, SELFPAY ==
--- OUTSIDE RECORDS SUMMARY | 2024-07-13 13:45 | XMS_ITS | Encounter Summary ---
Author Organization [employer] Address [address] [place] [address] [address] [place] [address] Care Team Providers Care Sales Inspector Name Role Phone Unavailable Primary Care Provider Unavailabl e Reason for Visit * Reason Comments Filling Encounter Details Date Type Department Care Team ([facility] Contact Info) Description 07/12/2024 1:00 PM EST Office Visit [facility] [address] [place] [phone] Shabbir Nguyen BDS [address] [place], [place] [id number] Social History Tobacco Use Types Packs/Day Years Used Date Smoking Tobacco: Never Smokeless Tobacco: Never Alcohol Use Standard Drinks/Week Comments Never 0 (1 standard drink = 0.6 oz pur e alcohol) Comments Unknown Sex and Gender Information Value Date Recorded Sex Assigned at Female 10/15/2022 9:39 AM EDT Legal Sex Female 9:34 AM EDT Gender Identity Female 10/15/2022 9:39 AM EDT Sexual Orientation Choose not to disclose 2022 9:39 AM EDT documented as of this encounter Progress Notes * Shabbir Nguyen BDS - 07/12/2024 1:00 PM EST Images from the original note were not included. Patient seen composite church on tooth #19. Medical History Reviewed. Today's treatment reason- Huge church and it is fractured disto buccalExisting church with poor marginal integrity, Caries noted with explorer, recurrent caries noted, Decay present on radiograph. Decay excavated and tooth restored using matrix band/mylar strip and wedges as needed. Cavity Cleanser-CHX. Desensitizer - Gluma. Base-Ionosit. Dycal placed - Yes. Etch tooth - Yes. Moving Picture Producer-i-bond. Composite material - [employer], [place]. Vitapan classical A3.5. Contoured, occlusion checked and adjusted, established proximal contacts, finished, polished. Patient made aware of post-op sensitivity, patient understood and satisfied. NV crown prep #19,20 * Shabbir Nguyen BDS - 07/12/2024 1:00 PM EST Patient c/o intermittent pain irt #25 RC treated.it is part of bridge #23- 25.Tooth according to patient has been twice Root canal treated.Gave them choice for Re treatment or extraction.Adv Amoxicillin 500 mg tid,Told her to decide after explaining different treatment plans documented in this encounter Plan of Treatment Upcoming Encounters Date Type Department Care Team (Late st Contact Info) Description 07/29/2024 2:00 PM EDT Office Visit [facility] [address] [place] [phone] Shabbir Nguyen BDS [address] [place] [phone] 08/12/2024 2:00 PM EDT Office Visit [facility] [address] [place] [phone] Ana Luisa Hawkins [address] [place] [phone] documented as of this encounter Procedures Procedure Name Priority Date/Time Associated Diagnosis Comments 19 RESIN-BASED COMPOSITE - 3 SURF, POSTERIOR Routine 07/12/2024 1:00 PM EST LIMITED ORAL EVALUATION - PROBLEM FOCUSED Routine 07/12/2024 1:00 PM EST INTRAORAL - PERIAPICAL FIRST RADIOGRAPHIC IMAGE Routine 07/12/2024 1:00 PM EST INTRAORAL - PERIAPICAL EACH ADDITIONAL RADIOGRAPHIC IMAGE Routine 07/12/2024 1:00 PM EST documented in this encounter Visit Diagnoses Not on filedocumented in this encounter
--- OUTSIDE RECORDS SUMMARY | 2024-07-13 13:45 | XMS_ITS | Clinical Summary ---
Author Organization [facility] Address [address] [place] [address] Care Team Providers Care Sole Cementer Name Role Phone Unavailable Primary Care Provider Unavailabl e Social History Tobacco Use Types Packs/Day Years Used Date Smoking Tobacco: Never Assessed Comments Unknown Sex and Gender Information Value Date Recorded Sex Assigned at Not on file Legal Sex Female 8:51 PM EST Gender Identity Not on file Sexual Orientation Not on file Plan of Treatment Health Maintenance Due Date Last Done Comments Breast Cancer Screening 1960 DTaP,Tdap,and Td Vaccines (1 - Tdap) 10/14/1979 Cervical Cancer Screening: P ap Smear 1981 Pneumococcal Vaccine: 50+ Ye ars (1 of 1 - PCV) 2010 Zoster Vaccines (1 of 2) 2010 COVID-19 Vaccine (1 - 2023-2 5 season) 2024 Influenza Vaccine (#1) 2024 RSV Immunization Patients 60 + Years Old (1 - 1-dose 75+ series) 10/14/2035 HIB Vaccines Aged Out No longer eligi ble based on patient's age to complete this topic HPV Vaccines Aged Out No longer eligi ble based on patient's age to complete this topic Hepatitis A Vaccines Aged Out No long er eligible based on patient's age to complete this topic Hepatitis B Vaccines Aged Out No long er eligible based on patient's age to complete this topic IPV Vaccines Aged Out No longer eligi ble based on patient's age to complete this topic MMR Vaccines Aged Out No longer eligi ble based on patient's age to complete this topic Meningococcal ACWY Vaccine Aged Out N o longer eligible based on patient's age to complete this topic Meningococcal B Vacine Aged Out No lo nger eligible based on patient's age to complete this topic Pneumococcal Vaccine: Pediat rics (0 to 5 Years) and At-Risk Patients (6 to 64 Years) Aged Out No longer eligible b ased on patient's age to complete this topic RSV Immunization Patients Un lauren 20 months Aged Out No longer eligible b ased on patient's age to complete this topic Varicella Vaccines Aged Out No longer eligible based on patient's age to complete this topic
--- OUTSIDE RECORDS SUMMARY | 2024-07-13 13:45 | XMS_ITS ---
Author Organization [facility] Address [address] [place] [address] Care Team Providers Care [employer] French Teacher Name Role Phone Leonidas Calero MD Primary Care Provider Ana Villa Unavailable [phone] Encounters Encounter Location Date Provider Diagnosis [facility] [address] [place] [address] 10/01/2023 Ana Hernandez Plan Of Treatment No Information Progress Notes * Aleida LAMBERT ADOB:1960 (63 yo F)Acc No.[id number]:10/01/2023 Progress Note Patient:Aleida NOE Provider:?Ana Hernandez DPM :1960???Age:62 Y???Sex:Female D ate:10/01/2023 Address:[address] [place], [place] [phone] Pcp:Leonidas Calero MD Subjective: * Chief Complaints: * ??? * Medical History:? Objective: * Vitals:? Assessment: Plan: * Treatment: * Images: * The named appointment provid er may or may not be the originator of this progress note, and it is not deemed complete until electronically signed by the appointment provider. Sign off status: Pending * Provider:?Ana Hernandez DPM Date:? Generated for Jazmín muro/Hector/eTransmitting on:?07/13/2024 01:45 PM EST
--- OUTSIDE RECORDS SUMMARY | 2024-07-13 13:46 | XMS_ITS | Clinical Summary ---
Author Organization [employer] Address [address] [facility] 7[address] [place] [address] Care Team Providers Care Chargemaster Specialist Name Role Phone Unavailable Primary Care Provider Unavailabl e Allergies Active Allergy Reactions Criticality Noted Date Comments Clonidine 10/15/2022 Other reaction(s): unsure of reaction Fentanyl Shortness of breath High 03/13/2020 Meperidine Rash Low 04/16/2012 Free text to coded by Fani Navarro.Demerol Meperidine Hcl Rash Low 10/15/2022 Morphine Shortness of breath,Unknown High 11/25/2001 Other reaction(s): breathing suppressed, morphine, Other (See Comments) Heaviness in chest Phenytoin Rash Low 04/16/2012 free text to coded by Fani Navarro.Dilantin Remifentanil 10/15/2022 Other reaction(s): suppressed breathing Sulfamethoxazole 10/15/2022 Other reaction(s): rash Sulfamethoxazole-Trimetho prim 10/15/2022 Other reaction(s): Unknown Medications carBAMazepine XR (TEGretol-XR) 400 MG 12 hr tablet 1 tablet 2 times daily. Active amLODIPine (Norvasc) 10 MG tablet Take 10 mg by mouth in the morning. 05/06/2023 Active lisinopril 20 MG tablet TAKE 1 AND 1/2 TABLET BY MOUTH DAILY 05/18/2023 Active trospium (Sanctura XR) 60 MG 24 hour capsule 05/21/2023 Active terazosin (Hytrin) 2 MG capsule 06/18/2023 Active LORazepam (Ativan) 2 MG tablet Take 2 mg by mouth. 02/07/2017 Active lidocaine (Lidoderm) 5 % patch As needed 05/18/2023 Active amoxicillin (Amoxil) 500 MG capsule As needed 07/15/2022 Active Estradiol 7.5 MCG/24HR ring Insert 2 mg into the vagina every 3 months. 11/11/2016 Active alendronate (Fosamax) 70 MG tablet Take 70 mg by mouth 1 (one) time per week. 07/11/2023 Active amoxicillin (Amoxil) 500 MG capsule Take 4 tablets one hour prior dental appt 20 capsule 02/24/2024 Active Encounters Date Type Department Care Team Description 07/12/2024 1:00 PM EST Office Visit [facility] [address] [place] [address] Makonacarole Deviprasad, BDS 04/28/2024 3:30 PM EST Office Visit [facility] [address] [place] [address] Makonanancyly Deviprasad, BDS 04/21/2024 2:00 PM EST Office Visit [facility] [address] [place] [address] Makonacarole Deviprasad, BDS 04/13/2024 1:00 PM EST Office Visit [facility] [address] [place] [address] Makonanancyly Deviprasad, BDS 04/12/2024 Telephone [facility] [address] [place] [address] Makonanancyly Deviprasad, BDS from Last 3 Months Social History Tobacco Use Types Packs/Day Years Used Date Smoking Tobacco: Never Smokeless Tobacco: Never Tobacco Cessation:Counseling Given: Not Answered Alcohol Use Standard Drinks/Week Comments Never 0 (1 standard drink = 0.6 oz pur e alcohol) Comments Unknown Sex and Gender Information Value Date Recorded Sex Assigned at Female 10/15/2022 9:39 AM EDT Legal Sex Female 9:34 AM EDT Gender Identity Female 10/15/2022 9:39 AM EDT Sexual Orientation Choose not to disclose 2022 9:39 AM EDT Last Filed Vital Signs Vital Sign Reading Time Taken Comments Blood Pressure 140/80 03/16/2024 2:28 PM EDT Pulse 63 02/11/2024 2:14 PM EDT Temperature - - Respiratory Rate - - Oxygen Saturation - - Inhaled Oxygen Concentration - - Weight - - Height - - Body Mass Index - - Plan of Treatment Upcoming Encounters Date Type Department Care Team (Late st Contact Info) Description 07/29/2024 2:00 PM EDT Office Visit [facility] [address] [place] [address] Shabbir Nguyen BDS [address] [place] [address] 08/12/2024 2:00 PM EDT Office Visit [facility] [address] [place] [phone] Ana Luisa Hawkins [address] [place], [place] [phone] Health Maintenance Due Date Last Done Comments CT Colonography 1960 Colonoscopy 1960 Depression Screening 1960 FIT 1960 FOBT 1960 HIV Screening 1960 Lipid Panel 1960 SDOH Screening 1960 Sigmoidoscopy 1960 Alcohol/Substance Use Screening 1972 Hepatitis C Screening 1978 Pneumococcal Vaccine: 50+ Years (1 of 2 - PCV) 10/14/1979 Pap Smear 1981 Cervical Cancer Screening 1990 HPV/Cotest 1990 Mammogram 2000 Zoster Vaccines (1 of 2) 2010 RSV Patients and Patients Aged 60 years or older (1 - Risk 60-74 years 1-dose series) 2020 Dental Oral Exam 08/11/2024 02/11/2024, , 11/05/2022 Dental Prophylaxis 08/11/2024 02/11/2024, 0 08/06/2023, 10/23/2022 Dental X-Ray: Bitewings 02/11/2025 02/11/20, 10/23/2022, 10/15/2022 Tobacco Screening 07/12/2025 07/12/2024 Dental X-Ray: Full Mouth 10/24/2025 10/23/2022 Colorectal Cancer Screening 09/14/2026 FIT DNA/Cologuard 09/14/2026 09/15/2023, 01/09/2021 DTaP/Tdap/Td Vaccines (2 - Td or Tdap) 03/30/2031 03/30/2021 COVID-19 Vaccine Completed 01/31/2024, , 05/02/2021, Additional history exists Influenza Vaccine Completed 03/28/2024, , 02/20/2022, Additional history exists HIB Vaccines Aged Out No longer eligi [...] patient's age to complete this topic Meningococcal Vaccine Aged Out No aimee heather eligible based on patient's age to complete this topic RSV under 20 months Aged Out No longe r eligible based on patient's age to complete this topic Rotavirus Vaccines Aged Out No longer eligible based on patient's age to complete this topic Procedures Procedure Name Priority Date/Time Associated Diagnosis Comments INTRAORAL - PERIAPICAL EACH ADDITIONAL RADIOGRAPHIC IMAGE Routine 07/12/2024 1:00 PM EST LIMITED ORAL EVALUATION - PROBLEM FOCUSED Routine 07/12/2024 1:00 PM EST INTRAORAL - PERIAPICAL FIRST RADIOGRAPHIC IMAGE Routine 07/12/2024 1:00 PM EST 19 RESIN-BASED COMPOSITE - 3 SURF, POSTERIOR Routine 07/12/2024 1:00 PM EST CASE PRESENTATION, DETAILED AND EXTENSIVE TREATMENT PLANNING Routine 04/28/2024 3:30 PM EST 10,14,15,13 MAXILLARY PARTIAL DENTURE - RESIN BASE (INCLUDING, RETENTIVE/CLASPING MATERIALS, RESTS, AND TEETH) Routine 04/28/2024 3:30 PM EST CASE PRESENTATION, DETAILED AND EXTENSIVE TREATMENT PLANNING Routine 04/21/2024 2:00 PM EST DIGITAL SCAN FOR DENTURES Routine 04/21/2024 2:00 PM EST 14 INTRAORAL - PERIAPICAL FIRST RADIOGRAPHIC IMAGE Routine 04/13/2024 1:00 PM EST 14 EXTRACTION, ERUPTED TOOTH REQ REMOVAL OF BONE AND/OR SECTIONING OF TOOTH Routine 04/13/2024 1:00 PM EST PALLIATIVE (EMERGENCY) TREATMENT OF DENTAL PAIN - MINOR PROCEDURE Routine 04/13/2024 1:00 PM EST PROPHYLAXIS - ADULT Routine 02/11/2024 2 :00 PM EDT BITEWINGS - 2 RADIOGRAPHIC IMAGES Routine 02/11/2024 2:00 PM EDT PERIODIC ORAL EVALUATION - ESTABLISHED PATIENT Routine 02/11/2024 2:00 PM EDT INTRAORAL - COMPLETE SERIES OF RADIOGRAPHIC IMAGES Routine 10/23/2022 2:15 PM EDT Accretions on teeth from Last 3 Months or Most Recently Relevant to Health Maintenance Insurance [facility] [employer] STAND ADULT
--- OUTSIDE RECORDS SUMMARY | 2024-07-13 13:46 | XMS_ITS ---
Author Organization [facility] Address [address] [place] [address] Care Team Providers Care Internal Combustion Engine Assembler Name Role Phone Leonidas Calero MD Primary Care Provider Ana Villa [phone] REASON FOR VISIT cx appt 09/30 Encounters Encounter Location Date Provider Diagnosis [facility] [address] [place] [address] 09/30/2023 Ana Hernandez Plan Of Treatment No Information Progress Notes * Aleida LAMBERT ADOB:1960 (62 yo F)Acc No.[id number]:09/30/2023 Patient:?Aleida Lambert :1960???Age:62 Y???Sex:Female Address:[address] [place] [address] * true * Date:? Generated for Elsii bhaskar/Hector/eTransmitting on:?07/13/2024 01:46 PM EST
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
--- OUTSIDE RECORDS SUMMARY | 2024-07-13 13:46 | XMS_ITS ---
Author Organization [facility] Address [address] [place] [address] Care Team Providers Care Executive Vice President Name Role Phone Leonidas Calero MD Primary Care Provider Ana Villa [phone] REASON FOR VISIT Pt balance Encounters Encounter Location Date Provider Diagnosis [facility] [address] [place] [address] 09/22/2023 Ana Hernandez Plan Of Treatment No Information Progress Notes * Aleida LAMBERT ADOB:1960 (62 yo F)Acc No.[id number]:09/22/2023 Patient:?Aleida Lambert :1960???Age:62 Y???Sex:Female Address:[address] [place] [address] * true * Date:? Generated for Elisi bhaskar/Hector/eTransmitting on:?07/13/2024 01:45 PM EST
[2024-07-13 13:54] LABS: Alanine Aminotransferase 19 U/L (0-31); Alkaline Phosphatase 76 U/L (39-117); Anion Gap 12 (12-20); Aspartate Amino Transferase 28 U/L (5-31); Bilirubin Total 0.5 mg/dL (0.0-1.0); Blood Urea Nitrogen 6 mg/dL (9-16); Calcium 9.1 mg/dL (8.4-10.2); Carbon Dioxide 29 mmol/L (22-29); Chloride 102 mmol/L (96-108); Cholesterol 190 mg/dL (<200); Estimated Glomerular Filt Rate > 60; Glucose Fasting 88 mg/dL (60-99); HDL Cholesterol 64 mg/dL (>40); LDL Cholesterol Calculated 105 mg/dL (<100); Sodium 139 mmol/L (135-145); Total Protein 7.3 g/dL (6.5-8.0); Triglycerides 107 mg/dL (<150)
== END 2024-07-13 11:16 | disposition home or self-care (01) ==
LOC: HO.HMGCLDS 11:15
PROVIDERS: PCP Family Medicine; Visit Provider Family Medicine
DX: Z00.00 Encounter for general adult medical examination without abnormal findings (principal); E78.5 Hyperlipidemia, unspecified
CPT/HCPCS: 36415; 80053; 80061

== ENCOUNTER 2024-07-15 13:30 | Outpatient (AMB) | payer BC, MEDICAID, SELFPAY ==
--- NOTE | 2024-07-15 13:34 | MHC.PC.OV ---
Vital Signs 07/15/24 13:42 Height 5 ft 7 in Weight 135 lb 7 oz BMI 21.2 BP 120/66 Blood Pressure Location Rt brachial Position Sitting Respiration 14 Pulse 69 Pulse Source Pulse Oximeter Temp 98.9 F Temp Source Oral Pulse Oximetry (%) 97 Oxygen Delivery Method Room Air Intake Visit Reasons: f/u htn, chronic conditions Intake Note: follow up on HTN and chronic conditions Configuration Management Architect Required: No Allergies fentanyl [FENTANYL] Allergy (Unknown, Verified 07/15/24 13:41) Unknown meperidine [Demerol] Allergy (Unknown, Verified 07/15/24 13:41) rash morphine [MORPHINE] Allergy (Unknown, Verified 07/15/24 13:41) chest pressure remifentanil Allergy (Unknown, Verified 07/15/24 13:41) Rash sevoflurane Allergy (Unknown, Verified 07/15/24 13:41) Rash Sulfa (Sulfonamide Antibiotics) [SULFA(SULFONAMIDE ANTIBIOTICS)] Allergy (Unknown, Verified 07/15/24 13:41) Rash lactose Allergy (Verified 07/15/24 13:41) Abdominal Pain Ringer's solution,lactated Adverse Reaction (Verified 07/15/24 13:41) contraindicated d/t mitochondrial dz Medication List - Last Reconciled 07/15/24 by Leonidas Calero MD albuterol sulfate 90 mcg/actuation 1 inh inhalation QID PRN alendronate 70 mg PO QWEEK 84 days amlodipine 10 mg PO DAILY amoxicillin 2,000 mg (4 x 500 mg) PO ONCE 1 day atorvastatin 40 mg (2 x 20 mg) PO BEDTIME 90 days calcium polycarbophil (FiberCon) 625 mg PO BID 30 days carbamazepine ER 400 mg PO BID 30 days coenzyme Q10 30 mg PO DAILY 90 days estradiol (Estring) 1 ea vaginal [id number] ezetimibe (Zetia) 10 mg PO DAILY 90 days fluoxetine 40 mg PO QAM hydromorphone (Dilaudid) 4 mg PO TID@1000,1600,2100 30 days inhalational spacing device (Yoni Aerosol Hendry Enhancer spacer) As directed lidocaine 5% (Lidoderm) 1 patch topical DAILY 30 days lisinopril 30 mg (1.5 x 20 mg) PO DAILY 90 days lorazepam 2 mg (2 x 1 mg) PO BEDTIME PRN 30 days omeprazole 20 mg PO DAILY 90 days pregabalin 200 mg (2 x 100 mg) PO Q12H 30 days solifenacin 10 mg PO DAILY terazosin 2 mg PO BEDTIME Tobacco use date assessed: 10/10/23 Dental Screening Dental Screen Date: 10/10/23 [facility] Medical History Lumbar herniated disc Back pain HTN (hypertension) Seizures 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 Father No problems noted. Social History Household Members: Spouse Housing: [facility] Do you presently have visiting nurse or other home services: No Alcohol intake: never Patient Tobacco Use Status: Never used Tobacco e-Cigarette/Vaping Use: Never Used Second Hand Smoke Exposure: No service: No Current occupational status: disabled Current occupational exposures/hazards: No Cognitive needs: Yes (wheelchair/cane) Hearing needs: No Vision needs: Yes (glasses) Questionnaire PHQ-9 Over the last 2 weeks, how often have you been bothered by any of the following problems? 1. Little interest or pleasure in doing things: not at all 2. Feeling down, depressed, or hopeless: not at all 3. Trouble falling or staying asleep, or sleeping too much: several days 4. Feeling tired or having little energy: several days 5. Poor appetite or overeating: not at all 6. Feeling bad about yourself - or that you are a failure or have let yourself or your family down: not at all 7. Trouble concentrating on things, such as reading the newspaper or watching television: not at all 8. Moving or speaking so slowly that other people could have noticed. Or the opposite - being so fidgety or restless that you have been moving around a lot more than usual: not at all 9. Thoughts that you would be better off or of hurting yourself in some way: not at all Total score: 2 Source: Developed by Drs. Saeid Reynaga, Abraham Amaro and colleagues, with an educational christina from [employer]. Thrive Questionnaire Date Thrive assessed: 07/15/24 I am a: Patient What is your living situation today?: I have a steady place to live THRIVE Score: 0 SANTY-7 AMB Questionnaire SANTY-7 Date SANTY - 7 assessed: 07/11/23 Source: Developed by Drs. Saeid Reynaga, Ava Sorenson, Abraham Foster and colleagues, with an educational christina from [employer]. Physical exam (Primary Care) Vital Signs: Last Vital Signs Temp 98.9 F 07/15/24 13:42 Pulse 69 07/15/24 13:42 Resp 14 07/15/24 13:42 BP 120/66 07/15/24 13:42 Pulse Ox 97 07/15/24 13:42 Oxygen Delivery Method Room Air 07/15/24 13:42 BMI result Body Mass Index 21.2 Tobacco/Smoking Status: Tobacco use Status Tobacco use date assessed 10/10/23 07/15/24 13:36 Patient Tobacco Use Status Never used Tobacco 07/15/24 13:36 e-Cigarette/Vaping Use Never Used 07/15/24 13:36 PHQ-9: PHQ-9 Score PHQ-9: Total score 2 07/15/24 13:36 Thrive Assessment: Date of Thrive Assessment Date Thrive assessed 07/15/24 07/15/24 13:36 Coding Level of Care Code Est Pt Level 4 (22251) Diagnoses HTN (hypertension) I10 Hyperlipidemia E78.5 Neuropathic pain M79.2 Assessment & Plan Assessment & Plan (1) HTN (hypertension): Code(s): I10 - Essential (primary) hypertension Category: Medical Plan: Blood?pressure?is?controlled.??Goal?is?less?than?130/80 Continue?current?medications (2) Hyperlipidemia: Code(s): E78.5 - Hyperlipidemia, unspecified Category: Medical Plan: LDL?cholesterol?105. History?of?CVA She?is?on?atorvastatin?40?mg?daily?and?Zetia?10?mg?daily. We?discussed?that?I?recommend?trying?to?get?her?LDL?cholesterol?closer?to?70 Tolerating?atorvastatin?40?mg?daily?vest?with?Co?Q10. Continue?Zetia?as?prescribed Continue?Co?Q10 Trial?atorvastatin?40?mg?tabs,?1.5?daily or?1?tab/2?tabs every?other?day. 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 The?above?have?resulted?in?lower?extremity?burning,?tingling?pain;?neuropathic?pain. This?has?been?partly?alleviated?by lidocaine?patches Continue?these Medications: Changed From atorvastatin 40 mg (2 x 20 mg) PO BEDTIME 90 days 180 tabs 2RF To atorvastatin 80 mg (2 x 40 mg) PO BEDTIME 90 days 180 tabs 2RF
[2024-07-15 13:42] VITALS: BP 120/66; PULSE 69; RESP 14; TEMP 37.2; O2SAT 97; BMI 21.2
--- OUTSIDE RECORDS SUMMARY | 2024-07-15 16:11 | XMS_ITS | Clinical Summary ---
Author Organization [facility] ity Address [address] [place] [address] Care Team Providers Care Product Manufacturing Professional Name Role Phone Unavailable Primary Care Provider [...]
--- OUTSIDE RECORDS SUMMARY | 2024-07-15 16:11 | XMS_ITS ---
Author Organization [facility] Address [address] [place] [address] Care Team Providers Care District Wildlife Manager Name Role Phone Leonidas Calero MD Primary Care Provider Ana Villa [phone] REASON FOR VISIT cx appt 09/30 Encounters Encounter Location Date Provider Diagnosis [facility] [address] [place] [address] 09/30/2023 Ana Hernandez Plan Of Treatment No Information Progress Notes * Aleida LAMBERT ADOB:1960 (62 yo F)Acc No.[id number]:09/30/2023 Patient:?Aleida Lambert :1960???Age:62 Y???Sex:Female Address:[address] [place] [phone] * true * Date:? Generated for Elisi bhaskar/Hector/eTransmitting on:?07/15/2024 04:11 PM EST
--- OUTSIDE RECORDS SUMMARY | 2024-07-15 16:11 | XMS_ITS | Clinical Summary ---
Author Organization [employer] Address [address] [facility] [address] [place] [address] Care Team Providers Care Dry Kiln Loader Name Role Phone Unavailable Primary Care Provider [...] Description 07/12/2024 1:00 PM EST Office Visit [facility] [address] [place] [address] Shabbir Nguyen BDS 04/28/2024 3:30 PM EST Office Visit [address] [address] Shabbir Nguyen BDS 04/21/2024 2:00 PM EST Office Visit [address] [address] Shabbir Nguyen BDS from Last 3 Months Social History [...] Description 07/29/2024 2:00 PM EDT Office Visit [facility] [address] [place] [address] Shabbir Nguyen BDS [address] [place] [address] 08/12/2024 2:00 PM EDT Office Visit [facility] [address] [place] [address] RossAna Luisa [address] [place] [address] Health Maintenance Due Date Last Done Comments [...] FOR DENTURES Routine 04/21/2024 2:00 PM EST PROPHYLAXIS - ADULT Routine 02/11/2024 2 :00 PM EDT BITEWINGS - 2 RADIOGRAPHIC IMAGES Routine 02/11/2024 2:00 PM EDT PERIODIC ORAL EVALUATION - ESTABLISHED PATIENT Routine 02/11/2024 2:00 PM EDT INTRAORAL - COMPLETE SERIES OF RADIOGRAPHIC IMAGES Routine 10/23/2022 2:15 PM EDT Accretions on teeth from Last 3 Months or Most Recently Relevant to Health Maintenance Insurance [facility] [employer]ID STAND ADULT
--- OUTSIDE RECORDS SUMMARY | 2024-07-15 16:11 | XMS_ITS | Patient Health Record ---
[facility] Address [address] [place] [address] Care Team Providers Care Medical Illustrator Name Role Phone Galilea BURNETT, Leonidas Primary Care Provider Ana Villa Unavailable [phone] Allergies Allergen (clinical drug ingredient) Drug/Non Drug [...] Problem Status W/U Status Risk Notes Problem 737244214 Hammer toe of ri ght foot (M20.41) Active confirmed Problem 353943358 Equinus contract ure of left ankle (M24.572) Active confirmed Problem 557896725 Cerebrovascular accident (CVA), unspecified mechanism (I63.9) Active confirmed Vital Signs Blood pressure diastolic 70 mm Hg 07/23/2023 Height 5ft 6in in 07/23/2023 Blood pressure systolic 130 mm Hg 07/23/2023 Weight 137 lbs 07/23/2023 BMI 22.11 kg/m2 07/23/2023 Encounters Encounter Location Date Provider Diagnosis [facility] [address] 07/23/2023 Ana Hernandez Tinea unguium B35.1 ; Pain in right toe(s) M79.674 and Pain in left toe(s) M79.[address] [address] 09/22/2023 Ana Hernandez [address] [address] 09/30/2023 Ana Perica Assessments Encounter Date Diagnosis (ICD Code) Assessment Notes Treatment Notes Treatment Clinical Notes Section Notes 07/23/2023 Tinea unguium (ICD-10 - B35.1) 07/23/2023 Pain in right toe(s) (ICD-10 - M79.674) 07/23/2023 Pain in left toe(s) (ICD-10 - M79.675) Plan Of Treatment Pending Test Test Name Order Date X ray : Foot, left 3V 12/17/2017 [id number] NAIL, 6 OR MORE 12/17/2017 [id number] NAIL, 6 OR MORE 03/17/2018 [id number] NAIL, 6 OR MORE 07/02/2017 [id number] NAIL, 6 OR MORE 09/17/2017 Insurance Providers Payer Name Payer Address Payer Phone Subscriber Number Group Number Insured Name Patient Relationship to Insured Coverage Start Date Coverage End Date [facility] [address] [place] [address] [phone] [id number] Aleida Low Self - patient is the [...] fractured back T11 Hospitalization History Reason Date(Month/Year[place] [facility] [place] [facility] [place]2019 [facility] - [facility] Pain 03/2021 [facility] [place]10
--- OUTSIDE RECORDS SUMMARY | 2024-07-15 16:11 | XMS_ITS | Encounter Summary ---
Author Organization [employer] Address [address] [place] [address] 7[address] [place] [address] Care Team Providers Care Director Veterinary Name Role Phone Unavailable Primary Care Provider Unavailabl e Reason for Visit * Reason Comments Filling Encounter Details Date Type Department Care Team ([facility] Contact Info) Description 07/12/2024 1:00 PM EST Office Visit [facility] [address] [place] [address] Shabbir Nguyen BDS [address] [place], [place] [phone] Social History Tobacco Use Types Packs/Day Years [...] note were not included. Patient seen composite orthodox on tooth #19. Medical History Reviewed. Today's treatment reason- Huge orthodox and it is fractured disto buccalExisting orthodox with poor marginal integrity, Caries noted with explorer, recurrent caries noted, Decay present on radiograph. Decay excavated and tooth restored using matrix band/mylar strip and wedges as needed. Cavity Cleanser-CHX. Desensitizer - Gluma. Base-Ionosit. Dycal placed - Yes. Etch tooth - Yes. Technical Coordinator-i-bond. Composite material - PulpDent Bioactive, Blair Elizabeth. Vitapan classical A3.5. Contoured, occlusion checked [...] Description 07/29/2024 2:00 PM EDT Office Visit [facility] [address] [place] [address] Shabbir Nguyen BDS [address] [place] [address] 08/12/2024 2:00 PM EDT Office Visit [facility] [address] [place] [address] Ana Luisa Hawkins [address] [place] [address] documented as of this encounter Procedures Procedure [...]
--- OUTSIDE RECORDS SUMMARY | 2024-07-15 16:11 | XMS_ITS ---
Author Organization [facility] Address [address] [place] [address] Care Team Providers Care Cigarette Tipper Name Role Phone Leonidas Calero MD Primary Care Provider Ana Villa Unavailable [phone] Encounters Encounter Location Date Provider Diagnosis [facility] [address] [place] [address] 10/01/2023 Ana Hernandez Plan Of Treatment No Information Progress Notes * Aleida LAMBERT ADOB:1960 (63 yo F)Acc No.[id number]:10/01/2023 Progress Note Patient:Aleida NOE Provider:?Ana Hernandez DPM :1960???Age:62 Y???Sex:Female D ate:10/01/2023 Address:[address] [place], [place] [id number] Pcp:Leonidas Calero MD Subjective: * Chief Complaints: [...] Hernandez DPM Date:? Generated for Jazmín muro/Hector/eTransmitting on:?07/15/2024 04:11 PM EST
--- OUTSIDE RECORDS SUMMARY | 2024-07-15 16:11 | XMS_ITS ---
Author Organization [facility] Address [address] [place] [address] Care Team Providers Care Appeals And Generalist Clerk Name Role Phone Leonidas Calero MD Primary Care Provider Ana Villa [phone] REASON FOR VISIT Pt balance Encounters Encounter Location Date Provider Diagnosis [facility] [address] [place] [address] 09/22/2023 Ana Hernandez Plan Of Treatment No Information Progress Notes * Aleida LAMBERT ADOB:1960 (62 yo F)Acc No.[id number]:09/22/2023 Patient:?Aleida Lambert :1960???Age:62 Y???Sex:Female Address:[address] [place] [address] * true * Date:? Generated for Elisi bhaskar/Hector/eTransmitting on:?07/15/2024 04:11 PM EST
== END 2024-07-15 14:15 | disposition home or self-care (01) ==
PROVIDERS: PCP Family Medicine; Visit Provider Family Medicine
DX: I10 Essential (primary) hypertension (principal); E78.5 Hyperlipidemia, unspecified; M79.2 Neuralgia and neuritis, unspecified

== ENCOUNTER 2024-08-10 10:14 | Outpatient (REF) | payer BC, MEDICAID, SELFPAY ==
--- OUTSIDE RECORDS SUMMARY | 2024-08-10 12:16 | XMS_ITS | Clinical Summary ---
Author Organization [employer] Address [address] 7[address] [place] [address] Care Team Providers Care Protective Services Officer Name Role Phone Unavailable Primary Care Provider [...] 10 mg by mouth in the morning. 3 Active trospium (Sanctura XR) 60 MG 24 hour capsule 4 Active terazosin (Hytrin) 2 MG capsule 4 Active LORazepam (Ativan) 2 MG tablet Take 2 mg by mouth. 7 Active lidocaine (Lidoderm) 5 % patch As needed 3 Active Estradiol 7.5 MCG/24HR ring Insert 2 mg into the vagina every 3 months. 7 Active alendronate (Fosamax) 70 MG tablet Take 70 mg by mouth 1 (one) time per week. 4 Active amoxicillin-cl avulanate (Augmentin) 875-125 MG tablet Take 1 tablet by mouth 2 times daily. 20 tablet 5 Active lisinopril 20 MG tablet TAKE 1 AND 1/2 TABLET BY MOUTH DAILY 3 07/30/19 25 Discontinued amoxicillin (Amoxil) 500 MG capsule As needed 3 07/30/19 25 Discontinued amoxicillin (Amoxil) 500 MG capsule Take 4 tablets one hour prior dental appt 20 capsule 4 07/30/19 25 Discontinued acetaminophen (Tylenol) 500 MG tablet Take 1 tablet (500 mg) by mouth every 6 (six) hours if needed for mild pain for up to 10 days. 30 tablet 5 08/09/19 25 ibuprofen 600 MG tablet Take 1 tablet (600 mg) by mouth 3 times daily for 10 days. 30 tablet 5 08/09/19 25 Encounters Date Type Department Care Team Description 08/02/2024 2:00 PM EDT Office Visit [facility] [address] [place] [address] Shabbir Nguyen, BDS 07/29/2024 2:00 PM EDT Office Visit [facility] [address] [place] [address] Shabbir Nguyen, BDS 07/12/2024 1:00 PM EST Office Visit [facility] [address] [place] [address] Shabbir Nguyen, BDS from Last 3 Months Social History [...] Sign Reading Time Taken Comments Blood Pressure 140/76 07/29/2024 2:16 PM EDT Pulse 61 07/29/2024 2:16 PM EDT Temperature - - Respiratory Rate - - Oxygen Saturation - - Inhaled Oxygen Concentration - - Weight - - Height - - Body Mass Index - - Plan of Treatment Upcoming Encounters Date Type Department Care Team (Late st Contact Info) Description 08/12/2024 2:00 PM EDT Office Visit [facility] [address] [place] [address] Ana Luisa Hawkins [address] [place] [address] 08/16/2024 2:00 PM EDT Office Visit [facility] [address] [place] [address] Shabbir Nguyen BDS [address] [place] [address] Health Maintenance Due Date Last Done Comments [...] 0 08/06/2023, 10/23/2022 Dental X-Ray: Bitewings 02/11/2025 02/11/20 24, 10/23/2022, 10/15/2022 Tobacco Screening 08/02/2025 08/02/2024 Dental X-Ray: Full Mouth 10/24/2025 10/23/2022 Colorectal [...] Procedure Name Priority Date/Time Associated Diagnosis Comments CASE PRESENTATION, DETAILED AND EXTENSIVE TREATMENT PLANNING Routine 08/02/2024 2:00 PM EDT NO CHARGE PROCEDURE Routine 08/02/2024 2 :00 PM EDT CASE PRESENTATION, DETAILED AND EXTENSIVE TREATMENT PLANNING Routine 07/29/2024 2:00 PM EDT 24 EXTRACTION, ERUPTED TOOTH REQ REMOVAL OF BONE AND/OR SECTIONING OF TOOTH Routine 07/29/2024 2:00 PM EDT INTRAORAL - PERIAPICAL EACH ADDITIONAL RADIOGRAPHIC IMAGE Routine 07/12/2024 1:00 PM EST LIMITED ORAL EVALUATION - PROBLEM FOCUSED Routine 07/12/2024 1:00 PM EST INTRAORAL - PERIAPICAL FIRST RADIOGRAPHIC IMAGE Routine 07/12/2024 1:00 PM EST 19 RESIN-BASED COMPOSITE - 3 SURF, POSTERIOR Routine 07/12/2024 1:00 PM EST PROPHYLAXIS - ADULT Routine 02/11/2024 2 :00 PM EDT BITEWINGS - 2 RADIOGRAPHIC IMAGES Routine 02/11/2024 2:00 PM EDT PERIODIC ORAL EVALUATION - ESTABLISHED PATIENT Routine 02/11/2024 2:00 PM EDT INTRAORAL - COMPLETE SERIES OF RADIOGRAPHIC IMAGES Routine 10/23/2022 2:15 PM EDT Accretions on teeth from Last 3 Months or Most Recently Relevant to Health Maintenance Insurance [facility] MEDICAID STAND ADULT
--- OUTSIDE RECORDS SUMMARY | 2024-08-10 12:16 | XMS_ITS ---
Author Organization [facility] Address [address] [place] [address] Care Team Providers Care Theatrical Performer Name Role Phone Leonidas Calero MD Primary Care Provider Ana Villa [phone] REASON FOR VISIT cx appt 09/30 Encounters Encounter Location Date Provider Diagnosis [facility] [address] [place] [address] 09/30/2023 Ana Hernandez Plan Of Treatment No Information Progress Notes * Alieda LAMBERT ADOB:1960 (62 yo F)Acc No.[id number]:09/30/2023 Patient:?Aleida Lambert :1960???Age:62 Y???Sex:Female Address:[address] [place] [address] * true * Date:? Generated for Printi ng/Facarolag/eTransmitting on:?08/10/2024 12:16 PM EDT
--- OUTSIDE RECORDS SUMMARY | 2024-08-10 12:16 | XMS_ITS ---
Author Organization [facility] Address [address] [place] [address] Care Team Providers Care Cafeteria Helper Name Role Phone Leonidas Calero MD Primary Care Provider Ana Villa Unavailable [phone] Encounters Encounter Location Date Provider Diagnosis [facility] [address] [place] [address] 10/01/2023 Ana Hernandez Plan Of Treatment No Information Progress Notes * Aleida LAMBERT ADOB:1960 (63 yo F)Acc No.[id number]:10/01/2023 Progress Note Patient:Aleida NOE Provider:?Ana Hernandez DPM :1960???Age:62 Y???Sex:Female D ate:10/01/2023 Address:[address] [place], [place] [phone] Pcp:Leonidas Calero MD Subjective: * Chief Complaints: [...] Hernandez DPM Date:? Generated for Jazmín muro/Hector/eTransmitting on:?08/10/2024 12:16 PM EDT
--- OUTSIDE RECORDS SUMMARY | 2024-08-10 12:16 | XMS_ITS | Clinical Summary ---
Author Organization [facility] Address [address] [place] [address] Care Team Providers Care Laborer Dairy Farm Name Role Phone Unavailable Primary Care Provider [...]
--- OUTSIDE RECORDS SUMMARY | 2024-08-10 12:16 | XMS_ITS | Encounter Summary ---
Author Organization [employer] Address [address] [place] [address] 7t [place] [address] Care Team Providers Care Inner Tube Cutter Name Role Phone Unavailable Primary Care Provider Unavailabl e Reason for Visit * Reason Comments Filling Encounter Details Date Type Department Care Team ([facility] Contact Info) Description 07/12/2024 1:00 PM EST Office Visit [facility] [address] [place] [address] Shabbir Nguyen BDS [address] [place], [place] [phone] Social History Tobacco Use Types Packs/Day Years [...] note were not included. Patient seen composite taoism on tooth #19. Medical History Reviewed. Today's treatment reason- Huge taoism and it is fractured disto buccalExisting taoism with poor marginal integrity, Caries noted with explorer, recurrent caries noted, Decay present on radiograph. Decay excavated and tooth restored using matrix band/mylar strip and wedges as needed. Cavity Cleanser-CHX. Desensitizer - Gluma. Base-Ionosit. Dycal placed - Yes. Etch tooth - Yes. Steamer Blocker-i-bond. Composite material - PulpDent Bioactive, Shalini Elizabeth. Vitapan classical A3.5. Contoured, occlusion checked [...] Description 08/12/2024 2:00 PM EDT Office Visit [facility] [address] [place] [address] Ana Luisa Hawkins [address] [place] [address] 08/16/2024 2:00 PM EDT Office Visit [facility] [address] [place] [address] Shabbir Nguyen BDS [address] [place] [address] documented as of this encounter Procedures Procedure [...]
--- OUTSIDE RECORDS SUMMARY | 2024-08-10 12:16 | XMS_ITS ---
Author Organization [facility] Address [address] [place] [address] Care Team Providers Care Consumer Services Advisor Name Role Phone Leonidas Calero MD Primary Care Provider Ana Villa [phone] REASON FOR VISIT Pt balance Encounters Encounter Location Date Provider Diagnosis [facility] [address] [place] [address] 09/22/2023 Ana Hernandez Plan Of Treatment No Information Progress Notes * Aleida LAMBERT ADOB:1960 (62 yo F)Acc No.[id number]:09/22/2023 Patient:?Aleida Lambert :1960???Age:62 Y???Sex:Female Address:[address] [place] [address] * true * Date:? Generated for Printi ng/Facarolag/eTransmitting on:?08/10/2024 12:16 PM EDT
--- OUTSIDE RECORDS SUMMARY | 2024-08-10 12:17 | XMS_ITS | Encounter Summary ---
Author Organization [employer] Address [address] [place] [address] 7 [place] [address] Care Team Providers Care Staffing Recruiter Name Role Phone Unavailable Primary Care Provider Unavailabl e Reason for Visit * Reason Comments Extraction #24 Encounter Details Date Type Department Care Team ([facility] Contact Info) Description 07/29/2024 2:00 PM EDT Office Visit [facility] [address] [place], [place] [phone] Shabbir Nguyen BDS [address] [place], [place] [phone] Social History Tobacco Use Types Packs/Day Years [...] AM EDT documented as of this encounter Last Filed Vital Signs Vital Sign Reading Time Taken Comments Blood Pressure 140/76 07/29/2024 2:16 PM EDT Pulse 61 07/29/2024 2:16 PM EDT Temperature - - Respiratory Rate - - Oxygen Saturation - - Inhaled Oxygen Concentration - - Weight - - Height - - Body Mass Index - - documented in this encounter Progress Notes * Shabbir Nguyen BDS - 07/29/2024 2:00 PM EDT Images from the original note were not included. Extraction Type - Surgical. Reason for Extraction -Root canal treated with labial intra oral surface, Grossly destructed teeth,Non restorable. Tooth/Teeth - 24. Consent form signed. Confirmed X-ray, Site marked on X-ray, Confirmed with assistant spa manager, Confirmed with provider, Confirmedwith Patient/rep. Anesthetic - Yes. Type of Local Anesthetic Flap raised , Loosened attachments with periosteal elevator, Ditch created between teeth and bone , Teeth luxated with luxator, Elevated with elevator, Extracted tooth4 pieces Socket curetted with curette.facial bone has a opening due to intra oral sinus in the apical 3rd, Irrigated with Peridex, Irrigated with sterile saline. Hemostasis achieved using collagen plug, gel foam, gauze and direct pressure. Number of sutures - 1. Suture size - 3-0. Silk sutures placed. Complications - No complications. Prescription given see EHR. Post op instructions oral and written given. documented in this encounter Plan of Treatment Upcoming Encounters Date Type Department Care Team (Late st Contact Info) Description 08/12/2024 2:00 PM EDT Office Visit [facility] [address] [place] [address] Ana Luisa Hawkins [address] [place] [address] 08/16/2024 2:00 PM EDT Office Visit [facility] [address] [place] [address] Shabbir Nguyen BDS [address] [place] [address] documented as of this encounter Procedures Procedure Name Priority Date/Time Associated Diagnosis Comments 24 EXTRACTION, ERUPTED TOOTH REQ REMOVAL OF BONE AND/OR SECTIONING OF TOOTH Routine 07/29/2024 2:00 PM EDT CASE PRESENTATION, DETAILED AND EXTENSIVE TREATMENT PLANNING Routine 07/29/2024 2:00 PM EDT documented in this encounter Visit Diagnoses Not on filedocumented in this encounter
--- OUTSIDE RECORDS SUMMARY | 2024-08-10 12:17 | XMS_ITS | Encounter Summary ---
Author Organization [employer] Address [address] [place] [address] 7 [place] [address] Care Team Providers Care Exhibits Manager Name Role Phone Unavailable Primary Care Provider Unavailabl e Reason for Visit * Reason Comments Suture / Staple Removal Encounter Details Date Type Department Care Team (Late Contact Info) Description 08/02/2024 2:00 PM EDT Office Visit [facility] [address] [place] [address] Shabbir Nguyen BDS [address] [place] [address] Social History Tobacco Use Types Packs/Day Years [...] Progress Notes * Shabbir Nguyen BDS - 08/02/2024 2:00 PM EDT Sutures removed,wound healing good.Adv to continue salt water rinses and medications as advised. documented in this encounter Plan of Treatment Upcoming Encounters Date Type Department Care Team (Late Contact Info) Description 08/12/2024 2:00 PM EDT Office Visit [facility] [address] [place] [address] Ana Luisa Hawkins [address] [place] [address] 08/16/2024 2:00 PM EDT Office Visit [facility] [address] [place] [address] Shabbir Nguyen BDS [address] [place] [address] documented as of this encounter Procedures Procedure Name Priority Date/Time Associated Diagnosis Comments NO CHARGE PROCEDURE Routine 08/02/2024 2:00 PM EDT CASE PRESENTATION, DETAILED AND EXTENSIVE TREATMENT PLANNING Routine 08/02/2024 2:00 PM EDT documented in this encounter Visit Diagnoses Not on filedocumented in this encounter
[2024-08-10 14:49] LABS: Alanine Aminotransferase 32 U/L (0-31); Albumin Level 3.9 g/dL (3.5-5.0); Anion Gap 9 (12-20); Aspartate Amino Transferase 36 U/L (5-31); Bilirubin Total 0.4 mg/dL (0.0-1.0); Blood Urea Nitrogen 7 mg/dL (9-16); Carbon Dioxide 31 mmol/L (22-29); Chloride 105 mmol/L (96-108); Cholesterol 178 mg/dL (<200); Estimated Glomerular Filt Rate > 60; Glucose Fasting 83 mg/dL (60-99); HDL Cholesterol 59 mg/dL (>40); LDL Cholesterol Calculated 95 mg/dL (<100); Potassium 4.4 mmol/L (3.3-5.1); Sodium 141 mmol/L (135-145); Total Protein 6.9 g/dL (6.5-8.0); Triglycerides 123 mg/dL (<150)
[2024-08-10 15:27] LABS: Alkaline Phosphatase 71 U/L (39-117)
== END 2024-08-10 10:15 | disposition home or self-care (01) ==
LOC: HO.HMGCLDS 10:14
PROVIDERS: PCP Family Medicine; Visit Provider Family Medicine
DX: Z00.00 Encounter for general adult medical examination without abnormal findings (principal); E78.5 Hyperlipidemia, unspecified; Z86.73 Personal history of transient ischemic attack (TIA), and cerebral infarction without residual deficits
CPT/HCPCS: 36415; 80053; 80061

== ENCOUNTER 2024-08-10 15:54 | Outpatient (AMB) | payer BC, MEDICAID, SELFPAY ==
--- NOTE | 2024-08-10 15:59 | A.OFFPC_ITS ---
Vital Signs 08/10/24 16:13 Height 5 ft 7 in Weight 134 lb 5 oz BMI 21.0 BP 130/66 Blood Pressure Location Rt brachial Position Sitting Respiration 16 Pulse 64 Pulse Source Pulse Oximeter Temp 99.4 F Temp Source Oral Pulse Oximetry (%) 96 Oxygen Delivery Method Room Air Intake Visit Reasons: CPE with f/u labs and health maint Intake Note: patient is scheduled for cpe patient also had a fall on the way in to her appt Vp Software Support Required: No Is last menstrual period known: No Post menopausal: Yes Patient : No Allergies fentanyl [FENTANYL] Allergy (Unknown, Verified 08/10/24 16:07) Unknown meperidine [Demerol] Allergy (Unknown, Verified 08/10/24 16:07) rash morphine [MORPHINE] Allergy (Unknown, Verified 08/10/24 16:07) chest pressure remifentanil Allergy (Unknown, Verified 08/10/24 16:07) Rash sevoflurane Allergy (Unknown, Verified 08/10/24 16:07) Rash Sulfa (Sulfonamide Antibiotics) [SULFA(SULFONAMIDE ANTIBIOTICS)] Allergy (Unknown, Verified 08/10/24 16:07) Rash lactose Allergy (Verified 08/10/24 16:07) Abdominal Pain Ringer's solution,lactated Adverse Reaction (Verified 08/10/24 16:07) contraindicated d/t mitochondrial dz Medication List - Last Reconciled 08/10/24 by Leonidas Calero MD albuterol sulfate 90 mcg/actuation 1 inh inhalation QID PRN alendronate 70 mg PO QWEEK 84 days amlodipine 10 mg PO DAILY atorvastatin 80 mg (2 x 40 mg) PO BEDTIME 90 days calcium polycarbophil (FiberCon) 625 mg PO BID 30 days carbamazepine ER 400 mg PO BID 30 days coenzyme Q10 30 mg PO DAILY 90 days ezetimibe (Zetia) 10 mg PO DAILY 90 days fluoxetine 40 mg PO QAM hydromorphone (Dilaudid) 4 mg PO TID@1000,1600,2100 30 days inhalational spacing device (Yoni Aerosol [place] [employer] [place] Enhancer spacer) As directed lidocaine 5% (Lidoderm) 1 patch topical DAILY 30 days lisinopril 30 mg (1.5 x 20 mg) PO DAILY 90 days lorazepam 2 mg (2 x 1 mg) PO BEDTIME PRN 30 days omeprazole 20 mg PO DAILY 90 days pregabalin 200 mg (2 x 100 mg) PO Q12H 30 days solifenacin 10 mg PO DAILY terazosin 2 mg PO BEDTIME tolterodine ER 4 mg PO DAILY Tobacco use date assessed: 10/10/23 Dental Screening Dental Screen Date: 10/10/23 HPI CPE with f/u labs and health maint HPI Details 63 y/o female presents for a CPE with f/ u labs and health maintenance. Labs drawn 08/10/24. Reviewed labs with pt. Elevated liver enzymes - AST 36, ALT 32. Triglycerides 123. TC 178. LDL 95. HDL 59. She is on artovastatin 80mg. Pt reports she had fallen on her way to her appt. Blood pressure today 130/66, 64p. She is on lisinopril 30mg, amlodipine 10mg daily. Last mammogram November which was negative for malignancies. Bone density test Jun 2023 showed osteoporosis. She is on alendronate. She is tolerating this well. She notes she does cologuard tests which she did last year. Last cologuard August 2023, negative. Has some complaints of fatigue. Does have a tooth/gum infection which she follows up with a dentist for. HPI Comments History of Present Illness0 Details Documentation assistance for Leonidas Calero MD, was provided by William Gutierrez,? Route Salesperson on 08/10/2024 at 4:42 PM YULIYA. I, Dr. Calero, have read, observed, and verified documentation. ?? 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 Father No problems noted. Social History Household Members: Spouse Housing: Condominium Do you presently have visiting nurse or other home services: No Alcohol intake: never Patient Tobacco Use Status: Never used Tobacco e-Cigarette/Vaping Use: Never Used Second Hand Smoke Exposure: No Patient : No service: No Current occupational status: disabled Current occupational exposures/hazards: No Cognitive needs: Yes (wheelchair/cane) Hearing needs: No Vision needs: Yes (glasses) Questionnaire PHQ-9 Over the last 2 weeks, how often have you been bothered by any of the following problems? 1. Little interest or pleasure in doing things: not at all 2. Feeling down, depressed, or hopeless: not at all 3. Trouble falling or staying asleep, or sleeping too much: not at all 4. Feeling tired or having little energy: not at all 5. Poor appetite or overeating: not at all 6. Feeling bad about yourself - or that you are a failure or have let yourself or your family down: not at all 7. Trouble concentrating on things, such as reading the newspaper or watching television: not at all 8. Moving or speaking so slowly that other people could have noticed. Or the opposite - being so fidgety or restless that you have been moving around a lot more than usual: not at all 9. Thoughts that you would be better off or of hurting yourself in some way: not at all Total score: 0 Depression Screening Interpretation: Negative Depression Screening Done: Yes 56052 - PHQ-9 Billing: Yes Source: Developed by Drs. Saeid Reynaga, Ava Sorenson, Abraham Foster and colleagues, with an educational christina from [employer]. Thrive Questionnaire Date Thrive assessed: 08/10/24 I am a: Patient What is your living situation today?: I have a steady place to live Within the past 12 months, did the food you bought not last and you didn't have the money to get more?: Never true Within the past 12 months, did you worry whether your food would run out before you got money to buy more?: Never true Do you have trouble paying for medicines?: No Do you have trouble getting transportation to medical appointments?: No Do you have trouble paying your heating and electricity bill?: No Do you have trouble taking care of your child, family member or friend?: No Do you have trouble with day-to-day activities such as bathing, preparing meals, shopping, managing finances, etc.?: No Are you currently unemployed and looking for a job?: No Are you interested in more education?: No Please select the resources that you would like help with: None Currently or been in a relationship where the following occur: No concerns reported THRIVE Score: 0 AUDIT C Alcohol Use Questionnaire (AUDIT-C) 1. How often do you have a drink containing alcohol?: Never 3. How often do you have six or more drinks on one occasion?: Never Total Score: 0 Score Reviewed/Action Taken: Yes SANTY-7 AMB Questionnaire SANTY-7 Date SANTY - 7 assessed: 08/10/24 Feeling nervous, anxious, or on edge: 2 = More than half the days Not being able to stop or control worryin = Several days Worrying too much about different things: 1 = Several days Trouble relaxin = Not at all Being so restless that it is hard to sit still: 0 = Not at all Becoming easily annoyed or irritable: 0 = Not at all Feeling afraid as if something awful might happen: 0 = Not at all Total SANTY-7 score (0-4 normal; 5-9 mild; 10-14 moderate; 15-21 severe): 4 Source: Developed by Drs. Saeid Reynaga, Ava Sorenson, Abraham Foster and colleagues, with an educational christina from [employer]. SANTY-7 Assessment Billing SANTY-7 Assessment Tool: SANTY-7 Assessment 82327 Review of Systems Const Denies chills, Reports fatigue, Denies fever(s), Denies headache(s) and Denies weakness Eyes Denies change in vision ENT Denies dizziness, Denies headache(s), Denies hearing loss, Denies nasal congestion, Denies sinus pain, Denies sinus pressure and Denies sore throat Card Denies chest pain, Denies lightheadedness, Denies dyspnea and Denies other (palpitations) Resp Denies cough, Denies dyspnea and Denies wheezing GI Denies abdominal pain, Denies melena, Denies hematochezia, Denies change in bowel habits, Denies dyspepsia and Denies nausea Denies hematuria and Denies dysuria Musc Denies abnormal gait, Denies myalgias, Denies arthralgias, Denies numbness and Denies tingling Skin/Breast Denies rash, Denies unusual bruising and Denies wounds Neuro Denies abnormal gait, Denies dizziness, Denies headache(s), Denies memory loss, Denies numbness, Denies Sensory deficit (Neuro), Denies tingling and Denies weakness Psych Denies anxiety, Denies depression and Denies memory loss Endo Denies cold intolerance, Reports fatigue, Denies heat intolerance, Denies polydipsia and Denies polyuria Sebastien/Lymph Denies easy bleeding and Denies easy bruising Aller/Immun Denies wheezing Physical exam (Primary Care) Vital Signs: Last Vital Signs Temp 99.4 F 08/10/24 16:13 Pulse 64 08/10/24 16:13 Resp 16 08/10/24 16:13 BP 130/66 08/10/24 16:13 Pulse Ox 96 08/10/24 16:13 Oxygen Delivery Method Room Air 08/10/24 16:13 BMI result Body Mass Index 21.0 Tobacco/Smoking Status: Tobacco use Status Tobacco use date assessed 10/10/23 08/10/24 16:01 Patient Tobacco Use Status Never used Tobacco 08/10/24 16:01 e-Cigarette/Vaping Use Never Used 08/10/24 16:01 PHQ-9: PHQ-9 Score PHQ-9: Total score 0 08/10/24 16:07 Depression Screening Interpretation: Negative Thrive Assessment: Date of Thrive Assessment Date Thrive assessed 08/10/24 08/10/24 16:07 Currently or been in a relationship where the following occur: No concerns reported Const General: no acute distress, well developed, alert and awake Nutritional Appearance: well nourished Orientation/consciousness: patient oriented x3 HENMT Head: Yes normocephalic and Yes atraumatic Ears: hearing grossly normal bilaterally and TM's normal bilaterally General nose exam: Normal external nose present and Normal nares present Mouth: Normal oral and palatal mucosa present and moist mucous membranes Teeth and gingiva: dentition normal Throat: Yes posterior oropharynx normal Eyes General: appearance normal, both eyes and all related structures Pupils: Equal, round and reactive pupils present and Pupil accommodation reflex normal EOM: EOMs intact bilaterally Neck Neck: Yes normal visual inspection, Yes no lymphadenopathy and Yes trachea midline Thyroid: Thyroid normal Carotids: no bruits Lymphatic: no lymphadenopathy noted Chest Chest palpation & inspection: normal inspection of the chest Resp Effort & Inspection: normal respiratory effort Auscultation: clear to auscultation bilaterally Cardio Rate: regular rate Rhythm: regular rhythm Heart sounds: S1 normal heart sound present, S2 normal heart sound present, no gallops, no murmurs and no rubs Bruits: no abdominal aortic bruits and no carotid bruits GI Palpation (GI): No Abdominal aortic bruit present, Soft to palpation, nontender, No hepatosplenomegaly present and No Rebound tenderness present Auscultation: normal bowel sounds General: Yes no CVA tenderness Back/Spine/Pelvis Back: no CVA tenderness Cervical Spine: cervical ROM normal and No Cervical spine tenderness Thoracic/Lumbar Spine: thoraco-lumbar ROM normal, No pain with thoraco-lumbar ROM, No thoracic spinal tenderness and No lumbar spinal tenderness Skin Lesions: no lesions Rashes: no rashes Trauma: no lacerations or abrasions Wounds: no wounds Nails: normal Neuro General: patient oriented x3 Cranial nerves: Yes Equal, round and reactive pupils present Cognition (Neuro): normal cognition Gait exam (Neuro): Normal gait present Motor exam (neuro): 5/5 motor strength present throughout Sensory Exam: No Sensory deficit (Neuro) Deep tendon reflexes (DTR's): Right patellar reflex intensity grade: 2+ and Left patellar reflex intensity grade: 2+ Extrem General: Yes normal to inspection and No edema Psych Appearance: grossly normal Affect: normal affect Attitude: cooperative Thought process: Normal thought process present Coding Level of Care Code Est Pt Level 3 (63501) Est Pt Prev Care 40-64y(01641) Diagnoses Annual physical exam Z00.00 Essential hypertension I10 Hyperlipidemia E78.5 Fall W19.XXXA Encounter type: initial encounter Screening for cervical cancer Z12.4 Breast cancer screening by mammogram Z12.31 Screening for colon cancer Z12.11 History of CVA (cerebrovascular accident) Z86.73 Elevated liver enzymes R74.8 Osteoporosis M81.0 Fatigue R53.83 Tooth infection K04.7 Back pain M54.9 Additional Codes SANTY-7 Assessment Billing - SANTY-7 Assessment Tool: SANTY-7 Assessment 65261 ([id number]) PHQ-9 - 62765 - PHQ-9 Billing: Yes ([id number]) Assessment & Plan Assessment & Plan (1) Annual physical exam: Code(s): Z00.00 - Encounter for general adult medical examination without abnormal findings Category: Medical Plan: 63-year-old?female?presents?for?complete?physical?exam Encouraged?healthy?diet?with?active?lifestyle (2) Essential hypertension: Code(s): I10 - Essential (primary) hypertension Category: Medical Plan: Blood?pressure controlled.??Goal?is?less?than?130/80 Continue?current?medications (3) Hyperlipidemia: Code(s): E78.5 - Hyperlipidemia, unspecified Category: Medical Plan: Lipids?are?improved.??We?discussed?that?LDL?goal?should?be?closer?to?70?and?incr eased?atorvastatin. Continue?to?work?at?diet?low?in?saturated?fats?and?cholesterol Will?continue?to?monitor?periodically (4) Fall: Code(s): W19.XXXA - Unspecified fall, initial encounter Category: Medical Qualifiers: Encounter type: initial encounter Qualified Code(s): W19.XXXA - Unspecified fall, initial encounter Plan: Patient?had?a?trip?and?fall?in?the?waiting?room.??This?was?a?mechanical?trip No?head?injury Mild?impact at?left?knee. No?deformity,?swelling?or?abnormality?to?exam?in?office?today. She?will?let?know?if?she?has?any?pain?from?this?as?she?does?not?at?present. If?any?pain?or?swelling,?will?check?an?x-ray. (5) Screening for cervical cancer: Code(s): Z12.4 - Encounter for screening for malignant neoplasm of cervix Category: Medical Plan: Followed?by? She?will?discuss?if?she?needs?further?Pap?smears (6) Breast cancer screening by mammogram: Code(s): Z12.31 - Encounter for screening mammogram for malignant neoplasm of breast Category: Medical Plan: She?is?up-to-date?with?mammograms.??Last?mammogram?showed?no?evidence?of?maligna ncy Continue?annual?screening (7) Screening for colon cancer: Code(s): Z12.11 - Encounter for screening for malignant neoplasm of colon Category: Medical Plan: Recent?Cologuard?in?2023?was?negative Will?recheck?in?2026 (8) History of CVA (cerebrovascular accident): Comment: 2nd to Arterio-venous malformation. September 1978, July 1981, November 1981, February 1993 Code(s): Z86.73 - Personal history of transient ischemic attack (TIA), and cerebral infarction without residual deficits Category: Medical Plan: Stable (9) Elevated liver enzymes: Code(s): R74.8 - Abnormal levels of other serum enzymes Category: Medical Plan: Mildly?elevated?liver?enzymes Will?recheck?in?a?couple?of?months Hydrate?well (10) Osteoporosis: Code(s): M81.0 - Age-related osteoporosis without current pathological fracture Category: Medical Plan: She?is?on?alendronate Up-to-date?with?bone?density?testing?and?will?recheck?this?next?year. (11) Fatigue: Code(s): R53.83 - Other fatigue Category: Medical Plan: Mild?fatigue?but?patient?has?a tooth/gum?infection?which?is?being?managed?by?her ?dentist. Follow-up?dentist?as?recommended Hydrate?well?and?get?plenty?of?rest (12) Tooth infection: Code(s): K04.7 - Periapical abscess without sinus Category: Medical Plan: f/u w/ dentist (13) Back pain: Code(s): M54.9 - Dorsalgia, unspecified Category: Medical Plan: Patient?has?complaints?of ?ongoing?and?worsening?mid?back?pain.??History?of?scoliosis Check?x-ray Can?follow-up?at?visit Orders: Orders XR thoracic spine 2V Today M54.9 - Dorsalgia, unspecified Comprehensive Met. Panel Today R74.8 - Abnormal levels of other serum enzymes Medications: Refilled pregabalin 200 mg (2 x 100 mg) PO Q12H 30 days 120 caps 0RF
[2024-08-10 16:13] VITALS: BP 130/66; PULSE 64; RESP 16; TEMP 37.4; O2SAT 96; BMI 21.0
== END 2024-08-10 16:46 | disposition home or self-care (01) ==
LOC: HO.HMCFM 15:55
PROVIDERS: PCP Family Medicine; Visit Provider Family Medicine
DX: Z00.00 Encounter for general adult medical examination without abnormal findings (principal); I10 Essential (primary) hypertension; E78.5 Hyperlipidemia, unspecified; W19.XXXA Unspecified fall, initial encounter; Z12.31 Encounter for screening mammogram for malignant neoplasm of breast; Z12.11 Encounter for screening for malignant neoplasm of colon; Z86.73 Personal history of transient ischemic attack (TIA), and cerebral infarction without residual deficits; R74.8 Abnormal levels of other serum enzymes; M81.0 Age-related osteoporosis without current pathological fracture; R53.83 Other fatigue; K04.7 Periapical abscess without sinus; M54.9 Dorsalgia, unspecified

== ENCOUNTER 2024-10-07 10:36 | Outpatient (REF) | payer BC, MEDICAID, SELFPAY ==
--- OUTSIDE RECORDS SUMMARY | 2024-10-07 11:12 | XMS_ITS | Clinical Summary ---
Author Organization [employer] Address [address] [place] [address] [address] [place] [address] Care Team Providers Care Art Librarian Name Role Phone Unavailable Primary Care Provider [...] by mouth in the morning. 05/06/2023 Active trospium (Sanctura XR) 60 MG 24 hour capsule 05/21/2023 Active terazosin (Hytrin) 2 MG capsule 06/18/2023 Active LORazepam (Ativan) 2 MG tablet Take 2 mg by mouth. 02/07/2017 Active lidocaine (Lidoderm) 5 % patch As needed 05/18/2023 Active Estradiol 7.5 MCG/24HR ring Insert 2 mg into the vagina every 3 months. 11/11/2016 Active alendronate (Fosamax) 70 MG tablet Take 70 mg by mouth 1 (one) time per week. 07/11/2023 Active amoxicillin-clav ulanate (Augmentin) 875-125 MG tablet Take 1 tablet by mouth 2 times daily. 20 tablet 07/29/2024 Active Active Problems Problem Noted Date Diagnosed Date Epilepsy 10/05/2024 Mitral valve insufficiency 10/05/2024 Pain of lower extremity 10/05/2024 Use of opiates for therapeutic purposes 10/06/19 25 Primary localized osteoarthrosis of right lower leg 09/12/2023 Essential hypertension 07/16/2018 Hyperlipidemia LDL goal <70 07/16/2018 Dyspnea and respiratory abnormality 11/10/2015 PAD (peripheral artery disease) 11/10/2015 Pressure in chest 11/10/2015 Cervical spondylosis without myelopathy 09/15/19 14 Overview (10/05/2024): Cervical spondylosis without myelopathy Asthma 07/16/2012 Overview (10/05/2024): Asthma Cerebrovascular accident 07/16/2012 Overview (10/05/2024): Cerebrovascular accident Cerebral hemorrhage 07/17/2011 Overview (10/05/2024): Cerebral hemorrhage Fatigue 07/17/2011 Overview (10/05/2024): Fatigue Encounters Date Type Department Care Team Description 10/05/2024 3:00 PM EDT Office Visit [facility] [address] [place] [id number] Shabbir Nguyen, BDS 09/23/2024 1:00 PM EDT Office Visit [facility] [address] [place] [phone] Shabbir Nguyen, BDS 08/18/2024 2:30 PM EDT Office Visit [facility] [address] [place] [phone] Shabbir Nguyen, BDS 08/16/2024 2:00 PM EDT Office Visit [facility] [address] [place] [phone] Shabbir Nguyen, BDS 08/12/2024 2:00 PM EDT Office Visit [facility] [address] [place] [phone] RossAna Luisa 08/02/2024 2:00 PM EDT Office Visit [facility] [address] [place] [id number] Shabbir Nguyen, BDS 07/29/2024 2:00 PM EDT Office Visit [facility] [address] [place] [phone] Patrick, Shabbir, BDS 07/12/2024 1:00 PM EST Office Visit [address] [address] Shabbir Nguyen, BDS from Last 3 Months [...] Sign Reading Time Taken Comments Blood Pressure 150/84 10/05/2024 2:59 PM EDT Pulse 58 08/12/2024 2:08 PM EDT Temperature - - Respiratory Rate - - Oxygen Saturation - - Inhaled Oxygen Concentration - - Weight - - Height - - Body Mass Index - - Plan of Treatment Upcoming Encounters Date Type Department Care Team (Late st Contact Info) Description 01/04/2025 2:00 PM EDT Office Visit [facility] [address] [place] [phone] BereketShabbir auguste, BDS [address] [place] [phone] Health Maintenance Due Date Last Done Comments CT Colonography 1960 Colonoscopy 1960 Depression Screening 1960 FIT 1960 FOBT 1960 HIV Screening 1960 Lipid Panel 1960 SDOH Screening 1960 Sigmoidoscopy 1960 Disability Screening 1960 Alcohol/Substance Use Screening 1972 Hepatitis C Screening 1978 Pneumococcal Vaccine: 50+ Years (1 of 2 - PCV) 10/14/1979 Pap Smear 1981 Cervical Cancer Screening 1990 HPV/Cotest 1990 Mammogram 2000 Zoster Vaccines (1 of 2) 2010 RSV Patients and Patients Aged 60 years or older (1 - Risk 60-74 years 1-dose series) 2020 Dental Oral Exam 08/11/2024 02/11/2024, , 11/05/2022 Dental X-Ray: Bitewings 02/11/2025 02/11/20, 10/23/2022, 10/15/2022 Dental Prophylaxis 02/13/2025 08/12/2024, 0 02/11/2024, 08/06/2023, Additional history exists Tobacco Screening 10/05/2025 10/05/2024 Dental X-Ray: Full Mouth 10/24/2025 10/23/2022 Colorectal [...] age to complete this topic Meningococcal B Vaccine Aged Out No l onger eligible based on patient's age to complete [...] PRESENTATION, DETAILED AND EXTENSIVE TREATMENT PLANNING Routine 10/05/2024 3:00 PM EDT 24,30,25 MANDIBULAR PARTIAL DENTURE - RESIN BASE (INCLUDING, RETENTIVE/CLASPING MATERIALS, RESTS, AND TEETH) Routine 10/05/2024 3:00 PM EDT CASE PRESENTATION, DETAILED AND EXTENSIVE TREATMENT PLANNING Routine 09/23/2024 1:00 PM EDT 29 CROWN - PORCELAIN/CERAMIC Routine 09/23/2024 1:00 PM EDT 20 CROWN - PORCELAIN/CERAMIC Routine 09/23/2024 1:00 PM EDT 28 CROWN - PORCELAIN/CERAMIC Routine 09/23/2024 1:00 PM EDT CASE PRESENTATION, DETAILED AND EXTENSIVE TREATMENT PLANNING Routine 08/18/2024 2:30 PM EDT NO CHARGE PROCEDURE Routine 08/18/2024 2 :30 PM EDT NO CHARGE PROCEDURE Routine 08/16/2024 2 :00 PM EDT INTRAORAL - PERIAPICAL EACH ADDITIONAL RADIOGRAPHIC IMAGE Routine 08/16/2024 2:00 PM EDT INTRAORAL - PERIAPICAL FIRST RADIOGRAPHIC IMAGE Routine 08/16/2024 2:00 PM EDT 20 PREFABRICATED POST AND CORE IN ADDITION TO CROWN Routine 08/16/2024 12:00 AM EDT 20 ROOT CANAL Routine 08/16/2024 12:00 AM EDT 28 PREFABRICATED POST AND CORE IN ADDITION TO CROWN Routine 08/16/2024 12:00 AM EDT 28 ROOT CANAL Routine 08/16/2024 12:00 AM EDT CASE PRESENTATION, DETAILED AND EXTENSIVE TREATMENT PLANNING Routine 08/12/2024 2:00 PM EDT ORAL HYGIENE INSTRUCTIONS Routine 2024 2:00 PM EDT INTRAORAL - PERIAPICAL FIRST RADIOGRAPHIC IMAGE Routine 08/12/2024 2:00 PM EDT PROPHYLAXIS - ADULT Routine 08/12/2024 2 :00 PM EDT CASE PRESENTATION, DETAILED [...] SURF, POSTERIOR Routine 07/12/2024 1:00 PM EST BITEWINGS - 2 RADIOGRAPHIC IMAGES Routine 02/11/2024 2:00 PM EDT PERIODIC ORAL EVALUATION - ESTABLISHED PATIENT Routine 02/11/2024 2:00 PM EDT INTRAORAL - COMPLETE SERIES OF RADIOGRAPHIC IMAGES Routine 10/23/2022 2:15 PM EDT Accretions on teeth from Last 3 Months or Most Recently Relevant to Health Maintenance Insurance [facility] [employer] [place] AD[place]
--- OUTSIDE RECORDS SUMMARY | 2024-10-07 11:12 | XMS_ITS | Clinical Summary ---
Author Organization [facility] Address [address] [place] [address] Care Team Providers Care Fuels Sales Representative Name Role Phone Unavailable Primary Care Provider [...] Vaccines (1 of 2) 2010 COVID-19 Vaccine ( - 2023-2 5 season) 2024 Influenza Vaccine (Season Ended) 2025 RSV Immunization Adult Patie nts (1 - 1-dose 75+ series) 10/14/2035 HIB [...]
--- OUTSIDE RECORDS SUMMARY | 2024-10-07 11:12 | XMS_ITS | Encounter Summary ---
Author Organization [employer] Address [address] [place] [address] 7 [place] [address] Care Team Providers Care Acid Tester Name Role Phone Unavailable Primary Care Provider Unavailabl e Reason for Visit * Reason Comments Dentures Delivery Encounter Details Date Type Department Care Team ([facility] Contact Info) Description 10/05/2024 3:00 PM EDT Office Visit [facility] [address] [place] [address] [phone] Shabbir Nguyen BDS [address] [place] [address] [phone] Social History Tobacco Use Types Packs/Day Years [...] Pressure 150/84 10/05/2024 2:59 PM EDT Pulse - - Temperature - - Respiratory Rate - - Oxygen Saturation - - Inhaled Oxygen Concentration - - Weight - - Height - - Body Mass Index - - documented in this encounter Progress Notes * Shabbir Nguyen BDS - 10/05/2024 3:00 PM EDT Patient ID: Aleida Lopez is a 63 y.o. female. Time Out: Timeout Date: 10/05/24, Timeout Time: 1500 (Dentures delivery) Location: [facility] Tooth: Mandible Procedure: Dentures Verified the above with patient, restaurant assistant manager, and provider. Confirmed via patient's chart, intraorally and by radiographs. Appliance Assembler: not applicable Chief Complaint Patient presents with Dentures Delivery Medical Hx: Vitals: Blood pressure (!) 150/84. Medications, Med Hx reviewed with patient and updated in chart. Consent Obtained: The risks, benefits, indications, potential complications, and alternatives were explained to the patient and informed consent was obtained with good understanding. Treatment Provided: Dental procedures in this visit [id number] - MANDIBULAR PARTIAL DENTURE - RESIN BASE (INCLUDING, RETENTIVE/CLASPING MATERIALS, RESTS, AND TEETH) (Completed) Service provider: Shabbir Nguyen BDS Billing provider: Shabbir Nguyen BDS [id number] - CASE PRESENTATION, DETAILED AND EXTENSIVE TREATMENT PLANNING (Completed) Service provider: Shabbir Nguyen BDS Billing provider: Shabbir Nguyen BDS Tried in denture(s) -Evaluated for comfort, fit, phonetics, and stability (f, v, s, th sounds; swallow, yawn, etc) -Evaluated for satisfactory esthetics. -Occlusion verified; adjustments made as necessary. Patient has received information sheet for denture care and expectations. Pt was provided with denture case and denture brush. [place]: Television Script Writer: Maribeth Hdz Dentist: Shabbir Nguyen BDS documented in this encounter Plan of Treatment Upcoming Encounters Date Type Department Care Team (Late st Contact Info) Description 01/04/2025 2:00 PM EDT Office Visit [facility] [address] [place] [phone] Shabbir Nguyen BDS [address] [place] [phone] documented as of this encounter Procedures Procedure Name Priority Date/Time Associated Diagnosis Comments MANDIBULAR PARTIAL DENTURE - RESIN BASE (INCLUDING, RETENTIVE/CLASPING MATERIALS, RESTS, AND TEETH) Routine 10/05/2024 3:00 PM EDT CASE PRESENTATION, DETAILED AND EXTENSIVE TREATMENT PLANNING Routine 10/05/2024 3:00 PM EDT documented in this encounter Visit Diagnoses Not on filedocumented in this encounter
[2024-10-07 13:28] LABS: Alanine Aminotransferase 25 U/L (0-31); Albumin Level 4.2 g/dL (3.5-5.0); Alkaline Phosphatase 84 U/L (39-117); Anion Gap 11 (12-20); Aspartate Amino Transferase 30 U/L (5-31); Bilirubin Total 0.5 mg/dL (0.0-1.0); Blood Urea Nitrogen 6 mg/dL (9-16); Calcium 9.2 mg/dL (8.4-10.2); Carbon Dioxide 28 mmol/L (22-29); Chloride 105 mmol/L (96-108); Estimated Glomerular Filt Rate > 60; Glucose Random 85 mg/dL (60-115); Potassium 3.7 mmol/L (3.3-5.1); Sodium 140 mmol/L (135-145); Total Protein 7.2 g/dL (6.5-8.0)
== END 2024-10-07 10:37 | disposition home or self-care (01) ==
LOC: HO.HMGCLDS 10:36
PROVIDERS: PCP Family Medicine; Visit Provider Family Medicine
DX: R74.8 Abnormal levels of other serum enzymes (principal)
CPT/HCPCS: 36415; 80053

== ENCOUNTER 2024-10-14 14:33 | Outpatient (AMB) | payer BC, MEDICAID, SELFPAY ==
--- OUTSIDE RECORDS SUMMARY | 2024-10-14 14:42 | XMS_ITS | Clinical Summary ---
Author Organization [employer] Address [address] [place] [address] 7t [place] [address] Care Team Providers Care Ornamental Iron Erector Name Role Phone Unavailable Primary Care Provider [...] Description 10/05/2024 3:00 PM EDT Office Visit [facility] [address] [place] [phone] Shabbir Nguyen, BDS 09/23/2024 1:00 PM EDT Office Visit [facility] [address] [place] [phone] Shabbir Nguyen, BDS 08/18/2024 2:30 PM EDT Office Visit [facility] [address] [place] [address] [phone] Shabbir Nguyen, BDS 08/16/2024 2:00 PM EDT Office Visit [facility] [address] [place] [address] Shabbir Nguyen, BDS 08/12/2024 2:00 PM EDT Office Visit [facility] [address] [place] [address] Ana Luisa Hawkins 08/02/2024 2:00 PM EDT Office Visit [facility] [address] [place] [phone] Shabbir Nguyen BDS 07/29/2024 2:00 PM EDT Office Visit [facility] [address] [place] [phone] Shabbir Nguyen BDS from Last 3 Months [...] Description 01/04/2025 2:00 PM EDT Office Visit [facility] [address] [place] [phone] BereketShabbir auguste, BDS [address] [place] [phone] Health Maintenance Due Date Last Done Comments [...] OF TOOTH Routine 07/29/2024 2:00 PM EDT BITEWINGS - 2 RADIOGRAPHIC IMAGES Routine 02/11/2024 2:00 PM EDT PERIODIC ORAL EVALUATION - ESTABLISHED PATIENT Routine 02/11/2024 2:00 PM EDT INTRAORAL - COMPLETE SERIES OF RADIOGRAPHIC IMAGES Routine 10/23/2022 2:15 PM EDT Accretions on teeth from Last 3 Months or Most Recently Relevant to Health Maintenance Insurance [facility]ICA[facility] STAND ADULT
--- NOTE | 2024-10-14 14:43 | MHC.PC.OV ---
Vital Signs 10/14/24 14:48 Height 5 ft 7 in Weight 135 lb BMI 21.1 BP 126/64 Blood Pressure Location Lt brachial Position Sitting Respiration 14 Pulse 57 Pulse Source Pulse Oximeter Temp 97.7 F Temp Source Oral Pulse Oximetry (%) 98 Oxygen Delivery Method Room Air Intake Visit Reasons: f/u labs Intake Note: patient is scheduled for lab follow-up patient like to know how to prevent alzheimer Allergies fentanyl [FENTANYL] Allergy (Unknown, Verified 10/14/24 14:46) Unknown meperidine [Demerol] Allergy (Unknown, Verified 10/14/24 14:46) rash morphine [MORPHINE] Allergy (Unknown, Verified 10/14/24 14:46) chest pressure remifentanil Allergy (Unknown, Verified 10/14/24 14:46) Rash sevoflurane Allergy (Unknown, Verified 10/14/24 14:46) Rash Sulfa (Sulfonamide Antibiotics) [SULFA(SULFONAMIDE ANTIBIOTICS)] Allergy (Unknown, Verified 10/14/24 14:46) Rash lactose Allergy (Verified 10/14/24 14:46) Abdominal Pain Ringer's solution,lactated Adverse Reaction (Verified 10/14/24 14:46) contraindicated d/t mitochondrial dz Medication List - Last Reconciled 10/14/24 by Leonidas Calero MD albuterol sulfate 90 mcg/actuation 1 inh inhalation QID PRN alendronate 70 mg PO QWEEK 84 days amlodipine 10 mg PO DAILY atorvastatin 80 mg (2 x 40 mg) PO BEDTIME 90 days calcium polycarbophil (FiberCon) 625 mg PO BID 30 days carbamazepine ER 400 mg PO BID 30 days coenzyme Q10 30 mg PO DAILY 90 days ezetimibe (Zetia) 10 mg PO DAILY 90 days fluoxetine 40 mg PO QAM hydromorphone (Dilaudid) 4 mg PO TID@1000,1600,2100 30 days inhalational spacing device (Yoni Aerosol Ralls Enhancer spacer) As directed lidocaine 5% (Lidoderm) 1 patch topical DAILY 30 days lisinopril 30 mg (1.5 x 20 mg) PO DAILY 90 days lorazepam 2 mg (2 x 1 mg) PO BEDTIME PRN 30 days omeprazole 20 mg PO DAILY 90 days pregabalin 200 mg (2 x 100 mg) PO Q12H 30 days solifenacin 10 mg PO DAILY terazosin 2 mg PO BEDTIME tolterodine ER 4 mg PO DAILY Tobacco use date assessed: 10/14/24 Fall risk assessment: 1 Fall in past year Last assessed Fall Risk: 08/17/24 Dental Screening Dental Screen Date: 10/14/24 Did you have a dental visit in the last 12 months?: Yes Did you have a dental problem in the last 6 months where you did not have access to dental care?: No Was dental information given to patient?: No HPI f/u labs HPI Details 64 y/o female presents to f/u elevated liver enzymes, mid back pain. Labs ordered 10/07/24. Reviewed labs with pt. Liver enzymes improved - AST 30, ALT 25. 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 Father No problems noted. Social History Household Members: Spouse Housing: Condominium Do you presently have visiting nurse or other home services: No Alcohol intake: never Patient Tobacco Use Status: Never used Tobacco e-Cigarette/Vaping Use: Never Used Second Hand Smoke Exposure: No service: No Current occupational status: disabled Current occupational exposures/hazards: No Cognitive needs: Yes (wheelchair/cane) Hearing needs: No Vision needs: Yes (glasses) Questionnaire Thrive Questionnaire Date Thrive assessed: 07/15/24 I am a: Patient What is your living situation today?: I have a steady place to live Within the past 12 months, did the food you bought not last and you didn't have the money to get more?: Never true Within the past 12 months, did you worry whether your food would run out before you got money to buy more?: Never true Do you have trouble paying for medicines?: No Do you have trouble getting transportation to medical appointments?: No Do you have trouble paying your heating and electricity bill?: No Do you have trouble taking care of your child, family member or friend?: No Do you have trouble with day-to-day activities such as bathing, preparing meals, shopping, managing finances, etc.?: No Are you currently unemployed and looking for a job?: No Are you interested in more education?: No Please select the resources that you would like help with: None Currently or been in a relationship where the following occur: No concerns reported THRIVE Score: 0 SANTY-7 AMB Questionnaire SANTY-7 Date SANTY - 7 assessed: 08/10/24 Source: Developed by Drs. Saeid Reynaga, Ava Sorenson, Abraham Foster and colleagues, with an educational christina from [employer]. Review of Systems Const Denies chills, Denies fatigue, Denies fever(s), Denies headache(s) and Denies weakness ENT Denies dizziness and Denies headache(s) Card Denies dyspnea Resp Denies cough, Denies dyspnea, Denies wheezing and Denies other (shortness of breath) Musc Denies numbness and Denies tingling Neuro Denies dizziness, Denies headache(s), Denies numbness, Denies tingling and Denies weakness Psych Denies anxiety and Denies depression Endo Denies fatigue Aller/Immun Denies wheezing Physical exam (Primary Care) Vital Signs: Last Vital Signs Temp 97.7 F 10/14/24 14:48 Pulse 57 10/14/24 14:48 Resp 14 10/14/24 14:48 BP 126/64 10/14/24 14:48 Pulse Ox 98 10/14/24 14:48 Oxygen Delivery Method Room Air 10/14/24 14:48 BMI result Body Mass Index 21.1 Tobacco/Smoking Status: Tobacco use Status Tobacco use date assessed 10/14/24 10/14/24 14:55 Patient Tobacco Use Status Never used Tobacco 10/14/24 14:45 e-Cigarette/Vaping Use Never Used 10/14/24 14:45 Thrive Assessment: Date of Thrive Assessment Date Thrive assessed 07/15/24 10/14/24 14:45 Currently or been in a relationship where the following occur: No concerns reported Const General: well developed; No acute distress Nutritional Appearance: well nourished Orientation/consciousness: patient oriented x3 HENMT Head: Yes normocephalic and Yes atraumatic Eyes General: appearance normal, both eyes and all related structures Pupils: Equal, round and reactive pupils present EOM: EOMs intact bilaterally Resp Effort & Inspection: normal respiratory effort Neuro General: patient oriented x3 and gait normal Cranial nerves: Yes Equal, round and reactive pupils present Psych Affect: normal affect Coding Level of Care Code Est Pt Level 5 (38969) Diagnoses Elevated liver enzymes R74.8 Back pain M54.9 Unsteady gait R26.81 Sleep apnea G47.30 Knee pain M25.569 Assessment & Plan Assessment & Plan (1) Elevated liver enzymes: Code(s): R74.8 - Abnormal levels of other serum enzymes Category: Medical Plan: liver enzymes back in normal range continue good hydration can use Tylenol within prescribed limits does not drink alcohol will continue to monitor (2) Back pain: Code(s): M54.9 - Dorsalgia, unspecified Category: Medical Plan: chronic back pain which had been worsened after a T12 compression fracture also has scoliosis will benefit from physical therapy - ordered will continue pain medication regimen (3) Unsteady gait: Code(s): R26.81 - Unsteadiness on feet Category: Medical Plan: physical therapy ordered (4) Sleep apnea: Code(s): G47.30 - Sleep apnea, unspecified Category: Medical Plan: referred to Sleep Medicine (5) Knee pain: Code(s): M25.569 - Pain in unspecified knee Category: Medical Plan: Worsening right knee pain and severe arthritis but may be poor candidate for surgery due to prior complications with anesthesia. Has had injection therapy without improvement. I will continue to manage pain medications ? Other modalities such as radiofrequency ablation Plan she will return in 1 month to follow-up back pain and lumbar spine x-rays we can follow-up on how she is doing with physical therapy and ensure she has an appointment with pain management. 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
[2024-10-14 14:48] VITALS: BP 126/64; PULSE 57; RESP 14; TEMP 36.5; O2SAT 98; BMI 21.1
== END 2024-10-14 16:19 | disposition home or self-care (01) ==
LOC: HO.HMCFM 14:34
PROVIDERS: PCP Family Medicine; Visit Provider Family Medicine
DX: R74.8 Abnormal levels of other serum enzymes (principal); M54.9 Dorsalgia, unspecified; M25.561 Pain in right knee; R26.81 Unsteadiness on feet; G47.30 Sleep apnea, unspecified

== ENCOUNTER → 2024-10-14 14:33 | Outpatient (BNVA) | payer BC, MEDICAID, SELFPAY | PROVIDERS: PCP Family Medicine; Visit Provider Family Medicine ==

== ENCOUNTER 2024-10-18 13:48 | Outpatient (REF) | payer BC, MEDICAID, SELFPAY ==
--- NOTE | ~2024-10-18 | XR_ITS ---
EXAMINATION: XR THORACIC SPINE CLINICAL INFORMATION: M54.9 - Dorsalgia, unspecified COMPARISON: January 16, 2023 TECHNIQUE: AP and lateral views of the thoracic spine were obtained. FINDINGS: There is no bone mineral density. There is subtle S-shaped curvature of the spine on the AP view. Mild superior endplate concavity at T3 is new since the prior. There is stable mild loss of height of T9. Methacrylate from vertebroplasty is present at T11 and at T12 compared to the prior where there was a superior endplate compression fracture. Visualized pulmonary and cardiac and mediastinal structures are unremarkable. XR/XR thoracic spine 2V IMPRESSION: Age-indeterminate mild superior endplate compression fracture of T3 has likely occurred since the prior study of December 2022. Stable T9 compression fracture. T11 and T12 compression fracture status post cement stabilization. Electronically signed by: Demond Handley MD 10/19/2024 10:48 AM EDT
--- OUTSIDE RECORDS SUMMARY | 2024-10-18 15:03 | XMS_ITS | Clinical Summary ---
Author Organization [employer] Address [address] [place] [address] 7t [place] [address] Care Team Providers Care Apprise Counselor Name Role Phone Unavailable Primary Care Provider [...] Description 10/05/2024 3:00 PM EDT Office Visit [facility] [address] [place] [phone] Shabibr Nguyen, BDS 09/23/2024 1:00 PM EDT Office Visit [facility] [address] [place] [address] Shabbir Nguyen, BDS 08/18/2024 2:30 PM EDT Office Visit [facility] [address] [place] [address] Shabbir Nguyen, BDS 08/16/2024 2:00 PM EDT Office Visit [facility] [address] [place] [address] Shabbir Nguyen, BDS 08/12/2024 2:00 PM EDT Office Visit [facility] [address] [place] [address] Ana Luisa Hawkins 08/02/2024 2:00 PM EDT Office Visit [facility] [address] [place] [phone] Shabbir Nguyen BDS 07/29/2024 2:00 PM EDT Office Visit [facility] [address] [place] [phone] Shabbir Nguyen BDS from Last 3 Months [...] Description 01/04/2025 2:00 PM EDT Office Visit [facility] [address] [place] [address] BereketShabbir augutse, BDS [address] [place] [phone] Health Maintenance Due Date Last Done Comments [...]
== END 2024-10-18 13:49 | disposition home or self-care (01) ==
LOC: HO.HMGCX 13:48
PROVIDERS: PCP Family Medicine; Visit Provider Family Medicine
DX: M54.9 Dorsalgia, unspecified (principal)
CPT/HCPCS: 72070

== ENCOUNTER → 2024-10-18 13:53 | Outpatient (BNV) | payer BC, MEDICAID, SELFPAY | PROVIDERS: PCP Family Medicine; Visit Provider Radiology Diagnostic Radiology | DX: S22.070A Wedge compression fracture of T9-T10 vertebra, initial encounter for closed fracture (principal) | CPT/HCPCS: 72070 ==

== ENCOUNTER 2024-11-25 13:39 | Outpatient (AMB) | payer BC, MEDICAID, SELFPAY ==
--- OUTSIDE RECORDS SUMMARY | 2024-11-25 13:44 | XMS_ITS | Clinical Summary ---
Author Organization [employer] Address [address] [place] [address] [address] [place] [address] Care Team Providers Care Snow Groomer Name Role Phone Unavailable Primary Care Provider [...] Description 10/05/2024 3:00 PM EDT Office Visit [facility] [address] [place] [address] Shabbir Nguyen BDS 09/23/2024 1:00 PM EDT Office Visit [facility] [address] [place] [phone] Shabbir Nguyen BDS from Last 3 Months [...] Description 01/04/2025 2:00 PM EDT Office Visit [facility] [address] [place], [place] [phone] Shabbir Nguyen, BDS [address] [place], [place] [phone] Health Maintenance Due Date Last Done Comments [...] 2000 Zoster Vaccines (1 of 2) 2010 Dental Oral Exam 08/11/2024 02/11/2024, , 11/05/2022 Influenza Vaccine (#1) 2025 4, 05/14/2023, 02/20/2022, Additional history exists Dental X-Ray: Bitewings 02/11/2025 02/11/20 24, 10/23/2022, 10/15/2022 Dental Prophylaxis 02/13/2025 08/12/2024, 0 02/11/2024, 08/06/2023, Additional history exists Tobacco Screening 10/05/2025 10/05/2024 Dental X-Ray: Full Mouth 10/24/2025 10/23/2022 Colorectal Cancer Screening 09/14/2026 FIT DNA/Cologuard 09/14/2026 09/15/2023, 01/09/2021 DTaP/Tdap/Td Vaccines (2 - Td or Tdap) 03/30/2031 03/30/2021 RSV Patients and Patients Aged 60 years or older Completed 06/26/2023 COVID-19 Vaccine Completed 01/31/2024, , 05/02/2021, Additional history exists HIB Vaccines Aged Out [...] - PORCELAIN/CERAMIC Routine 09/23/2024 1:00 PM EDT PROPHYLAXIS - ADULT Routine 08/12/2024 2 :00 PM EDT BITEWINGS - 2 RADIOGRAPHIC IMAGES Routine 02/11/2024 2:00 PM EDT PERIODIC ORAL EVALUATION - ESTABLISHED PATIENT Routine 02/11/2024 2:00 PM EDT INTRAORAL - COMPLETE SERIES OF RADIOGRAPHIC IMAGES Routine 10/23/2022 2:15 PM EDT Accretions on teeth from Last 3 Months or Most Recently Relevant to Health Maintenance Insurance [facility] MEDICA[facility] STAND ADULT
--- OUTSIDE RECORDS SUMMARY | 2024-11-25 13:44 | XMS_ITS | Clinical Summary ---
Author Organization [facility] Address [address] [place] [address] Care Team Providers Care Loop Tender Name Role Phone Unavailable Primary Care Provider [...] 2023-2 5 season) 2024 Influenza Vaccine (#1) 2025 RSV Immunization Adult Patie nts (1 [...] 5 Years) and At-Risk Patients (6 to 49 Years) Aged Out No longer eligible b ased on patient's age to complete this topic RSV Immunization Patients Un lauren 20 months Aged Out No longer eligible b ased on patient's age to complete this topic Varicella Vaccines Aged Out No longer eligible based on patient's age to complete this topic
--- NOTE | 2024-11-25 13:53 | MHC.PC.OV ---
Vital Signs 11/25/24 14:01 Height 5 ft 7 in Weight 133 lb BMI 20.8 BP 120/70 Blood Pressure Location Rt brachial Position Sitting Respiration 14 Pulse 62 Pulse Source Pulse Oximeter Temp 98.7 F Temp Source Oral Pulse Oximetry (%) 96 Oxygen Delivery Method Room Air Intake Visit Reasons: f/u back pain, chronic conditions Intake Note: patient is scheduled to follow up on back pain and chronic conditions Tip Scourer Required: No Allergies fentanyl (FENTANYL) Allergy (Unknown, Verified 11/25/24 13:58) Unknown meperidine (Demerol) Allergy (Unknown, Verified 11/25/24 13:58) rash morphine (MORPHINE) Allergy (Unknown, Verified 11/25/24 13:58) chest pressure remifentanil Allergy (Unknown, Verified 11/25/24 13:58) Rash sevoflurane Allergy (Unknown, Verified 11/25/24 13:58) Rash Sulfa (Sulfonamide Antibiotics) (SULFA(SULFONAMIDE ANTIBIOTICS)) Allergy (Unknown, Verified 11/25/24 13:58) Rash lactose Allergy (Verified 11/25/24 13:58) Abdominal Pain Ringer's solution,lactated Adverse Reaction (Verified 11/25/24 13:58) contraindicated d/t mitochondrial dz Medication List - Last Reconciled 11/25/24 by Leonidas Calero MD albuterol sulfate 90 mcg/actuation 1 inh inhalation QID PRN alendronate 70 mg PO QWEEK 84 days amlodipine 10 mg PO DAILY atorvastatin 80 mg (2 x 40 mg) PO BEDTIME 90 days calcium polycarbophil (FiberCon) 625 mg PO BID 30 days carbamazepine ER 400 mg PO BID 90 days coenzyme Q10 30 mg PO DAILY 90 days ezetimibe (Zetia) 10 mg PO DAILY 90 days fluoxetine 40 mg PO QAM hydromorphone (Dilaudid) 4 mg PO TID@1000,1600,2100 30 days inhalational spacing device (Yoni Aerosol Lorain Enhancer spacer) As directed lidocaine 5% (Lidoderm) 1 patch topical DAILY 30 days lisinopril 30 mg (1.5 x 20 mg) PO DAILY 90 days lorazepam 2 mg (2 x 1 mg) PO BEDTIME PRN 30 days omeprazole 20 mg PO DAILY 90 days pregabalin 200 mg (2 x 100 mg) PO Q12H 30 days terazosin 2 mg PO BEDTIME tolterodine ER 4 mg PO DAILY Tobacco use date assessed: 10/14/24 Dental Screening Dental Screen Date: 10/14/24 HPI f/u back pain, chronic conditions HPI Details 64 y/o female presents to f/u back pain, chronic conditions. Thoracic spine x-rays 10/18/24 shows: Age-indeterminate mild superior endplate compression fracture of T3 has likely occurred since the prior study of December 2022. Stable T9 compression fracture. T11 and T12 compression fracture status post cement stabilization. She is on alendronate for osteoporosis. Blood pressure today 120/70, 62p. She is on lisinopril 30mg, amlodipine 10mg daily. 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 Father No problems noted. Social History Household Members: Spouse Housing: Condominium Do you presently have visiting nurse or other home services: No Alcohol intake: never Patient Tobacco Use Status: Never used Tobacco e-Cigarette/Vaping Use: Never Used Second Hand Smoke Exposure: No service: No Current occupational status: disabled Current occupational exposures/hazards: No Cognitive needs: Yes (wheelchair/cane) Hearing needs: No Vision needs: Yes (glasses) Questionnaire Thrive Questionnaire Date Thrive assessed: 07/15/24 I am a: Patient What is your living situation today?: I have a steady place to live Within the past 12 months, did the food you bought not last and you didn't have the money to get more?: Never true Within the past 12 months, did you worry whether your food would run out before you got money to buy more?: Never true Do you have trouble paying for medicines?: No Do you have trouble getting transportation to medical appointments?: No Do you have trouble paying your heating and electricity bill?: No Do you have trouble taking care of your child, family member or friend?: No Do you have trouble with day-to-day activities such as bathing, preparing meals, shopping, managing finances, etc.?: No Are you currently unemployed and looking for a job?: No Are you interested in more education?: No Please select the resources that you would like help with: None Currently or been in a relationship where the following occur: No concerns reported THRIVE Score: 0 SANTY-7 AMB Questionnaire SANTY-7 Date SANTY - 7 assessed: 08/10/24 Source: Developed by Drs. Saeid Reynaga, Ava Sorenson, Abraham Foster and colleagues, with an educational christina from [employer]. Review of Systems Const Denies chills, Denies fatigue, Denies fever(s), Denies headache(s) and Denies weakness ENT Denies dizziness and Denies headache(s) Card Denies dyspnea Resp Denies cough, Denies dyspnea, Denies wheezing and Denies other (shortness of breath) Musc Denies numbness and Denies tingling Neuro Denies dizziness, Denies headache(s), Denies numbness, Denies tingling and Denies weakness Psych Denies anxiety and Denies depression Endo Denies fatigue Aller/Immun Denies wheezing Physical exam (Primary Care) Vital Signs: Last Vital Signs Temp 98.7 F 11/25/24 14:01 Pulse 62 11/25/24 14:01 Resp 14 11/25/24 14:01 BP 120/70 11/25/24 14:01 Pulse Ox 96 11/25/24 14:01 Oxygen Delivery Method Room Air 11/25/24 14:01 BMI result Body Mass Index 20.8 Tobacco/Smoking Status: Tobacco use Status Tobacco use date assessed 10/14/24 11/25/24 13:54 Patient Tobacco Use Status Never used Tobacco 11/25/24 13:54 e-Cigarette/Vaping Use Never Used 11/25/24 13:54 Thrive Assessment: Date of Thrive Assessment Date Thrive assessed 07/15/24 11/25/24 13:54 Currently or been in a relationship where the following occur: No concerns reported Const General: well developed; No acute distress Nutritional Appearance: well nourished Orientation/consciousness: patient oriented x3 HENMT Head: Yes normocephalic and Yes atraumatic Eyes General: appearance normal, both eyes and all related structures Pupils: Equal, round and reactive pupils present EOM: EOMs intact bilaterally Resp Effort & Inspection: normal respiratory effort Neuro General: patient oriented x3 and gait normal Cranial nerves: Yes Equal, round and reactive pupils present Psych Affect: normal affect Coding Level of Care Code Est Pt Level 4 (36653) Diagnoses Back pain M54.9 Knee pain M25.569 Osteoporosis M81.0 Essential hypertension I10 Hyperlipidemia E78.5 Assessment & Plan Assessment & Plan (1) Back pain: Code(s): M54.9 - Dorsalgia, unspecified Category: Medical Plan: Patient has had ongoing upper back pain and latest thoracic x-ray shows C3 compression fracture which is likely new compared with 2022 plain film. Will refer her back to ortho (2) Knee pain: Code(s): M25.569 - Pain in unspecified knee Category: Medical Plan: Ongoing knee pain She is interested in alternative/intervene medication therapies and will let me know she contacts them. (3) Osteoporosis: Code(s): M81.0 - Age-related osteoporosis without current pathological fracture Category: Medical Plan: She is taking alendronate and and vitamin-D in her multivitamin. Encouraged good calcium sources (4) Essential hypertension: Code(s): I10 - Essential (primary) hypertension Category: Medical Plan: Blood pressure is well controlled. Goal is less than 130/80 Continue current medications (5) Hyperlipidemia: Code(s): E78.5 - Hyperlipidemia, unspecified Category: Medical Plan: She is taking atorvastatin along with Co Q10 and tolerating this. Lipids are all in controlled range. Continue atorvastatin Orders: Orders Carbamazepine Tegretol Today R56.9 - Unspecified convulsions Medications: Changed From carbamazepine ER 400 mg PO BID 30 days 60 tabs 3RF To carbamazepine ER 400 mg PO BID 180 tabs 6RF 90 days
[2024-11-25 14:01] VITALS: BP 120/70; PULSE 62; RESP 14; TEMP 37.1; O2SAT 96; BMI 20.8
== END 2024-11-25 14:42 | disposition home or self-care (01) ==
LOC: HO.HMCFM 13:40
PROVIDERS: PCP Family Medicine; Visit Provider Family Medicine
DX: M54.9 Dorsalgia, unspecified (principal); M25.569 Pain in unspecified knee; M81.0 Age-related osteoporosis without current pathological fracture; I10 Essential (primary) hypertension; E78.5 Hyperlipidemia, unspecified

== ENCOUNTER 2025-02-18 13:55 | Outpatient (REF) | payer BC, MEDICAID, SELFPAY ==
--- OUTSIDE RECORDS SUMMARY | 2025-02-18 14:03 | XMS_ITS | Clinical Summary ---
Author Organization [facility] Address [address] [address] Phone Care Team Providers Care Alarm Installation Technician Name Role Phone Dante Faustin MD Unavailable [phone] Leonidas Calero MD Primary Care Provider Allergies Active Allergy Reactions Criticality Noted Date Comments Clonidine 10/15/2022 Other Reaction(s): unsure of reaction Other reaction(s): unsure of reaction Fentanyl Shortness Of Breath High 03/13/2020 Meperidine Rash Low 04/16/2012 Free text to coded by Fani Navarro.Demerol Morphine Shortness Of Breath,Other (See Comments) High 11/25/2001 Heaviness in chest Phenytoin Rash Low 04/16/2012 free text to coded by Fani Navarro.Dilantin Physiological Irrigating Solution 09/12/2023 Other Reaction(s): 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 Sulfamethoxazole-Trime thoprim Unknown 10/15/2022 Other reaction(s): Unknown Medications nitroglycerin (NITROSTAT) 0.[address] 0.4 mg under the tongue every 5 (five) minutes as needed for chest pain. Active LORazepam (ATIVAN) 0.5 MG tablet Take 2 mg by mouth nightly at bedtime. Active lactulose (CONSTULOSE) 10 gram/15 mL (15 mL) Soln Take by mouth nightly. Active ammonium lactate (LAC-HYDRIN) 12 % lotion Apply topically as needed for dry skin. Active nitroglycerin (NITROSTAT) 0.4 MG SL tabletIndicatio ns:Chest tightness or pressure Place 1 tablet (0.4 mg total) under the tongue every 5 (five) minutes as needed for chest pain. 30 tablet 3 7 Active Additional Information Patient not taking.Reported on 05/06/2024 amLODIPine (NORVASC) 5 MG tablet Take 10 mg by mouth daily. Active esomeprazole (NEXIUM) 40 MG capsule Take 40 mg by mouth daily before breakfast. Active pregabalin (LYRICA) 100 MG capsule Take 100 mg by mouth 5 (five) times a day. Active terazosin (HYTRIN) 2 MG capsule Take 2 mg by mouth nightly at bedtime. Active levOCARNitine (CARNITOR) 330 mg tablet Take 990 mg by mouth 2 (two) times a day. Active rOPINIRole (REQUIP) 2 MG tablet Take 2 mg by mouth nightly at bedtime. Active montelukast (SINGULAIR) 10 mg tablet Take 10 mg by mouth nightly at bedtime. Active carBAMazepine (TEGRETOL XR) 400 MG 12 hr tablet Take 400 mg by mouth 2 (two) times a day. Active armodafinil (NUVIGIL) 250 mg tablet Take 250 mg by mouth daily. Active estradiol (ESTRING) 2 mg (7.5 mcg /24 hour) vaginal ring Place 2 mg vaginally every 3 (three) months. follow package directions Active FLUoxetine (PROZAC) 10 MG capsule Take 10 mg by mouth daily. Plus 40mg total 50mg/day Active FLUoxetine (PROZAC) 40 MG capsule Take 40 mg by mouth daily. Active aspirin 81 mg chewable tablet Take 1 tablet (81 mg total) by mouth daily. 60 tablet 3 0 Active Additional Information Patient not taking.Reported on 05/06/2024 alendronate (FOSAMAX) 70 MG tablet Take 70 mg by mouth once a week. Active ezetimibe (ZETIA) 10 mg tablet Take 10 mg by mouth daily. Active lisinopril (PRINIVIL,ZESTR IL) 20 MG tablet TAKE 1 AND 1/2 TABLET BY MOUTH DAILY Active Active Problems Problem Noted Date Diagnosed Date Primary localized osteoarthrosis of right lower leg 09/12/2023 Essential hypertension 07/16/2018 Assessment & Plan (07/16/2018 8:09 AM EST): BP at PCP's office yesterday 194/108. PC increased amlodipine from 5 to 10 mg daily. BP stable today 136/82. -Continue home blood pressure monitoring contact PCP if readings consistently >130/80. 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 Diet is already optimized (very low in sat fat and cholesterol). We will put in the paperwork for PCSK9i. Handling and use of autoinjector explained. She will get lipids after the third shot and we will talk on the phone. She will return to see me the same day she sees Dr. Faustin in May, (lipids to be repeated prior to that visit as well) Assessment & Plan (07/16/2018 8:15 AM EST): Not currently on lipid lowering therapy. No current cholesterol levels. Last LDL on file 197 (2013). -Advised patient to send us copy of recent lipid panel. -Referral to lipid specialist. PAD (peripheral artery disease) 11/10/2015 Assessment & Plan (07/16/2018 7:53 AM EST): 1987 Aortobifemoral bypass 01/2017 CTA ABD Aorta/ LE: Mod stenosis dREIA, mod focal high grade stenosis dREIA/pCFA, mod stenosis Left dEIA/pLCFA. Today reports worsening bilat leg heaviness the past few months. No CLI., lower extremity pulses intact, bilat femoral bruit R>L. -Exercise PVR/LEONEL's and doppler duplex US of aorta/iliac grafts ordered. Assessment & Plan (11/10/2015 6:42 PM EDT): Will obtain rest LEOENL's/ PVR's along with bilateral arterial duplex. Dyspnea and respiratory abnormality 11/10/2015 Assessment & Plan (11/10/2015 6:43 PM EDT): Will obtain adenosine MIBI. Echo at outside with moderate MR. Will need surveillance studies. Pressure in chest 11/10/2015 Assessment & Plan (07/16/2018 8:15 AM EST): 2016 ETT MIBI: EF 69%, ECG and MPI negative for ischemia. Chest pressure improved since initiation antibiotic therapy. -If patient develops any chest pain/pressure, palpitations, SOB, SCHMIDT, she should notify office or call 911 depending on severity of symptoms. Assessment & Plan (11/10/2015 6:45 PM EDT): C/o rest and exertional chest pressure. She took one of her 's metoprolol and it helped. Will obtain adenosine MIBI ( unable to walk). She was provided with sl TNG prescription. No additional meds at this time until testing is back. 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 No new neurological complaints. Not currently followed by neurologist, not currently on ASA. Offered referral to [facility] neurologist. Patient would like to see neurologist closer to home. -Advised patient to contact PCP for neurology referral. Cerebral hemorrhage 07/17/2011 Overview (07/09/2014): Cerebral hemorrhage Fatigue 07/17/2011 Overview (07/09/2014): Fatigue Family History Relation Status Comments Father Mother Social History Tobacco Use Types Packs/Day Years Used Date Smoking Tobacco: Never Smokeless Tobacco: Never Tobacco Cessation:Counseling Given: Not Answered Alcohol Use Standard Drinks/Week Comments Yes 0 (1 standard drink = 0.6 oz pur e alcohol) social Education Answer Date Recorded Are you interested in more education? Not on guy e 09/26/2022 Are you concerned about learning? Not on file 09/26/2022 No 09/26/2022 No 09/26/2022 Digital Access Answer Date Recorded No 2022 No 2022 Reliable internet access at home? Not on file 2022 Device with a working camera? Not on file Comments No Sex and Gender Information Value Date Recorded Sex Assigned at Not on file Legal Sex Female 6:52 PM EST Gender Identity Not on file Sexual Orientation Not on file Last Filed Vital Signs Vital Sign Reading Time Taken Comments Blood Pressure 146/80 03/13/2020 1:02 PM EDT Pulse 56 03/13/2020 9:30 AM EDT Temperature 36.2 C (97.2 F) 03/13/2020 9:27 AM EDT Respiratory Rate 13 03/13/2020 9:30 AM EDT Oxygen Saturation 97% 03/13/2020 1:02 PM EDT Inhaled Oxygen Concentration - - Weight 63.5 kg (140 lb) 09/12/2023 3:36 PM EDT Height 170.2 cm (5' 7 ) 09/12/2023 3:36 PM EDT Body Mass Index 21.93 09/12/2023 3:36 PM EDT Plan of Treatment Upcoming Encounters Date Type Department Care Team (Late st Contact Info) Description 03/10/2025 2:45 PM EDT Office Visit [facility] [address] [place] [id number] Urban Sharp MD [address] [place] [address] [facility] [place] [address] Health Maintenance Due Date Last Done Comments BLOOD PRESSURE 1960 DEPRESSION SCREENING 1972 HIV ONE-TIME SCREENING (18-65 YEARS) 1978 PNEUMOCOCCAL VACCINES (50+ years) (1 of 2 - PCV) 10/14/1979 PAP SMEAR 1981 MAMMOGRAM 2000 FIT TEST 2005 FOBT 2005 SIGMOIDOSCOPY 2005 VIRTUAL COLONOSCOPY 2005 ZOSTER VACCINES (1 of 2) 2010 CARBAMAZEPINE (TEGRETOL) LEVEL 09/17/2013 09/17/2012, 01/23/2012, 09/19/2011, Additional history exists LIPID PANEL 11/11/2014 11/11/2013, 0506/2012, 09/19/2011, Additional history exists CREATININE LEVEL 07/19/2015 07/18/2014, , 09/17/2012, Additional history exists POTASSIUM LEVEL 07/19/2015 07/18/2014, 10/18, 09/17/2012, Additional history exists COLONOSCOPY 01/26/2018 01/27/2008 INFLUENZA VACCINE (#1) 2024 , 05/14/2023, 02/20/2022, Additional history exists COVID-19 VACCINE ( season) 2025 01/31/2024, 03/05/2023, 05/02/2021, Additional history exists COLOGUARD 09/14/2026 09/15/2023 COLORECTAL CANCER SCREENING 09/14/2026 Adult Td,Tdap Booster 03/30/2031 03/30/2021 HEPATITIS C SCREENING Completed 09/17/2012 RSV VACCINE Completed 06/26/2023 SMOKING STATUS SCREENING (Once After 26 Yrs) Completed 05/06/2024 HEPATITIS A VACCINES Aged Out No long er eligible based on patient's age to complete this topic HIB VACCINES Aged Out No longer eligi ble based on patient's age to complete this topic MENINGOCOCCAL VACCINES (ACWY) Aged Out No longer eligible based on patient's age to complete this topic MENINGOCOCCAL VACCINES (B) Aged Out N o longer eligible based on patient's age to complete this topic Medical Devices Implanted Type Area Learning Technologist Device Identifier Shelf Expiration Date Model / Serial / Lot Kit Cement Bone Ky[employer] Xpede Polymethylmethacrylate Mixer - [id number] Implanted:Qty: 1 on 03/13/2020 by Mike Pineda MD, MARSHA at [facility] Bone Cement [employer] [id number] 08/16/2022 [id number] / / [id number] Procedures Procedure Name Priority Date/Time Associated Diagnosis Comments COMPREHENSIVE METABOLIC PANEL Routine 07/18/2014 1:55 PM EST HISTORICAL LAB Routine 11/11/2013 3:51 PM EDT HISTORICAL LAB Routine 09/17/2012 3:23 PM EDT ENDOSCOPY, COLON 01/27/2008 5:50 PM EDT from Last 3 Months or Most Recently Relevant to Health Maintenance Results * (ABNORMAL) Comprehensive metabolic panel (07/18/2014 1:55 PM EST) Plasma Sodium 130(Abnor donn L) 135 - 145 mmol/L [facility] Plasma Potassium 3.7 3.4 - 5.0 mmol/L [facility] Plasma Chloride 89(Abnorm ally L) 100 - 108 mmol/L [facility] Plasma Carbon Dioxide 26 23 - 32 mmol/L [facility] Plasma Urea Nitrogen 11 8 - 25 mg/dL [facility] Plasma Creatinine 0.48(Abno rmally L) 0.60 - 1.50 mg/dL [facility] Plasma Glucose 80 70 - 110 mg/dL [facility] Albumin 4.3 3.3 - 5.0 g/dL [facility] Total Protein 7.1 6.0 - 8.3 g/dL [facility] Calcium 9.1 8.5 - 10.5 mg/dL [facility] Alkaline Phosphatase 104(Abnor donn H) 30 - 100 U/L [facility] Total Bilirubin 0.3 0.0 - 1.0 mg/dL [facility] Transaminase-SG OT 31 9 - 32 U/L [facility] Transaminase-SG PT 24 7 - 33 U/L [facility] Globulin 2.8 1.9 - 4.1 g/dL [facility] eGFR >60 mL/min/1. 73m2 [facility] Comment: Abnormal if <60 mL/min/1.73m2. If patient is -Haitian, multiply the result by 1.21. Plasma Anion GAP 15 3 - 17 mmol/L [facility] 07/18/2014 1:55 PM EST 07/18/2014 9:42 PM EST Comment:BLOOD us David Forman MD LAB BLOOD ORDERABLES Edited Resu lt - Final [facility] [address] [place] [address] * (ABNORMAL) Historical Lab (11/11/2013 3:51 PM EDT) Only the most recent of2 resultswithin the time period is included. Hemoglobin A1C 5.4 4.3 - 6.4 % [facility] Comment: Note: New normal range ACETYLCARNITINE, C2 14.35 nmol/mL [facility] Comment: (NOTE)-- REFERENCE VALUE -- 2.00-17.83 (> or = 8 years) Performed by [facility] DPT OF LAB MED AND PATHOLOGY, [address] [place] [address] PROPIONYLCARNIT, C3 0.40 nmol/mL [facility] Comment: (NOTE)-- REFERENCE VALUE -- < 0.88 (> or = 8 years) Performed by [facility] DPT OF LAB MED AND PATHOLOGY, [address] [place] [address] 61263 ISO/BUTRYLCARNIT,C4 0.39 nmol/mL [facility] Comment: (NOTE)-- REFERENCE VALUE -- < 0.83 (> or = 8 years) Performed by [facility] DPT OF LAB MED AND PATHOLOGY, [address] [place] [address] 57908 ISOVAL/2METHYLBU,C5 0.12 nmol/mL [facility] Comment: (NOTE)-- REFERENCE VALUE -- < 0.51 (> or = 8 years) Performed by [facility] DPT OF LAB MED AND PATHOLOGY, [address] [place] [address] 99237 HEXANOYLCARNITIN,C6 0.22(Abnor donn H) nmol/mL [facility] Comment: (NOTE)-- REFERENCE VALUE -- < 0.17 (> or = 8 years) Performed by [facility] DPT OF LAB MED AND PATHOLOGY, [address] [place] [address] 62673 3OH HEXANOYLCA C6OH 0.01 nmol/L [facility] Comment: Unit: nmol/mL (NOTE)-- REFERENCE VALUE -- < 0.09 (> or = 8 years) Performed by [facility] DPT OF LAB MED AND PATHOLOGY, [address] [place] [address] 25986 OCTENOYLCARNIT C8:1 0.07 nmol/L [facility] Comment: Unit: nmol/mL (NOTE)-- REFERENCE VALUE -- < 0.88 (> or = 8 years) Performed by [facility] DPT OF LAB MED AND PATHOLOGY, [address] [place] [address] 79583 OCTANOYLCARNIT, C8 0.82(Abnor donn H) nmol/mL [facility] Comment: (NOTE)-- REFERENCE VALUE -- < 0.78 (> or = 8 years) Performed by [facility] DPT OF LAB MED AND PATHOLOGY, [address] [place] [address] 62936 DECENOYLCARN, C10:1 0.47(Abnor donn H) nmol/L [facility] Comment: Unit: nmol/mL (NOTE)-- REFERENCE VALUE -- < 0.47 (> or = 8 years) Performed by [facility] DPT OF LAB MED AND PATHOLOGY, [address] [place] [address] 60060 DECENOYLCARN, C10 1.02(Abnor donn H) nmol/mL [facility] Comment: (NOTE)-- REFERENCE VALUE -- < 0.88 (> or = 8 years) Performed by [facility] DPT OF LAB MED AND PATHOLOGY, [address] [place] [address] 84249 GLUTARYLCARN, C5-DK 0.04 nmol/mL [facility] Comment: (NOTE)-- REFERENCE VALUE -- < 0.11 (> or = 8 years) Performed by [facility] DPT OF LAB MED AND PATHOLOGY, [address] [place] [address] 81547 DODECENOYLCAR,C12:1 0.15 nmol/mL [facility] Comment: (NOTE)-- REFERENCE VALUE -- < 0.35 (> or = 8 years) Performed by [facility] DPT OF LAB MED AND PATHOLOGY, [address] [place] [address] 66088 DODECENOYLCARN, C12 0.20 nmol/mL [facility] Comment: (NOTE)-- REFERENCE VALUE -- < 0.26 (> or = 8 years) Performed by [facility] DPT OF LAB MED AND PATHOLOGY, [address] [place] [address] 92133 3OH DODECENOY,C12OH 0.02 nmol/L [facility] Comment: Unit: nmol/mL (NOTE)-- REFERENCE VALUE -- < 0.08 (> or = 8 years) Performed by [facility] DPT OF LAB MED AND PATHOLOGY, [address] [place] [address] 40766 TETRADECADIEN,C14:2 0.10 nmol/mL [facility] Comment: (NOTE)-- REFERENCE VALUE -- < 0.18 (> or = 8 years) Performed by [facility] DPT OF LAB MED AND PATHOLOGY, [address] [place] [address] 62841 TETRADECENOYL,C14:1 0.19 nmol/mL [facility] Comment: (NOTE)-- REFERENCE VALUE -- < 0.24 (> or = 8 years) Performed by [facility] DPT OF LAB MED AND PATHOLOGY, [address] [place] [address] 81598 TETRADECANOYLCA,C14 0.09 nmol/mL [facility] Comment: (NOTE)-- REFERENCE VALUE -- < 0.12 (> or = 8 years) Performed by [facility] DPT OF LAB MED AND PATHOLOGY, [address] [place] [address] 75369 3OH TETRADE C14:1OH 0.07 nmol/mL [facility] Comment: (NOTE)-- REFERENCE VALUE -- < 0.13 (> or = 8 years) Performed by [facility] DPT OF LAB MED AND PATHOLOGY, [address] [place] [address] 08272 3OH TETRADECA C14OH 0.01 nmol/mL [facility] Comment: (NOTE)-- REFERENCE VALUE -- < 0.08 (> or = 8 years) Performed by [facility] DPT OF LAB MED AND PATHOLOGY, [address] [place] [address] 42148 HEXADECENOYL, C16:1 0.07 nmol/mL [facility] Comment: (NOTE)-- REFERENCE VALUE -- < 0.10 (> or = 8 years) Performed by [facility] DPT OF LAB MED AND PATHOLOGY, [address] [place] [address] 31131 HEXADECANOYLC, C16 0.13 nmol/mL [facility] Comment: (NOTE)-- REFERENCE VALUE -- < 0.23 (> or = 8 years) Performed by [facility] DPT OF LAB MED AND PATHOLOGY, [address] [place] [address] 65668 3OH HEXADEC C16:1OH 0.01 nmol/mL [facility] Comment: (NOTE)-- REFERENCE VALUE -- < 0.06 (> or = 8 years) Performed by [facility] DPT OF LAB MED AND PATHOLOGY, [address] [place] [address] 97867 3OH HEXADECAN C16OH 0.01 nmol/mL [facility] Comment: (NOTE)-- REFERENCE VALUE -- < 0.06 (> or = 8 years) Performed by [facility] DPT OF LAB MED AND PATHOLOGY, [address] [place] [address] 63877 LINOLEYCARNI, C18:2 0.11 nmol/mL [facility] Comment: (NOTE)-- REFERENCE VALUE -- < 0.24 (> or = 8 years) Performed by [facility] DPT OF LAB MED AND PATHOLOGY, [address] [place] [address] 31927 OLEYLCARNIT, C18:1 0.26 nmol/mL [facility] Comment: (NOTE)-- REFERENCE VALUE -- < 0.39 (> or = 8 years) Performed by [facility] DPT OF LAB MED AND PATHOLOGY, [address] [place] [address] 46901 STEAROYLCARNIT, C18 0.08 nmol/mL [facility] Comment: (NOTE)-- REFERENCE VALUE -- < 0.14 (> or = 8 years) Performed by [facility] DPT OF LAB MED AND PATHOLOGY, [address] [place] [address] 54039 3OH LINOLEY C18:2OH see comment nmol/mL [facility] Comment: Below detection limit. (NOTE)A quantitative value cannot be provided because the concentration of 2-[id number] is below the assay's limit of detection, <0.02 nmol/mL. -- REFERENCE VALUE -- < 0.06 (> or = 8 years) Performed by [facility] DPT OF LAB MED AND PATHOLOGY, [address] [place] [address] 76782 3OH OLEYLCA C18:1OH 0.01 nmol/mL [facility] Comment: (NOTE)-- REFERENCE VALUE -- < 0.06 (> or = 8 years) Performed by [facility] DPT OF LAB MED AND PATHOLOGY, [address] [place] [address] 41945 FREDONIA COMMENT ACYQT SEE NOTE [facility] Comment: (NOTE)In this plasma sample, several acylcarnitines of various chain lengths were mildly elevated in a pattern not diagnostic of a specific disorder. If indicated, consider sending another sample to repeat the analysis, and urine for organic acid and acylglycine analyses. We need clinical information for further interpretation. Please contact the [employer] independent crop consultant three dimensional art instructor (Tel. ) if you have any questions. Performed by [facility] DPT OF LAB MED AND PATHOLOGY, [address] [place] [address] Calc Mean Bld Glucose 108 mg% [facility] Comment: There is no established normal range for the CMBG (Calculated Mean Blood Glucose). A hemoglobin A1c < 7% is the recommended target for most people with diabetes. The CMBG for an A1c of 7% is 154 mg%. The diagnostic hemoglobin A1c level for diabetes is greater than or equal to 6.5% which is a CMBG greater than or equal to 140 mg%. Plasma Sodium 129(Abnorm ally L) 135 - 145 mmol/L [facility] Plasma Potassium 4.0 3.4 - 4.8 mmol/L [facility] Plasma Chloride 89(Abnorma lly L) 100 - 108 mmol/L [facility] Plasma Carbon Dioxide 28.9 23.0 - 31.9 mmol/L [facility] Plasma Urea Nitrogen 10 8 - 25 mg/dl [facility] Plasma Creatinine 0.58(Abnor donn L) 0.60 - 1.50 mg/dl [facility] Plasma Glucose 81 70 - 110 mg/dl [facility] Albumin 4.6 3.3 - 5.0 g/dl [facility] Total Protein 7.9 6.0 - 8.3 g/dl [facility] Calcium 9.2 8.5 - 10.5 mg/dl [facility] Alkaline Phosphatase 102(Abnorm ally H) 30 - 100 U/L [facility] Total Bilirubin 0.4 0.0 - 1.0 mg/dl [facility] Transaminase-SGOT 38(Abnorma lly H) 9 - 32 U/L [facility] Transaminase-SGPT 29 7 - 33 U/L [facility] Globulin 3.3 1.9 - 4.1 g/dl [facility] eGFR >60 mL/min/ 1.73m2 [facility] Comment: Abnormal if <60 mL/min/1.73m2. If patient is -Haitian, multiply the result by 1.21. Plasma Anion GAP 11 3 - 15 mmol/L [facility] Creatine Kinase 207(Abnorm ally H) 40 - 150 U/L [facility] Folic Acid >20.0 >3.0 ng/ml [facility] High Density Lipoprotein 75 35 - 100 mg/dl [facility] Cholesterol 289 mg/dl [facility] Comment:DESIRABLE: <200 Triglycerides 87 40 - 150 mg/dl [facility] Low Density Lipoprotein 197 mg/dl [facility] Comment:DESIRABLE: <130 Cardiac Risk Ratio 3.9 M [facility] Comment:NORMAL RISK RATIO: 5 .0 OR LESS Magnesium 1.6 1.4 - 2.0 meq/L [facility] Phosphorus 3.1 2.6 - 4.5 mg/dl [facility] Taurine 90 nmol/mL [facility] Comment: Reference range: 42 to 156 Performed by [facility] DPT OF LAB MED AND PATHOLOGY, [address] [place] [address] Asparagine 36(Abnorma lly L) nmol/mL [facility] Comment: Reference range: 37 to 92 Performed by [facility] DPT OF LAB MED AND PATHOLOGY, [address] [place] [address] 33165 Serine 76 nmol/mL [facility] Comment: Reference range: 63 to 187 Performed by [facility] DPT OF LAB MED AND PATHOLOGY, [address] [place] [address] 36507 Glycine 296 nmol/mL [facility] Comment: Reference range: 126 to 490 Performed by [facility] DPT OF LAB MED AND PATHOLOGY, [address] [place] [address] 61894 Glutamine 640 nmol/mL [facility] Comment: Reference range: 371 to 957 Performed by [facility] DPT OF LAB MED AND PATHOLOGY, [address] [place] [address] Histidine 71 nmol/mL [facility] Comment: Reference range: 39 to 123 Performed by [facility] DPT OF LAB MED AND PATHOLOGY, [address] [place] [address] Threonine 101 nmol/mL [facility] Comment: Reference range: 85 to 231 Performed by [facility] DPT OF LAB MED AND PATHOLOGY, [address] [place] [address] 99224 Citrulline 20 nmol/mL [facility] Comment: Reference range: 17 to 46 Performed by [facility] DPT OF LAB MED AND PATHOLOGY, [address] [place] [address] B-Alanine 11 nmol/mL [facility] Comment: Reference range: <29 Performed by [facility] DPT OF LAB MED AND PATHOLOGY, [address] [place] [address] Alanine 272 nmol/mL [facility] Comment: Reference range: 200 to 579 Performed by [facility] DPT OF LAB MED AND PATHOLOGY, [address] [place] [address] Glutamic Acid 54 nmol/mL [facility] Comment: Reference range: 13 to 113 Performed by [facility] DPT OF LAB MED AND PATHOLOGY, [address] [place] [address] 93076 Argininosuccinate 0 nmol/mL [facility] Comment: Reference range: <2 Performed by [facility] DPT OF LAB MED AND PATHOLOGY, [address] [place] [address] 04243 Arginine 39 nmol/mL [facility] Comment: Reference range: 32 to 120 Performed by [facility] DPT OF LAB MED AND PATHOLOGY, [address] [place] [address] 40533 G-Jlopt-X-Butyric 12 nmol/mL [facility] Comment: Reference range: 9 to 37 Performed by [facility] DPT OF LAB MED AND PATHOLOGY, [address] [place] [address] 74619 Proline 107 nmol/mL [facility] Comment: Reference range: 97 to 368 Performed by [facility] DPT OF LAB MED AND PATHOLOGY, [address] [place] [address] 78950 Ornithine 62 nmol/mL [facility] Comment: Reference range: 38 to 130 Performed by [facility] DPT OF LAB MED AND PATHOLOGY, [address] [place] [address] 22079 Cystine 17 nmol/mL [facility] Comment: Reference range: 3 to 95 Performed by [facility] DPT OF LAB MED AND PATHOLOGY, [address] [place] [address] 53117 Lysine 124 nmol/mL [facility] Comment: Reference range: 103 to 255 Performed by [facility] DPT OF LAB MED AND PATHOLOGY, [address] [place] [address] 60239 Methionine 15 nmol/mL [facility] Comment: Reference range: 4 to 44 Performed by [facility] DPT OF LAB MED AND PATHOLOGY, [address] [place] [address] 17278 Valine 134(Abnorm ally L) nmol/mL [facility] Comment: Reference range: 136 to 309 Performed by [facility] DPT OF LAB MED AND PATHOLOGY, [address] [place] [address] 16558 Tyrosine 44 nmol/mL [facility] Comment: Reference range: 31 to 90 Performed by [facility] DPT OF LAB MED AND PATHOLOGY, [address] [place] [address] 29329 Isoleucine 38 nmol/mL [facility] Comment: Reference range: 36 to 107 Performed by [facility] DPT OF LAB MED AND PATHOLOGY, [address] [place] [address] 04921 Leucine 73 nmol/mL [facility] Comment: Reference range: 68 to 183 Performed by [facility] DPT OF LAB MED AND PATHOLOGY, [address] [place] [address] Phenylalanine 37 nmol/mL [facility] Comment: Reference range: 35 to 80 Performed by [facility] DPT OF LAB MED AND PATHOLOGY, [address] [place] [address] Allo-isoleucine 0 nmol/mL [facility] Comment: Reference range: <5 Performed by [facility] DPT OF LAB MED AND PATHOLOGY, [address] [place] [address] 88484 PLASMA AA INTERP SEE NOTE [facility] Comment: (NOTE)In this sample, the amino acid profile was essentially normal. Liquid Chromatography-Tandem Mass Spectrometry (LC-MS/MS) Performed by [facility] DPT OF LAB MED AND PATHOLOGY, [address] [place] [address] 96186 Phosphoserine 0 nmol/mL [facility] Comment: Reference range: <18 Performed by [facility] DPT OF LAB MED AND PATHOLOGY, [address] [place] [address] 34501 Phosphoethanolamine <2 nmol/mL [facility] Comment: Reference range: <12 Performed by [facility] DPT OF LAB MED AND PATHOLOGY, [address] [place] [address] 46070 Hydroxyproline 10 nmol/mL [facility] Comment: Reference range: 4 to 29 Performed by [facility] DPT OF LAB MED AND PATHOLOGY, [address] [place] [address] 74991 Aspartic Acid 3 nmol/mL [facility] Comment: Reference range: <7 Performed by [facility] DPT OF LAB MED AND PATHOLOGY, [address] [place] [address] 55230 Ethanolamine 9 nmol/mL [facility] Comment: Reference range: <67 Performed by [facility] DPT OF LAB MED AND PATHOLOGY, [address] [place] [address] Sarcosine 1 nmol/mL [facility] Comment: Reference range: <5 Performed by [facility] DPT OF LAB MED AND PATHOLOGY, [address] [place] [address] 1-Methylhistidine 4 nmol/mL [facility] Comment: Reference range: <28 Performed by [facility] DPT OF LAB MED AND PATHOLOGY, [address] [place] [address] 3-Methylhistidine 2 nmol/mL [facility] Comment: Reference range: 2 to 9 Performed by [facility] DPT OF LAB MED AND PATHOLOGY, [address] [place] [address] 13456 Carnosine 0 nmol/mL [facility] Comment: Reference range: <1 Performed by [facility] DPT OF LAB MED AND PATHOLOGY, [address] [place] [address] Anserine 0 nmol/mL [facility] Comment: Reference range: <1 Performed by [facility] DPT OF LAB MED AND PATHOLOGY, [address] [place] [address] Homocitrulline 0 nmol/mL [facility] Comment: Reference range: <2 Performed by [facility] DPT OF LAB MED AND PATHOLOGY, [address] [place] [address] 10458 A-aminoadipic Acid 0 nmol/mL [facility] Comment: Reference range: <3 Performed by [facility] DPT OF LAB MED AND PATHOLOGY, [address] [place] [address] X-wwwlv-l-butyrate 0 nmol/mL [facility] Comment: Reference range: <2 Performed by [facility] DPT OF LAB MED AND PATHOLOGY, [address] [place] [address] 67923 B-aminoisobutyrate 2 nmol/mL [facility] Comment: Reference range: <5 Performed by [facility] DPT OF LAB MED AND PATHOLOGY, [address] [place] [address] 88418 Hydroxylysine 0 nmol/mL [facility] Comment: Reference range: <2 Performed by [facility] DPT OF LAB MED AND PATHOLOGY, [address] [place] [address] Cystathionine <1 nmol/mL [facility] Comment: Reference range: <5 Performed by [facility] DPT OF LAB MED AND PATHOLOGY, [address] [place] [address] Tryptophan 31 nmol/mL [facility] Comment: Reference range: 29 to 77 Performed by [facility] DPT OF LAB MED AND PATHOLOGY, [address] [place] [address] Parathyroid Hormone 45 10 - 60 pg/ml [facility] Thyroid Stimulating Hormone 1.27 0.40 - 5.00 uU/ml [facility] 25(OH) Vitamin D Total 14(Abnorma lly L) 33 - 100 ng/mL [facility] Comment: Desired: > 32 ng/ml . Taurine, UR 660 nmol/mg Cr [facility] Comment: Reference range: 24 to 1531 Performed by [facility] DPT OF LAB MED AND PATHOLOGY, [address] [place] [address] 10036 Asparagine, UR 83 nmol/mg Cr [facility] Comment: Reference range: 25 to 238 Performed by [facility] DPT OF LAB MED AND PATHOLOGY, [address] [place], [place] [id number] Serine, UR 276 nmol/mg Cr [facility] Comment: Reference range: 97 to 540 Performed by [facility] DPT OF LAB MED AND PATHOLOGY, [address] [place] [address] 90180 Glycine, UR 1702 nmol/mg Cr [facility] Comment: Reference range: 229 to 2989 Performed by [facility] DPT OF LAB MED AND PATHOLOGY, [address] [place] [address] 81969 Glutamine, UR 629 nmol/mg Cr [facility] Comment: Reference range: 93 to 686 Performed by [facility] DPT OF LAB MED AND PATHOLOGY, [address] [place] [address] 50114 Histidine, UR 617 nmol/mg Cr [facility] Comment: Reference range: 81 to 1128 Performed by [facility] DPT OF LAB MED AND PATHOLOGY, [address] [place] [address] 20766 Threonine, UR 140 nmol/mg Cr [facility] Comment: Reference range: 31 to 278 Performed by [facility] DPT OF LAB MED AND PATHOLOGY, [address] [place] [address] 14151 Citrulline, UR 5 nmol/mg Cr [facility] Comment: Reference range: <12 Performed by [facility] DPT OF LAB MED AND PATHOLOGY, [address] [place] [address] 62760 B-Alanine, UR 33 nmol/mg Cr [facility] Comment: Reference range: <52 Performed by [facility] DPT OF LAB MED AND PATHOLOGY, [address] [place] [address] 02485 Alanine, UR 119 nmol/mg Cr [facility] Comment: Reference range: 56 to 518 Performed by [facility] DPT OF LAB MED AND PATHOLOGY, [address] [place] [address] Glutamic Acid, UR 38(Abnorma lly H) nmol/mg Cr [facility] Comment: Reference range: <34 Performed by [facility] DPT OF LAB MED AND PATHOLOGY, [address] [place] [address] 51932 1-Methylhistid, UR 331 nmol/mg Cr [facility] Comment: Reference range: 23 to 1339 Performed by [facility] DPT OF LAB MED AND PATHOLOGY, [address] [place] [address] 98750 3-Methylhistid, UR 145 nmol/mg Cr [facility] Comment: Reference range: 70 to 246 Performed by [facility] DPT OF LAB MED AND PATHOLOGY, [address] [place] [address] 54778 Carnosine, UR 2 nmol/mg Cr [facility] Comment: Reference range: <35 Performed by [facility] DPT OF LAB MED AND PATHOLOGY, [address] [place] [address] 14134 Arginine, UR 19 nmol/mg Cr [facility] Comment: Reference range: <114 Performed by [facility] DPT OF LAB MED AND PATHOLOGY, [address] [place] [address] 46633 A-Aminoadipic, UR 21 nmol/mg Cr [facility] Comment: Reference range: <47 Performed by [facility] DPT OF LAB MED AND PATHOLOGY, [address] [place] [address] 09605 B-Aminoisobutyr, UR 67 nmol/mg Cr [facility] Comment: Reference range: <301 Performed by [facility] DPT OF LAB MED AND PATHOLOGY, [address] [place] [address] 54881 G-Icoul-Y-Butyr, UR 10 nmol/mg Cr [facility] Comment: Reference range: <19 Performed by [facility] DPT OF LAB MED AND PATHOLOGY, [address] [place] [address] 11851 Proline, UR 14 nmol/mg Cr [facility] Comment: Reference range: <26 Performed by [facility] DPT OF LAB MED AND PATHOLOGY, [address] [place] [address] 49652 Ornithine, UR 7 nmol/mg Cr [facility] Comment: Reference range: <25 Performed by [facility] DPT OF LAB MED AND PATHOLOGY, [address] [place], [place] [id number] Cystathionine, UR 2 nmol/mg Cr [facility] Comment: Reference range: <30 Performed by [facility] DPT OF LAB MED AND PATHOLOGY, [address] [place] [address] Cystine 31 nmol/mg Cr [facility] Comment: Reference range: 10 to 98 Performed by [facility] DPT OF LAB MED AND PATHOLOGY, [address] [place] [address] Lysine, UR 52 nmol/mg Cr [facility] Comment: Reference range: 15 to 271 Performed by [facility] DPT OF LAB MED AND PATHOLOGY, [address] [place] [address] Methionine 7 nmol/mg Cr [facility] Comment: Reference range: <16 Performed by [facility] DPT OF LAB MED AND PATHOLOGY, [address] [place], [place] [address] Valine, UR 33 nmol/mg Cr [facility] Comment: Reference range: 11 to 61 Performed by [facility] DPT OF LAB MED AND PATHOLOGY, [address] [place] [address] Tyrosine, UR 88 nmol/mg Cr [facility] Comment: Reference range: 15 to 115 Performed by [facility] DPT OF LAB MED AND PATHOLOGY, [address] [place], [place] [address] Isoleucine, UR 14 nmol/mg Cr [facility] Comment: Reference range: <22 Performed by [facility] DPT OF LAB MED AND PATHOLOGY, [address] [place] [address] 05156 Leucine, UR 29 nmol/mg Cr [facility] Comment: Reference range: <51 Performed by [facility] DPT OF LAB MED AND PATHOLOGY, [address] [place], [place] [address] Phenylalanine, UR 38 nmol/mg Cr [facility] Comment: Reference range: 13 to 70 Performed by [facility] DPT OF LAB MED AND PATHOLOGY, [address] [place] [address] URINE AA INTERP SEE NOTE [facility] Comment: (NOTE)In this sample, the amino acid profile was essentially normal. Liquid Chromatography-Tandem Mass Spectrometry (LC-MS/MS) Performed by [facility] DPT OF LAB MED AND PATHOLOGY, [address] [place], [place] [id number] Phosphoserine, UR 0 nmol/mg Cr [facility] Comment: Reference range: <1 Performed by [facility] DPT OF LAB MED AND PATHOLOGY, [address] [place] [address] Phosphoethanolam,UR 10 nmol/mg Cr [facility] Comment: Reference range: <48 Performed by [facility] DPT OF LAB MED AND PATHOLOGY, [address] [place] [address] Hydroxyproline, UR 2 nmol/mg Cr [facility] Comment: Reference range: <15 Performed by [facility] DPT OF LAB MED AND PATHOLOGY, [address] [place] [address] Aspartic Acid, UR 7 nmol/mg Cr [facility] Comment: Reference range: <10 Performed by [facility] DPT OF LAB MED AND PATHOLOGY, [address] [place] [address] 45789 Ethanolamine, UR 343 nmol/mg Cr [facility] Comment: Reference range: 95 to 471 Performed by [facility] DPT OF LAB MED AND PATHOLOGY, [address] [place] [address] 37045 Sarcosine, UR 0 nmol/mg Cr [facility] Comment: Reference range: <3 Performed by [facility] DPT OF LAB MED AND PATHOLOGY, [address] [place] [address] 77046 Argininosuccinic,UR 14 nmol/mg Cr [facility] Comment: Reference range: <15 Performed by [facility] DPT OF LAB MED AND PATHOLOGY, [address] [place] [address] 51693 Anserine, UR 2 nmol/mg Cr [facility] Comment: Reference range: <38 Performed by [facility] DPT OF LAB MED AND PATHOLOGY, [address] [place] [address] 01878 Homocitruline, UR 14 nmol/mg Cr [facility] Comment: Reference range: <30 Performed by [facility] DPT OF LAB MED AND PATHOLOGY, [address] [place] [address] 64786 D-cwoaa-o-butyr, UR 2 nmol/mg Cr [facility] Comment: Reference range: <5 Performed by [facility] DPT OF LAB MED AND PATHOLOGY, [address] [place] [address] 81846 Hydroxylysine, UR 2 nmol/mg Cr [facility] Comment: Reference range: <12 Performed by [facility] DPT OF LAB MED AND PATHOLOGY, [address] [place] [address] 84939 Tryptophan, UR 76 nmol/mg Cr [facility] Comment: Reference range: 18 to 114 Performed by [facility] DPT OF LAB MED AND PATHOLOGY, [address] [place] [address] Allo-isoleucine, UR 2 nmol/mg Cr [facility] Comment: Reference range: <7 Performed by [facility] DPT OF LAB MED AND PATHOLOGY, [address] [place] [address] 11/11/2013 3:51 PM EDT 11/11/2013 4:50 PM EDT Comment:BLD UR David Forman MD LAB BLOOD ORDERABLES Final Resul t [facility] [address] [address] * ENDOSCOPY, COLON (01/27/2008 5:50 PM EDT) 01/27/2008 5:50 PM EDT Narrative 01/28/2008 10:10 AM EDT Report Number: [id number] Report Status: Final Type: Colonoscopy Date: 01/27/2008 17:50 Gastro[facility] Endoscopy Unit [id number] Patient Name: Aleida Lopez Gender: F Exam Date: 01/27/2008 05:50 PM Procedure: Colonoscopy Indications: Heme positive stool Providers: Umberto Jolly MD, Domo Giles MD, Natividad Zamarripa RN Referring MD: Medicines: Midazolam 2 mg IV, Fentanyl 12.5 micrograms IV , Diphenhydramine 25 mg IV Complications: No immediate complications Procedure: - A History and Physical has been performed, and patient medication allergies have been reviewed. The risks and benefits of the procedure and the sedation options and risks were discussed with the patient. All questions were answered and informed consent was obtained. Patient identification and proposed procedure were verified prior to the procedure by the physician and the nurse in the pre-procedure area in the procedure room. Mental Status Examination: alert and oriented. Airway Examination: normal oropharyngeal airway and neck mobility. Respiratory Examination: clear to auscultation. CV Examination: RRR, no murmurs, no S3 or S4. ASA Grade Assessment: P2 A patient with mild systemic disease. After reviewing the risks and benefits, the patient was deemed in satisfactory condition to undergo the procedure. The anesthesia plan was to use moderate sedation / analgesia (conscious sedation). Immediately prior to administration of medications, the patient was re-assessed for adequacy to receive sedatives. The heart rate, respiratory rate, oxygen saturations, blood pressure, adequacy of pulmonary ventilation, and response to care were monitored throughout the procedure. The physical status of the patient was re-assessed after the procedure. - This evaluation, including a review of the patient's medications was performed by the endoscopist immediately prior to the procedure (see attached H&P document). After obtaining informed consent, the endoscope was passed under direct vision. Throughout the procedure, the patient's blood pressure, pulse, and oxygen saturations were monitored continuously. The Colonoscope was introduced through the anus and advanced to the the ileum. The colonoscopy was performed without difficulty. The patient tolerated the procedure well. The quality of the prep was good. During the procedure the patient had to be repositioned for optimal visualization. Findings: The perianal and digital rectal examinations were normal. One small-mouthed diverticulum was found in the transverse colon. No other significant abnormalities were identified in a careful examination of the remainder of the colon. The terminal ileum appeared normal. Biopsies were taken with a cold forceps for histology. Several biopsies were obtained with cold jumbo forceps for histology in the cecum, ascending, transverse, desending, sigmoid colon and rectum..The retroflexed view of the rectum was normal and showed no abnormalities. Impression: - Diverticulosis. - The terminal ileum is normal. This was biopsied. - No colitis seen - random colon bx taken Recommendation: - Await pathology results. - NPO after midnight for motility and pH study in the am. Umberto Jolly MD, [id number] Signed Date: 01/28/2008 10:09:59 AM Number of Addenda: 0 The attending physician was present throughout the entire procedure Note initiated on 01/27/2008 05:50:00 PM Procedure Note Umberto Jolly MD - 01/27/2008 5:50 PM EDT Report Number: [id number] Report Status:Final Type: Colonoscopy Date: 01/27/2008 17:50 Gastrointestinal Endoscopy Unit [id number] Patient Name: Aleida Lopez Gender: F Exam Date: 01/27/2008 05:50 PM Procedure: Colonoscopy Indications: Heme positive stool Providers: Umberto Jolly MD, Domo Giles MD, Natividad Zamarripa RN Referring MD: Medicines: Midazolam 2 mg IV, Fentanyl 12.5 micrograms IV , Diphenhydramine 25 mg IV Complications: No immediate complications Procedure: - A History and Physical has been performed, and patient medication allergies have been reviewed. The risks and benefits of the procedure and the sedation options and risks were discussed with the patient. All questions were answered and informed consent was obtained. Patient identification and proposed procedure were verified prior to the procedure by the physician and the nurse in the pre-procedure area in the procedure room. Mental Status Examination: alert and oriented. Airway Examination: normal oropharyngeal airway and neck mobility. Respiratory Examination: clear to auscultation. CV Examination: RRR, no murmurs, no S3 or S4. ASA Grade Assessment: P2 A patient with mild systemic disease. After reviewing the risks and benefits, the patient was deemed in satisfactory condition to undergo the procedure. The anesthesia plan was to use moderate sedation / analgesia (conscious sedation). Immediately prior to administration of medications, the patient was re-assessed for adequacy to receive sedatives. The heart rate, respiratory rate, oxygen saturations, blood pressure, adequacy of pulmonary ventilation, and response to care were monitored throughout the procedure. The physical status of the patient was re-assessed after the procedure. - This evaluation, including a review of the patient's medications was performed by the endoscopist immediately prior to the procedure (see attached H&P document). After obtaining informed consent, the endoscope was passed under direct vision. Throughout the procedure, the patient's blood pressure, pulse, and oxygen saturations were monitored continuously. The Colonoscope was introduced through the anus and advanced to the the ileum. The colonoscopy was performed without difficulty. The patient tolerated the procedure well. The quality of the prep was good. During the procedure the patient had to be repositioned for optimal visualization. Findings: The perianal and digital rectal examinations were normal. One small-mouthed diverticulum was found in the transverse colon. No other significant abnormalities were identified in a careful examination of the remainder of the colon. The terminal ileum appeared normal. Biopsies were taken with a cold forceps for histology. Several biopsies were obtained with cold jumbo forceps for histology in the cecum, ascending, transverse, desending, sigmoid colon and rectum..The retroflexed view of the rectum was normal and showed no abnormalities. Impression: - Diverticulosis. - The terminal ileum is normal. This was biopsied. - No colitis seen - random colon bx taken Recommendation: - Await pathology results. - NPO after midnight for motility and pH study in the am. Umberto Jolly MD, [id number] Signed Date: 01/28/2008 10:09:59 AM Number of Addenda: 0 The attending physician was present throughout the entire procedure Note initiated on 01/27/2008 05:50:00 PM us Conversion Provider Not In Sys GI PROCEDURE ORDE BEESONY Final Result from Last 3 Months or Most Recently Relevant to Health Maintenance Insurance [facility] Address: [facility] [id number] [place] [address] MEDICARE A [facility] Address: [facility] [id number] [place] [address] MEDICARE A [facility] MEDICARE A MEDICARE A [employer] [facility] MEDICARE A [facility] MEDICARE A [facility] [place] [address] [place] [address] [facility] Address: [facility] [id number] [place] [address] MEDICARE A [facility] MEDICARE A MEDICARE A [facility] Advance Directives For more information, please contact: [phone] (9AM - 5PM [facility], Friday-Friday) Documents on File Type Date Recorded 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 It is not the complete legal health record.[place] [facility]
--- OUTSIDE RECORDS SUMMARY | 2025-02-18 14:03 | XMS_ITS | Encounter Summary ---
Author Organization [facility] Address [address] [facility] [address] [place] [phone] Phone Care Team Providers Care Online Advertising Manager Name Role Phone Dante Faustin MD Unavailable + Unknown, Unknown Primary Care Provider Leonidas Huitron MD Primary Care Provider Encounter Details Date Type Department Care Team (Late Contact Info) Description 03/09/2020 Procedure Pass [facility] Cardiovascular And Interventional Radiology [address] [place] [address] Social History Tobacco Use Types Packs/Day Years Used Date Smoking Tobacco: Never Smokeless Tobacco: Never Alcohol Use Standard Drinks/Week Comments Yes 0 (1 standard drink = 0.6 oz pur e alcohol) social Comments No Sex and Gender Information Value Date Recorded Sex Assigned at Not on file Legal Sex Female 6:52 PM EST Gender Identity Not on file Sexual Orientation Not on file documented as of this encounter Plan of Treatment Upcoming Encounters Date Type Department Care Team (Late Contact Info) Description 03/10/2025 2:45 PM EDT Office Visit [facility] Orthopedics & Sports Medicine [address] [place] [address] Urban Sharp MD [address] [place] [address] [facility] [place] [address] documented as of this encounter Visit Diagnoses Not on filedocumented in this encounter Care Teams Online Advertising Manager Relationship Specialty Start Date End Date Unknown, Unknown, [address] [facility] [address] [place] [address] PCP - General 05/26/19 08/24/23 Leonidas Calero MD [address] [place] [address] PCP - General Family Medicine 08/25/23 Dante Faustin MD [address] [place] [address] GRB [address]B [address] [place] [address] [email or web address] Mitering Machine Operator Cardiology 08/26/18 documented as of this encounter Additional Source Comments The information contained in this document represents components of the legal health record. It is not the complete legal health record.[facility]
--- OUTSIDE RECORDS SUMMARY | 2025-02-18 14:03 | XMS_ITS | Clinical Summary ---
Author Organization [facility] it[facility] Address [address] [place] [address] Care Team Providers Care Seamer Elastic Band Name Role Phone Unavailable Primary Care Provider [...] 2010 Zoster Vaccines (1 of 2) 2010 Depression Screening 05/19/2024 COVID-19 Vaccine (1 - 2023-2 5 season) 2025 Influenza Vaccine (#1) 2025 RSV Immunization Adult [...]
--- OUTSIDE RECORDS SUMMARY | 2025-02-18 14:03 | XMS_ITS | Encounter Summary ---
Author Organization [facility] Address [address] [facility] [address] [place] [address] Phone Care Team Providers Care Chisel Grinder Name Role Phone Linh Domokali Conteh DO Primary Care Provider [phone] Domo Melton DO Unavailable [phone] Betsy Benavides MD, MPH Primary Care Provid er Dante Faustin MD Unavailable [phone] Unknown, Unknown Primary Care Provider Leonidas Huitron MD Primary Care Provider Encounter Details Date Type Department Care Team (Late st Contact Info) Description 01/04/2016 Ancillary Orders [facility] Cardiology Division [address] [facility], [address] [place] [address] Luann Madsen, PROCESS PUMPER [address] [facility] [phone] [place] [address] [email or web address] PAD (peripheral artery disease) (Primary Dx) Social History Tobacco Use Types Packs/Day Years Used Date Smoking Tobacco: Never Alcohol Use Standard Drinks/Week Comments Yes 0 (1 standard drink = 0.6 oz pur e alcohol) social Comments Unknown Sex and Gender Information Value Date Recorded Sex Assigned at Not on file Legal Sex Female 6:52 PM EST Gender Identity Not on file Sexual Orientation Not on file documented as of this encounter Plan of Treatment Upcoming Encounters Date Type Department Care Team (Late st Contact Info) Description 03/10/2025 2:45 PM EDT Office Visit [facility] Orthopedics & Sports Medicine [address] [place] [address] Urban Sharp MD [address] [place] [address] Orthopedics & Sports Medicine, [place] [address] [email or web address] documented as of this encounter Results * US Lower Extremity Arteries Duplex (Left) (01/09/2016 2:00 PM EDT) Anatomical Region Laterality Modality Vascular, Pelvis Ultrasound 01/09/2016 4:53 PM EDT Narrative 01/24/2016 7:25 PM EDT LOWER EXTREMITY ARTERIAL DUPLEX UNILATERAL (ACCELERATION TIMES) NOTES: PVD REPORT: A duplex ultrasound evaluation of the common femoral arteries was performed using a combination of galloway scale imaging, color duplex and spectral Doppler analysis. PEAK SYSTOLIC VELOCITIES (msec): RT BLUEPRINT CUTTER Acceleration Time: 280 LT BLUEPRINT CUTTER Acceleration Time: 100 FINDINGS: Duplex evaluation of the common femoral arteries was performed bilaterally. The right common femoral artery acceleration time is 280 msec.The left common femoral artery acceleration time is 100 msec. IMPRESSIONS: 1. Acceleration times of >144 msec are consistent with abnormal inflow arterial hemodynamics in the lower extremities. 2. The ankle/brachial index is 0.86 on the right and 1.04 on the left RT BLUEPRINT CUTTER Acceleration Time: 280msec LT BLUEPRINT CUTTER Acceleration Time: 100msec Procedure Note Ishan Alves MD - 01/24/2016 LOWER EXTREMITY ARTERIAL DUPLEX UNILATERAL (ACCELERATION TIMES) NOTES: PVD REPORT: A duplex ultrasound evaluation of the common femoral arteries wasperformed using a combination of galloway scale imaging, color duplex and spectralDoppler analysis. PEAK SYSTOLIC VELOCITIES (msec): RT BLUEPRINT CUTTER Acceleration Time: 280 LT BLUEPRINT CUTTER Acceleration Time: 100 FINDINGS: Duplex evaluation of the common femoral arteries was performedbilaterally. The right common femoral artery acceleration time is 280 msec.The leftcommon femoral artery acceleration time is 100 msec. IMPRESSIONS: 1. Acceleration times of >144 msec are consistent with abnormal inflowarterial hemodynamics in the lower extremities. 2. The ankle/brachial index is 0.86 on the right and 1.04 on the left RT BLUEPRINT CUTTER Acceleration Time: 280msec LT BLUEPRINT CUTTER Acceleration Time: 100msec us Luann Madsen PROCESS PUMPER CV US VASCULAR Final Res ult documented in this encounter Visit Diagnoses Diagnosis PAD (peripheral artery disease)- Primary Unspecified peripheral vascular disease PAD (peripheral artery disease) Unspecified peripheral vascular disease Right knee pain- Primary Pain in joint, lower leg documented in this encounter Care Teams Chisel Grinder Relationship Specialty Start Date End Date Domo Melton DO [address] [place] [address] PCP - General 11/16/13 07/14/18 Betsy Benavides MD, MPH [address] [address] [email or web address] PCP - General Family Medicine 07/15/18 05/25/19 Unknown, [place], [address] [facility] [address] [place] [address] PCP - General 05/26/19 08/24/23 Leonidas Calero MD [address] [place] [address] PCP - General Family Medicine 08/25/23 Domo Melton DO [address] [place] [address] Historical LMR Provider 03/04/1707/14 Dante Faustin MD [address] [facility] [address] [place] [address] [email or web address] Gas Turbine Powerplant Mechanic Cardiology 08/26/18 documented as of this encounter Additional Source Comments The information contained in this document represents components of the legal health record. It is not the complete legal health record.[facility]
--- OUTSIDE RECORDS SUMMARY | 2025-02-18 14:03 | XMS_ITS | Encounter Summary ---
Author Organization [facility] Address [address] [facility] [address] [place] [address] Phone Care Team Providers Care Emergency Management System Director Name Role Phone Dante Faustin MD Unavailable + Unknown, Unknown Primary Care Provider Leonidas Huitron MD Primary Care Provider Encounter Details Date Type Department Care Team (Late Contact Info) Description 03/13/2020 Procedure Pass [facility] Cardiovascular And Interventional Radiology [address] [place] [address] Social History Tobacco Use Types Packs/Day Years [...] Description 03/10/2025 2:45 PM EDT Office Visit [facility] Orthopedics & Sports Medicine [address] [place] [address] Urban Sharp MD [address] [place] [address] [facility] [place] [address] documented as of this encounter Visit Diagnoses Not on filedocumented in this encounter Care Teams Emergency Management System Director Relationship Specialty Start Date End Date Unknown, Unknown, 55 [facility] [address] [place] [address] PCP - General 05/26/19 08/24/23 Leonidas Calero MD [address] [place] [phone] PCP - General Family Medicine 08/25/23 Dante Faustin MD [address] [place] [address] GRB [address]B [address] [place] [address] [email or web address] Telephone Claims Representative Cardiology 08/26/18 documented as of this encounter Additional Source Comments The information contained in this document represents components of the legal health record. It is not the complete legal health record.[facility]
--- OUTSIDE RECORDS SUMMARY | 2025-02-18 14:03 | XMS_ITS | Clinical Summary ---
Author Organization [employer] Address [address] [place] [address] [address] [place] [address] Care Team Providers Care Product Support Rep Name Role Phone Unavailable Primary Care Provider [...] mg into the vagina every 3 months. 06/26/201 7 Active alendronate (Fosamax) 70 MG tablet Take 70 mg by mouth 1 (one) time per week. 4 Active amoxicillin-cla vulanate (Augmentin) 875-125 MG tablet Take 1 tablet by mouth 2 times daily. 20 tablet 5 Active amoxicillin (Amoxil) 500 MG capsule Take 4 capsules one hour [facility] . 30 capsule 5 Active tolterodine LA (Detrol LA) 4 MG 24 hr capsule TAKE 1 CAPSULE BY MOUTH AT THE SAME TIME EACH DAY Active Active Problems Problem Noted Date Diagnosed Date Epilepsy ([facility]) 10/05/2024 Mitral valve insufficiency 10/05/2024 Pain of lower extremity 10/05/2024 Use of opiates for therapeutic purposes 10/06/19 25 Primary localized osteoarthrosis of right lower leg 09/12/2023 Essential hypertension 07/16/2018 Hyperlipidemia LDL goal <70 07/16/2018 Dyspnea and respiratory abnormality 11/10/2015 PAD (peripheral artery disease) 11/10/2015 Pressure in chest 11/10/2015 Cervical spondylosis without myelopathy 09/15/19 14 Overview (10/05/2024): Cervical spondylosis without myelopathy Cerebrovascular accident ([facility] 07/16/2012 Overview (10/05/2024): Cerebrovascular accident Cerebral hemorrhage ([facility]) 07/17/2011 Overview (10/05/2024): Cerebral hemorrhage Fatigue 07/17/2011 Overview (10/05/2024): Fatigue Resolved Problems Problem Noted Date Diagnosed Date Resolved Date Asthma 07/16/2012 01/04/2025 Overview (10/05/2024): Asthma Encounters Date Type Department Care Team Description 01/20/2025 2:15 PM EDT Office Visit [facility] [address] [place] [address] [phone] Shabbir Nguyen BDS Dental caries (Primary Dx) 01/04/2025 2:00 PM EDT Office Visit [facility] [address] [place] [address] [phone] Patrick MANDY Shea from Last 3 Months Social History Tobacco [...] Sign Reading Time Taken Comments Blood Pressure 116/82 01/20/2025 3:09 PM EDT Pulse 58 08/12/2024 2:08 PM EDT Temperature - - Respiratory Rate - - Oxygen Saturation - - Inhaled Oxygen Concentration - - Weight - - Height - - Body Mass Index - - Plan of Treatment Health Maintenance Due Date Last Done Comments CT Colonography 1960 Colonoscopy 1960 Depression Screening 1960 FIT 1960 HIV Screening 1960 Lipid Panel 1960 SDOH Screening 1960 Sigmoidoscopy 1960 Disability Screening 1960 Alcohol/Substance Use Screening 1972 Hepatitis C Screening 1978 Pneumococcal Vaccine: 50+ Years (1 of 2 - PCV) 10/14/1979 Pap Smear 1981 Cervical Cancer Screening 1990 HPV/Cotest 1990 Mammogram 2000 Zoster Vaccines (1 of 2) 2010 Dental Oral Exam 08/11/2024 02/11/2024, , 11/05/2022 FOBT 09/14/2024 09/15/2023, 01/09/2021 Influenza Vaccine (#1) 2025 , 05/14/2023, 02/20/2022, Additional history exists Dental X-Ray: Bitewings 02/11/2025 02/11/20 24, 10/23/2022, 10/15/2022 Dental Prophylaxis 02/13/2025 08/12/2024, 0 02/11/2024, 08/06/2023, Additional history exists Dental X-Ray: Full Mouth 10/24/2025 10/23/2022 Tobacco Screening 01/20/2026 01/20/2025 Colorectal Cancer Screening 09/14/2026 FIT DNA/Cologuard 09/14/2026 [...] PRESENTATION, DETAILED AND EXTENSIVE TREATMENT PLANNING Routine 01/20/2025 2:15 PM EDT 26 MF RESIN-BASED COMPOSITE - 2 SURF, ANTERIOR Routine 01/20/2025 2:15 PM EDT 23 MF RESIN-BASED COMPOSITE - 2 SURF, ANTERIOR Routine 01/20/2025 2:15 PM EDT 11 MF RESIN-BASED COMPOSITE - 2 SURF, ANTERIOR Routine 01/20/2025 2:15 PM EDT CASE PRESENTATION, DETAILED AND EXTENSIVE TREATMENT PLANNING Routine 01/04/2025 2:00 PM EDT 13 LIMITED ORAL EVALUATION - PROBLEM FOCUSED Routine 01/04/2025 2:00 PM EDT 13 INTRAORAL - PERIAPICAL FIRST RADIOGRAPHIC IMAGE Routine 01/04/2025 2:00 PM EDT PROPHYLAXIS - ADULT Routine 08/12/2024 2 :00 PM EDT BITEWINGS - 2 RADIOGRAPHIC IMAGES Routine 02/11/2024 2:00 PM EDT PERIODIC ORAL EVALUATION - ESTABLISHED PATIENT Routine 02/11/2024 2:00 PM EDT INTRAORAL - COMPLETE SERIES OF RADIOGRAPHIC IMAGES Routine 10/23/2022 2:15 PM EDT Accretions on teeth from Last 3 Months or Most Recently Relevant to Health Maintenance Insurance [facility] MEDICAID STAND ADULT
== END 2025-02-18 13:56 | disposition home or self-care (01) ==
LOC: HO.MAMMO 13:55
PROVIDERS: PCP Family Medicine; Visit Provider Family Medicine
DX: Z12.31 Encounter for screening mammogram for malignant neoplasm of breast (principal)
CPT/HCPCS: 77063; 77067

== ENCOUNTER → 2025-02-18 14:30 | Outpatient (BNV) | payer BC, MEDICAID, SELFPAY | PROVIDERS: PCP Family Medicine; Visit Provider Internal Medicine | DX: Z12.31 Encounter for screening mammogram for malignant neoplasm of breast (principal) | CPT/HCPCS: 77063; 77067 ==

== ENCOUNTER 2025-03-30 14:32 | Outpatient (AMB) | payer BC, MEDICAID, SELFPAY ==
--- NOTE | 2025-03-30 14:37 | MHC.PC.OV ---
Vital Signs 03/30/25 14:42 Height 5 ft 7 in Weight 135 lb BMI 21.1 BP 114/62 Blood Pressure Location Rt brachial Position Sitting Respiration 12 Pulse 66 Pulse Source Pulse Oximeter Temp 98.9 F Temp Source Oral Pulse Oximetry (%) 96 Oxygen Delivery Method Room Air Intake Visit Reasons: f/u chronic conditions Intake Note: patient is scheduled to follow up for chronic conditions Home Hospice Rn Required: No Allergies fentanyl (FENTANYL) Allergy (Unknown, Verified 03/30/25 14:38) Unknown meperidine (Demerol) Allergy (Unknown, Verified 03/30/25 14:38) rash morphine (MORPHINE) Allergy (Unknown, Verified 03/30/25 14:38) chest pressure remifentanil Allergy (Unknown, Verified 03/30/25 14:38) Rash sevoflurane Allergy (Unknown, Verified 03/30/25 14:38) Rash Sulfa (Sulfonamide Antibiotics) (SULFA(SULFONAMIDE ANTIBIOTICS)) Allergy (Unknown, Verified 03/30/25 14:38) Rash lactose Allergy (Verified 03/30/25 14:38) Abdominal Pain Ringer's solution,lactated Adverse Reaction (Verified 03/30/25 14:38) contraindicated d/t mitochondrial dz Medication List - Last Reconciled 03/30/25 by Leonidas Calero MD albuterol sulfate 90 mcg/actuation 1 inh inhalation QID PRN alendronate 70 mg PO QWEEK 84 days amlodipine 10 mg PO DAILY atorvastatin 80 mg (2 x 40 mg) PO BEDTIME 90 days calcium polycarbophil (FiberCon) 625 mg PO BID 30 days carbamazepine ER 400 mg PO BID 90 days coenzyme Q10 30 mg PO DAILY 90 days ezetimibe (Zetia) 10 mg PO DAILY 90 days fluoxetine 40 mg PO QAM hydromorphone (Dilaudid) 4 mg PO TID@1000,1600,2100 30 days inhalational spacing device (Yoni Aerosol Wake Enhancer spacer) As directed lidocaine 5% (Lidoderm) 1 patch topical DAILY 30 days lisinopril 30 mg (1.5 x 20 mg) PO DAILY 90 days lorazepam 2 mg (2 x 1 mg) PO BEDTIME PRN 30 days omeprazole 20 mg PO DAILY 90 days pregabalin 200 mg (2 x 100 mg) PO Q12H 30 days terazosin 2 mg PO BEDTIME tolterodine ER 4 mg PO DAILY Tobacco use date assessed: 10/14/24 Dental Screening Dental Screen Date: 10/14/24 HPI f/u chronic conditions HPI Details 64 y/o female presents to f/u chronic pain, hypertension. Blood pressure today 114/62, 66p. Pt notes she had been following up with [facility] for her knees and they had recommended her to f/u with Trev Calderón for her back. They note they had trialed steroid shots for her which has been helping. 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 Father No problems noted. Social History Household Members: Spouse Housing: Condominium Do you presently have visiting nurse or other home services: No Alcohol intake: never Patient Tobacco Use Status: Never used Tobacco e-Cigarette/Vaping Use: Never Used Second Hand Smoke Exposure: No service: No Current occupational status: disabled Current occupational exposures/hazards: No Cognitive needs: Yes (wheelchair/cane) Hearing needs: No Vision needs: Yes (glasses) Questionnaire Thrive Questionnaire Date Thrive assessed: 07/15/24 I am a: Patient What is your living situation today?: I have a steady place to live Within the past 12 months, did the food you bought not last and you didn't have the money to get more?: Never true Within the past 12 months, did you worry whether your food would run out before you got money to buy more?: Never true Do you have trouble paying for medicines?: No Do you have trouble getting transportation to medical appointments?: No Do you have trouble paying your heating and electricity bill?: No Do you have trouble taking care of your child, family member or friend?: No Do you have trouble with day-to-day activities such as bathing, preparing meals, shopping, managing finances, etc.?: No Are you currently unemployed and looking for a job?: No Are you interested in more education?: No Please select the resources that you would like help with: None Currently or been in a relationship where the following occur: No concerns reported THRIVE Score: 0 SANTY-7 AMB Questionnaire SANTY-7 Date SANTY - 7 assessed: 08/10/24 Source: Developed by Drs. Saeid Reynaga, Ava Sorenson, Abraham Foster and colleagues, with an educational christina from [employer]. Review of Systems Const Denies chills, Denies fatigue, Denies fever(s), Denies headache(s) and Denies weakness ENT Denies dizziness and Denies headache(s) Card Denies dyspnea Resp Denies cough, Denies dyspnea, Denies wheezing and Denies other (shortness of breath) Musc Denies numbness and Denies tingling Neuro Denies dizziness, Denies headache(s), Denies numbness, Denies tingling and Denies weakness Psych Denies anxiety and Denies depression Endo Denies fatigue Aller/Immun Denies wheezing Physical exam (Primary Care) Vital Signs: Last Vital Signs Temp 98.9 F 03/30/25 14:42 Pulse 66 03/30/25 14:42 Resp 12 03/30/25 14:42 BP 114/62 03/30/25 14:42 Pulse Ox 96 03/30/25 14:42 Oxygen Delivery Method Room Air 03/30/25 14:42 BMI result Body Mass Index 21.1 Tobacco/Smoking Status: Tobacco use Status Tobacco use date assessed 10/14/24 03/30/25 14:45 Patient Tobacco Use Status Never used Tobacco 03/30/25 14:45 e-Cigarette/Vaping Use Never Used 03/30/25 14:45 Thrive Assessment: Date of Thrive Assessment Date Thrive assessed 07/15/24 03/30/25 14:45 Currently or been in a relationship where the following occur: No concerns reported Const General: well developed; No acute distress Nutritional Appearance: well nourished Orientation/consciousness: patient oriented x3 HENMT Head: Yes normocephalic and Yes atraumatic Eyes General: appearance normal, both eyes and all related structures Pupils: Equal, round and reactive pupils present EOM: EOMs intact bilaterally Resp Effort & Inspection: normal respiratory effort Neuro General: patient oriented x3 and gait normal Cranial nerves: Yes Equal, round and reactive pupils present Psych Affect: normal affect Coding Level of Care Code Est Pt Level 4 (40060) Diagnoses Essential hypertension I10 Right knee pain M25.561 Upper back pain M54.9 Hyperlipidemia E78.5 Assessment & Plan Assessment & Plan (1) Essential hypertension: Code(s): I10 - Essential (primary) hypertension Category: Medical Plan: Blood pressure is well controlled. Goal is less than 140/90 Continue current medications (2) Right knee pain: Code(s): M25.561 - Pain in right knee Category: Medical Plan: Seeing Dr Sharp and getting Cortisone shots PT and plan for Knee Replacement (3) Upper back pain: Code(s): M54.9 - Dorsalgia, unspecified Category: Medical Plan: Patient has referral to spine and sport, Dr. Alvarado She was hold off on seeing him until the knee is dealt with Continue current medications Stable with these. (4) Hyperlipidemia: Code(s): E78.5 - Hyperlipidemia, unspecified Category: Medical Plan: Lipid panel in July was well controlled but she has been having trouble tolerating her medications. Had decreased her atorvastatin and had increased Zetia above limit Advised her to only take Zetia 10 mg daily She is tolerating atorvastatin 30 mg daily and she will continue this Recheck lipids Orders: Orders Lipid Panel Today E78.00 - Pure hypercholesterolemia, unspecified, Z00.00 - Encounter for general adult medical examination without abnormal findings Comprehensive [place]. Panel Fast Today E78.00 - Pure hypercholesterolemia, unspecified, Z00.00 - Encounter for general adult medical examination without abnormal findings Medications: Changed From atorvastatin 80 mg (2 x 40 mg) PO BEDTIME 90 days 180 tabs 2RF To atorvastatin 30 mg (1.5 x 20 mg) PO BEDTIME 135 tabs 2RF 90 days Refilled ezetimibe (Zetia) 10 mg PO DAILY 90 tabs 3RF 90 days I73.9 - Peripheral vascular disease, unspecified
[2025-03-30 14:42] VITALS: BP 114/62; PULSE 66; RESP 12; TEMP 37.2; O2SAT 96; BMI 21.1
--- OUTSIDE RECORDS SUMMARY | 2025-03-30 18:02 | XMS_ITS | Clinical Summary ---
Author Organization [facility] Address [address] [address] Phone Care Team Providers Care Psychometrician Name Role Phone Dante Faustin MD Unavailable [phone] Leonidas Calero MD Primary Care Provider Allergies [...] Active Additional Information Patient not taking.Reported on 03/10/2025 amLODIPine (NORVASC) 5 MG tablet Take 10 [...] Active Additional Information Patient not taking.Reported on 03/10/2025 alendronate (FOSAMAX) 70 MG tablet Take 70 mg by mouth once a week. Active ezetimibe (ZETIA) 10 mg tablet Take 10 mg by mouth daily. Active lisinopril (PRINIVIL,ZESTR IL) 20 MG tablet TAKE 1 AND 1/2 TABLET BY MOUTH DAILY Active Hospital, Clinic, or Other Facility Administered Medication Ordered Dose Route Frequency Start Date End Date Status lidocaine (XYLOCAINE) 1% injection 2 mLIndications:Right knee pain 2 mL See Adm Inst Once 03/10/2025 06/08/2025 Active triamcinolone acetonide (KENALOG-40) 40 mg/mL injection 80 mgIndications:Right knee pain 80 mg See Adm Inst Once 03/10/2025 06/08/2025 Active Active Problems Problem Noted Date Diagnosed [...] (11/10/2015 6:42 PM EDT): Will obtain rest LEONEL's/ PVR's along with bilateral arterial duplex. Dyspnea [...] not currently on ASA. Offered referral to [facility] neurologist. Patient would like to see neurologist closer to home. -Advised patient to contact PCP for neurology referral. Cerebral hemorrhage 07/17/2011 Overview (07/09/2014): Cerebral hemorrhage Fatigue 07/17/2011 Overview (07/09/2014): Fatigue Encounters Date Type Department Care Team Description 03/10/2025 2:54 PM EDT - 03/10/2025 11:59 PM EDT Hospital Encounter [address] [address] Urban Sharp MD Discharge Disposition: Home or Self Care 03/10/2025 2:45 PM EDT Office Visit [facility] Orthopedics & Sports Medicine [address] [place] [id number] Urban Sharp MD Primary localized osteoarthrosis of right lower leg (Primary Dx); Right knee pain from Last 3 Months Family History Relation Status Comments Father Mother [...] Care Team (Late st Contact Info) Description 05/25/2025 1:15 PM EST Office Visit [address] [place] [address] Urban Sharp MD [address] [place] [address] Orthopedics Sports [facility], [place] [address] Jann Lechuga, PT [address] [place] [address] 06/01/2025 1:15 PM EST Office Visit [address] [place] [address] Urban Sharp MD [address] [place] [address], [place] [address] Jann Lechuga, PT [address] [place] [address] 06/08/2025 1:15 PM EST Office Visit [address] [place] [address] Urban Sharp MD [address] [place] [address], [place] [address] Jann Lechuga, PT [address] [place] [address] 06/15/2025 1:15 PM EST Office Visit [address] [place] [address] Urbna Sharp MD [address] [place] [address] [facility] [place] [address] [email or web address] Jann Lechuga, PT [address] [place] [address] [email or web address] 08/25/2025 1:30 PM EDT Office Visit [facility] Orthopedics & Sports Medicine [address] [place] [address] [phone] Urban Sharp MD [address] [place] [address] Orthopedics & Sports Medicine, [place], [place] [phone] [email or web address] Health Maintenance Due Date Last Done Comments [...] 09/17/2012, Additional history exists COLONOSCOPY 01/26/2018 01/27/2008 COVID-19 VACCINE ( season) 2025 01/31/2024, 03/05/2023, 05/02/2021, Additional history exists COLOGUARD 09/14/2026 09/15/2023 COLORECTAL CANCER SCREENING 09/14/2026 Adult Td,Tdap Booster 03/30/2031 03/30/2021 HEPATITIS C SCREENING Completed 09/17/2012 RSV VACCINE Completed 06/26/2023 INFLUENZA VACCINE Completed 02/25/2025, , 05/14/2023, Additional history exists SMOKING STATUS SCREENING (Once After 26 Yrs) Completed 03/10/2025 HEPATITIS A VACCINES Aged Out No long er eligible based on patient's age to complete this topic HIB VACCINES Aged Out No longer eligi ble based on patient's age to complete this topic IPV VACCINES Aged Out No longer eligi ble based on patient's age to complete this topic MENINGOCOCCAL VACCINES (ACWY) Aged Out No longer eligible based on patient's age to complete this topic MENINGOCOCCAL VACCINES (B) Aged Out N o longer eligible based on patient's age to complete this topic Medical Devices Implanted Type Area Privacy Attorney Device Identifier Shelf Expiration Date Model / Serial / Lot Kit Cement Bone [employer] Xpede Polymethylmethacrylate Mixer - [id number] Implanted:Qty: 1 on 03/13/2020 by Mike Pineda MD, MARSHA at [facility] Bone Cement [employer] [id number] 08/16/2022 [id number] / / [id number] Procedures Procedure Name Priority Date/Time Associated Diagnosis Comments XR KNEE 4 OR MORE VIEWS (RIGHT) Routine 03/10/2025 3:09 PM EDT Right knee pain COMPREHENSIVE METABOLIC PANEL (CMP) Routine 07/18/2014 1:55 PM EST HISTORICAL LAB Routine 11/11/2013 3:51 PM EDT HISTORICAL LAB Routine 09/17/2012 3:23 PM EDT ENDOSCOPY, COLON 01/27/2008 5:50 PM EDT from Last 3 Months or Most Recently Relevant to Health Maintenance Results * XR KNEE 4 OR MORE VIEWS (RIGHT) (03/10/2025 3:09 PM EDT) Narrative SYSTEMGENERATED, DOCUMENTATION - 03/10/2025 3:09 PM EDT This image report has been auto-finalized and has not been read by a Radiologist. Interpretation has been included in the provider encounter note for this date of service. us Urban Sharp MD IMG XR LOWER EXTREMITY Final Result * (ABNORMAL) Comprehensive metabolic panel (07/18/2014 1:55 PM EST) Plasma Sodium 130(Abnor donn L) 135 - 145 mmol/L [facility] Plasma Potassium 3.7 3.4 - 5.0 mmol/L [facility] Plasma Chloride 89(Abnorm ally L) 100 - 108 mmol/L [facility] Plasma Carbon Dioxide 26 23 - 32 mmol/L [facility] Plasma Urea Nitrogen 11 8 - 25 mg/dL [facility] Plasma Creatinine 0.48(Abno rmally L) 0.60 - 1.50 mg/dL [facility] Plasma Glucose 80 70 - 110 mg/dL [facility] Albumin 4.3 3.3 - 5.0 g/dL [facility] Total Protein 7.1 6.0 - 8.3 g/dL [facility] Calcium 9.1 8.5 - 10.5 mg/dL [facility] Alkaline Phosphatase 104(Abnor donn H) 30 - 100 U/L [facility] Total Bilirubin 0.3 0.0 - 1.0 mg/dL [facility] Transaminase-SG OT 31 9 - 32 U/L [facility] Transaminase-SG PT 24 7 - 33 U/L [facility] Globulin 2.8 1.9 - 4.1 g/dL [facility] eGFR >60 mL/min/1. 73m2 [facility] Comment: Abnormal if <60 mL/min/1.73m2. If patient is -Filipino, multiply the result by 1.21. Plasma Anion GAP 15 3 - 17 mmol/L [facility] 07/18/2014 1:55 PM EST 07/18/2014 9:42 PM EST Comment:BLOOD David Forman MD LAB BLOOD BKR ORDERABLES Edited Result - Final [facility] [address] [place] [address] * (ABNORMAL) Historical Lab (11/11/2013 3:51 PM EDT) Only the most recent of2 resultswithin the time period is included. Hemoglobin A1C 5.4 4.3 - 6.4 % [facility] Comment: Note: New normal range ACETYLCARNITINE, C2 14.35 nmol/mL [facility] Comment: (NOTE)-- REFERENCE VALUE -- 2.00-17.83 (> or = 8 years) Performed by [facility] MED AND PATHOLOGY, [address] [place], [place] [id number] PROPIONYLCARNIT, C3 0.40 nmol/mL [facility] Comment: (NOTE)-- REFERENCE VALUE -- < 0.88 (> or = 8 years) Performed by [facility], [address] [place], [place] [id number] ISO/BUTRYLCARNIT,C4 0.39 nmol/mL [facility] Comment: (NOTE)-- REFERENCE VALUE -- < 0.83 (> or = 8 years) Performed by [facility]OLOGY, [address] [place], [place] [phone] ISOVAL/2METHYLBU,C5 0.12 nmol/mL [facility] Comment: (NOTE)-- REFERENCE VALUE -- < 0.51 (> or = 8 years) Performed by [facility] PATHOLOGY, [address] [place], [place] [phone] HEXANOYLCARNITIN,C6 0.22(Abnor donn H) nmol/mL [facility] Comment: (NOTE)-- REFERENCE VALUE -- < 0.17 (> or = 8 years) Performed by [facility]OLOGY, [address] [place] [address] 3OH HEXANOYLCA C6OH 0.01 nmol/L [facility] Comment: Unit: nmol/mL (NOTE)-- REFERENCE VALUE -- < 0.09 (> or = 8 years) Performed by [facility] MED [facility] PATHOLOGY, [address] [place] [address] OCTENOYLCARNIT C8:1 0.07 nmol/L [facility] Comment: Unit: nmol/mL (NOTE)-- REFERENCE VALUE -- < 0.88 (> or = 8 years) Performed by [facility] LAB MED [facility] PATHOLOGY, [address] [place] [address] OCTANOYLCARNIT, C8 0.82(Abnor donn H) nmol/mL [facility] Comment: (NOTE)-- REFERENCE VALUE -- < 0.78 (> or = 8 years) Performed by [facility] MED [facility] PATHOLOGY, [address] [place] [address] DECENOYLCARN, C10:1 0.47(Abnor donn H) nmol/L [facility] Comment: Unit: nmol/mL (NOTE)-- REFERENCE VALUE -- < 0.47 (> or = 8 years) Performed by [facility] MED [facility] PATHOLOGY, [address] [place] [address] DECENOYLCARN, C10 1.02(Abnor donn H) nmol/mL [facility] Comment: (NOTE)-- REFERENCE VALUE -- < 0.88 (> or = 8 years) Performed by [facility] LAB MED AND PATHOLOGY, [address] [place] [address] GLUTARYLCARN, C5-DK 0.04 nmol/mL [facility] Comment: (NOTE)-- REFERENCE VALUE -- < 0.11 (> or = 8 years) Performed by [facility] LAB MED AND PATHOLOGY, [address] [place] [address] DODECENOYLCAR,C12:1 0.15 nmol/mL [facility] Comment: (NOTE)-- REFERENCE VALUE -- < 0.35 (> or = 8 years) Performed by [facility] MED AND PATHOLOGY, [address] [place] [address] DODECENOYLCARN, C12 0.20 nmol/mL [facility] Comment: (NOTE)-- REFERENCE VALUE -- < 0.26 (> or = 8 years) Performed by [facility] OF LAB MED AND PATHOLOGY, [address] [place] [address] 3OH DODECENOY,C12OH 0.02 nmol/L [facility] Comment: Unit: nmol/mL (NOTE)-- REFERENCE VALUE -- < 0.08 (> or = 8 years) Performed by [facility] LAB MED AND PATHOLOGY, [address] [place] [address] TETRADECADIEN,C14:2 0.10 nmol/mL [facility] Comment: (NOTE)-- REFERENCE VALUE -- < 0.18 (> or = 8 years) Performed by [facility] MED [facility] PATHOLOGY, [address] [place] [address] 615[address] TETRADECENOYL,C14:1 0.19 nmol/mL [facility] Comment: (NOTE)-- REFERENCE VALUE -- < 0.24 (> or = 8 years) Performed by [facility] MED AND PATHOLOGY, [address] [place] [address] 10897 TETRADECANOYLCA,C14 0.09 nmol/mL [facility] Comment: (NOTE)-- REFERENCE VALUE -- < 0.12 (> or = 8 years) Performed by [facility] MED [facility] PATHOLOGY, [address] [place] [address] 11231 3OH TETRADE C14:1OH 0.07 nmol/mL [facility] Comment: (NOTE)-- REFERENCE VALUE -- < 0.13 (> or = 8 years) Performed by [facility] LAB MED AND PATHOLOGY, [address] [place] [address] 34069 3OH TETRADECA C14OH 0.01 nmol/mL [facility] Comment: (NOTE)-- REFERENCE VALUE -- < 0.08 (> or = 8 years) Performed by [facility] LAB MED AND PATHOLOGY, [address] [place] [address] 96127 HEXADECENOYL, C16:1 0.07 nmol/mL [facility] Comment: (NOTE)-- REFERENCE VALUE -- < 0.10 (> or = 8 years) Performed by [facility] OF LAB MED AND PATHOLOGY, [address] [place] [address] HEXADECANOYLC, C16 0.13 nmol/mL [facility] Comment: (NOTE)-- REFERENCE VALUE -- < 0.23 (> or = 8 years) Performed by [facility] LAB MED AND PATHOLOGY, [address] [place] [address] 12288 3OH HEXADEC C16:1OH 0.01 nmol/mL [facility] Comment: (NOTE)-- REFERENCE VALUE -- < 0.06 (> or = 8 years) Performed by [facility] LAB MED AND PATHOLOGY, [address] [place] [address] 78477 3OH HEXADECAN C16OH 0.01 nmol/mL [facility] Comment: (NOTE)-- REFERENCE VALUE -- < 0.06 (> or = 8 years) Performed by [facility] OF LAB MED AND PATHOLOGY, [address] [place] [address] LINOLEYCARNI, C18:2 0.11 nmol/mL [facility] Comment: (NOTE)-- REFERENCE VALUE -- < 0.24 (> or = 8 years) Performed by [facility] MED AND PATHOLOGY, [address] [place] [address] OLEYLCARNIT, C18:1 0.26 nmol/mL [facility] Comment: (NOTE)-- REFERENCE VALUE -- < 0.39 (> or = 8 years) Performed by [facility] OF LAB MED AND PATHOLOGY, [address] [place] [address] STEAROYLCARNIT, C18 0.08 nmol/mL [facility] Comment: (NOTE)-- REFERENCE VALUE -- < 0.14 (> or = 8 years) Performed by [facility] LAB MED AND PATHOLOGY, [address] [place] [address] 3OH LINOLEY C18:2OH see comment nmol/mL [facility] Comment: Below detection limit. (NOTE)A quantitative value cannot be provided because the concentration of 1-FH-cldlbrucfyadblzklddtgrda is below the assay's limit of detection, <0.02 nmol/mL. -- REFERENCE VALUE -- < 0.06 (> or = 8 years) Performed by [facility] MED [facility] PATHOLOGY, [address] [place] [address] 3OH OLEYLCA C18:1OH 0.01 nmol/mL [facility] Comment: (NOTE)-- REFERENCE VALUE -- < 0.06 (> or = 8 years) Performed by [facility] MED AND PATHOLOGY, [address] [place] [address] COMMENT ACYQT SEE NOTE [facility] Comment: (NOTE)In this plasma sample, several acylcarnitines of various chain lengths were mildly elevated in a pattern not diagnostic of a specific disorder. If indicated, consider sending another sample to repeat the analysis, and urine for organic acid and acylglycine analyses. We need clinical information for further interpretation. Please contact the Biochemical [employer]etics method consultant water control supervisor (Tel. ) if you have any questions. Performed by [facility] OF LAB MED [facility] PATHOLOGY, [address] [place] [address] Calc Mean Bld Glucose 108 mg% [facility] Comment: There is no established normal range [...] 129(Abnorm ally L) 135 - 145 mmol/L [facility] Plasma Potassium 4.0 3.4 - 4.8 mmol/L [facility] Plasma Chloride 89(Abnorma lly L) 100 - 108 mmol/L [facility] Plasma Carbon Dioxide 28.9 23.0 - 31.9 mmol/L [facility] Plasma Urea Nitrogen 10 8 - 25 mg/dl [facility] Plasma Creatinine 0.58(Abnor donn L) 0.60 - 1.50 mg/dl [facility] Plasma Glucose 81 70 - 110 mg/dl [facility] Albumin 4.6 3.3 - 5.0 g/dl [facility] Total Protein 7.9 6.0 - 8.3 g/dl [facility] Calcium 9.2 8.5 - 10.5 mg/dl [facility] Alkaline Phosphatase 102(Abnorm ally H) 30 - 100 U/L [facility] Total Bilirubin 0.4 0.0 - 1.0 mg/dl [facility] Transaminase-SGOT 38(Abnorma lly H) 9 - 32 U/L [facility] Transaminase-SGPT 29 7 - 33 U/L [facility] Globulin 3.3 1.9 - 4.1 g/dl [facility] eGFR >60 mL/min/ 1.73m2 [facility] Comment: Abnormal if <60 mL/min/1.73m2. If patient is -Filipino, multiply the result by 1.21. Plasma Anion GAP 11 3 - 15 mmol/L [facility] Creatine Kinase 207(Abnorm ally H) 40 - 150 U/L [facility] Folic Acid >20.0 >3.0 ng/ml [facility] High Density Lipoprotein 75 35 - 100 mg/dl [facility] Cholesterol 289 mg/dl [facility] Comment:DESIRABLE: <200 Triglycerides 87 40 - 150 mg/dl [facility] Low Density Lipoprotein 197 mg/dl [facility] Comment:DESIRABLE: <130 Cardiac Risk Ratio 3.9 M [facility] Comment:NORMAL RISK RATIO: 5 .0 OR LESS Magnesium 1.6 1.4 - 2.0 meq/L [facility] Phosphorus 3.1 2.6 - 4.5 mg/dl [facility] Taurine 90 nmol/mL [facility] Comment: Reference range: 42 to 156 Performed by [facility] OF LAB MED AND PATHOLOGY, [address] [place] [address] Asparagine 36(Abnorma lly L) nmol/mL [facility] Comment: Reference range: 37 to 92 Performed by [facility] LAB MED AND PATHOLOGY, [address] [place] [address]408 Serine 76 nmol/mL [facility] Comment: Reference range: 63 to 187 Performed by [facility] OF LAB MED AND PATHOLOGY, [address] [place] [address]11 Glycine 296 nmol/mL [facility] Comment: Reference range: 126 to 490 Performed by [facility] LAB MED AND PATHOLOGY, [address] [place] [address]6714 Glutamine 640 nmol/mL [facility] Comment: Reference range: 371 to 957 Performed by [facility] OF LAB MED AND PATHOLOGY, [address] [place] [address] 91225 Histidine 71 nmol/mL [facility] Comment: Reference range: 39 to 123 Performed by [facility] OF LAB MED AND PATHOLOGY, [address] [place] [address] 88722 Threonine 101 nmol/mL [facility] Comment: Reference range: 85 to 231 Performed by [facility] OF LAB MED AND PATHOLOGY, [address] [place] [address] 15998 Citrulline 20 nmol/mL [facility] Comment: Reference range: 17 to 46 Performed by [facility] OF LAB MED AND PATHOLOGY, [address] [place] [address] 81991 B-Alanine 11 nmol/mL [facility] Comment: Reference range: <29 Performed by [facility] OF LAB MED AND PATHOLOGY, [address] [place] [address] 53258 Alanine 272 nmol/mL [facility] Comment: Reference range: 200 to 579 Performed by [facility] OF LAB MED AND PATHOLOGY, [address] [place] [address] Glutamic Acid 54 nmol/mL [facility] Comment: Reference range: 13 to 113 Performed by [facility] OF LAB MED AND PATHOLOGY, [address] [place] [address] 94574 Argininosuccinate 0 nmol/mL [facility] Comment: Reference range: <2 Performed by [facility] OF LAB MED AND PATHOLOGY, [address] [place] [address] Arginine 39 nmol/mL [facility] Comment: Reference range: 32 to 120 Performed by [facility] OF LAB MED AND PATHOLOGY, [address] [place] [address] 18587 V-Yydhu-D-Butyric 12 nmol/mL [facility] Comment: Reference range: 9 to 37 Performed by [facility] MED AND PATHOLOGY, [address] [place] [address] 90159 Proline 107 nmol/mL [facility] Comment: Reference range: 97 to 368 Performed by [facility] OF LAB MED AND PATHOLOGY, [address] [place] [address] 41806 Ornithine 62 nmol/mL [facility] Comment: Reference range: 38 to 130 Performed by [facility] OF LAB MED AND PATHOLOGY, [address] [place] [address] 65000 Cystine 17 nmol/mL [facility] Comment: Reference range: 3 to 95 Performed by [facility] MED AND PATHOLOGY, [address] [place] [address] 10880 Lysine 124 nmol/mL [facility] Comment: Reference range: 103 to 255 Performed by [facility] OF LAB MED AND PATHOLOGY, [address] [place] [address] 00756 Methionine 15 nmol/mL [facility] Comment: Reference range: 4 to 44 Performed by [facility] OF LAB MED AND PATHOLOGY, [address] [place] [address] 92438 Valine 134(Abnorm ally L) nmol/mL [facility] Comment: Reference range: 136 to 309 Performed by [facility] PATHOLOGY, [address] [place] [address] 45449 Tyrosine 44 nmol/mL [facility] Comment: Reference range: 31 to 90 Performed by [facility]OLOGY, [address] [place] [address] 09252 Isoleucine 38 nmol/mL [facility] Comment: Reference range: 36 to 107 Performed by [facility]OLOGY, [address] [place] [address] 63470 Leucine 73 nmol/mL [facility] Comment: Reference range: 68 to 183 Performed by [facility]Y, [address] [place] [address] 68222 Phenylalanine 37 nmol/mL [facility] Comment: Reference range: 35 to 80 Performed by [facility] PATHOLOGY, [address] [place] [address] 78459 Allo-isoleucine 0 nmol/mL [facility] Comment: Reference range: <5 Performed by [facility] PATHOLOGY, [address] [place] [address] 19979 PLASMA AA INTERP SEE NOTE [facility] Comment: (NOTE)In this sample, the amino acid profile was essentially normal. Liquid Chromatography-Tandem Mass Spectrometry (LC-MS/MS) Performed by [facility], [address] [place] [address] 97831 Phosphoserine 0 nmol/mL [facility] Comment: Reference range: <18 Performed by [facility] AND [facility]OLOGY, [address] [place] [address] 74414 Phosphoethanolamine <2 nmol/mL [facility] Comment: Reference range: <12 Performed by [facility] PATHOLOGY, [address] [place] [address] 18228 Hydroxyproline 10 nmol/mL [facility] Comment: Reference range: 4 to 29 Performed by [facility]OLOGY, [address] [place] [address] 62247 Aspartic Acid 3 nmol/mL [facility] Comment: Reference range: <7 Performed by [facility]OLOGY, [address] [place] [address] 61042 Ethanolamine 9 nmol/mL [facility] Comment: Reference range: <67 Performed by [facility]OLOGY, [address] [place] [address] 03152 Sarcosine 1 nmol/mL [facility] Comment: Reference range: <5 Performed by [facility]OLOGY, [address] [place] [address] 1-Methylhistidine 4 nmol/mL [facility] Comment: Reference range: <28 Performed by [facility]OLOGY, [address] [place] [address] 3-Methylhistidine 2 nmol/mL [facility] Comment: Reference range: 2 to 9 Performed by [facility], [address] [place] [address] Carnosine 0 nmol/mL [facility] Comment: Reference range: <1 Performed by [facility], [address] [place] [address] Anserine 0 nmol/mL [facility] Comment: Reference range: <1 Performed by [facility], [address] [place] [address] 69547 Homocitrulline 0 nmol/mL [facility] Comment: Reference range: <2 Performed by [facility] [facility], [address] [place] [address] A-aminoadipic Acid 0 nmol/mL [facility] Comment: Reference range: <3 Performed by [facility], [address] [place] [address] K-moedb-q-butyrate 0 nmol/mL [facility] Comment: Reference range: <2 Performed by [facility], [address] [place] [address] B-aminoisobutyrate 2 nmol/mL [facility] Comment: Reference range: <5 Performed by [facility], [address] [place] [address] Hydroxylysine 0 nmol/mL [facility] Comment: Reference range: <2 Performed by [facility], [address] [place] [address] Cystathionine <1 nmol/mL [facility] Comment: Reference range: <5 Performed by [facility], [address] [place] [address] Tryptophan 31 nmol/mL [facility] Comment: Reference range: 29 to 77 Performed by [facility], [address] [place] [address] Parathyroid Hormone 45 10 - 60 pg/ml [facility] Thyroid Stimulating Hormone 1.27 0.40 - 5.00 uU/ml [facility] 25(OH) Vitamin D Total 14(Abnorma lly L) 33 - 100 ng/mL [facility] Comment: Desired: > 32 ng/ml . Taurine, UR 660 nmol/mg Cr [facility] Comment: Reference range: 24 to 1531 Performed by [facility], [address] [place] [address] 34[address] Asparagine, UR 83 nmol/mg Cr [facility] Comment: Reference range: 25 to 238 Performed by [facility], [address] [place], [place] [address] Serine, UR 276 nmol/mg Cr [facility] Comment: Reference range: 97 to 540 Performed by [facility], [address] [place], [place] [id number] Glycine, UR 1702 nmol/mg Cr [facility] Comment: Reference range: 229 to 2989 Performed by [facility], [address] [place] [address] Glutamine, UR 629 nmol/mg Cr [facility] Comment: Reference range: 93 to 686 Performed by [facility], [address] [place] [address] 58678 Histidine, UR 617 nmol/mg Cr [facility] Comment: Reference range: 81 to 1128 Performed by [facility], [address] [place] [address] Threonine, UR 140 nmol/mg Cr [facility] Comment: Reference range: 31 to 278 Performed by [facility], [address] [place] [address]1367 Citrulline, UR 5 nmol/mg Cr [facility] Comment: Reference range: <12 Performed by [facility], [address] [place], [place] [id number] B-Alanine, UR 33 nmol/mg Cr [facility] Comment: Reference range: <52 Performed by [facility], [address] [place], [place] [id number] Alanine, UR 119 nmol/mg Cr [facility] Comment: Reference range: 56 to 518 Performed by [facility], [address] [place] [address] Glutamic Acid, UR 38(Abnorma lly H) nmol/mg Cr [facility] Comment: Reference range: <34 Performed by [facility], [address] [place] [address] 1-Methylhistid, UR 331 nmol/mg Cr [facility] Comment: Reference range: 23 to 1339 Performed by [facility], [address] [place] [address] 3-Methylhistid, UR 145 nmol/mg Cr [facility] Comment: Reference range: 70 to 246 Performed by [facility], [address] [place] [address] Carnosine, UR 2 nmol/mg Cr [facility] Comment: Reference range: <35 Performed by [facility], [address] [place] [address] Arginine, UR 19 nmol/mg Cr [facility] Comment: Reference range: <114 Performed by [facility], [address] [place] [address] A-Aminoadipic, UR 21 nmol/mg Cr [facility] Comment: Reference range: <47 Performed by [facility], [address] [place] [address]28 B-Aminoisobutyr, UR 67 nmol/mg Cr [facility] Comment: Reference range: <301 Performed by [facility], [address] [place] [address]55[address] B-Fvlzx-M-Butyr, UR 10 nmol/mg Cr [facility] Comment: Reference range: <19 Performed by [facility], [address] [place] [address] Proline, UR 14 nmol/mg Cr [facility] Comment: Reference range: <26 Performed by [facility], [address] [place] [address] Ornithine, UR 7 nmol/mg Cr [facility] Comment: Reference range: <25 Performed by [facility], [address] [place] [address] Cystathionine, UR 2 nmol/mg Cr [facility] Comment: Reference range: <30 Performed by [facility], [address] [place] [address] Cystine 31 nmol/mg Cr [facility] Comment: Reference range: 10 to 98 Performed by [facility], [address] [place], [place] [address] Lysine, UR 52 nmol/mg Cr [facility] Comment: Reference range: 15 to 271 Performed by [facility], [address] [place] [address] Methionine 7 nmol/mg Cr [facility] Comment: Reference range: <16 Performed by [facility], [address] [place] [address] Valine, UR 33 nmol/mg Cr [facility] Comment: Reference range: 11 to 61 Performed by [facility], [address] [place] [address] Tyrosine, UR 88 nmol/mg Cr [facility] Comment: Reference range: 15 to 115 Performed by [facility], [address] [place] [address] Isoleucine, UR 14 nmol/mg Cr [facility] Comment: Reference range: <22 Performed by [facility], [address] [place] [address] Leucine, UR 29 nmol/mg Cr [facility] Comment: Reference range: <51 Performed by [facility], [address] [place] [address] Phenylalanine, UR 38 nmol/mg Cr [facility] Comment: Reference range: 13 to 70 Performed by [facility], [address] [place] [address] URINE AA INTERP SEE NOTE [facility] Comment: (NOTE)In this sample, the amino acid profile was essentially normal. Liquid Chromatography-Tandem Mass Spectrometry (LC-MS/MS) Performed by [facility], [address] [place], [place] [address] Phosphoserine, UR 0 nmol/mg Cr [facility] Comment: Reference range: <1 Performed by [facility], [address] [place] [address] Phosphoethanolam,UR 10 nmol/mg Cr [facility] Comment: Reference range: <48 Performed by [facility], [address] [place] [address] Hydroxyproline, UR 2 nmol/mg Cr [facility] Comment: Reference range: <15 Performed by [facility], [address] [place] [address] 93080 Aspartic Acid, UR 7 nmol/mg Cr [facility] Comment: Reference range: <10 Performed by [facility], [address] [place] [address] 747[address] Ethanolamine, UR 343 nmol/mg Cr [facility] Comment: Reference range: 95 to 471 Performed by [facility], [address] [place] [address] 33663 Sarcosine, UR 0 nmol/mg Cr [facility] Comment: Reference range: <3 Performed by [facility], [address] [place] [address] 40504 Argininosuccinic,UR 14 nmol/mg Cr [facility] Comment: Reference range: <15 Performed by [facility], [address] [place] [address] 29474 Anserine, UR 2 nmol/mg Cr [facility] Comment: Reference range: <38 Performed by [facility], [address] [place] [address] 84469 Homocitruline, UR 14 nmol/mg Cr [facility] Comment: Reference range: <30 Performed by [facility], [address] [place] [address] 29401 D-urfnh-j-butyr, UR 2 nmol/mg Cr [facility] Comment: Reference range: <5 Performed by [facility], [address] [place] [address] 84834 Hydroxylysine, UR 2 nmol/mg Cr [facility] Comment: Reference range: <12 Performed by [facility], [address] [place] [address] 73915 Tryptophan, UR 76 nmol/mg Cr [facility] Comment: Reference range: 18 to 114 Performed by [facility], [address] [place] [address] 19124 Allo-isoleucine, UR 2 nmol/mg Cr [facility] Comment: Reference range: <7 Performed by [facility], [address] [place] [address] 16878 11/11/2013 3:51 PM EDT 11/11/2013 4:50 PM EDT Comment:BLD UR David Forman MD LAB BLOOD ORDERABLES Final Resul t [facility] [address] [place] [address] * ENDOSCOPY, COLON (01/27/2008 5:50 PM EDT) 01/27/2008 5:50 PM EDT Narrative 01/28/2008 10:10 AM EDT Report Number: [id number] Report Status: Final Type: Colonoscopy Date: 01/27/2008 17:50 [facility] [id number] Patient Name: Aleida Lopez Gender: F Exam [...] study in the am. Umberto Jolly MD, [id number] Signed Date: 01/28/2008 10:09:59 AM Number of Addenda: 0 The attending physician was present throughout the entire procedure Note initiated on 01/27/2008 05:50:00 PM Procedure Note Umberto Jolly MD - 01/27/2008 5:50 PM EDT Report Number: [id number] Report Status:Final Type: Colonoscopy Date: 01/27/2008 17:50 [facility] [id number] Patient Name: Aleida Lopez Gender: F Exam [...] study in the am. Umberto Jolly MD, [id number] Signed Date: 01/28/2008 10:09:59 AM Number of Addenda: 0 The attending physician was present throughout the entire procedure Note initiated on 01/27/2008 05:50:00 PM us Conversion Provider Not In Sys GI PROCEDURE ANAID MCKEON Final Result from Last 3 Months or Most Recently Relevant to Health Maintenance Insurance [facility] MEDICARE PART A & B [facility] MEDICARE PART A & B [facility] MEDICARE PART A & B Member Subscriber Plan / Payer (Ef fective 2024-) Name:Aleida Lopez Member ID:[id number] Relation to Subscriber:Self Name:Aleida Lopez Subscriber ID:[id number] Payer ID:[id number] Group ID:Not on file Type:Medicare Address: [facility] [employer] [address] MEDICARE PART A & B [facility] MEDICARE PART A & B [facility] MEDICARE PART A & B [facility] MEDICARE PART A & B MEDICARE PART A & B Member Subscriber Plan / Payer (Ef fective 1992-) Name:Aleida Lopez Relation to Subscriber:Self Name:Aleida Lopez Payer ID:[id number] (NAIC) Group ID:[id number] Type:PPO Address: [address] MEDICARE PART A & B Advance Directives For more information, please contact: [phone] (9AM - 5PM [facility], Friday-Friday) Documents on File Type Date Recorded Patient Stunt Performer Expl anation Advance Directive - Non Epic LMR 01/26/2008 12:00 AM Care Teams Psychometrician Relationship Specialty Start Date End Date Leonidas Calero MD [address] [facility] [address] [place] [address] PCP - General Family Medicine 08/25/23 Dante Faustin MD [address] [facility] [address] [place] [address] [email or web address] Lease Out Worker Cardiology 08/26/18 Additional Source Comments The information contained in this document represents components of the legal health record. It is not the complete legal health record.[facility]
--- OUTSIDE RECORDS SUMMARY | 2025-03-30 18:02 | XMS_ITS | Encounter Summary ---
Author Organization [facility] Address [address] [facility] [address] [place] [address] Phone Care Team Providers Care Setter [employer] Name Role Phone Dante Faustin MD Unavailable [phone] Unknown, Unknown Primary Care Provider Leonidas Huitron MD Primary Care Provider Encounter Details Date Type Department Care Team (Late st Contact Info) Description 03/13/2020 Procedure Pass [facility] [address] [place] [address] Social History Tobacco Use Types Packs/Day Years [...] Department Care Team (Late Contact Info) Description 05/25/2025 1:15 PM EST Office Visit [facility] [address] [place] [address] Urban Sharp MD [address] [place] [address] [facility] [place] [address] Jann Lechuga, PT [address] [place] [address] 06/01/2025 1:15 PM EST Office Visit [facility] [address] [place] [address] Urban Sharp MD [address] [place] [address] Orthopedics [facility] [place] [address] Jann Lechuga, PT 8 [place] [address] 06/08/2025 1:15 PM EST Office Visit [facility] [address] [place] [address] Urban Sharp MD [address] [place], [place] [address]s [facility], [place] [address] Jann Lechuga, PT 8 [place] [address] 06/15/2025 1:15 PM EST Office Visit [address] [address] Urban Sharp MD [address] [place] [address] [facility], [place], [place] [phone] Jann Lechuga, PT [address] [place] [address] 08/25/2025 1:30 PM EDT Office Visit [facility] [address] [place] [address] [phone] Urban Sharp MD [address] [place] [address] [facility], [place], [place] [phone] documented as of this encounter Visit Diagnoses Not on filedocumented in this encounter Care Teams Setter [employer] Relationship Specialty Start Date End Date Unknown, Unknown, [address] [facility] [address] [place] [address] PCP - General 05/26/19 08/24/23 Leonidas Calero MD [address] [facility] [address] [place] [address] PCP - General Family Medicine 08/25/23 Dante Faustin MD [address] [facility] [address] [place] [address] [email or web address] Specialty Therapist Cardiology 08/26/18 documented as of this encounter Additional Source Comments The information contained in this document represents components of the legal health record. It is not the complete legal health record.[facility]
--- OUTSIDE RECORDS SUMMARY | 2025-03-30 18:02 | XMS_ITS | Clinical Summary ---
Author Organization [facility] [employer] Address [address] [place] [address] [address] [place] [address] Care Team Providers Care Optical Manager Name Role Phone Unavailable Primary Care [...] MG capsule Take 4 capsules one hour [facility] . 30 capsule 5 Active tolterodine LA (Detrol LA) 4 MG 24 hr capsule TAKE 1 CAPSULE BY MOUTH AT THE SAME TIME EACH DAY Active Active Problems Problem Noted Date Diagnosed Date Epilepsy ([facility]) 10/05/2024 Mitral valve insufficiency 10/05/2024 Pain of lower extremity 10/05/2024 Use of opiates for therapeutic purposes 10/06/19 25 Primary localized osteoarthrosis of right lower leg 09/12/2023 Essential hypertension 07/16/2018 Hyperlipidemia LDL goal <70 07/16/2018 Dyspnea and respiratory abnormality 11/10/2015 PAD (peripheral artery disease) 11/10/2015 Pressure in chest 11/10/2015 Cervical spondylosis without myelopathy 09/15/19 14 Overview (10/05/2024): Cervical spondylosis without myelopathy Cerebrovascular accident ([facility] 07/16/2012 Overview (10/05/2024): Cerebrovascular accident Cerebral hemorrhage ([facility]) 07/17/2011 Overview (10/05/2024): Cerebral hemorrhage Fatigue 07/17/2011 Overview (10/05/2024): Fatigue Resolved Problems Problem Noted Date Diagnosed Date Resolved Date Asthma 07/16/2012 01/04/2025 Overview (10/05/2024): Asthma Encounters Date Type Department Care Team Description 01/20/2025 2:15 PM EDT Office Visit [facility] [address] [place] [address] [phone] Shabbir Nguyen BDS Dental caries (Primary Dx) 01/04/2025 2:00 PM EDT Office Visit [facility] [address] [place] [address] [phone] Patrick MANDY Shea from Last 3 Months [...] Most Recently Relevant to Health Maintenance Insurance [facility] MEDICAID STAND ADULT
--- OUTSIDE RECORDS SUMMARY | 2025-03-30 18:02 | XMS_ITS | Encounter Summary ---
Author Organization [facility] Address [address] [place] [address] Phone Care Team Providers Care Case Liner Name Role Phone Domo Melton DO Primary Care Provider [phone] Domo Melton DO Unavailable [phone] Betsy Benavides MD, MPH Primary Care Provid er Dante Faustin MD Unavailable [phone] Unknown, Unknown Primary Care Provider Leonidas Huitron MD Primary Care Provider Encounter Details Date Type Department Care Team (Late st Contact Info) Description 01/04/2016 Ancillary Orders [facility] Cardiology Division [address] [facility], [address] [place] [address] Luann Madsen, JANITOR AND CLEANER [address] [facility] [phone] [place] [address] [email or web address] PAD (peripheral artery disease) (Primary Dx) Social [...] Description 05/25/2025 1:15 PM EST Office Visit [facility] [address] [place] [address] Urban Sharp MD [address] [place] [address], [place] [address] Jann Lechuga, PT 8 [place] [address] 06/01/2025 1:15 PM EST Office Visit [facility] [address] [place] [address] Urban Sharp MD [address] [place] [address], [place] [address] Jann Lechuga, PT [address] [place] [address] 06/08/2025 1:15 PM EST Office Visit [address] [place] [address] Urban Sharp MD [address] [place] [address], [place] [address] Jann Lechuga, PT 8 [place] [address] 06/15/2025 1:15 PM EST Office Visit [address] [place] [address] Urban Sharp MD [address] [place] [address], [place], [place] [phone] Jann Lechuga, PT [address] [place] [address] 08/25/2025 1:30 PM EDT Office Visit [facility] Medicine [address] [place] [address] Urban Sharp MD [address] [place] [address] Orthopedics & Sports Medicine, [facility] [place] [address] [email or web address] documented as of this encounter Results * [...] Doppler analysis. PEAK SYSTOLIC VELOCITIES (msec): RT INDEPENDENT CROP CONSULTANT Acceleration Time: 280 LT INDEPENDENT CROP CONSULTANT Acceleration Time: 100 FINDINGS: Duplex evaluation of [...] right and 1.04 on the left RT INDEPENDENT CROP CONSULTANT Acceleration Time: 280msec LT INDEPENDENT CROP CONSULTANT Acceleration Time: 100msec Procedure Note Ishan Alves MD - 01/24/2016 LOWER EXTREMITY ARTERIAL DUPLEX UNILATERAL (ACCELERATION TIMES) NOTES: PVD REPORT: A duplex ultrasound evaluation of the common femoral arteries wasperformed using a combination of galloway scale imaging, color duplex and spectralDoppler analysis. PEAK SYSTOLIC VELOCITIES (msec): RT INDEPENDENT CROP CONSULTANT Acceleration Time: 280 LT INDEPENDENT CROP CONSULTANT Acceleration Time: 100 FINDINGS: Duplex evaluation of the common femoral arteries was performedbilaterally. The right common femoral artery acceleration time is 280 msec.The leftcommon femoral artery acceleration time is 100 msec. IMPRESSIONS: 1. Acceleration times of >144 msec are consistent with abnormal inflowarterial hemodynamics in the lower extremities. 2. The ankle/brachial index is 0.86 on the right and 1.04 on the left RT INDEPENDENT CROP CONSULTANT Acceleration Time: 280msec LT INDEPENDENT CROP CONSULTANT Acceleration Time: 100msec Luann Madsen JANITOR AND CLEANER CV US VASCULAR Final Res ult documented in this encounter Visit Diagnoses Diagnosis PAD (peripheral artery disease)- Primary Unspecified peripheral vascular disease PAD (peripheral artery disease) Unspecified peripheral vascular disease documented in this encounter Care Teams Case Liner Relationship Specialty Start Date End Date Domo Melton DO [address] [place] [address] PCP - General 11/16/13 07/14/18 Betsy Benavides MD, MPH [address] [address] [email or web address] PCP - General Family Medicine 07/15/18 05/25/19 Unknown, [place], [address] for; [facility] [address] [place] [address] PCP - General 05/26/19 08/24/23 Leonidas Calero MD 55 for; [facility] [address] [place] [address] PCP - General Family Medicine 08/25/23 Domo Melton DO [address] [place] [address] Historical LMR Provider 03/04/1707/14 Dante Faustin MD [address] [employer] [address] [place] [address] [email or web address] Patent Counsel Cardiology 08/26/18 documented as of this encounter Additional Source Comments The information contained in this document represents components of the legal health record. It is not the complete legal health record.[facility]
--- OUTSIDE RECORDS SUMMARY | 2025-03-30 18:02 | XMS_ITS | Encounter Summary ---
Author Organization [facility] Address [address] [facility] [address] [place] [address] Phone Care Team Providers Care Security Public Safety Officer Name Role Phone Dante Faustin MD Unavailable [phone] Unknown, Unknown Primary Care Provider Leonidas Huitron MD Primary Care Provider Encounter Details Date Type Department Care Team (Late st Contact Info) Description 03/09/2020 Procedure Pass [facility] [address] [place] [address] Social History Tobacco Use Types Packs/Day Years [...] Description 05/25/2025 1:15 PM EST Office Visit [facility] 8 [place] [address] Urban Sharp MD [address] [place] [address] [facility] [place] [address] Jann Lechuga, PT 8 [place] [address] 06/01/2025 1:15 PM EST Office Visit [facility] 8 [place] [address] Urban Sharp MD [address] [place] [address] [facility], [place] [address] Jann Lechuga, PT 8 [place] [address] 06/08/2025 1:15 PM EST Office Visit [facility] 8 [place] [address] Urban Sharp MD [address] [place], [place] [address]s [facility], [place] [address] Jann Lechuga, PT 8 [place] [address] 06/15/2025 1:15 PM EST Office Visit [address] [address] Urban Sharp MD [address] [place] [address] [facility], [place], [place] [phone] Jann Lechuga, PT 8 [place] [address] 08/25/2025 1:30 PM EDT Office Visit [facility] [address] [place] [address] [phone] Urban Sharp MD [address] [place] [address] [facility], [place], [place] [phone] documented as of this encounter Visit Diagnoses Not on filedocumented in this encounter Care Teams Security Public Safety Officer Relationship Specialty Start Date End Date Unknown, Unknown, [address] [facility] [address] [place] [address] PCP - General 05/26/19 08/24/23 Leonidas Calero MD [address] [facility] [address] [place] [address] PCP - General Family Medicine 08/25/23 Dante Faustin MD [address] [facility] [address] [place] [address] [email or web address] Accordion Repairer Cardiology 08/26/18 documented as of this encounter Additional Source Comments The information contained in this document represents components of the legal health record. It is not the complete legal health record.[facility]
== END 2025-03-30 15:03 | disposition home or self-care (01) ==
LOC: HO.HMCFM 14:33
PROVIDERS: PCP Family Medicine; Visit Provider Family Medicine
DX: I10 Essential (primary) hypertension (principal); M25.561 Pain in right knee; M54.9 Dorsalgia, unspecified; E78.5 Hyperlipidemia, unspecified

== ENCOUNTER 2025-05-02 13:05 | Outpatient (AMB) | payer BC, MEDICAID, SELFPAY ==
[2025-05-02 13:21] VITALS: BP 144/74; PULSE 76; TEMP 37; O2SAT 96
--- NOTE | 2025-05-02 13:21 | AM.OFFWIN_ITS ---
Intake Vital Signs 05/02/25 13:21 Height 5 ft 7 in BMI Reason not done Patient refused/unable BP 144/74 H Blood Pressure Location Rt brachial Position Sitting Pulse 76 Pulse Source Pulse Oximeter Temp 98.6 F Temp Source Oral Pulse Oximetry (%) 96 Oxygen Delivery Method Room Air Intake Visit Reasons: EP-chest pain, sob Intake Note: pt presents with a sliding fall night after her cat startled her and she hit her center chest on the corner of kitchen table c/o SOB , pressure pain with deep inhalation Patient Tobacco Use Status: Never used Tobacco Allergies fentanyl (FENTANYL) Allergy (Unknown, Verified 05/02/25 13:26) Unknown meperidine (Demerol) Allergy (Unknown, Verified 05/02/25 13:26) rash morphine (MORPHINE) Allergy (Unknown, Verified 05/02/25 13:26) chest pressure remifentanil Allergy (Unknown, Verified 05/02/25 13:26) Rash sevoflurane Allergy (Unknown, Verified 05/02/25 13:26) Rash Sulfa (Sulfonamide Antibiotics) (SULFA(SULFONAMIDE ANTIBIOTICS)) Allergy (Unknown, Verified 05/02/25 13:26) Rash lactose Allergy (Verified 05/02/25 13:26) Abdominal Pain Ringer's solution,lactated Adverse Reaction (Verified 05/02/25 13:26) contraindicated d/t mitochondrial dz Do you need a note to return to daycare/school/sports/work: No HPI HPI Comments History of Present Illness Details 64-year-old female patient presents to [facility] walk-in clinic with complaint of chest wall pain. Patient reports that this past weekend she accidentally struck her chest against the corner of her kitchen table after being startled by her cat. She reports pain localized to the epigastric/sternal region that is worse with deep inspiration and movement. Describes the pain as tender and sore. Denies shortness of breath, wheezing, cough, palpitations, dizziness, or syncope. Denies radiation of pain to jaw, back, or arms. No prior history of similar symptoms. Patient expresses concern that she may have fractured a rib. 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 Father No problems noted. Social History Household Members: Spouse Housing: [facility] Do you presently have visiting nurse or other home services: No Alcohol intake: never Patient Tobacco Use Status: Never used Tobacco e-Cigarette/Vaping Use: Never Used Second Hand Smoke Exposure: No service: No Current occupational status: disabled Current occupational exposures/hazards: No Cognitive needs: Yes (wheelchair/cane) Hearing needs: No Vision needs: Yes (glasses) Review of Systems Const All systems reviewed & are unremarkable except as noted in HPI and below Physical Exam Vital Signs: Last Vital Signs Temp 98.6 F 05/02/25 13:21 Pulse 76 05/02/25 13:21 BP 144/74 H 05/02/25 13:21 Pulse Ox 96 05/02/25 13:21 Oxygen Delivery Method Room Air 05/02/25 13:21 Const General: no acute distress; No comfortable Nutritional Appearance: thin Orientation/consciousness: patient oriented x3 Chest Other: Tenderness to palpation over the mid-sternal/epigastric chest wall region; no visible bruising, swelling, crepitus, or deformity noted. 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 General: patient oriented x3 and other (Walks with Cane and has a Limp) Psych Speech and movement: Normal speech and movement present Assessment & Plan Assessment & Plan (1) Chest pain: Code(s): R07.9 - Chest pain, unspecified Plan: Chest Wall Contusion. Reassurance provided regarding likely musculoskeletal chest wall injury Ordered chest X-ray to rule out rib fracture. She is currently on Daily Dilaudid for her chronic Pain. Orders: Orders XR chest 2V Today R07.9 - Chest pain, unspecified Coding Level of Care Code Est Pt Level 4 (73610) Diagnoses Chest pain R07.9 Time Spent (min) 20
--- OUTSIDE RECORDS SUMMARY | 2025-05-02 19:03 | XMS_ITS | Clinical Summary ---
Author Organization [employer] Address [address] [place] [address] [address] [place] [address] Care Team Providers Care Numerical Control Machine Tool Operator Name Role Phone Unavailable Primary Care Provider [...] MG capsule Take 4 capsules one hour [facility] . 30 capsule 5 Active tolterodine LA (Detrol LA) 4 MG 24 hr capsule TAKE 1 CAPSULE BY MOUTH AT THE SAME TIME EACH DAY Active Active Problems Problem Noted Date Diagnosed Date Epilepsy ([facility]) 10/05/2024 Mitral valve insufficiency 10/05/2024 Pain of lower extremity 10/05/2024 Use of opiates for therapeutic purposes 10/06/19 25 Primary localized osteoarthrosis of right lower leg 09/12/2023 Essential hypertension 07/16/2018 Hyperlipidemia LDL goal <70 07/16/2018 Dyspnea and respiratory abnormality 11/10/2015 PAD (peripheral artery disease) 11/10/2015 Pressure in chest 11/10/2015 Cervical spondylosis without myelopathy 09/15/19 14 Overview (10/05/2024): Cervical spondylosis without myelopathy Cerebrovascular accident ([facility]) 07/16/2012 Overview (10/05/2024): Cerebrovascular accident Cerebral hemorrhage ([facility]) 07/17/2011 Overview (10/05/2024): Cerebral hemorrhage Fatigue 07/17/2011 Overview (10/05/2024): Fatigue Resolved Problems Problem Noted Date Diagnosed Date Resolved Date Asthma 07/16/2012 01/04/2025 Overview (10/05/2024): Asthma Social History Tobacco Use Types Packs/Day Years [...] 02/11/2024, , 11/05/2022 FOBT 09/14/2024 09/15/2023, 01/09/2021 COVID-19 Vaccine ( season) 2025 01/31/2024, 03/05/2023, 05/02/2021, Additional history exists Influenza Vaccine (#1) 2025 , 05/14/2023, 02/20/2022, Additional history exists Dental X-Ray: Bitewings 02/11/2025 02/11/20, 10/23/2022, 10/15/2022 Dental Prophylaxis 02/13/2025 08/12/2024, 0 02/11/2024, 08/06/2023, Additional history exists Dental X-Ray: Full Mouth 10/24/2025 10/23/2022 Tobacco Screening 01/20/2026 01/20/2025 Colorectal Cancer Screening 09/14/2026 FIT DNA/Cologuard 09/14/2026 09/15/2023, 01/09/2021 DTaP/Tdap/Td Vaccines (2 - Td or Tdap) 03/30/2031 03/30/2021 RSV Patients and Patients Aged 60 years or older Completed 06/26/2023 HIB Vaccines Aged Out No longer eligi [...] Procedure Name Priority Date/Time Associated Diagnosis Comments PROPHYLAXIS - ADULT Routine 08/12/2024 2 :00 PM EDT BITEWINGS - 2 RADIOGRAPHIC IMAGES Routine 02/11/2024 2:00 PM EDT PERIODIC ORAL EVALUATION - ESTABLISHED PATIENT Routine 02/11/2024 2:00 PM EDT INTRAORAL - COMPLETE SERIES OF RADIOGRAPHIC IMAGES Routine 10/23/2022 2:15 PM EDT Accretions on teeth from Last 3 Months or Most Recently Relevant to Health Maintenance Insurance [facility] STAND ADULT Member Subscriber Plan / Payer (Ef fective 2022-Present) Name:Aleida Lopez Relation to Subscriber:Self Name:Aleida Lopez Payer ID:Not on file Group ID:Not on file Type:Not on file Address: [place] [id number]
--- OUTSIDE RECORDS SUMMARY | 2025-05-02 19:03 | XMS_ITS | Encounter Summary ---
Author Organization [facility] Address [address] [facility] [address] [place] [address] Phone Care Team Providers Care Sales Force Administrator Name Role Phone Dante Fuastin MD Unavailable [phone] Unknown, Unknown Primary Care Provider Leonidas Huitron MD Primary Care Provider Encounter Details Date Type Department Care Team (Late st Contact Info) Description 03/13/2020 Procedure Pass [facility] Cardiovascular And Interventional Radiology [address] [place] [address] Social History Tobacco Use Types Packs/Day Years [...] Description 05/25/2025 1:15 PM EST Office Visit [facility] 8 [place] [address] Urban Sharp MD [address] [place] [address] [facility] [place] [place] [address] Jann Lechuga, PT 8 [place] [address] 06/01/2025 1:15 PM EST Office Visit [facility] [address] [place] [address] Urban Sharp MD [address] [place] [address] Orthopedics Sports [facility], [place] [address] Jann Lechuga, PT 8 [place] [address] 06/08/2025 1:15 PM EST Office Visit [facility] 8 [place] [address] Urban Sharp MD [address] [place], [place] [address]s [facility], [place] [address] Jann Lechuga, PT 8 [place] [address] 06/15/2025 1:15 PM EST Office Visit [address] [address] Urban Sharp MD [address] [place] [address] Orthoped[facility], [place], [place] [phone] Jann Lechuga, PT 8 [place] [address] 08/25/2025 1:30 PM EDT Office Visit [facility] [address] [place] [address] [phone] Urban Sharp MD [address] [place] [address] Orthopedics [facility], [place], [place] [phone] documented as of this encounter Visit Diagnoses Not on filedocumented in this encounter Care Teams Sales Force Administrator Relationship Specialty Start Date End Date Unknown, Unknown, 55 [facility] [address] [place] [address] PCP - General 05/26/19 08/24/23 Leonidas Calero MD [address] [facility] [address] [place] [address] PCP - General Family Medicine 08/25/23 Dante Faustin MD [address] [facility] [address] [place] [address] [email or web address] Branch Specialist Cardiology 08/26/18 documented as of this encounter Additional Source Comments The information contained in this document represents components of the legal health record. It is not the complete legal health record.[facility]
--- OUTSIDE RECORDS SUMMARY | 2025-05-02 19:03 | XMS_ITS | Clinical Summary ---
Author Organization [facility] Address [address] [address] Phone Care Team Providers Care Presser [employer] Name Role Phone Dante Faustin MD Unavailable [phone] Leonidas Calero MD Primary Care Provider Allergies [...] not currently on ASA. Offered referral to [facility] neurologist. Patient would like to see neurologist closer to home. -Advised patient to contact PCP for neurology referral. Cerebral hemorrhage 07/17/2011 Overview (07/09/2014): Cerebral hemorrhage Fatigue 07/17/2011 Overview (07/09/2014): Fatigue Encounters Date Type Department Care Team Description 03/10/2025 2:54 PM EDT - 03/10/2025 11:59 PM EDT Hospital Encounter [address] [address] Urban Sharp MD Discharge Disposition: Home or Self Care 03/10/2025 2:45 PM EDT Office Visit [facility] Orthopedics & Sports Medicine [address] [place] [phone] Urban Sharp MD Primary localized osteoarthrosis of [...] Description 05/25/2025 1:15 PM EST Office Visit [address] [place] [address] Urban Sharp MD [address] [place] [address] Orthopedics Sports [facility], [place] [address] Jann Lechuga, PT [address] [place] [address] 06/01/2025 1:15 PM EST Office Visit [address] [place] [address] Urban Sharp MD [address] [place] [address], [place] [address] Jann Lechuga, PT [address] [place] [address] 06/08/2025 1:15 PM EST Office Visit [address] [place] [address] Urban Sharp MD [address] [place] [address], [place] [address] Jann Lechuga, PT [address] [place] [address] 06/15/2025 1:15 PM EST Office Visit [address] [place] [address] Urban Sharp MD [address] [place] [address] [facility] [place] [address] [email or web address] Jann Lechuga, PT [address] [place] [address] [email or web address] 08/25/2025 1:30 PM EDT Office Visit [facility] Orthopedics & Sports Medicine [address] [place] [address] [phone] Urban Sharp MD [address] [place] [address] Orthopedics & Sports Medicine, [place], [place] [phone] [email or web address] Health Maintenance Due Date Last Done Comments [...] this topic Medical Devices Implanted Type Area Rate Engineer Device Identifier Shelf Expiration Date Model / Serial / Lot Kit Cement Bone Kyphon Xpede Polymethylmethacrylate Mixer - [id number] Implanted:Qty: 1 on 03/13/2020 by Mike Pineda MD, MARSHA at [facility] Bone [employer] [id number] 08/16/2022 [id number] / / [id number] Procedures Procedure Name Priority Date/Time Associated Diagnosis [...] encounter note for this date of service. Urban Sharp MD IMG XR LOWER EXTREMITY Final Result * (ABNORMAL) Comprehensive metabolic panel (07/18/2014 1:55 PM EST) Plasma Sodium 130(Abnor donn L) 135 - 145 mmol/L [facility] Plasma Potassium 3.7 3.4 - 5.0 mmol/L [facility] Plasma Chloride 89(Abnorm ally L) 100 - 108 mmol/L [facility] Plasma Carbon Dioxide 26 23 - 32 mmol/L [facility] Plasma Urea Nitrogen 11 8 - 25 mg/dL [facility] Plasma Creatinine 0.48(Abno rmally L) 0.60 - 1.50 mg/dL [facility] Plasma Glucose 80 70 - 110 mg/dL [facility] Albumin 4.3 3.3 - 5.0 g/dL [facility] Total Protein 7.1 6.0 - 8.3 g/dL [facility] Calcium 9.1 8.5 - 10.5 mg/dL [facility] Alkaline Phosphatase 104(Abnor donn H) 30 - 100 U/L [facility] Total Bilirubin 0.3 0.0 - 1.0 mg/dL [facility] Transaminase-SG OT 31 9 - 32 U/L [facility] Transaminase-SG PT 24 7 - 33 U/L [facility] Globulin 2.8 1.9 - 4.1 g/dL [facility] eGFR >60 mL/min/1. 73m2 [facility] Comment: Abnormal if <60 mL/min/1.73m2. If patient is -[place], multiply the result by 1.21. Plasma Anion GAP 15 3 - 17 mmol/L [facility] 07/18/2014 1:55 PM EST 07/18/2014 9:42 PM EST Comment:BLOOD David Forman MD LAB BLOOD BKR ORDERABLES Edited Result - Final [address] [address] * (ABNORMAL) Historical Lab (11/11/2013 3:51 PM EDT) Only the most recent of2 resultswithin the time period is included. Pathologist [facility] Hemoglobin A1C 5.4 4.3 - 6.4 % [facility] Comment: Note: New normal range ACETYLCARNITINE, C2 14.35 nmol/mL [facility] Comment: (NOTE)-- REFERENCE VALUE -- 2.00-17.83 (> or = 8 years) Performed by [facility] DPT OF LAB MED AND PATHOLOGY, [address] [place] [address] PROPIONYLCARNIT, C3 0.40 nmol/mL [facility] Comment: (NOTE)-- REFERENCE VALUE -- < 0.88 (> or = 8 years) Performed by [facility] DPT OF LAB MED AND PATHOLOGY, [address] [place] [address]384 ISO/BUTRYLCARNIT,C4 0.39 nmol/mL [facility] Comment: (NOTE)-- REFERENCE VALUE -- < 0.83 (> or = 8 years) Performed by [facility] DPT OF LAB MED AND PATHOLOGY, [address] [place] [address] ISOVAL/2METHYLBU,C5 0.12 nmol/mL [facility] Comment: (NOTE)-- REFERENCE VALUE -- < 0.51 (> or = 8 years) Performed by [facility] DPT OF LAB MED AND PATHOLOGY, [address] [place] [address] HEXANOYLCARNITIN,C6 0.22(Abnor donn H) nmol/mL [facility] Comment: (NOTE)-- REFERENCE VALUE -- < 0.17 (> or = 8 years) Performed by [facility] DPT OF LAB MED AND PATHOLOGY, [address] [place] [address] 269[address] 3OH HEXANOYLCA C6OH 0.01 nmol/L [facility] Comment: Unit: nmol/mL (NOTE)-- REFERENCE VALUE -- < 0.09 (> or = 8 years) Performed by [facility] DPT OF LAB MED AND PATHOLOGY, [address] [place] [address] 27298 OCTENOYLCARNIT C8:1 0.07 nmol/L [facility] Comment: Unit: nmol/mL (NOTE)-- REFERENCE VALUE -- < 0.88 (> or = 8 years) Performed by [facility] DPT OF LAB MED AND PATHOLOGY, [address] [place] [address] 89508 OCTANOYLCARNIT, C8 0.82(Abnor donn H) nmol/mL [facility] Comment: (NOTE)-- REFERENCE VALUE -- < 0.78 (> or = 8 years) Performed by [facility] DPT OF LAB MED AND PATHOLOGY, [address] [place] [address] 36520 DECENOYLCARN, C10:1 0.47(Abnor donn H) nmol/L [facility] Comment: Unit: nmol/mL (NOTE)-- REFERENCE VALUE -- < 0.47 (> or = 8 years) Performed by [facility] DPT OF LAB MED AND PATHOLOGY, [address] [place] [address] 24170 DECENOYLCARN, C10 1.02(Abnor donn H) nmol/mL [facility] Comment: (NOTE)-- REFERENCE VALUE -- < 0.88 (> or = 8 years) Performed by [facility] DPT OF LAB MED AND PATHOLOGY, [address] [place] [address] 86787 GLUTARYLCARN, C5-DK 0.04 nmol/mL [facility] Comment: (NOTE)-- REFERENCE VALUE -- < 0.11 (> or = 8 years) Performed by [facility] DPT OF LAB MED AND PATHOLOGY, [address] [place] [address] 71736 DODECENOYLCAR,C12:1 0.15 nmol/mL [facility] Comment: (NOTE)-- REFERENCE VALUE -- < 0.35 (> or = 8 years) Performed by [facility] DPT OF LAB MED AND PATHOLOGY, [address] [place] [address] 74316 DODECENOYLCARN, C12 0.20 nmol/mL [facility] Comment: (NOTE)-- REFERENCE VALUE -- < 0.26 (> or = 8 years) Performed by [facility] DPT OF LAB MED AND PATHOLOGY, [address] [place] [address] 29594 3OH DODECENOY,C12OH 0.02 nmol/L [facility] Comment: Unit: nmol/mL (NOTE)-- REFERENCE VALUE -- < 0.08 (> or = 8 years) Performed by [facility] DPT OF LAB MED AND PATHOLOGY, [address] [place] [address]101 TETRADECADIEN,C14:2 0.10 nmol/mL [facility] Comment: (NOTE)-- REFERENCE VALUE -- < 0.18 (> or = 8 years) Performed by [facility] DPT OF LAB MED AND PATHOLOGY, [address] [place] [address] TETRADECENOYL,C14:1 0.19 nmol/mL [facility] Comment: (NOTE)-- REFERENCE VALUE -- < 0.24 (> or = 8 years) Performed by [facility] DPT OF LAB MED AND PATHOLOGY, [address] [place] [address] TETRADECANOYLCA,C14 0.09 nmol/mL [facility] Comment: (NOTE)-- REFERENCE VALUE -- < 0.12 (> or = 8 years) Performed by [facility] DPT OF LAB MED AND PATHOLOGY, [address] [place] [address] 3OH TETRADE C14:1OH 0.07 nmol/mL [facility] Comment: (NOTE)-- REFERENCE VALUE -- < 0.13 (> or = 8 years) Performed by [facility] DPT OF LAB MED AND PATHOLOGY, [address] [place] [address]28[address] 3OH TETRADECA C14OH 0.01 nmol/mL [facility] Comment: (NOTE)-- REFERENCE VALUE -- < 0.08 (> or = 8 years) Performed by [facility] DPT OF LAB MED AND PATHOLOGY, [address] [place] [address] 9[address] HEXADECENOYL, C16:1 0.07 nmol/mL [facility] Comment: (NOTE)-- REFERENCE VALUE -- < 0.10 (> or = 8 years) Performed by [facility] DPT OF LAB MED AND PATHOLOGY, [address] [place] [address] HEXADECANOYLC, C16 0.13 nmol/mL [facility] Comment: (NOTE)-- REFERENCE VALUE -- < 0.23 (> or = 8 years) Performed by [facility] DPT OF LAB MED AND PATHOLOGY, [address] [place] [address]33[address] 3OH HEXADEC C16:1OH 0.01 nmol/mL [facility] Comment: (NOTE)-- REFERENCE VALUE -- < 0.06 (> or = 8 years) Performed by [facility] DPT OF LAB MED AND PATHOLOGY, [address] [place] [address] 579[address] 3OH HEXADECAN C16OH 0.01 nmol/mL [facility] Comment: (NOTE)-- REFERENCE VALUE -- < 0.06 (> or = 8 years) Performed by [facility] DPT OF LAB MED AND PATHOLOGY, [address] [place] [address] LINOLEYCARNI, C18:2 0.11 nmol/mL [facility] Comment: (NOTE)-- REFERENCE VALUE -- < 0.24 (> or = 8 years) Performed by [facility] DPT OF LAB MED AND PATHOLOGY, [address] [place] [address] OLEYLCARNIT, C18:1 0.26 nmol/mL [facility] Comment: (NOTE)-- REFERENCE VALUE -- < 0.39 (> or = 8 years) Performed by [facility] DPT OF LAB MED AND PATHOLOGY, [address] [place] [address] STEAROYLCARNIT, C18 0.08 nmol/mL [facility] Comment: (NOTE)-- REFERENCE VALUE -- < 0.14 (> or = 8 years) Performed by [facility] DPT OF LAB MED AND PATHOLOGY, [address] [place] [address] 3OH LINOLEY C18:2OH see comment nmol/mL [facility] Comment: Below detection limit. (NOTE)A quantitative value cannot be provided because the concentration of 1-XQ-nkovaxifcldqfrbkjxyedvdu is below the assay's limit of detection, <0.02 nmol/mL. -- REFERENCE VALUE -- < 0.06 (> or = 8 years) Performed by [facility] DPT OF LAB MED AND PATHOLOGY, [address] [place] [address] 3OH OLEYLCA C18:1OH 0.01 nmol/mL [facility] Comment: (NOTE)-- REFERENCE VALUE -- < 0.06 (> or = 8 years) Performed by [facility] DPT OF LAB MED AND PATHOLOGY, [address] [place] [id number] [place] [address] COMMENT ACYQT SEE NOTE [facility] Comment: (NOTE)In this plasma sample, several acylcarnitines of various chain lengths were mildly elevated in a pattern not diagnostic of a specific disorder. If indicated, consider sending another sample to repeat the analysis, and urine for organic acid and acylglycine analyses. We need clinical information for further interpretation. Please contact the [employer] qa consultant director correctional agency (Tel. ) if you have any questions. Performed by [facility] DPT OF LAB MED AND PATHOLOGY, [address] [place] [address] Calc Mean Bld Glucose 108 mg% [facility] Comment: There is no established normal range [...] ally L) 135 - 145 mmol/L [facility] Plasma Potassium 4.0 3.4 - 4.8 mmol/L [facility] Plasma Chloride 89(Abnorma lly L) 100 - 108 mmol/L [facility] Plasma Carbon Dioxide 28.9 23.0 - 31.9 mmol/L [facility] Plasma Urea Nitrogen 10 8 - 25 mg/dl [facility] Plasma Creatinine 0.58(Abnor donn L) 0.60 - 1.50 mg/dl [facility] Plasma Glucose 81 70 - 110 mg/dl [facility] Albumin 4.6 3.3 - 5.0 g/dl [facility] Total Protein 7.9 6.0 - 8.3 g/dl [facility] Calcium 9.2 8.5 - 10.5 mg/dl [facility] Alkaline Phosphatase 102(Abnorm ally H) 30 - 100 U/L [facility] Total Bilirubin 0.4 0.0 - 1.0 mg/dl [facility] Transaminase-SGOT 38(Abnorma lly H) 9 - 32 U/L [facility] Transaminase-SGPT 29 7 - 33 U/L [facility] Globulin 3.3 1.9 - 4.1 g/dl [facility] eGFR >60 mL/min/ 1.73m2 [facility] Comment: Abnormal if <60 mL/min/1.73m2. If patient is -[place], multiply the result by 1.21. Plasma Anion GAP 11 3 - 15 mmol/L [facility] Creatine Kinase 207(Abnorm ally H) 40 - 150 U/L [facility] Folic Acid >20.0 >3.0 ng/ml [facility] High Density Lipoprotein 75 35 - 100 mg/dl [facility] Cholesterol 289 mg/dl [facility] Comment:DESIRABLE: <200 Triglycerides 87 40 - 150 mg/dl [facility] Low Density Lipoprotein 197 mg/dl [facility] Comment:DESIRABLE: <130 Cardiac Risk Ratio 3.9 [facility] Comment:NORMAL RISK RATIO: 5 .0 OR LESS Magnesium 1.6 1.4 - 2.0 meq/L [facility] Phosphorus 3.1 2.6 - 4.5 mg/dl [facility] Taurine 90 nmol/mL [facility] Comment: Reference range: 42 to 156 Performed by [facility] DPT OF LAB MED AND PATHOLOGY, [address] [place] [address] Asparagine 36(Abnorma lly L) nmol/mL [facility] Comment: Reference range: 37 to 92 Performed by [facility] DPT OF LAB MED AND PATHOLOGY, [address] [place] [address] 39965 Serine 76 nmol/mL [facility] Comment: Reference range: 63 to 187 Performed by [facility] DPT OF LAB MED AND PATHOLOGY, [address] [place] [address] 04795 Glycine 296 nmol/mL [facility] Comment: Reference range: 126 to 490 Performed by [facility] DPT OF LAB MED AND PATHOLOGY, [address] [place] [address] 15784 Glutamine 640 nmol/mL [facility] Comment: Reference range: 371 to 957 Performed by [facility] DPT OF LAB MED AND PATHOLOGY, [address] [place] [address] 41387 Histidine 71 nmol/mL [facility] Comment: Reference range: 39 to 123 Performed by [facility] DPT OF LAB MED AND PATHOLOGY, [address] [place] [address] 73323 Threonine 101 nmol/mL [facility] Comment: Reference range: 85 to 231 Performed by [facility] DPT OF LAB MED AND PATHOLOGY, [address] [place] [address] 76110 Citrulline 20 nmol/mL [facility] Comment: Reference range: 17 to 46 Performed by [facility] DPT OF LAB MED AND PATHOLOGY, [address] [place] [address] 68859 B-Alanine 11 nmol/mL [facility] Comment: Reference range: <29 Performed by [facility] DPT OF LAB MED AND PATHOLOGY, [address] [place] [address] 38640 Alanine 272 nmol/mL [facility] Comment: Reference range: 200 to 579 Performed by [facility] DPT OF LAB MED AND PATHOLOGY, [address] [place] [address] 65907 Glutamic Acid 54 nmol/mL [facility] Comment: Reference range: 13 to 113 Performed by [facility] DPT OF LAB MED AND PATHOLOGY, [address] [place], [place] [id number] Argininosuccinate 0 nmol/mL [facility] Comment: Reference range: <2 Performed by [facility] DPT OF LAB MED AND PATHOLOGY, [address] [place] [address] 18270 Arginine 39 nmol/mL [facility] Comment: Reference range: 32 to 120 Performed by [facility] DPT OF LAB MED AND PATHOLOGY, [address] [place] [address]7032 Y-Jvjui-G-Butyric 12 nmol/mL [facility] Comment: Reference range: 9 to 37 Performed by [facility] DPT OF LAB MED AND PATHOLOGY, [address] [place] [address] 87915 Proline 107 nmol/mL [facility] Comment: Reference range: 97 to 368 Performed by [facility] DPT OF LAB MED AND PATHOLOGY, [address] [place] [address] 58402 Ornithine 62 nmol/mL [facility] Comment: Reference range: 38 to 130 Performed by [facility] DPT OF LAB MED AND PATHOLOGY, [address] [place] [address] 65038 Cystine 17 nmol/mL [facility] Comment: Reference range: 3 to 95 Performed by [facility] DPT OF LAB MED AND PATHOLOGY, [address] [place] [address] 22248 Lysine 124 nmol/mL [facility] Comment: Reference range: 103 to 255 Performed by [facility] DPT OF LAB MED AND PATHOLOGY, [address] [place] [address] 47928 Methionine 15 nmol/mL [facility] Comment: Reference range: 4 to 44 Performed by [facility] DPT OF LAB MED AND PATHOLOGY, [address] [place] [address] 69501 Valine 134(Abnorm ally L) nmol/mL [facility] Comment: Reference range: 136 to 309 Performed by [facility] DPT OF LAB MED AND PATHOLOGY, [address] [place] [address] 39887 Tyrosine 44 nmol/mL [facility] Comment: Reference range: 31 to 90 Performed by [facility] DPT OF LAB MED AND PATHOLOGY, [address] [place] [address] 88854 Isoleucine 38 nmol/mL [facility] Comment: Reference range: 36 to 107 Performed by [facility] DPT OF LAB MED AND PATHOLOGY, [address] [place] [address] 40897 Leucine 73 nmol/mL [facility] Comment: Reference range: 68 to 183 Performed by [facility] DPT OF LAB MED AND PATHOLOGY, [address] [place] [address] 68958 Phenylalanine 37 nmol/mL [facility] Comment: Reference range: 35 to 80 Performed by [facility] DPT OF LAB MED AND PATHOLOGY, [address] [place] [address] 13175 Allo-isoleucine 0 nmol/mL [facility] Comment: Reference range: <5 Performed by [facility] DPT OF LAB MED AND PATHOLOGY, [address] [place] [address] 61758 PLASMA AA INTERP SEE NOTE [facility] Comment: (NOTE)In this sample, the amino acid profile was essentially normal. Liquid Chromatography-Tandem Mass Spectrometry (LC-MS/MS) Performed by [facility] DPT OF LAB MED AND PATHOLOGY, [address] [place] [address] 15368 Phosphoserine 0 nmol/mL [facility] Comment: Reference range: <18 Performed by [facility] DPT OF LAB MED AND PATHOLOGY, [address] [place] [address] 10748 Phosphoethanolamine <2 nmol/mL [facility] Comment: Reference range: <12 Performed by [facility] DPT OF LAB MED AND PATHOLOGY, [address] [place] [address] 56473 Hydroxyproline 10 nmol/mL [facility] Comment: Reference range: 4 to 29 Performed by [facility] DPT OF LAB MED AND PATHOLOGY, [address] [place] [address] 34359 Aspartic Acid 3 nmol/mL [facility] Comment: Reference range: <7 Performed by [facility] DPT OF LAB MED AND PATHOLOGY, [address] [place] [address] 79422 Ethanolamine 9 nmol/mL [facility] Comment: Reference range: <67 Performed by [facility] DPT OF LAB MED AND PATHOLOGY, [address] [place] [address] 64537 Sarcosine 1 nmol/mL [facility] Comment: Reference range: <5 Performed by [facility] DPT OF LAB MED AND PATHOLOGY, [address] [place] [address] 31154 1-Methylhistidine 4 nmol/mL [facility] Comment: Reference range: <28 Performed by [facility] DPT OF LAB MED AND PATHOLOGY, [address] [place] [address] 3-Methylhistidine 2 nmol/mL [facility] Comment: Reference range: 2 to 9 Performed by [facility] DPT OF LAB MED AND PATHOLOGY, [address] [place] [address] Carnosine 0 nmol/mL [facility] Comment: Reference range: <1 Performed by [facility] DPT OF LAB MED AND PATHOLOGY, [address] [place] [address] Anserine 0 nmol/mL [facility] Comment: Reference range: <1 Performed by [facility] DPT OF LAB MED AND PATHOLOGY, [address] [place] [address] 99166 Homocitrulline 0 nmol/mL [facility] Comment: Reference range: <2 Performed by [facility] DPT OF LAB MED AND PATHOLOGY, [address] [place] [address] 97965 A-aminoadipic Acid 0 nmol/mL [facility] Comment: Reference range: <3 Performed by [facility] DPT OF LAB MED AND PATHOLOGY, [address] [place] [address] 17566 W-yracf-l-butyrate 0 nmol/mL [facility] Comment: Reference range: <2 Performed by [facility] DPT OF LAB MED AND PATHOLOGY, [address] [place] [address] 52693 B-aminoisobutyrate 2 nmol/mL [facility] Comment: Reference range: <5 Performed by [facility] DPT OF LAB MED AND PATHOLOGY, [address] [place] [address] Hydroxylysine 0 nmol/mL [facility] Comment: Reference range: <2 Performed by [facility] DPT OF LAB MED AND PATHOLOGY, [address] [place] [address] 26703 Cystathionine <1 nmol/mL [facility] Comment: Reference range: <5 Performed by [facility] DPT OF LAB MED AND PATHOLOGY, [address] [place] [address] 13523 Tryptophan 31 nmol/mL [facility] Comment: Reference range: 29 to 77 Performed by [facility] DPT OF LAB MED AND PATHOLOGY, [address] [place] [address] 25376 Parathyroid Hormone 45 10 - 60 pg/ml [facility] Thyroid Stimulating Hormone 1.27 0.40 - 5.00 uU/ml [facility] 25(OH) Vitamin D Total 14(Abnorma lly L) 33 - 100 ng/mL [facility] Comment: Desired: > 32 ng/ml . Taurine, UR 660 nmol/mg Cr [facility] Comment: Reference range: 24 to 1531 Performed by [facility] DPT OF LAB MED AND PATHOLOGY, [address] [place] [address] 91368 Asparagine, UR 83 nmol/mg Cr [facility] Comment: Reference range: 25 to 238 Performed by [facility] DPT OF LAB MED AND PATHOLOGY, [address] [place] [address] 30071 Serine, UR 276 nmol/mg Cr [facility] Comment: Reference range: 97 to 540 Performed by [facility] DPT OF LAB MED AND PATHOLOGY, [address] [place] [address] 45627 Glycine, UR 1702 nmol/mg Cr [facility] Comment: Reference range: 229 to 2989 Performed by [facility] DPT OF LAB MED AND PATHOLOGY, [address] [place] [address] 97403 Glutamine, UR 629 nmol/mg Cr [facility] Comment: Reference range: 93 to 686 Performed by [facility] DPT OF LAB MED AND PATHOLOGY, [address] [place] [address] 64884 Histidine, UR 617 nmol/mg Cr [facility] Comment: Reference range: 81 to 1128 Performed by [facility] DPT OF LAB MED AND PATHOLOGY, [address] [place] [address] 44901 Threonine, UR 140 nmol/mg Cr [facility] Comment: Reference range: 31 to 278 Performed by [facility] DPT OF LAB MED AND PATHOLOGY, [address] [place] [address] 79294 Citrulline, UR 5 nmol/mg Cr [facility] Comment: Reference range: <12 Performed by [facility] DPT OF LAB MED AND PATHOLOGY, [address] [place] [address] 96610 B-Alanine, UR 33 nmol/mg Cr [facility] Comment: Reference range: <52 Performed by [facility] DPT OF LAB MED AND PATHOLOGY, [address] [place] [address] 30273 Alanine, UR 119 nmol/mg Cr [facility] Comment: Reference range: 56 to 518 Performed by [facility] DPT OF LAB MED AND PATHOLOGY, [address] [place] [address] 72310 Glutamic Acid, UR 38(Abnorma lly H) nmol/mg Cr [facility] Comment: Reference range: <34 Performed by [facility] DPT OF LAB MED AND PATHOLOGY, [address] [place] [address] 76738 1-Methylhistid, UR 331 nmol/mg Cr [facility] Comment: Reference range: 23 to 1339 Performed by [facility] DPT OF LAB MED AND PATHOLOGY, [address] [place] [address] 27463 3-Methylhistid, UR 145 nmol/mg Cr [facility] Comment: Reference range: 70 to 246 Performed by [facility] DPT OF LAB MED AND PATHOLOGY, [address] [place] [address] 57060 Carnosine, UR 2 nmol/mg Cr [facility] Comment: Reference range: <35 Performed by [facility] DPT OF LAB MED AND PATHOLOGY, [address] [place] [address] 57643 Arginine, UR 19 nmol/mg Cr [facility] Comment: Reference range: <114 Performed by [facility] DPT OF LAB MED AND PATHOLOGY, [address] [place] [address] 13211 A-Aminoadipic, UR 21 nmol/mg Cr [facility] Comment: Reference range: <47 Performed by [facility] DPT OF LAB MED AND PATHOLOGY, [address] [place] [address] 79672 B-Aminoisobutyr, UR 67 nmol/mg Cr [facility] Comment: Reference range: <301 Performed by [facility] DPT OF LAB MED AND PATHOLOGY, [address] [place] [address] 43355 A-Ftbqj-O-Butyr, UR 10 nmol/mg Cr [facility] Comment: Reference range: <19 Performed by [facility] DPT OF LAB MED AND PATHOLOGY, [address] [place] [address] 32571 Proline, UR 14 nmol/mg Cr [facility] Comment: Reference range: <26 Performed by [facility] DPT OF LAB MED AND PATHOLOGY, [address] [place] [address] 06337 Ornithine, UR 7 nmol/mg Cr [facility] Comment: Reference range: <25 Performed by [facility] DPT OF LAB MED AND PATHOLOGY, [address] [place] [address] 43611 Cystathionine, UR 2 nmol/mg Cr [facility] Comment: Reference range: <30 Performed by [facility] DPT OF LAB MED AND PATHOLOGY, [address] [place] [address] 43768 Cystine 31 nmol/mg Cr [facility] Comment: Reference range: 10 to 98 Performed by [facility] DPT OF LAB MED AND PATHOLOGY, [address] [place], [place] [id number] Lysine, UR 52 nmol/mg Cr [facility] Comment: Reference range: 15 to 271 Performed by [facility] DPT OF LAB MED AND PATHOLOGY, [address] [place], [place] [id number] Methionine 7 nmol/mg Cr [facility] Comment: Reference range: <16 Performed by [facility] DPT OF LAB MED AND PATHOLOGY, [address] [place], [place] [id number] Valine, UR 33 nmol/mg Cr [facility] Comment: Reference range: 11 to 61 Performed by [facility] DPT OF LAB MED AND PATHOLOGY, [address] [place] [address] Tyrosine, UR 88 nmol/mg Cr [facility] Comment: Reference range: 15 to 115 Performed by [facility] DPT OF LAB MED AND PATHOLOGY, [address] [place] [address] Isoleucine, UR 14 nmol/mg Cr [facility] Comment: Reference range: <22 Performed by [facility] DPT OF LAB MED AND PATHOLOGY, [address] [place], [place] [id number] Leucine, UR 29 nmol/mg Cr [facility] Comment: Reference range: <51 Performed by [facility] DPT OF LAB MED AND PATHOLOGY, [address] [place], [place] [address] Phenylalanine, UR 38 nmol/mg Cr [facility] Comment: Reference range: 13 to 70 Performed by [facility] DPT OF LAB MED AND PATHOLOGY, [address] [place] [address] 25727 URINE AA INTERP SEE NOTE [facility] Comment: (NOTE)In this sample, the amino acid profile was essentially normal. Liquid Chromatography-Tandem Mass Spectrometry (LC-MS/MS) Performed by [facility] DPT OF LAB MED AND PATHOLOGY, [address] [place], [place] [id number] Phosphoserine, UR 0 nmol/mg Cr [facility] Comment: Reference range: <1 Performed by [facility] DPT OF LAB MED AND PATHOLOGY, [address] [place], [place] [address] Phosphoethanolam,UR 10 nmol/mg Cr [facility] Comment: Reference range: <48 Performed by [facility] DPT OF LAB MED AND PATHOLOGY, [address] [place], [place] [id number] Hydroxyproline, UR 2 nmol/mg Cr [facility] Comment: Reference range: <15 Performed by [facility] DPT OF LAB MED AND PATHOLOGY, [address] [place] [address] Aspartic Acid, UR 7 nmol/mg Cr [facility] Comment: Reference range: <10 Performed by [facility] DPT OF LAB MED AND PATHOLOGY, [address] [place] [address] Ethanolamine, UR 343 nmol/mg Cr [facility] Comment: Reference range: 95 to 471 Performed by [facility] DPT OF LAB MED AND PATHOLOGY, [address] [place] [address] Sarcosine, UR 0 nmol/mg Cr [facility] Comment: Reference range: <3 Performed by [facility] DPT OF LAB MED AND PATHOLOGY, [address] [place] [address] 29237 Argininosuccinic,UR 14 nmol/mg Cr [facility] Comment: Reference range: <15 Performed by [facility] DPT OF LAB MED AND PATHOLOGY, [address] [place] [address] 79758 Anserine, UR 2 nmol/mg Cr [facility] Comment: Reference range: <38 Performed by [facility] DPT OF LAB MED AND PATHOLOGY, [address] [place] [address] 70878 Homocitruline, UR 14 nmol/mg Cr [facility] Comment: Reference range: <30 Performed by [facility] DPT OF LAB MED AND PATHOLOGY, [address] [place] [address] 97846 X-alpct-h-butyr, UR 2 nmol/mg Cr [facility] Comment: Reference range: <5 Performed by [facility] DPT OF LAB MED AND PATHOLOGY, [address] [place] [address] 51746 Hydroxylysine, UR 2 nmol/mg Cr [facility] Comment: Reference range: <12 Performed by [facility] DPT OF LAB MED AND PATHOLOGY, [address] [place] [address] 04694 Tryptophan, UR 76 nmol/mg Cr [facility] Comment: Reference range: 18 to 114 Performed by [facility] DPT OF LAB MED AND PATHOLOGY, [address] [place] [address] 94086 Allo-isoleucine, UR 2 nmol/mg Cr [facility] Comment: Reference range: <7 Performed by [facility] DPT OF LAB MED AND PATHOLOGY, [address] [place] [address] 14898 11/11/2013 3:51 PM EDT 11/11/2013 4:50 PM EDT Comment:BLD UR us David Forman MD LAB BLOOD ORDERABLES Final Resul t [address] [address] * ENDOSCOPY, COLON (01/27/2008 5:50 PM EDT) 01/27/2008 5:50 PM EDT Narrative 01/28/2008 10:10 AM EDT Report Number: [id number] Report Status: Final Type: Colonoscopy Date: 01/27/2008 17:50 [facility] Unit [phone] Patient Name: Aleida Lopez Gender: F Exam [...] study in the am. Umberto Jolly MD, [id number] Signed Date: 01/28/2008 10:09:59 AM Number of Addenda: 0 The attending physician was present throughout the entire procedure Note initiated on 01/27/2008 05:50:00 PM Procedure Note Umberto Jolly MD - 01/27/2008 5:50 PM EDT Report Number: [id number] Report Status:Final Type: Colonoscopy Date: 01/27/2008 17:50 [facility] Unit [phone] Patient Name: Aleida Lopez Gender: F Exam [...] study in the am. Umberto Jolly MD, [id number] Signed Date: 01/28/2008 10:09:59 AM Number of Addenda: 0 The attending physician was present throughout the entire procedure Note initiated on 01/27/2008 05:50:00 PM us Conversion Provider Not In Sys GI PROCEDURE ANAID MCKEON Final Result from Last 3 Months or Most Recently Relevant to Health Maintenance Insurance [address] [place] [address] MEDICARE PART A & [place] [address] MEDICARE PART A & [place] [address] [place] [address] MEDICARE PART A & B MEDICARE PART A & B [facility] MEDICARE PART A & B [facility] [place] [address] MEDICARE PART A & B [facility] MEDICARE PART A & B MEDICARE PART A & B [facility] Member Subscriber Plan / Payer (Ef fective 1992-Present) Name:Aleida Lopez Relation to Subscriber:Self Name:Aleida Lopez Payer ID:[id number] (NAIC) Group ID:[id number] Type:PPO Address: [address] MEDICARE PART A & B Advance Directives For more information, please contact: [phone] (9AM - 5PM [facility], Friday-Friday) Documents on File Type Date Recorded Patient Manager Web Application Expl anation Advance Directive - Non Epic LMR 01/26/2008 12:00 AM Care Teams Presser And Shaper Knitted Goods Relationship Specialty Start Date End Date Leonidas Calero MD [address] [employer] [place] [address] PCP - General Family Medicine 08/25/23 Dante Faustin MD [address] [place] [address] [email or web address] Soap Drier Operator Cardiology 08/26/18 Additional Source Comments The information contained in this document represents components of the legal health record. It is not the complete legal health record.[facility]
--- OUTSIDE RECORDS SUMMARY | 2025-05-02 19:03 | XMS_ITS | Encounter Summary ---
Author Organization [facility] Address [address] [place] [address] Phone Care Team Providers Care Front End Loader Driver Name Role Phone Domo Melton DO Primary Care Provider [phone] Domo Melton DO Unavailable [phone] Betsy Benavides MD, MPH Primary Care Provid er Dante Faustin MD Unavailable [phone] Unknown, Unknown Primary Care Provider Leonidas Huitron MD Primary Care Provider Encounter Details Date Type Department Care Team (Late st Contact Info) Description 01/04/2016 Ancillary Orders [facility] [address] [facility], [address] [place] [address] Luann Madsen, MAINTENANCE PLANNER [address] [facility] [phone] [place] [address] [email or web address] PAD (peripheral artery disease) (Primary Dx) Social [...] Description 05/25/2025 1:15 PM EST Office Visit [facility] [address] [place] [address] Urban Sharp MD [address] [place] [address], [place] [address] Jann Lechuga, PT 8 [place] [address] 06/01/2025 1:15 PM EST Office Visit [facility] [address] [place] [address] Urban Sharp MD [address] [place] [address], [place] [address] Jann Lechuga, PT 8 [place] [address] 06/08/2025 1:15 PM EST Office Visit [address] [place] [address] Urban Sharp MD [address] [place] [address], [place] [address] Jann Lechuga, PT 8 [place] [address] 06/15/2025 1:15 PM EST Office Visit [address] [place] [address] Urban Sharp MD [address] [place] [address], [place], [place] [phone] Jann Lechuga, PT 8 [place] [address] 08/25/2025 1:30 PM EDT Office Visit [facility] Orthopedics & Sports Medicine [address] [place] [address] Urban Sharp MD [address] [place] [address] Orthopedics & Sports Medicine, [facility] [place] [address] [email or web address] documented as of this encounter Results * [...] Doppler analysis. PEAK SYSTOLIC VELOCITIES (msec): RT SEAMSTRESS FITTER Acceleration Time: 280 LT SEAMSTRESS FITTER Acceleration Time: 100 FINDINGS: Duplex evaluation of [...] right and 1.04 on the left RT SEAMSTRESS FITTER Acceleration Time: 280msec LT SEAMSTRESS FITTER Acceleration Time: 100msec Procedure Note Ishan Alves MD - 01/24/2016 LOWER EXTREMITY ARTERIAL DUPLEX UNILATERAL (ACCELERATION TIMES) NOTES: PVD REPORT: A duplex ultrasound evaluation of the common femoral arteries wasperformed using a combination of galloway scale imaging, color duplex and spectralDoppler analysis. PEAK SYSTOLIC VELOCITIES (msec): RT SEAMSTRESS FITTER Acceleration Time: 280 LT SEAMSTRESS FITTER Acceleration Time: 100 FINDINGS: Duplex evaluation of the common femoral arteries was performedbilaterally. The right common femoral artery acceleration time is 280 msec.The leftcommon femoral artery acceleration time is 100 msec. IMPRESSIONS: 1. Acceleration times of >144 msec are consistent with abnormal inflowarterial hemodynamics in the lower extremities. 2. The ankle/brachial index is 0.86 on the right and 1.04 on the left RT SEAMSTRESS FITTER Acceleration Time: 280msec LT SEAMSTRESS FITTER Acceleration Time: 100msec Luann Madsen MAINTENANCE PLANNER CV US VASCULAR Final Res ult documented in this encounter Visit Diagnoses Diagnosis PAD (peripheral artery disease)- Primary Unspecified peripheral vascular disease PAD (peripheral artery disease) Unspecified peripheral vascular disease documented in this encounter Care Teams Front End Loader Driver Relationship Specialty Start Date End Date Domo Melton DO [address] [place] [address] PCP - General 11/16/13 07/14/18 Betsy Benavides MD, MPH [address] [address] [email or web address] PCP - General Family Medicine 07/15/18 05/25/19 Unknown, [place], [address] [employer] [address] [place] [address] PCP - General 05/26/19 08/24/23 Leonidas Calero MD [address] [employer] [address] [place] [address] PCP - General Family Medicine 08/25/23 Domo Melton DO [address] [place] [address] Historical LMR Provider 03/04/1707/14 Dante Faustin MD [address] [employer] [place] [address] [email or web address] Auto Body Repairer Cardiology 08/26/18 documented as of this encounter Additional Source Comments The information contained in this document represents components of the legal health record. It is not the complete legal health record.[facility]
--- OUTSIDE RECORDS SUMMARY | 2025-05-02 19:03 | XMS_ITS | Clinical Summary ---
Author Organization [facility] ity Address [address] [place] [address] Care Team Providers Care Varitypist Name Role Phone Unavailable Primary Care Provider [...] Depression Screening 05/19/2024 COVID-19 Vaccine (1 - 2024-2 6 season) 2025 Influenza Vaccine (#1) 2025 RSV [...]
--- OUTSIDE RECORDS SUMMARY | 2025-05-02 19:03 | XMS_ITS | Encounter Summary ---
Author Organization [facility] Address [address] [facility] [address] [place] [address] Phone Care Team Providers Care School Bus Dispatcher Name Role Phone Dante Faustin MD Unavailable [phone] Unknown, Unknown Primary Care Provider Leonidas Huitron MD Primary Care Provider Encounter Details Date Type Department Care Team (Late st Contact Info) Description 03/09/2020 Procedure Pass [facility]ventional [facility]iology [address] [place] [address] Social History Tobacco Use Types Packs/Day Years [...] Description 05/25/2025 1:15 PM EST Office Visit [facility] [address] [place] [address] Urban Sharp MD [address] [place] [address] [facility] [place] [address] Jann Lechuga, PT 8 [place] [address] 06/01/2025 1:15 PM EST Office Visit [facility] [address] [place] [address] Urban Sharp MD [address] [place] [address] Orthopedics Sports [facility], [place] [address] Jann Lechuga, PT 8 [place] [address] 06/08/2025 1:15 PM EST Office Visit [facility] [address] [place] [address] Urban Sharp MD [address] [place], [place] [address]s Sports [facility] [place] [address] Jann Lechuga, PT 8 [place] [address] 06/15/2025 1:15 PM EST Office Visit [address] [address] Urban Sharp MD [address] [place] [address] Orthopedics Sports [facility], [place], [place] [phone] Jann Lechuga, PT 8 [place] [address] 08/25/2025 1:30 PM EDT Office Visit [facility] Orthopedics & Sports Medicine [address] [place] [address] [id number] Urban Sharp MD [address] [place] [address] Orthopedics Sports [facility], [place], [place] [phone] documented as of this encounter Visit Diagnoses Not on filedocumented in this encounter Care Teams School Bus Dispatcher Relationship Specialty Start Date End Date Unknown, Unknown, [address] [facility] [address] [place] [address] PCP - General 05/26/19 08/24/23 Leonidas aClero MD [address] [facility] [address] [place] [address] PCP - General Family Medicine 08/25/23 Dante Faustin MD [address] [facility] [address] [place] [address] [email or web address] Press Clippings Cutter And Paster Cardiology 08/26/18 documented as of this encounter Additional Source Comments The information contained in this document represents components of the legal health record. It is not the complete legal health record.[facility]
== END 2025-05-02 14:12 | disposition home or self-care (01) ==
PROVIDERS: PCP Family Medicine; Visit Provider Nurse Practitioner Family
DX: R07.9 Chest pain, unspecified (principal)

== ENCOUNTER 2025-05-02 13:05 | Outpatient (REF) | payer BC, MEDICAID, SELFPAY ==
--- NOTE | ~2025-05-02 | XR_ITS ---
EXAMINATION: XR CHEST CLINICAL INFORMATION: R07.9 - Chest pain, unspecified COMPARISON: X-ray 05/02/2025 TECHNIQUE: 2 views of the chest were obtained. FINDINGS: The cardiomediastinal silhouette is within normal limits. The lungs are well expanded. There is no focal consolidation, edema, or effusion. No pneumothorax. No acute displaced rib fractures identified. Augmentation changes of the 11th T12 vertebral bodies. XR/XR chest 2V IMPRESSION: No radiographic evidence of acute pulmonary process Electronically signed by: Felipe Dill MD 05/02/2025 02:30 PM [email or web address]
== END 2025-05-02 13:06 | disposition home or self-care (01) ==
LOC: HO.HMGCX 13:05
PROVIDERS: PCP Family Medicine; Visit Provider Nurse Practitioner Family
DX: R07.2 Precordial pain (principal)
CPT/HCPCS: 71046

== ENCOUNTER → 2025-05-02 13:49 | Outpatient (BNV) | payer BC, MEDICAID, SELFPAY | PROVIDERS: PCP Family Medicine; Visit Provider Radiology Diagnostic Ultrasound | DX: R07.9 Chest pain, unspecified (principal) | CPT/HCPCS: 71046 ==